=== PATIENT | male | born 1945 | race Caucasian/White ===

== ENCOUNTER → 2017-06-20 14:34 | Outpatient (REF) | payer MEDICARE, MEDICAID, SELFPAY ==
[2017-06-20 16:53] LABS: Erythrocyte Sedimentation Rate 22 mm/hr (0-20)
== END ==
LOC: LAB 14:34
PROVIDERS: Visit Provider Emergency Medicine
DX: R51 Headache (principal)
CPT/HCPCS: 85651

== ENCOUNTER → 2017-07-08 13:39 | Outpatient (REF) | payer MEDICARE, MEDICAID, SELFPAY | LOC: LAB 13:39 | PROVIDERS: Visit Provider Emergency Medicine | DX: R05 Cough (principal); R50.9 Fever, unspecified | CPT/HCPCS: 87275; 87276 ==

== ENCOUNTER → 2017-10-10 03:20 | Outpatient (REF) | payer MEDICARE, MEDICAID, SELFPAY | LOC: LAB 03:20 | PROVIDERS: Visit Provider Emergency Medicine | DX: L02.213 Cutaneous abscess of chest wall (principal) | CPT/HCPCS: 87070; 87077; 87205 ==

== ENCOUNTER → 2018-01-02 12:15 | Outpatient (REF) | payer MEDICARE, MEDICAID, SELFPAY ==
[2018-01-02 12:21] LABS: Microscopic, Urine URINE MICROSCOPIC (MICROSCOPIC)
[2018-01-02 12:36] LABS: Appearance,Urine CLOUDY (Clear); Bilirubin,Urine Negative (Negative); Blood, Urine 2+ (Negative); Color,Urine YELLOW (Yellow); Glucose,Urine (UA) Negative (Negative); Ketones,Urine Negative (Negative); Leukocyte Esterase,Urine 1+ (Negative); Nitrate,Urine POSITIVE (Negative); PH,Urine 6.5 (5.0-8.5); Protein,Urine 2+ (Negative); Specific Gravity, Urine 1.025 (1.005-1.030); Urobilinogen,Urine 0.2 EU/dl (0.2)
[2018-01-02 12:52] LABS: Bacteria,Urine 4+ /lpf; WBC,Urine TNTC #/hpf (0-3)
[2018-01-02 13:16] LABS: Basophils % 0.3 % (0.1-2.0); Eosinophils # 0.1 K/mm3 (0.0-0.4); Eosinophils % 1.1 % (0.1-12.0); Hematocrit 40.9 % (42.0-52.0); Hemoglobin 13.2 g/dL (14.1-18.0); Lymphocytes # 1.4 K/mm3 (0.7-4.5); Lymphocytes % 24.6 K/mm3 (10-50); Mean Corpuscular HGB Conc 32.2 g/dL (31.8-35.4); Mean Corpuscular Hemoglobin 30.3 pg (27.0-31.2); Mean Platelet Volume 9.1 fl (7.4-10.4); Monocytes # 0.2 K/mm3 (0.1-1.0); Neutrophils # 3.9 K/mm3 (1.8-7.8); Platelet Count 272 K/mm3 (142-424); Red Blood Count 4.35 M/mm3 (4.60-6.20); Red Cell Distribution Width 13.7 % (11.5-17.5); White Blood Count 5.5 K/mm3 (4.8-10.8)
[2018-01-02 13:28] LABS: Alanine Aminotransferase 29 U/L (12-78); Albumin Level 3.4 gm/dL (3.4-5.0); Albumin/Globulin Ratio 0.9 (1.1-1.8); Alkaline Phosphatase 92 U/L (46-116); Anion Gap 16.3 mEq/L (5-15); Aspartate Amino Transferase 15 U/L (15-37); Bilirubin,Total 0.4 mg/dL (0.2-1.0); Blood Urea Nitrogen 11 mg/dL (7-18); Calcium 8.6 mg/dL (8.5-10.1); Carbon Dioxide 25 mmol/L (21.0-32.0); Chloride 104 mmol/L (98-107); Creatinine,Serum 1.06 mg/dL (0.70-1.30); Estimated Glomerular Filt Rate 69 ml/min (>60); GFR (African American) 83 ML/MIN (>60); Globulin 3.7 gm/dl (1.3-3.2); Glucose 141 mg/dL (74-106); Potassium 4.3 mmoL/L (3.5-5.1); Sodium 141 mmol/L (136-145); T4 (Thyroxine) 6.4 ug/dl (4.7-13.3); Thyroid Stimulating Hormone 0.58 uIU/ml (0.358-3.740); Total Protein,Serum 7.1 gm/dL (6.4-8.2)
[2018-01-02 14:27] LABS: Erythrocyte Sedimentation Rate 42 mm/hr (0-20)
== END ==
LOC: LAB 12:15
PROVIDERS: Visit Provider Emergency Medicine
DX: D64.9 Anemia, unspecified (principal); N39.0 Urinary tract infection, site not specified; I25.10 Atherosclerotic heart disease of native coronary artery without angina pectoris; E78.5 Hyperlipidemia, unspecified
CPT/HCPCS: 36415; 80053; 81001; 84436; 84443; 85025; 85651; 87086; 87088; 87186

== ENCOUNTER → 2018-01-18 19:33 | Outpatient (CLI) | payer MEDICARE, MEDICAID, SELFPAY ==
[2018-01-18 19:50] LABS: Microscopic, Urine URINE MICROSCOPIC (MICROSCOPIC)
[2018-01-18 19:52] LABS: Appearance,Urine CLEAR (Clear); Bilirubin,Urine Negative (Negative); Blood, Urine Negative (Negative); Color,Urine YELLOW (Yellow); Glucose,Urine (UA) Negative (Negative); Ketones,Urine Negative (Negative); Leukocyte Esterase,Urine Negative (Negative); Nitrate,Urine Negative (Negative); Protein,Urine Negative (Negative); Urobilinogen,Urine 0.2 EU/dl (0.2)
== END ==
PROVIDERS: Visit Provider Emergency Medicine
DX: N39.0 Urinary tract infection, site not specified (principal)
CPT/HCPCS: 81001; 87086

== ENCOUNTER 2020-07-02 23:55 | Inpatient (IN) | payer MEDICAID, MEDICARE, SELFPAY ==
[2020-07-02 23:51] VITALS: BP 104/64; PULSE 97; RESP 18; TEMP 37.8; O2SAT 95; BMI 38.0
--- NOTE | 2020-07-02 23:51 | PC.NURSE ---
Pt placed in COVID precautions upon arrival.
[2020-07-03] VITALS (13 sets, daily range): BP systolic 81–123; BP diastolic 53–83; PULSE 87–122; RESP 15–19; TEMP 36.3–37.6; O2SAT 90–97; BMI 27.8; BMI 27.7
[2020-07-03 00:33] LABS: POC Glucose,Bedside 120 (70-110)
--- NOTE | 2020-07-03 00:34 | CT_ITS ---
PROCEDURE: CT ABDOMEN PELVIS W CON CLINICAL INDICATION: vomiting Vomiting, Covid19 positive COMPARISON: CT ABDPELW/O CT ABD PELVIS W/O CONTRAST from 08/04/2014 TECHNIQUE: IV Contrast: 75ML Isovue 370 Oral Contrast None Axial images obtained with sagittal and coronal reformats. All CT scans at the facility use one or more dose reduction, viz: automated exposure control, ma/kV adjustment per patient size (including targeted exams where dose is matched to indication, i.e. head), or iterative reconstruction technique. FINDINGS: The patient was only able to lay on left side for the scan. This limits evaluation of the abdomen and pelvis. There are mild atelectatic changes in the right lung base and dependent atelectatic changes on the left. 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 Two cm right renal cyst. Cholelithiasis. The liver is unremarkable. There is splenomegaly at 14 cm. There is a fusiform abdominal aortic aneurysm measuring up to 5.7 cm AP and 5.6 cm transverse previously 4.4 x 4.4 cm. There is a moderate degree of mural thrombus with some calcification of the mural thrombus. The aneurysm begins just below the level of the renal arteries and extends to the aortic bifurcation. No evidence of acute retroperitoneal hemorrhage. No intestinal obstruction or free air. There is a mild degree retained colonic feces. No intestinal obstruction or free air. No evidence of appendicitis or diverticulitis there is a Felton catheter present. Urinary bladder is severely thickened with air-fluid levels in the urinary bladder. There is a 5 cm fluid collection along the superior and right aspect of the urinary bladder may be due to a diverticulum. There is an old fracture of the right ilium IMPRESSION: 1. Large left-sided diaphragmatic hernia with intrathoracic stomach and contains portion of the pancreas. 2. Cholelithiasis. 3. Interval increase in size of the abdominal aortic aneurysm now 5.7 x 5.6 cm previously 4.4 x 4.4 cm. No evidence of acute retroperitoneal hemorrhage. 4. Decompressed urinary bladder around Felton catheter with marked thickening and reticulation of the bladder wall which may be seen with neoplasm, chronic outflow obstruction, cystitis or a combination there of. Bladder diverticulum also noted. 5. Moderate amount of retained colonic feces Dictated by: Marvin Keller MD 07/03/2020 07:01 Marvin Keller MD in [place] 07/03/2020 07:01
--- NOTE | 2020-07-03 00:34 | XR_ITS ---
PROCEDURE: XR CHEST PORTABLE CLINICAL HISTORY: COIVD + COMPARISON: CT [facility] CT CHEST W/O CONTRAST from 05/28/2016 CR CXR1 CHEST-PORTABLE from 09/16/2016 CR CXR CHEST(2 VIEWS-NOT PORTABLE) from 09/16/2016 CR CXR CHEST(2 VIEWS-NOT PORTABLE) from 09/17/2016 FINDINGS: Study is limited in patient positioning. Patient was unable to lie on their so exam was performed with the left lateral decubitus position Chronic interstitial changes are present. There is normal heart size. There is increased density in the left mid lung zone. It is uncertain whether this is due to atelectatic changes from the dependent position of the left lung or underlying infiltrate. Right lateral decubitus exam may provide further evaluation. The chin obscures the upper mediastinum and lung apices. No acute bony abnormalities. IMPRESSION: Limited exam due to patient positioning. There is increased density in the left mid lung zone. It is uncertain whether this is due to atelectatic changes from the dependent position of the left lung or underlying infiltrate. Right lateral decubitus exam may provide further evaluation if the patient cannot lie on the back or sit upright. Dictated by: Marvin Keller MD 07/03/2020 06:03 Marvin Keller MD in [facility] 07/03/2020 06:03
--- NOTE | 2020-07-03 00:35 | HMH.EDAMS ---
ED Disposition Clinical Impression: COVID-19 virus detected, Abdominal aortic aneurysm, without rupture, Essential (primary) hypertension, Renal insufficiency COPD (chronic obstructive pulmonary disease) Qualifiers: COPD type: unspecified COPD Qualified Code(s): J44.9 - Chronic obstructive pulmonary disease, unspecified UTI (urinary tract infection) Qualifiers: Urinary tract infection type: site unspecified Hematuria presence: without hematuria Qualified Code(s): N39.0 - Urinary tract infection, site not specified Diaphragmatic hernia Qualifiers: Obstruction and gangrene presence: without obstruction or gangrene Qualified Code(s): K44.9 - Diaphragmatic hernia without obstruction or gangrene Schizophrenia Qualifiers: Schizophrenia type: unspecified Qualified Code(s): F20.9 - Schizophrenia, unspecified Dysphagia Qualifiers: Dysphagia type: unspecified Qualified Code(s): R13.10 - Dysphagia, unspecified Cholelithiasis Qualifiers: Cholelithiasis location: gallbladder Cholecystitis presence: without cholecystitis Biliary obstruction: without biliary obstruction Qualified Code(s): K80.20 - Calculus of gallbladder without cholecystitis without obstruction Disposition: Admitted As Inpatient Condition on Discharge: Serious Instructions: DI for Altered Mental Status Referrals: Scottie Farah MD [Primary Care Provider] - - Critical Care Critical Care Time: No Attestation: On 07/02/20, the high probability of a clinically significant, sudden or life threatening deterioration of the following system(s) required my full and direct attention, intervention and personal management. The time I documented below is in addition to time spent performing reported procedures but includes the following listed in this critical care notation. Medical Decision Making - Medical Records Medical records reviewed: Yes: I reviewed the patient's medical records. - Tre Inquiry Pt receiving controlled substance: No Vital Signs: 07/02/20 23:51 07/03/20 00:30 07/03/20 01:00 Temperature 100.1 F H Temperature Source Rectal Pulse Rate [Apical] 97 H 102 H 87 Respiratory Rate 18 17 17 Blood Pressure [Right Arm] 104/64 L 100/63 L 81/53 L Blood Pressure Mean [Right Arm] 77 75 62 Blood Pressure Source [Right Arm] Automatic Cuff Automatic Cuff Automatic Cuff Blood Pressure Position [Right Arm] Supine Left Lateral Left Lateral 02 Sat by Pulse Oximetry 95 90 L 92 L Oxygen Delivery Method Room Air Room Air Room Air Oxygen Flow Rate (LPM) 07/03/20 01:30 07/03/20 02:00 Temperature Temperature Source Pulse Rate [Apical] 108 H 96 H Respiratory Rate 15 17 Blood Pressure [Right Arm] 107/61 L 96/63 L Blood Pressure Mean [Right Arm] 76 74 Blood Pressure Source [Right Arm] Automatic Cuff Automatic Cuff Blood Pressure Position [Right Arm] Left Lateral Supine 02 Sat by Pulse Oximetry 94 L 96 Oxygen Delivery Method Room Air Nasal Cannula Oxygen Flow Rate (LPM) 3 - Lab Data Lab results reviewed: Yes: I reviewed the patient's lab results. Lab Results 07/03/20 00:10: Chlamy pneumoniae PCR Not detected, Adenovirus (PCR) Not detected, B. pertussis DNA (PCR) Not detected, Coronavirus OC43 (PCR) Not detected, Coronavirus HKU1 (PCR) Not detected, Coronavirus 229E (PCR) Not detected, SARS-CoV-2 (PCR) Detected A, Coronavirus NL63 (PCR) Not detected, Human Metapneumovir PCR Not detected, Influenza A (H1) PCR Not detected, Influ A (H1N1/09) PCR Not detected, Influenza A (H3) PCR Not detected, Influenza Type A (PCR) Not detected, Influenza Type B (PCR) Not detected, M. pneumoniae (PCR) Not detected, Parainfluenza 1 (PCR) Not detected, Parainfluenza 2 (PCR) Not detected, Parainfluenza 3 (PCR) Not detected, Parainfluenza 4 (PCR) Not detected, RSV (PCR) Not detected, Entero/Rhino (PCR) Not detected 07/03/20 00:19: Urine Color Yellow, Urine Appearance Cloudy, Urine pH >= 9.0 H, Ur Specific [place] 1.015, Urine Protein 3+, Urine Glucose (UA) Negative,
[2020-07-03 00:44] LABS: Adenovirus,PCR Not Detected (NotDetected); Bordetella Pertussis Not Detected (NotDetected); Chlamydophila Pneumoniae, PCR Not Detected (NotDetected); Coronavirus 229E Not Detected (NotDetected); Coronavirus NL63 Not Detected (NotDetected); Coronavirus OC43 Not Detected (NotDetected); Coronovirus HKU1,PCR Not Detected (NotDetected); Human Metapneumovirus Not Detected (NotDetected); Influenza A, PCR Not Detected (NotDetected); Influenza AH1, 2009 Not Detected (NotDetected); Influenza AH1, PCR Not Detected (NotDetected); Influenza AH3,PCR Not Detected (NotDetected); Influenza B, PCR Not Detected (NotDetected); Mycoplasma Pneumoniae, PCR Not Detected (NotDetected); Parainfluenza 1, PCR Not Detected (NotDetected); Parainfluenza 2, PCR Not Detected (NotDetected); Parainfluenza 3, PCR Not Detected (NotDetected); Parainfluenza 4, PCR Not Detected (NotDetected); Respiratory Syncytial Virus Not Detected (NotDetected); Rhinovirus/Enterovirus Not Detected (NotDetected)
[2020-07-03 00:49] LABS: Basophils % 0.3 % (0.1-2.0); Eosinophils % 0.1 % (0.1-12.0); Hematocrit 39.2 % (42.0-52.0); Hemoglobin 13.3 g/dL (14.1-18.0); Lymphocytes # 0.8 K/mm3 (0.7-4.5); Lymphocytes % 11.6 % (10-50); Mean Corpuscular HGB Conc 33.9 g/dL (31.8-35.4); Mean Corpuscular Hemoglobin 31.2 pg (27.0-31.2); Mean Platelet Volume 8.1 fl (7.4-10.4); Monocytes # 0.5 K/mm3 (0.1-1.0); Neutrophils # 5.2 K/mm3 (1.8-7.8); Platelet Count 212 K/mm3 (142-424); Red Blood Count 4.27 M/mm3 (4.60-6.20); White Blood Count 6.5 K/mm3 (4.8-10.8)
[2020-07-03 00:53] LABS: Microscopic, Urine URINE MICROSCOPIC (MICROSCOPIC)
[2020-07-03 00:57] LABS: Alanine Aminotransferase 21 U/L (12-78); Albumin Level 4.3 g/dl (3.5-5.0); Albumin/Globulin Ratio 1.2 (1.1-1.8); Alkaline Phosphatase 108 U/L (38-126); Anion Gap 14.9 mEq/L (5-15); Aspartate Amino Transferase 34 U/L (17-59); Bilirubin,Total 0.5 mg/dl (0.2-1.3); Blood Urea Nitrogen 25 mg/dl (9-20); Calcium 9.3 mg/dl (8.4-10.2); Carbon Dioxide 26 mmol/L (22.0-30.0); Chloride 102 mmol/L (98-107); Creatinine Clearance Estimated 74 mL/min (50-200); Estimated Glomerular Filt Rate 50 ml/min (>60); GFR (African American) 60 ML/MIN (>60); Globulin 3.5 g/dL (1.3-3.2); Glucose 139 mg/dl (74-100); Potassium 3.9 mmoL/L (3.5-5.1); Sodium 139 mmol/L (136-145); Total Protein,Serum 7.8 g/dl (6.3-8.2)
[2020-07-03 01:02] LABS: C-Reactive Protein 4.6 mg/L (0-4)
[2020-07-03 01:05] LABS: Salicylate < 1.0 mg/dL (2.0-20.0)
[2020-07-03 01:10] LABS: Appearance,Urine CLOUDY (Clear); Bilirubin,Urine Negative (Negative); Blood, Urine TRACE-I (Negative); Color,Urine YELLOW (Yellow); Glucose,Urine (UA) Negative (Negative); Ketones,Urine Negative (Negative); Leukocyte Esterase,Urine 1+ (Negative); Nitrate,Urine Negative (Negative); Protein,Urine 3+ (Negative); Specific Gravity, Urine 1.015 (1.005-1.030); Urobilinogen,Urine 0.2 EU/dl (0.2)
[2020-07-03 01:13] LABS: PH,Urine >= 9.0 (5.0-8.5)
[2020-07-03 01:16] LABS: Procalcitonin 0.048 ng/mL (0.0-2.0)
[2020-07-03 01:20] LABS: Barbiturates Screen,Urine Negative ng/ml (<200); Benzodiazepines Screen,Urine Negative ng/ml (<200)
[2020-07-03 01:21] LABS: Amphetamine/Metha Screen,Urine Negative ng/ml (<1000)
[2020-07-03 01:22] LABS: Bacteria,Urine 4+ /lpf; Cannabinoid Screen,Urine Negative ng/ml (<50); Cocaine Screen,Urine Negative ng/ml (<300)
[2020-07-03 01:23] LABS: Opiate Screen,Urine Negative ng/ml (<300); Phencyclidine Screen,Urine Negative ng/ml (<25)
[2020-07-03 01:24] LABS: Erythrocyte Sedimentation Rate 26 mm/hr (0-20)
--- NOTE | 2020-07-03 01:37 | ECG_ITS ---
APPROVED REPORT Exam: Resting ECG HR:116 bpm ECG Measurements Heart Rate 116 AXES NC 172 P 64 QRSd 82 QRS 81 QT 322 T 59 QTc 447 Conclusion Sinus tachycardia Septal infarct, age undetermined Abnormal ECG Electronically signed by : Nitin Neville, 07/03/2020 14:15:35
[2020-07-03 01:47] LABS: ABG Base Excess -3.9 mmol/L (-2.4-2.3); ABG HCO3 19.5 mmhg (22.0-26.0); ABG Oxygen Saturation 96 % (90-100); ABG PCO2 26.3 mmhg (35.0-45.0); ABG PH 7.49 mmol/L (7.35-7.45); ABG PO2 78.1 mmhg (80-100); ABG TCO2 20.3 mmhg (23-27)
[2020-07-03 01:50] LABS: Allen's Test Acceptable; Oxygen 3L %; Source Left Radial
--- NOTE | 2020-07-03 02:13 | PC.NURSE ---
Pt has remained on room air since arriving.
--- NOTE | 2020-07-03 02:14 | PC.NURSE ---
Carrie called and was given update on pt status.
--- NOTE | 2020-07-03 02:17 | PC.NURSE ---
corrected oxygen source. pt was only placed on nasal cannula CO2 detection. no oxygen being used.
[2020-07-03 02:27] LABS: Troponin I < 0.01 ng/ml (0.00-0.034)
[2020-07-03 04:07] LABS: Coronavirus 19, PCR Detected (NotDetected)
[2020-07-03 04:59] LABS: Troponin I < 0.01 ng/ml (0.00-0.034)
--- NOTE | 2020-07-03 06:01 | PC.NURSE ---
patient up to floor via stretcher.
[2020-07-03 08:00] LABS: Basophils % 0.3 % (0.1-2.0); Hematocrit 37.4 % (42.0-52.0); Hemoglobin 12.3 g/dL (14.1-18.0); Lymphocytes # 1.2 K/mm3 (0.7-4.5); Lymphocytes % 25.2 % (10-50); Mean Corpuscular HGB Conc 32.9 g/dL (31.8-35.4); Mean Corpuscular Hemoglobin 30.3 pg (27.0-31.2); Mean Corpuscular Volume 91.9 fl (80-94); Mean Platelet Volume 7.8 fl (7.4-10.4); Monocytes # 0.4 K/mm3 (0.1-1.0); Monocytes % 8.1 % (1.7-9.3); Neutrophils # 3.2 K/mm3 (1.8-7.8); Neutrophils % 66.4 % (37.0-80.0); Platelet Count 189 K/mm3 (142-424); Red Blood Count 4.07 M/mm3 (4.60-6.20); Red Cell Distribution Width 14.2 % (11.5-17.5); White Blood Count 4.8 K/mm3 (4.8-10.8)
--- NOTE | 2020-07-03 08:19 | P.CONPHA_ITS ---
[facility] Pharmacy VTE Monitoring - Patient Demographics Admission date: 07/03/20 Report Date: 07/03/20 Time: 08:19 Allergies/Adverse Reactions: Patient Allergies No Known Allergies Allergy (Verified 06/24/20 15:06) Height: 1.73 m Weight: 83.149 kg Patient Problems: Current Active Problems COVID-19 virus detected (Acute) UTI (urinary tract infection) (Acute) Diaphragmatic hernia (Acute) Schizophrenia (Acute) Renal insufficiency (Acute) Dysphagia (Acute) Cholelithiasis (Acute) Abdominal aortic aneurysm, without rupture (Chronic) Essential (primary) hypertension (Chronic) COPD (chronic obstructive pulmonary disease) (Chronic) - VTE Risk Labs: VTE Related Lab Results Hgb 12.3 g/dL (14.1-18.0) L 07/03/20 06:30 Hct 37.4 % (42.0-52.0) L 07/03/20 06:30 Plt Count 189 K/mm3 (142-424) 07/03/20 06:30 BUN 25 mg/dl (9-20) H 07/03/20 00:28 Creatinine 1.40 mg/dl (0.66-1.25) H 07/03/20 00:28 Estimated Creat Clear 74 mL/min (50-200) 07/03/20 00:28 Was VTE Risk Assessment Performed: Yes VTE Score: 5 VTE Risk Level: Low Risk Clinical Trial Participant: No - Prophylaxis VTE Prophylaxis Ordered?: Yes Types of VTE Prophylaxis: TEDS Knee High, Pharmacological Pharmacologic Type: Enoxaparin
[2020-07-03 08:27] LABS: Alanine Aminotransferase 18 U/L (12-78); Albumin Level 3.6 g/dl (3.5-5.0); Albumin/Globulin Ratio 1.2 (1.1-1.8); Alkaline Phosphatase 84 U/L (38-126); Anion Gap 12.6 mEq/L (5-15); Aspartate Amino Transferase 43 U/L (17-59); Bilirubin,Total 0.4 mg/dl (0.2-1.3); Blood Urea Nitrogen 21 mg/dl (9-20); Calcium 8.4 mg/dl (8.4-10.2); Carbon Dioxide 22 mmol/L (22.0-30.0); Chloride 109 mmol/L (98-107); Creatinine Clearance Estimated 69 mL/min (50-200); Estimated Glomerular Filt Rate 65 ml/min (>60); GFR (African American) 79 ML/MIN (>60); Glucose 123 mg/dl (74-100); Potassium 3.6 mmoL/L (3.5-5.1); Sodium 140 mmol/L (136-145); Total Protein,Serum 6.6 g/dl (6.3-8.2)
--- NOTE | 2020-07-03 09:06 | HMH.PHAINT ---
HOME MEDICATION LIST COMPLETED USING LIST FROM [facility]
--- NOTE | 2020-07-03 09:08 | HMH.HP ---
*Admission Date: 07/03/20 *Chief complaint: ams *History of present illness: 75 yr old male presents to ed per EMS for c/o of ams.EMS reports AMS with onset today. half-way reports positive COVID to EMS. Pt is difficult to arouse, but does arouse when name is called. pt admitted for uti and covid pos. [facility] History I have reviewed the patient's past medical history: Yes Medical History: Reports:: Aneurysm, Anxiety, Asthma, Chronic Obstructive Pulmonary Disease (COPD), Coronary Artery Disease, Dementia, Hyperlipidemia, Hypertension Denies:: Diabetes Mellitus Type 1, Diabetes Mellitus Type 2 *Have you ever received a pneumonia vaccine?: Yes *Have you received a flu vaccine this season?: No Other Medical History: Reports: Anemia, Arthritis, Cataracts Laterality Cases: Bilateral: Tonsillectomy Other Surgeries: Yes: Hernia Repair, Sinus Surgery, Other - *Social History Smoking Status: Smoker, status unknown Alcohol Intake: never Alcohol Intake Frequency:: other *Occupational Status:: disabled Housing: [facility] *Travel in the last 8 weeks: None - Psychiatric History Pschychiatric History:: Reports:: Anxiety Family Hx:: Unable to obtain Review of Systems - Review of Systems Review of systems:: pertinent systems reviewed and negative unless documented below - Constitutional Denies body ache(s) - Eyes Denies blurry vision - ENT Denies bleeding gums, Denies nose pain - *Cardiovascular Denies chest pain at rest - *Respiratory Denies cough - *Gastrointestinal Denies nausea, Denies vomiting - *Genitourinary Denies urinary frequency - *Musculoskeletal Denies joint pain - Integumentary/Breasts Denies rash - *Neurologic Denies dizziness - Psychiatric Denies anxiety - Endocrine Denies flushing - Hematologic/Lymphatic Denies enlarged lymph nodes - Allergic/Immunologic Denies itchy eyes Meds Home Medications Medication Instructions Recorded Confirmed Type acetaminophen 500 mg capsule 500 mg PO Q4H PRN 07/14/17 07/03/20 History finasteride 5 mg tablet 5 mg PO DAILY 07/14/17 07/03/20 History folic acid 1 mg tablet 1 mg PO DAILY 07/14/17 07/03/20 History mecobalamin (vitamin B12) 1,000 1,000 mcg SUBLINGUAL HS 07/14/17 07/03/20 History mcg disintegrating tablet,sublingual multivitamin 1 tab PO DAILY 07/14/17 07/03/20 History ondansetron 4 mg disintegrating 4 mg PO Q6H PRN 07/14/17 07/03/20 History tablet pantoprazole 40 mg tablet,delayed 40 mg PO HS 07/14/17 07/03/20 History release metoprolol tartrate 25 mg tablet 12.5 mg PO BID tab 07/15/17 07/03/20 History atorvastatin 20 mg tablet 20 mg PO HS tab 02/10/18 07/03/20 History loratadine 10 mg tablet 10 mg PO DAILY tab 02/10/18 07/03/20 History sennosides 8.6 mg-docusate sodium 1 tab PO BID tab 02/10/18 07/03/20 History 50 mg tablet Acetaminophen [Acetaminophen Extra 500 mg PO HS 07/03/20 07/03/20 History Strength] Ascorbic Acid [Vitamin C] 500 mg PO QID 07/03/20 07/03/20 History Azithromycin [Z-Murali 250mg Tab*] 500 mg PO DAILY 07/03/20 07/03/20 History Cholecalciferol (Vitamin D3) 50,000 unit PO WEEKLY 07/03/20 07/03/20 History [Vitamin D3 50,000 unit Cap] Ibuprofen [Ibuprofen 400mg 400 mg PO HS 07/03/20 07/03/20 History Tablet] LORazepam [Lorazepam] 0.5 mg PO BID 07/03/20 07/03/20 History Loperamide HCl [Loperamide] 2 mg PO Q4HP PRN 07/03/20 07/03/20 History Mag Hydrox/Aluminum Hyd/Simeth 30 ml PO Q2HP PRN 07/03/20 07/03/20 History [Mylanta Maximum Strength Liq] Quetiapine Fumarate [Quetiapine 200 mg PO HS 07/03/20 07/03/20 History Fumarate ER] Quetiapine Fumarate [Seroquel 25mg 25 mg PO 0700,1200 07/03/20 07/03/20 History tablet] Sucralfate [Sucralfate 1gm 1 gm PO TIDWM 07/03/20 07/03/20 History Tab] Zinc 50 mg PO DAILY 07/03/20 07/03/20 History guaiFENesin [Chest Congestion 10 ml PO Q6HP PRN 07/03/20 07/03/20 History Relief] Allergies Allergy/AdvReac Type Severity Reactio
[2020-07-03 09:09] LABS: Troponin I < 0.01 ng/ml (0.00-0.034)
--- NOTE | 2020-07-03 09:34 | DIET.NUTRFU ---
Confirmed with Attalla pt is on soft mechanical diet with nectar thickened liquids there dt dysphagia.
--- NOTE | 2020-07-03 10:14 | SW/DCPLANNER ---
Addendum entered by Wendie Duvall 07/05/20 09:30: This patient will discharge back to [facility] today: I called and informed Laure with [facility]. Original Note: This patient currently resides at [facility]. I have spoke with Afsaneh at [facility] and she has stated that patient is [facility] level of care. I will follow up with Afsaneh once patient is medically stable for discharge.
--- NOTE | 2020-07-03 12:19 | PC.WOUNDNOTE ---
Wound Location: left hip stage I blanchable redness Length:2cm Width:2cm Depth:0 Undermining Y/N: no Tunneling cm: Granulation %: Slough/necrotic tissue %: Inflammation/swelling Y/N:no Pain and/or tenderness Y/N:no Exudate: n/a Serosanguinous Sanguinous Serosanguinous Seropurulent Purulent Color:n/a Clear Celsa Cloudy/milky Smiley Red Green Yellow Brown Ibanez Blue Consistency:n/a Thick Thin Amount:n/a None Scant Small Moderate Large Odor Y/N:no
--- NOTE | 2020-07-03 14:38 | HMH.PHAINT ---
AZITHROMYCIN WILL NOT BE ADDED. AT THIS TIME, PATIENT WILL STAY ON ROCEPHIN ONLY PER DR EGAN.
--- NOTE | 2020-07-03 16:39 | XR_ITS ---
PROCEDURE: XR PELVIS 1-2V CLINICAL INDICATION: FALL Posttraumatic pain COMPARISON: CR PELAP PELVIS AP ONLY from 10/11/[address] ABDOMEN PELVIS W CON from 07/03/2020 TECHNIQUE: XR Pelvis AP View FINDINGS: There is an old displaced fracture of the right hemipelvis. Bony union is noted along the lower aspect. The lateral aspect of the old fracture displaced inferiorly with a gap between the iliac crest superiorly. There are mild osteoarthritic changes of the hip. Felton catheter is present. IMPRESSION: Old healed right iliac fracture Dictated by: Marvin Keller MD 07/03/2020 17:45 Marvin Keller MD in [place] 07/03/2020 17:45
--- NOTE | 2020-07-03 16:45 | XR_ITS ---
PROCEDURE: XR LUMBAR SPINE 2-3V CLINICAL INDICATION: FALL Posttraumatic pain COMPARISON: No exams were available for comparison FINDINGS: No fracture or dislocation. No lytic or blastic change. There is normal mineralization. The joint spaces are well-preserved. No significant degenerative/arthritic changes. No erosive changes evident. Other findings:Multiple abdominal wall tacks are present in the mid abdominal region IMPRESSION: Negative lumbar spine Dictated by: Marvin Keller MD 07/03/2020 17:42 Marvin Keller MD in [facility] 07/03/2020 17:42
--- NOTE | 2020-07-03 20:49 | PC.NURSE ---
PATIENT NON VERBAL, WILL RESPOND A YES TO SOME QUESTIONS. LUNGS ARE DIMINISHED, SKIN PALE. PATIENT ATTEMPTED TO CLIMB OUT OF BED ON SEVERAL OCCASIONS. THIS RN REPEATEDLY EDUCATED PATIENT THE IMPORTANCE OF STAYING SAFE AND STAYING IN BED. PATIENT WAS UNABLE TO COMPREHEND. THIS RN ALONG WITH BILLY MARC WITNESS PATIENT FALL. MD AND JAVA J2EE ARCHITECT WERE NOTIFIED. XRAYS WERE ORDERED AND COMPLETED. NO FRACTURES NOTED. 0.5 MG OF ATIVAN Q 6HRS PRN FOR AGITATION WAS ORDERED WELL. PATIENT CONTINUED TO JUMP OUT OF BED, NO RECURRENT FALLS NOTED.
[2020-07-04] VITALS: BP 103/58; PULSE 121; RESP 17; TEMP 37.5; O2SAT 95
[2020-07-04 03:58] VITALS: BP 113/64; PULSE 108; RESP 22; TEMP 38; O2SAT 97
--- NOTE | 2020-07-04 04:45 | PC.NURSE ---
PT. UNABLE TO STATE NAME, , PLACE, OR YEAR. SAFETY MEASURES HAVE BEEN APPLIED, PT. HAS NOT ATTEMPTED TO GET OOB UNASSISTED THIS SHIFT. PT. TOLERATED HS PO MEDS CRUSHED. NO EPISODES OF NAUSEA, VOMITING, DIARRHEA. O2 SAT 95-97% ON RA. DIMINISHED LUNG SOUNDS T/O BILAT. Q2H T/R.
[2020-07-04 04:51] VITALS: BMI 26.7
[2020-07-04 08:00] VITALS: BP 117/45; PULSE 107; RESP 20; TEMP 37.8; O2SAT 95
--- NOTE | 2020-07-04 08:39 | HMH.ACPN2 ---
Internal Medicine - PN: Subj *Date: 07/04/20 *Time: 08:50 Interval history: 75-year-old male patient resting quietly in bed with eyes closed, he awakens to verbal stimuli. Voices no when asked if short of breath or chest pain. Urine cultures currently no growth at 24 hours. We will chest x-ray this morning and CT of chest with PE protocol. Awaiting a.m. lab work to be resulted and will review. Exam Vital signs and Labs for Last 24 Hours: Temp Pulse Resp BP Pulse Ox 100.4 F H 108 H 22 113/64 97 07/04/20 03:58 07/04/20 03:58 07/04/20 03:58 07/04/20 03:58 07/04/20 03:58 Laboratory Results - last 24 hr 07/03/20 04:19: Sodium 140, Potassium 3.6, Chloride 109 H, Carbon Dioxide 22, Anion Gap 12.6, BUN 21 H, Creatinine 1.10 D, Estimated Creat Clear 69, Estimated GFR 65, Est GFR ( Amer) 79 D, Glucose 123 H, Calcium 8.4, Total Bilirubin 0.4, AST 43 D, ALT 18, Alkaline Phosphatase 84, Total Protein 6.6, Albumin 3.6 D, Globulin 3.0, Albumin/Globulin Ratio 1.2 07/03/20 08:20: Troponin I < 0.01 I & O for Last 24 hours: Intake & Output 07/01/20 07/02/20 07/03/20 07/04/20 23:59 23:59 23:59 23:59 Intake Total 2049 / 2049 Output Total 2199 / 2199 500 / 500 Balance -150 / -150 -500 / -500 Weight 250 lb 182 lb 15.739 oz 176 lb 8 oz Microbiology Reports for the Last 24 Hours: Microbiology 07/03/20 00:19 Urine,Catheterized Urine Culture - Preliminary NO GROWTH AFTER 24 HOURS - Constitutional no acute distress - *Routine HEENT Exam Head: Present: normocephalic Eye: Present: EOMI ENT: Present: mucous membranes moist - *Routine Neck Exam Present: trachea midline. Absent: tenderness, tracheal deviation - *Routine Respiratory Exam Present: CTA bilaterally. Absent: accessory muscle use - *Routine Cardiovascular Exam Present: RRR, murmur. Absent: bradycardia - *Routine Abdominal Exam Present: soft, normoactive bowel sounds. Absent: tenderness, firm - *Routine Extremities Exam Present: full ROM, pulses intact. Absent: cyanosis, edema - *Routine Skin Exam Present: intact, dry, warm. Absent: cyanosis, erythema - *Routine Neurological Exam Present: alert, altered mental status - Routine Psychiatric Exam Present: unable to assess Assessment and Plan (1) COVID-19 virus detected Status: Acute Category: Medical Code(s): U07.1 - COVID-19 (2) Dysphagia Status: Acute Qualifiers: Dysphagia type: unspecified Qualified Code(s): R13.10 - Dysphagia, unspecified Category: Medical Code(s): R13.10 - Dysphagia, unspecified (3) Renal insufficiency Status: Acute Category: Medical Code(s): N28.9 - Disorder of kidney and ureter, unspecified (4) Schizophrenia Status: Acute Qualifiers: Schizophrenia type: unspecified Qualified Code(s): F20.9 - Schizophrenia, unspecified Category: Medical Code(s): F20.9 - Schizophrenia, unspecified (5) UTI (urinary tract infection) Status: Acute Qualifiers: Urinary tract infection type: site unspecified Hematuria presence: without hematuria Qualified Code(s): N39.0 - Urinary tract infection, site not specified Category: Medical Code(s): N39.0 - Urinary tract infection, site not specified (6) COPD (chronic obstructive pulmonary disease) Status: Chronic Qualifiers: COPD type: unspecified COPD Qualified Code(s): J44.9 - Chronic obstructive pulmonary disease, unspecified Category: Medical Code(s): J44.9 - Chronic obstructive pulmonary disease, unspecified (7) Essential (primary) hypertension Status: Chronic Category: Medical Code(s): I10 - Essential (primary) hypertension (8) Anxiety disorder, unspecified Status: Chronic Qualifiers: Category: Medical Code(s): F41.9 - Anxiety disorder, unspecified (9) CAD (coronary artery disease) Status: Chronic Qualifiers: Category: Medical Code(s): I25.10 - Atherosclero
--- NOTE | 2020-07-04 08:45 | XR_ITS ---
PROCEDURE: XR CHEST PORTABLE CLINICAL HISTORY: SOA Shortness of air, Covid19 positive COMPARISON: CT [facility] CT CHEST W/O CONTRAST from 05/28/2016 CR CXR CHEST(2 VIEWS-NOT PORTABLE) from 09/15/2016 CR CXR1 CHEST-PORTABLE from 09/16/2016 CR CXR CHEST(2 VIEWS-NOT PORTABLE) from 09/16/2016 CR CXR CHEST(2 VIEWS-NOT PORTABLE) from 09/17/2016 CR XR CHEST PORTABLE from 07/03/[address] ABDOMEN PELVIS W CON from 07/03/2020 FINDINGS: The cardiomediastinal silhouette and pulmonary vascularity are within normal limits. There is increased density in the left lung base consistent with a moderate-sized hiatal hernia. COPD changes. There is some faint increased density of the left lung compared to the right but may be related similar to previous exams. Skin fold artifact present in the left upper lobe to chronic changes IMPRESSION: No acute findings. Dictated by: Marvin Keller MD 07/04/2020 12:59 Marvin Keller MD in [facility] 07/04/2020 12:59
--- NOTE | 2020-07-04 08:48 | CT_ITS ---
PROCEDURE: CT ANGIO CHEST CLINCIAL INDICATION: COVID SOA Shortness of air, Covid19 positive COMPARISON: CT [facility] CT CHEST W/O CONTRAST from 05/28/2016 CR XR CHEST PORTABLE from 07/04/2020 TECHNIQUE: IV Contrast: 70ML Isovue 370 Axial images obtained with sagittal and coronal reformats. All CT scans at the facility use one or more dose reduction, viz: automated exposure control, ma/kV adjustment per patient size (including targeted exams where dose is matched to indication, i.e. head), or iterative reconstruction technique. FINDINGS: There is less than optimal pulmonary arterial opacification. There is no evidence central pulmonary embolus or saddle pulmonary embolus. The peripheral pulmonary arteries are not well opacified. Peripheral PEs cannot be excluded based on this exam. There were issues with patient cooperation and venous access. Exam could be repeated with appropriate venous access and patient cooperation. No evidence of aortic aneurysm. No mediastinal or hilar mass. 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 The gallbladder is distended with gallstones noted. There is an abdominal aortic aneurysm which is incompletely imaged and measures up to 5 cm in AP dimension. COPD with centrilobular and paraseptal emphysema. There is motion artifact which does obscure fine detail. Atelectatic changes are present in the left lower lobe. There is some fibrotic change in the left upper lobe anteriorly. Coronary artery calcifications are present. There is severe thoracic kyphosis in the upper thoracic spine IMPRESSION: 1. Limited pulmonary artery opacification. No central pulmonary embolus evident. Cannot adequately evaluate the peripheral pulmonary arteries due to bolus timing/bolus volume and patient motion. 2. Large left-sided diaphragmatic hernia with mild left lower lobe atelectatic or fibrotic change. 3. No changes to suggest Covid19 pneumonia 4. Severe thoracic kyphosis. 5. Cholelithiasis. 6. Abdominal aortic aneurysm incompletely imaged Dictated by: Marvin Keller MD 07/04/2020 16:19 Marvin Keller MD in [place] 07/04/2020 16:19
[2020-07-04 09:31] LABS: Basophils % 0.1 % (0.1-2.0); Hematocrit 37.2 % (42.0-52.0); Hemoglobin 12.2 g/dL (14.1-18.0); Lymphocytes # 1.5 K/mm3 (0.7-4.5); Lymphocytes % 22.1 % (10-50); Mean Corpuscular HGB Conc 32.8 g/dL (31.8-35.4); Mean Corpuscular Hemoglobin 30.5 pg (27.0-31.2); Mean Platelet Volume 7.6 fl (7.4-10.4); Monocytes # 0.5 K/mm3 (0.1-1.0); Monocytes % 7.5 % (1.7-9.3); Neutrophils # 4.8 K/mm3 (1.8-7.8); Neutrophils % 70.3 % (37.0-80.0); Platelet Count 221 K/mm3 (142-424); Red Cell Distribution Width 14.3 % (11.5-17.5); White Blood Count 6.9 K/mm3 (4.8-10.8)
[2020-07-04 09:42] LABS: Chloride 112 mmol/L (98-107); Potassium 3.4 mmoL/L (3.5-5.1); Sodium 145 mmol/L (136-145)
[2020-07-04 09:45] LABS: Alanine Aminotransferase 23 U/L (12-78); Albumin Level 3.9 g/dl (3.5-5.0); Albumin/Globulin Ratio 1.2 (1.1-1.8); Alkaline Phosphatase 86 U/L (38-126); Anion Gap 12.4 mEq/L (5-15); Aspartate Amino Transferase 42 U/L (17-59); Bilirubin,Total 0.6 mg/dl (0.2-1.3); Blood Urea Nitrogen 19 mg/dl (9-20); Carbon Dioxide 24 mmol/L (22.0-30.0); Creatinine Clearance Estimated 61 mL/min (50-200); Estimated Glomerular Filt Rate 59 ml/min (>60); GFR (African American) 72 ML/MIN (>60); Globulin 3.3 g/dL (1.3-3.2); Glucose 100 mg/dl (74-100); Total Protein,Serum 7.2 g/dl (6.3-8.2)
--- NOTE | 2020-07-04 11:00 | HMH.PULMCON ---
*Admission Date: 07/03/20 *Reason for consult:: COVID-19 pneumonia. *History of present illness: Patient altered/demented, not responding appropriately verbal commands. Much of the history is obtained from the chart review. 25-year-old Patient was brought to the ED with altered mentation and was found to be COVID-19 positive and during the work-up patient x-ray showed left lower lobe pulmonary infiltrate concerning for pneumonia and pulmonary was called for further management. [facility] History Medical History: Reports:: Aneurysm, Anxiety, Asthma, Chronic Obstructive Pulmonary Disease (COPD), Coronary Artery Disease, Dementia, Hyperlipidemia, Hypertension Denies:: Diabetes Mellitus Type 1, Diabetes Mellitus Type 2 *Have you ever received a pneumonia vaccine?: Yes *Have you received a flu vaccine this season?: No Other Medical History: Reports: Anemia, Arthritis, Cataracts Laterality Cases: Bilateral: Tonsillectomy Other Surgeries: Yes: Hernia Repair, Sinus Surgery, Other - *Social History Smoking Status: Smoker, status unknown Alcohol Intake: never Alcohol Intake Frequency:: other *Occupational Status:: disabled Housing: senior care *Travel in the last 8 weeks: None - Psychiatric History Pschychiatric History:: Reports:: Anxiety Family Hx:: Unable to obtain ROS - Review of Systems Review of systems:: unable to obtain Unable to obtain patient was altered not responding appropriately to verbal commands. Patient answering no for all possible questions including why asked him whats your name Meds Home Medications Medication Instructions Recorded Confirmed Type acetaminophen 500 mg capsule 500 mg PO Q4H PRN 07/14/17 07/03/20 History finasteride 5 mg tablet 5 mg PO DAILY 07/14/17 07/03/20 History folic acid 1 mg tablet 1 mg PO DAILY 07/14/17 07/03/20 History mecobalamin (vitamin B12) 1,000 1,000 mcg SUBLINGUAL HS 07/14/17 07/03/20 History mcg disintegrating tablet,sublingual multivitamin 1 tab PO DAILY 07/14/17 07/03/20 History ondansetron 4 mg disintegrating 4 mg PO Q6H PRN 07/14/17 07/03/20 History tablet pantoprazole 40 mg tablet,delayed 40 mg PO HS 07/14/17 07/03/20 History release metoprolol tartrate 25 mg tablet 12.5 mg PO BID tab 07/15/17 07/03/20 History atorvastatin 20 mg tablet 20 mg PO HS tab 02/10/18 07/03/20 History loratadine 10 mg tablet 10 mg PO DAILY tab 02/10/18 07/03/20 History sennosides 8.6 mg-docusate sodium 1 tab PO BID tab 02/10/18 07/03/20 History 50 mg tablet Acetaminophen [Acetaminophen Extra 500 mg PO HS 07/03/20 07/03/20 History Strength] Ascorbic Acid [Vitamin C] 500 mg PO QID 07/03/20 07/03/20 History Azithromycin [Z-Murali 250mg Tab*] 500 mg PO DAILY 07/03/20 07/03/20 History Cholecalciferol (Vitamin D3) 50,000 unit PO WEEKLY 07/03/20 07/03/20 History [Vitamin D3 50,000 unit Cap] Ibuprofen [Ibuprofen 400mg 400 mg PO HS 07/03/20 07/03/20 History Tablet] LORazepam [Lorazepam] 0.5 mg PO BID 07/03/20 07/03/20 History Loperamide HCl [Loperamide] 2 mg PO Q4HP PRN 07/03/20 07/03/20 History Mag Hydrox/Aluminum Hyd/Simeth 30 ml PO Q2HP PRN 07/03/20 07/03/20 History [Mylanta Maximum Strength Liq] Quetiapine Fumarate [Quetiapine 200 mg PO HS 07/03/20 07/03/20 History Fumarate ER] Quetiapine Fumarate [Seroquel 25mg 25 mg PO 0700,1200 07/03/20 07/03/20 History tablet] Sucralfate [Sucralfate 1gm 1 gm PO TIDWM 07/03/20 07/03/20 History Tab] Zinc 50 mg PO DAILY 07/03/20 07/03/20 History guaiFENesin [Chest Congestion 10 ml PO Q6HP PRN 07/03/20 07/03/20 History Relief] Allergies Allergy/AdvReac Type Severity Reaction Status Date / Time No Known Allergies Allergy Verified 06/24/20 15:06 Exam - Constitutional Constitutional:: Present: no acute distress, comfortable - Respiratory Exam Comments: Lungs clear except for decreased breath sounds in the left lower lung monreal - Cardiovascular Exam Cardiac:: Present: S1, S2 - GI Exam
[2020-07-04 12:00] VITALS: BP 95/57; PULSE 86; RESP 20; TEMP 37.4; O2SAT 94
--- NOTE | 2020-07-04 15:13 | PC.NURSE ---
RESPIRATORY CARE NOTE: 1515- PT WAS PROVIDED SPUTUM SPECIMEN CUP- PT UNABLE TO PROVIDE A SAMPLE AT THIS TIME.
--- NOTE | 2020-07-04 15:35 | HMH.CONS ---
*Admission Date: 07/03/20 *Reason for consult:: Traumatic Felton removal *History of present illness: Patient altered/demented, not responding appropriately verbal commands. Much of the history is obtained from the chart review. 25-year-old Patient was brought to the ED with altered mentation and was found to be COVID-19 positive and during the work-up patient x-ray showed left lower lobe pulmonary infiltrate concerning for pneumonia and pulmonary was called for further management. Patient is a 75-year-old white male admitted yesterday from local halfway. He has altered mentation and is noted to be Covid positive. Patient pulled his Felton catheter out earlier today and the nursing staff is unable to locate the tip of the catheter. It appears to be torn apart in the Felton balloon tip is not present. Patient is a bit wild and combative. He has not been able to pee yet but does not feel the urge reportedly. [facility] History Medical History: Reports:: Aneurysm, Anxiety, Asthma, Chronic Obstructive Pulmonary Disease (COPD), Coronary Artery Disease, Dementia, Hyperlipidemia, Hypertension Denies:: Diabetes Mellitus Type 1, Diabetes Mellitus Type 2 *Have you ever received a pneumonia vaccine?: Yes *Have you received a flu vaccine this season?: No Other Medical History: Reports: Anemia, Arthritis, Cataracts Laterality Cases: Bilateral: Tonsillectomy Other Surgeries: Yes: Hernia Repair, Sinus Surgery, Other - *Social History Smoking Status: Smoker, status unknown Alcohol Intake: never Alcohol Intake Frequency:: other *Occupational Status:: disabled Housing: halfway *Travel in the last 8 weeks: None - Psychiatric History Pschychiatric History:: Reports:: Anxiety Family Hx:: Unable to obtain Review of Systems - *Neurologic Denies dizziness Meds Home Medications Medication Instructions Recorded Confirmed Type acetaminophen 500 mg capsule 500 mg PO Q4H PRN 07/14/17 07/03/20 History finasteride 5 mg tablet 5 mg PO DAILY 07/14/17 07/03/20 History folic acid 1 mg tablet 1 mg PO DAILY 07/14/17 07/03/20 History mecobalamin (vitamin B12) 1,000 1,000 mcg SUBLINGUAL HS 07/14/17 07/03/20 History mcg disintegrating tablet,sublingual multivitamin 1 tab PO DAILY 07/14/17 07/03/20 History ondansetron 4 mg disintegrating 4 mg PO Q6H PRN 07/14/17 07/03/20 History tablet pantoprazole 40 mg tablet,delayed 40 mg PO HS 07/14/17 07/03/20 History release metoprolol tartrate 25 mg tablet 12.5 mg PO BID tab 07/15/17 07/03/20 History atorvastatin 20 mg tablet 20 mg PO HS tab 02/10/18 07/03/20 History loratadine 10 mg tablet 10 mg PO DAILY tab 02/10/18 07/03/20 History sennosides 8.6 mg-docusate sodium 1 tab PO BID tab 02/10/18 07/03/20 History 50 mg tablet Acetaminophen [Acetaminophen Extra 500 mg PO HS 07/03/20 07/03/20 History Strength] Ascorbic Acid [Vitamin C] 500 mg PO QID 07/03/20 07/03/20 History Azithromycin [Z-Murali 250mg Tab*] 500 mg PO DAILY 07/03/20 07/03/20 History Cholecalciferol (Vitamin D3) 50,000 unit PO WEEKLY 07/03/20 07/03/20 History [Vitamin D3 50,000 unit Cap] Ibuprofen [Ibuprofen 400mg 400 mg PO HS 07/03/20 07/03/20 History Tablet] LORazepam [Lorazepam] 0.5 mg PO BID 07/03/20 07/03/20 History Loperamide HCl [Loperamide] 2 mg PO Q4HP PRN 07/03/20 07/03/20 History Mag Hydrox/Aluminum Hyd/Simeth 30 ml PO Q2HP PRN 07/03/20 07/03/20 History [Mylanta Maximum Strength Liq] Quetiapine Fumarate [Quetiapine 200 mg PO HS 07/03/20 07/03/20 History Fumarate ER] Quetiapine Fumarate [Seroquel 25mg 25 mg PO 0700,1200 07/03/20 07/03/20 History tablet] Sucralfate [Sucralfate 1gm 1 gm PO TIDWM 07/03/20 07/03/20 History Tab] Zinc 50 mg PO DAILY 07/03/20 07/03/20 History guaiFENesin [Chest Congestion 10 ml PO Q6HP PRN 07/03/20 07/03/20 History Relief] Allergies Allergy/AdvReac Type Severity Reaction Status Date / Time No Known Allergies Allergy Verified 06/24/20 15:06 Exam
[2020-07-04 15:49] VITALS: BP 110/51; PULSE 97; RESP 22; TEMP 37.4; O2SAT 97
[2020-07-04 20:00] VITALS: BP 104/45; PULSE 103; RESP 20; TEMP 37.3; O2SAT 90
--- NOTE | 2020-07-04 20:22 | PC.NURSE ---
PATIENT IS ALERT TO SELF AND REALIZES HE IS NOT AT HIS HOME. LUNGS: RHONCHI HEARD, PULSES EQUAL. PATIENT PULLED OUT HIS FINE. THIS RN REPORTED FINDINGS TO SUNNY MORENO. NO NEW ORDERS. THIS RN RECEIVED A PHONE CALL FROM DR. CORNEJO. ORDERS TO RE INSERT A NEW FINE IF NO RESISTANCE FELT. THIS RN ALONG WITH THE ASSISTANCE OF ANOTHER RN AND 2 SRNA INSERTED A 16FR FINE. BRIGHT RED BLOOD FLOWED OUT. THIS RN FLUSHED CATHETER WITH 10ML NS FLUID. NO BLOOD CLOTS NOTED. PATIENT CONTINUES TO ATTEMPT TO GET OUT OF BED AND IS VERY QUICK IN DOING SO. NO OTHER CONCERNS AT THIS TIME.
[2020-07-05] VITALS: BP 106/50; PULSE 100; TEMP 36.7; O2SAT 97
[2020-07-05 04:00] VITALS: BP 90/70; PULSE 80; RESP 18; TEMP 36.6; O2SAT 96
--- NOTE | 2020-07-05 06:46 | PC.NURSE ---
pt has been climbing out of bed all night. requesting drinks all night. drinks have been given. wolf draining bloody urine. iv patent and infusing per order. pt oriented to self. requesting to go home. call light in reach. bed alarm on. vss. will continue to monitor
[2020-07-05 08:00] VITALS: BP 95/53; PULSE 110; RESP 20; TEMP 36.7; O2SAT 95
[2020-07-05 08:00] LABS: Basophils % 0.4 % (0.1-2.0); Hematocrit 34.3 % (42.0-52.0); Lymphocytes # 1.5 K/mm3 (0.7-4.5); Lymphocytes % 23.2 % (10-50); Mean Corpuscular HGB Conc 31.5 g/dL (31.8-35.4); Mean Corpuscular Hemoglobin 29.8 pg (27.0-31.2); Mean Corpuscular Volume 94.5 fl (80-94); Mean Platelet Volume 7.6 fl (7.4-10.4); Monocytes # 0.4 K/mm3 (0.1-1.0); Monocytes % 6.1 % (1.7-9.3); Neutrophils # 4.5 K/mm3 (1.8-7.8); Neutrophils % 70.3 % (37.0-80.0); Platelet Count 189 K/mm3 (142-424); Red Blood Count 3.63 M/mm3 (4.60-6.20); Red Cell Distribution Width 13.8 % (11.5-17.5); White Blood Count 6.4 K/mm3 (4.8-10.8)
[2020-07-05 08:02] LABS: Hemoglobin 10.8 g/dL (14.1-18.0)
[2020-07-05 08:12] LABS: Alanine Aminotransferase 27 U/L (12-78); Albumin Level 3.8 g/dl (3.5-5.0); Albumin/Globulin Ratio 1.3 (1.1-1.8); Alkaline Phosphatase 63 U/L (38-126); Anion Gap 11.7 mEq/L (5-15); Aspartate Amino Transferase 47 U/L (17-59); Bilirubin,Total 0.3 mg/dl (0.2-1.3); Blood Urea Nitrogen 22 mg/dl (9-20); Calcium 8.8 mg/dl (8.4-10.2); Carbon Dioxide 25 mmol/L (22.0-30.0); Chloride 110 mmol/L (98-107); Creatinine Clearance Estimated 67 mL/min (50-200); Estimated Glomerular Filt Rate 65 ml/min (>60); GFR (African American) 79 ML/MIN (>60); Glucose 115 mg/dl (74-100); Potassium 3.7 mmoL/L (3.5-5.1); Sodium 143 mmol/L (136-145); Total Protein,Serum 6.8 g/dl (6.3-8.2)
--- NOTE | 2020-07-05 09:20 | HMH.DCSUM ---
General - General Admission date:: 07/03/20 Discharge date: 07/05/20 HPI HPI: 75 yr old male presents to ed per EMS for c/o of ams.EMS reports AMS with onset today. longterm reports positive COVID to EMS. Pt is difficult to arouse, but does arouse when name is called. pt admitted for uti and covid pos. Hospital Course Hospital Course: 75-year-old male patient altered/demented, not responding appropriately verbal commands. Patient was brought to the ED with altered mentation and was found to be COVID-19 positive and during the work-up patient x-ray showed left lower lobe pulmonary infiltrate concerning for pneumonia. 07/03/20 Abd/Pelvis CT: IMPRESSION: 1. Large left-sided diaphragmatic hernia with intrathoracic stomach and contains portion of the pancreas. 2. Cholelithiasis. 3. Interval increase in size of the abdominal aortic aneurysm now 5.7 x 5.6 cm previously 4.4 x 4.4 cm. No evidence of acute retroperitoneal hemorrhage. 4. Decompressed urinary bladder around Felton catheter with marked thickening and reticulation of the bladder wall which may be seen with neoplasm, chronic outflow obstruction, cystitis or a combination there of. Bladder diverticulum also noted. 5. Moderate amount of retained colonic feces Dictated by: Krishna, 07/03/20 Pelvis XR: IMPRESSION: Old healed right iliac fracture Dictated by: Krishna 07/03/20 Lumbar Spine XR: IMPRESSION: Negative lumbar spine Dictated by: Krishna, 07/04/20 Chest CTA: FINDINGS: There is less than optimal pulmonary arterial opacification. There is no evidence central pulmonary embolus or saddle pulmonary embolus. The peripheral pulmonary arteries are not well opacified. Peripheral PEs cannot be excluded based on this exam. There were issues with patient cooperation and venous access. Exam could be repeated with appropriate venous access and patient cooperation. No evidence of aortic aneurysm. No mediastinal or hilar mass. 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 The gallbladder is distended with gallstones noted. There is an abdominal aortic aneurysm which is incompletely imaged and measures up to 5 cm in AP dimension. COPD with centrilobular and paraseptal emphysema. There is motion artifact which does obscure fine detail. Atelectatic changes are present in the left lower lobe. There is some fibrotic change in the left upper lobe anteriorly. Coronary artery calcifications are present. There is severe thoracic kyphosis in the upper thoracic spine IMPRESSION: 1. Limited pulmonary artery opacification. No central pulmonary embolus evident. Cannot adequately evaluate the peripheral pulmonary arteries due to bolus timing/bolus volume and patient motion. 2. Large left-sided diaphragmatic hernia with mild left lower lobe atelectatic or fibrotic change. 3. No changes to suggest Covid19 pneumonia 4. Severe thoracic kyphosis. 5. Cholelithiasis. 6. Abdominal aortic aneurysm incompletely imaged Dictated by: Krishna Urology has seen and recommends: Patient with traumatic Felton removal and possible retained portion of the Felton catheter. Discussed with the nurse that if he is not able to void. Felton balloon may be stuck in the prostatic urethra and placing a Felton catheter may be helpful to push it back but it is lodged Felton catheter probably will not push it back. Patient unable to void will need to set him up for cystoscopy in a more urgent basis but hopefully he will be able to void and we will set him up for cystoscopy and foreign body removal on . Pulmonology has seen and recommends: Plan: -Continue remdesivir until discharge, discontinue dexamethasone. -Continue ceftriaxone and azithromycin, can de-escalate to levofloxacin for total of 5 days for possible community-acquired pneumonia -DuoNebs every 6 hours as needed Blo
[2020-07-05 12:00] VITALS: BP 101/74; PULSE 79; RESP 18; TEMP 36.4; O2SAT 91
--- NOTE | 2020-07-05 12:52 | HMH.PULMPN ---
Internal Medicine - PN: Subj *Date: 07/05/20 *Time: 12:52 Interval history: No acute respiratory ones overnight. Patient remained on room air. Exam - Constitutional Constitutional:: Present: no acute distress, comfortable - Respiratory Exam Respiratory:: Present: lungs clear, normal breath sounds, no respiratory distress, normal respiratory effort Comments: Decreased breath sounds on the right lower lobe lung monreal. - Cardiovascular Exam Cardiac:: Present: S1, S2 - GI Exam GI:: Present: soft - Extremities Exam Extremities: Present: no cyanosis, no clubbing, no edema Assessment and Plan (1) COVID-19 virus detected Status: Acute Category: Medical Code(s): U07.1 - COVID-19 (2) Dysphagia Status: Acute Qualifiers: Dysphagia type: unspecified Qualified Code(s): R13.10 - Dysphagia, unspecified Category: Medical Code(s): R13.10 - Dysphagia, unspecified (3) Renal insufficiency Status: Acute Category: Medical Code(s): N28.9 - Disorder of kidney and ureter, unspecified (4) Schizophrenia Status: Acute Qualifiers: Schizophrenia type: unspecified Qualified Code(s): F20.9 - Schizophrenia, unspecified Category: Medical Code(s): F20.9 - Schizophrenia, unspecified (5) UTI (urinary tract infection) Status: Acute Qualifiers: Urinary tract infection type: site unspecified Hematuria presence: without hematuria Qualified Code(s): N39.0 - Urinary tract infection, site not specified Category: Medical Code(s): N39.0 - Urinary tract infection, site not specified (6) COPD (chronic obstructive pulmonary disease) Status: Chronic Qualifiers: COPD type: unspecified COPD Qualified Code(s): J44.9 - Chronic obstructive pulmonary disease, unspecified Category: Medical Code(s): J44.9 - Chronic obstructive pulmonary disease, unspecified (7) Essential (primary) hypertension Status: Chronic Category: Medical Code(s): I10 - Essential (primary) hypertension (8) Anxiety disorder, unspecified Status: Chronic Qualifiers: Category: Medical Code(s): F41.9 - Anxiety disorder, unspecified (9) CAD (coronary artery disease) Status: Chronic Qualifiers: Category: Medical Code(s): I25.10 - Atherosclerotic heart disease of [place] coronary artery without angina pectoris (10) Difficulty in walking, not elsewhere classified Status: Chronic Category: Medical Code(s): R26.2 - Difficulty in walking, not elsewhere classified (11) Unspecified dementia without behavioral disturbance Status: Chronic Qualifiers: Category: Medical Code(s): F03.90 - Unspecified dementia without behavioral disturbance (12) Felton catheter problem Status: Acute Category: Medical Code(s): T83.9XXA - Unspecified complication of genitourinary prosthetic device, implant and graft, initial encounter - Assessment and plan all Dx Assessment and Plan for all problems:: #COVID-19 pneumonia: # Community-acquired pneumonia: 75-year-old with unknown respiratory history presented with altered mentation and found to be tested positive for COVID-19 pneumonia.'s of the respiratory viral panel negative. Patient also found to have left lower lobe pulmonary infiltrate. CT abdomen showed large left-sided aggravating area with abdominal contents including part of his pancreas and gastrointestinal system and a thoracic cavity. The left lower lobe infiltrate noted on the chest x-ray can be result of the gastric contents in his chest. However cannot completely rule out underlying pneumonia. Patient does not appear to be in respiratory distress. Remained on room air at his hospital course. Auscultation revealed bilateral clear breath sounds except for decreased breath sounds in the left lower lobe. Plan: -Continue remdesivir until discharge, -Continue ceftriaxone and azithromycin, can de-escalate to levofloxacin for total of 5 days for possible community-acquired pneumo
== END 2020-07-05 15:43 | DRG 177 ==
LOC: ER 07-03 04:33 → 2ND 07-03 07:01
PROVIDERS: Nurse Practitioner Family; Admitting Provider Emergency Medicine; Emergency Provider Emergency Medicine; PCP Emergency Medicine; Visit Provider Emergency Medicine
DX: U07.1 COVID-19 (principal); J12.82 Pneumonia due to coronavirus disease 2019; F03.91 Unspecified dementia, unspecified severity, with behavioral disturbance; T83.118A Breakdown (mechanical) of other urinary devices and implants, initial encounter; J44.9 Chronic obstructive pulmonary disease, unspecified; F20.9 Schizophrenia, unspecified; I25.10 Atherosclerotic heart disease of native coronary artery without angina pectoris; I10 Essential (primary) hypertension; E78.5 Hyperlipidemia, unspecified
CPT/HCPCS: 36415; 71045; 71275; 72100; 72170; 74177; 80053; 80305; 80329; 81001; 82803; 82962; 83605; 84145; 84484; 85025; 85651; 86140; 87040; 87086; 87581; 87633; 87798; 93005; 94640; 96365; 96366; 96375; 99285; J2405; Q9967; U0003

== ENCOUNTER 2020-07-14 08:42 | Day surgery (SDC) | payer MEDICARE, MEDICAID, SELFPAY ==
[2020-07-14] VITALS (10 sets, daily range): BP systolic 98–133; BP diastolic 54–80; PULSE 61–97; RESP 18; TEMP 36.1–36.7; O2SAT 90–100; BMI 22.8
[2020-07-14 10:07] LABS: Coronavirus 19 IgG Antibody Positive (Negative); Coronavirus 19 IgM Antibody Negative (Negative)
--- NOTE | 2020-07-14 11:58 | P.PN_ITS ---
[facility] Anesthesia Checklist - Structural Data Admitted From: [place] Planned Operative Procedure/s: cysto Consent for Planned Operative Procedure(s) Verified: Yes - Additional verifications Anesthesia Reactions: No Hx Blood Transfusions: No Blood Transfusion Reaction: No - Airway Assessment C-Spine Mobility Assessed: Yes TMJ Mobility Assessed: Yes Dentition: Edentulous - Neurological Assessment Level of Consciousness: Awake, Alert, Disoriented - Anesthesia Plan Anesthesia Risk discussed: Yes Anesthesia Plan: Verified ASA Class: III Anesthesia Type: General [facility] History I have reviewed the patient's past medical history: Yes Medical History: Reports:: Aneurysm, Anxiety, Asthma, Chronic Obstructive Pulmonary Disease (COPD), Coronary Artery Disease, Dementia, Hyperlipidemia, Hypertension Denies:: Cancer, Diabetes Mellitus Type 1, Diabetes Mellitus Type 2, Internal Pacemaker, MRSA, Seizures *Have you ever received a pneumonia vaccine?: Yes *Have you received a flu vaccine this season?: Yes Other Medical History: Reports: Anemia, Arthritis, Cataracts. Denies: Blood Transfusion Reaction Anesthesia experience/problems:: none Laterality Cases: Bilateral: Tonsillectomy Other Surgeries: Yes: Hernia Repair, Sinus Surgery, Other. No: Pacemaker Amputation: No - *Social History Smoking Status: Smoker, status unknown Alcohol Intake: never Alcohol Intake Frequency:: other Substance Use Type: denies use *Occupational Status:: other Housing: detention *Travel in the last 8 weeks: None - Psychiatric History Pschychiatric History:: Reports:: Anxiety Family Hx:: Unable to obtain
--- NOTE | 2020-07-14 13:55 | P.OP_ITS ---
Date of procedure: 07/14/20 Pre-op Diagnosis:: Retained Felton catheter segment after traumatic Felton removal Post-op Diagnosis:: Same Procedure performed:: Cystoscopy with removal of foreign body Surgeon:: Ricci Franz MD HEAD TELLER:: Wesley Cartwright Anesthesia: GETA, MAC Estimated blood loss (mL): 0 Clinical Note:: Patient is a 75-year-old pleasantly demented male who is a resident of a local group home. While hospitalized last week he removed his Felton catheter with the balloon inflated. The catheter broke and the tip of the catheter was not found in the patient's room. His presumed it was in his bladder. A Felton catheter was able to be replaced while in the hospital. He returns today for cystoscopy and possible removal. Operative findings:: The tip of the Felton catheter was present in the urethra. Operative note:: Patient taken to the operating room after informed consent was obtained. Placed on the operating table in the supine position and general anesthesia administered. Sequential compression device was then prepped of antibiotics administered. He was then placed into the dorsal lithotomy position prepped draped in the standard surgical fashion. The 16 Portuguese flexible cystoscope introduced into the urethral meatus. The past to the prostatic urethra where the Felton segment was present. Flexible graspers passed through the scope and the foreign body was grasped and removed without difficulty. The cystoscope was replaced and entered the bladder. There were changes of severe bladder outlet obstruction with severe trabeculation and cellule formation. No other foreign bodies or mucosal abnormalities noted. Scope removed. Patient tolerated the procedure well there are no complications. Condition: stable Disposition: PACU Specimens:: Tip of Felton catheter Complications:: None
--- NOTE | 2020-07-14 16:33 | P.PN_ITS ---
[facility] Anesthesia Record Part II Discharge Time: 12:25 Destination: Surgical Day Care (OP Surgery) PACU nurse assessment reviewed?: Yes Patient Condition:: Good Anesthesia Complications:: None Swallowing reflex intact?: Yes Cyanosis?: No Blood Pressure: 124/64 Pulse Rate: 84 Temperature: 97.9 F Mental Status: Alert & Oriented Pain level:: 0 Nausea and/or vomitting:: None Intake, IV Amount: 0
== END 2020-07-14 13:13 | disposition home or self-care (01) ==
PROVIDERS: PCP Emergency Medicine; Visit Provider Urology
PROC: 0TJB8ZZ Inspection of Bladder, Via Natural or Artificial Opening Endoscopic (ICD-10-PCS; CPT 52000; principal; 2020-07-14 11:30)
DX: T83.091A Other mechanical complication of indwelling urethral catheter, initial encounter (principal); N39.0 Urinary tract infection, site not specified; J44.9 Chronic obstructive pulmonary disease, unspecified; I25.10 Atherosclerotic heart disease of native coronary artery without angina pectoris; E78.5 Hyperlipidemia, unspecified; I10 Essential (primary) hypertension; F03.90 Unspecified dementia, unspecified severity, without behavioral disturbance, psychotic disturbance, mood disturbance, and anxiety; Z86.79 Personal history of other diseases of the circulatory system; F41.9 Anxiety disorder, unspecified; M19.90 Unspecified osteoarthritis, unspecified site; D64.9 Anemia, unspecified; Z90.89 Acquired absence of other organs
CPT/HCPCS: 52310; 86328; 96374

== ENCOUNTER 2021-10-03 06:04 | Inpatient (IN) | payer MEDICAID, MEDICARE, SELFPAY ==
[2021-10-03] VITALS (24 sets, daily range): BP systolic 68–149; BP diastolic 36–88; PULSE 73–100; RESP 12–18; TEMP 36.8–38; O2SAT 86–100; BMI 24.3; BMI 22.8; BMI 24.1
--- NOTE | 2021-10-03 05:58 | XR_ITS ---
PROCEDURE INFORMATION: Exam: XR Chest Exam date and time: 10/03/2021 6:12 AM Age: 76 years old Clinical indication: Other: N/v; Additional info: N/v coffee ground emesis TECHNIQUE: Imaging protocol: XR of the chest. Views: 1 view. COMPARISON: CR XR CHEST PORTABLE 07/04/2020 12:23 PM FINDINGS: Lungs: Some left-sided atelectasis or airspace disease is present. Pleural spaces: Moderate size left-sided pleural effusion is noted. Heart/Mediastinum: Unremarkable. No cardiomegaly. Bones/joints: Unremarkable. IMPRESSION: New left-sided effusion and left lower lobe airspace disease.
--- NOTE | 2021-10-03 06:07 | ECG_ITS ---
APPROVED REPORT Exam: Resting ECG HR:104 bpm ECG Measurements Heart Rate 104 AXES [place] 167 P 52 QRSd 93 QRS 54 QT 313 T 77 QTc 373 Conclusion SINUS TACHYCARDIA Old anteroseptal changes with old isolated Q in iii ABNORMAL RHYTHM ECG UNCONFIRMED REPORT Electronically signed by : Nitin Neville MD 10/04/2021 08:03:08
--- NOTE | 2021-10-03 06:13 | PC.NURSE ---
Spoke with sister (RAMIREZ) and advised her that he would be admitted and we would call her back later with lab results
[2021-10-03 06:15] LABS: Basophils % 0.1 % (0.1-2.0); Eosinophils % 0.2 % (0.1-12.0); Hematocrit 41.5 % (42.0-52.0); Hemoglobin 13.7 g/dL (14.1-18.0); Lymphocytes # 1.3 K/mm3 (0.7-4.5); Lymphocytes % 7.1 % (10-50); Mean Corpuscular HGB Conc 32.9 g/dL (31.8-35.4); Mean Corpuscular Hemoglobin 29.3 pg (27.0-31.2); Mean Corpuscular Volume 88.8 fl (80-94); Mean Platelet Volume 7.4 fl (7.4-10.4); Monocytes # 0.6 K/mm3 (0.1-1.0); Monocytes % 3.1 % (1.7-9.3); Neutrophils # 16.8 K/mm3 (1.8-7.8); Neutrophils % 89.6 % (37.0-80.0); Platelet Count 285 K/mm3 (142-424); Red Blood Count 4.68 M/mm3 (4.60-6.20); White Blood Count 18.7 K/mm3 (4.8-10.8)
[2021-10-03 06:16] LABS: Chloride 89 mmol/L (98-107); Potassium 3.9 mmoL/L (3.5-5.1); Sodium 142 mmol/L (136-145)
[2021-10-03 06:19] LABS: Coronavirus 19, PCR Not Detected (NotDetected); Influenza A, PCR Not Detected (NotDetected); Influenza B, PCR Not Detected (NotDetected)
[2021-10-03 06:19] LABS: Alanine Aminotransferase 28 U/L (12-78); Albumin Level 4.5 g/dl (3.5-5.0); Albumin/Globulin Ratio 1.4 (1.1-1.8); Alkaline Phosphatase 114 U/L (38-126); Aspartate Amino Transferase 34 U/L (17-59); Bilirubin,Total 0.7 mg/dl (0.2-1.3); Blood Urea Nitrogen 22 mg/dl (9-20); Calcium 9.8 mg/dl (8.4-10.2); Creatinine Clearance Estimated 45 mL/min (50-200); Estimated Glomerular Filt Rate 37 ml/min (>60); GFR (African American) 45 ML/MIN (>60); Globulin 3.2 g/dL (1.3-3.2); Glucose 202 mg/dl (74-100); Total Protein,Serum 7.7 g/dl (6.3-8.2)
[2021-10-03 06:20] LABS: Magnesium 2.1 mg/dl (1.6-2.3)
[2021-10-03 06:21] LABS: MANUAL DIFFERENTIAL MANUAL DIFFERENTIAL (MANUAL DIFF)
[2021-10-03 06:25] LABS: C-Reactive Protein 16.5 mg/L (0-4)
[2021-10-03 06:26] LABS: Anion Gap 16.9 mEq/L (5-15); Carbon Dioxide 40 mmol/L (22.0-30.0)
[2021-10-03 06:31] LABS: Microscopic, Urine URINE MICROSCOPIC (MICROSCOPIC)
[2021-10-03 06:33] LABS: Appearance,Urine CLEAR (Clear); Bilirubin,Urine Negative (Negative); Blood, Urine Negative (Negative); Color,Urine YELLOW (Yellow); Glucose,Urine (UA) Negative (Negative); Ketones,Urine Negative (Negative); Leukocyte Esterase,Urine Negative (Negative); Nitrate,Urine Negative (Negative); PH,Urine 8.5 (5.0-8.5); Protein,Urine TRACE (Negative); Urobilinogen,Urine 0.2 EU/dl (0.2)
[2021-10-03 06:41] LABS: Occult Blood,Gastric Fluid Positive (Negative)
[2021-10-03 06:42] LABS: Occult Blood,Stool Negative (Negative)
[2021-10-03 06:44] LABS: Lactic Acid 2.5 mmol/L (0.7-2.1); Troponin I < 0.01 ng/ml (0.00-0.034)
--- NOTE | 2021-10-03 06:44 | HMH.EDGIBL ---
ED Disposition Clinical Impression: UGIB (upper gastrointestinal bleed), Acute urinary retention, WILLIAM (acute kidney injury) COPD (chronic obstructive pulmonary disease) Qualifiers: COPD type: unspecified COPD Qualified Code(s): J44.9 - Chronic obstructive pulmonary disease, unspecified Schizophrenia Qualifiers: Schizophrenia type: unspecified Qualified Code(s): F20.9 - Schizophrenia, unspecified Disposition: Admitted As Inpatient Condition on Discharge: Fair - Critical Care Critical Care Time: No Attestation: On 10/03/21, the high probability of a clinically significant, sudden or life threatening deterioration of the following system(s) required my full and direct attention, intervention and personal management. The time I documented below is in addition to time spent performing reported procedures but includes the following listed in this critical care notation. Medical Decision Making - Medical Records Medical records reviewed: Yes: I reviewed the patient's medical records. - Tre Inquiry Pt receiving controlled substance: No Vital Signs: 10/03/21 05:13 Temperature 100.4 F H Temperature Source Oral Pulse Rate [Right] 97 H Respiratory Rate 18 Blood Pressure [Right Arm] 111/77 Blood Pressure Mean [Right Arm] 88 02 Sat by Pulse Oximetry 99 - Lab Data Lab results reviewed: Yes: I reviewed the patient's lab results. Lab Results 10/03/21 05:54: WBC 18.7 H, RBC 4.68, Hgb 13.7 L, Hct 41.5 L, MCV 88.8, MCH 29.3, MCHC 32.9, RDW 13.0, Plt Count 285, MPV 7.4, Neut % (Auto) 89.6 H, Lymph % (Auto) 7.1 L, [place] % (Auto) 3.1, Eos % (Auto) 0.2, Baso % (Auto) 0.1, Neut # (Auto) 16.8 H, Lymph # (Auto) 1.3, [place] # (Auto) 0.6, Eos # (Auto) 0.0, Baso # (Auto) 0.0 10/03/21 05:54: Lactate 2.5 H 10/03/21 05:54: Magnesium 2.1 10/03/21 05:58: Gastric Occult Blood Positive 10/03/21 05:59: Stool Occult Blood Negative Result diagrams: 10/03/21 05:54 Orders (Tests/Meds): ED MEDICATIONS Generic Name Dose Route Start Last Admin Trade Name Freq PRN Reason Stop Dose Admin Lactated Ringer's 1,000 mls @ 999 mls/hr 10/03/21 06:00 10/03/21 06:06 Lactated Ringer's 1000 Ml Bag IV 10/03/21 07:00 999 mls/hr .Q1H1M CLARA Administration Sodium Chloride 10 ml 10/03/21 05:54 Sodium Chloride 0.9% 10ml Vial IV 11/02/21 05:53 NEEDED PRN dilute protonix Sodium Chloride 8 ml 10/03/21 06:04 Sodium Chloride 0.9% 10ml Vial IV 11/02/21 06:03 NEEDED PRN dilute pepcid Discontinued Medications Generic Name Dose Route Start Last Admin Trade Name Freq PRN Reason Stop Dose Admin Famotidine 20 mg 10/03/21 06:04 10/03/21 06:06 Famotidine 20mg/2ml Vial IV 10/03/21 06:05 20 mg ONCE ONE Administration Metoclopramide HCl 10 mg 10/03/21 06:04 10/03/21 06:06 Metoclopramide Hcl 10mg/2ml Vial IVP 10/03/21 06:05 10 mg ONCE ONE Administration Ondansetron HCl 4 mg 10/03/21 06:04 10/03/21 06:05 Ondansetron 4mg/2ml Vial IV 10/03/21 06:05 4 mg ONCE ONE Administration Pantoprazole Sodium 40 mg 10/03/21 05:54 10/03/21 06:05 Pantoprazole 40mg Vial IV 10/03/21 05:55 40 mg ONCE ONE Administration ORDERS Category Date Time Status Chest XR -- portable [XR chest portable] Stat Exams 10/03/21 05:58 Taken C-Reactive Protein Stat Lab 10/03/21 05:54 Received Complete Blood Count Auto Diff Stat Lab 10/03/21 05:54 Results Comprehensive Metabolic Panel Stat Lab 10/03/21 05:54 Received Erythrocyte Sedimentation Rate Stat Lab 10/03/21 05:54 Results Procalcitonin Stat Lab 10/03/21 05:54 Received Rapid PCR Covid and Flu A/B Stat Lab 10/03/21 05:59 Received Troponin I Q3H Lab 10/03/21 09:00 Ordered Troponin I Q3H Lab 10/03/21 12:00 Ordered Troponin I Stat Lab 10/03/21 05:54 Received Urinalysis and Microscopic Stat Lab 10/03/21 06:20 Received Blood Culture Stat Micro 10/03/21 05:54 Received - Radiology Data #1 Image(s): Chest Im
[2021-10-03 06:52] LABS: Lymphocytes % 7 % (10-50); Monocytes % 4 % (2-9); Neutrophils % 89 % (42-76); Platelet Estimate Normal; RBC Morphology Normal; Total Cells Counted 100
[2021-10-03 07:01] LABS: Erythrocyte Sedimentation Rate 17 mm/hr (0-20)
--- NOTE | 2021-10-03 07:05 | HMH.PHAVTE ---
[facility] Pharmacy VTE Monitoring - Patient Demographics Admission date: 10/03/21 Report Date: 10/03/21 Time: 07:05 Allergies/Adverse Reactions: Patient Allergies No Known Allergies Allergy (Verified 09/11/20 12:44) Height: 1.93 m Weight: 90.718 kg Patient Problems: Current Active Problems UGIB (upper gastrointestinal bleed) (Acute) Acute urinary retention (Acute) WILLIAM (acute kidney injury) (Acute) Schizophrenia (Chronic) COPD (chronic obstructive pulmonary disease) (Chronic) - VTE Risk Labs: VTE Related Lab Results Hgb 13.7 g/dL (14.1-18.0) L 10/03/21 05:54 Hct 41.5 % (42.0-52.0) L 10/03/21 05:54 Plt Count 285 K/mm3 (142-424) 10/03/21 05:54 BUN 22 mg/dl (9-20) H 10/03/21 05:54 Creatinine 1.80 mg/dl (0.66-1.25) H 10/03/21 05:54 Estimated Creat Clear 45 mL/min (50-200) 10/03/21 05:54 - Prophylaxis VTE Prophylaxis Ordered?: Yes Types of VTE Prophylaxis: TEDS Knee High Location of Applied Device: Bilateral Lower Extremeties
[2021-10-03 07:07] LABS: Bacteria,Urine 2+ /lpf; Squamous Epithelial Cell,Urine Occasional #/hpf (0-5)
--- NOTE | 2021-10-03 07:56 | HMH.HP ---
*Admission Date: 10/03/21 *Chief complaint: gi bleed *History of present illness: this patient was sent from [facility] with acute onset of coffee- ground emesis w/o def abd pain but low bp and no melena - pt admitted for eval and treatment [facility] History I have reviewed the patient's past medical history: Yes Medical History: Reports:: Aneurysm, Anxiety, Asthma, Chronic Obstructive Pulmonary Disease (COPD), Coronary Artery Disease, Dementia, Hyperlipidemia, Hypertension Denies:: Cancer, Diabetes Mellitus Type 1, Diabetes Mellitus Type 2, Internal Pacemaker, MRSA, Seizures *Have you ever received a pneumonia vaccine?: No *Have you received a flu vaccine this season?: No Other Medical History: Reports: Anemia, Arthritis, Cataracts. Denies: Blood Transfusion Reaction Laterality Cases: Bilateral: Tonsillectomy Other Surgeries: Yes: Hernia Repair, Sinus Surgery, Other. No: Pacemaker Amputation: No - *Social History Smoking Status: Smoker, status unknown Alcohol Intake: never Alcohol Intake Frequency:: other Substance Use Type: denies use *Occupational Status:: other Housing: [facility] *Travel in the last 8 weeks: None - Psychiatric History Pschychiatric History:: Reports:: Anxiety Family Hx:: Unable to obtain Review of Systems - Review of Systems Review of systems:: unable to obtain Meds Home Medications Medication Instructions Recorded Confirmed Type finasteride 5 mg tablet 5 mg PO DAILY 07/14/17 10/03/21 History folic acid 1 mg tablet 1 mg PO DAILY 07/14/17 10/03/21 History mecobalamin (vitamin B12) 1,000 1,000 mcg SUBLINGUAL HS 07/14/17 10/03/21 History mcg disintegrating tablet,sublingual multivitamin 1 tab PO DAILY 07/14/17 10/03/21 History metoprolol tartrate 25 mg tablet 12.5 mg PO BID tab 07/15/17 10/03/21 History atorvastatin 20 mg tablet 20 mg PO HS tab 02/10/18 10/03/21 History loratadine 10 mg tablet 10 mg PO DAILY tab 02/10/18 10/03/21 History sennosides 8.6 mg-docusate sodium 1 tab PO BID tab 02/10/18 10/03/21 History 50 mg tablet Acetaminophen [Acetaminophen Extra 500 mg PO Q4HP PRN 07/03/20 10/03/21 History Strength] Ibuprofen [Ibuprofen 400mg 400 mg PO HS 07/03/20 10/03/21 History Tablet] Loperamide HCl [Loperamide] 2 mg PO Q4HP PRN 07/03/20 10/03/21 History Quetiapine Fumarate [Seroquel 25mg 25 mg PO BID 07/03/20 10/03/21 History tablet] Sucralfate [Sucralfate 1gm 1 gm PO TID 07/03/20 10/03/21 History Tab] lorazepam 0.5 mg tablet 0.5 mg PO BID #60 tab 06/07/21 10/03/21 Rx Acetaminophen [Tylenol Extra 500 mg PO HS 10/03/21 10/03/21 History Strength] Mag Hydrox/Aluminum Hyd/Simeth 30 ml PO Q2HP PRN 10/03/21 10/03/21 History [Erika-Lanta Liquid] Omeprazole [Omeprazole 20mg 20 mg PO HS 10/03/21 10/03/21 History Capsule] Quetiapine Fumarate [Seroquel] 300 mg PO HS 10/03/21 10/03/21 History ondansetron HCL [Ondansetron 4mg 4 mg PO Q6HP PRN 10/03/21 10/03/21 History tab*] Allergies Allergy/AdvReac Type Severity Reaction Status Date / Time No Known Allergies Allergy Verified 09/11/20 12:44 Exam Vital signs and Labs for Last 24 Hours: Temp Pulse Resp BP Pulse Ox 100.4 F H 97 H 18 111/77 99 10/03/21 05:13 10/03/21 05:13 10/03/21 05:13 10/03/21 05:13 10/03/21 05:13 Laboratory Results - last 24 hr 10/03/21 05:54: WBC 18.7 H, RBC 4.68, Hgb 13.7 L, Hct 41.5 L, MCV 88.8, MCH 29.3, MCHC 32.9, RDW 13.0, Plt Count 285, MPV 7.4, Neut % (Auto) 89.6 H, Lymph % (Auto) 7.1 L, [place] % (Auto) 3.1, Eos % (Auto) 0.2, Baso % (Auto) 0.1, Neut # (Auto) 16.8 H, Lymph # (Auto) 1.3, [place] # (Auto) 0.6, Eos # (Auto) 0.0, Baso # (Auto) 0.0, Total Counted 100, Neutrophils % (Manual) 89 H, Lymphocytes % (Manual) 7 L, Monocytes % (Manual) 4, Platelet Estimate Normal, RBC Morphology Normal, ESR 17 10/03/21 05:54: Sodium 142, Potassium 3.9, Chloride 89 L, Carbon Dioxide 40 H, Anion Gap 16.9 H, BUN 22 H, Creatinine 1.80 H, Estimated Creat Clear 45, Estimated GFR
[2021-10-03 08:37] LABS: Procalcitonin 0.073 ng/mL (0.0-2.0)
--- NOTE | 2021-10-03 08:48 | HMH.GSCON ---
*Admission Date: 10/03/21 *Reason for consult:: Upper gastrointestinal hemorrhage *History of present illness: This is a 76-year-old gentleman evaluated earlier today in the emergency department for an episode of coffee-ground emesis . He was admitted to the primary service for further evaluation and management. The surgical service was consulted for endoscopic evaluation. Review of Systems - *Cardiovascular Denies chest pain - *Respiratory Denies cough - *Gastrointestinal Reports coffee ground vomit [facility] History Medical History: Reports:: Aneurysm, Anxiety, Asthma, Chronic Obstructive Pulmonary Disease (COPD), Coronary Artery Disease, Dementia, Hyperlipidemia, Hypertension Denies:: Cancer, Diabetes Mellitus Type 1, Diabetes Mellitus Type 2, Internal Pacemaker, MRSA, Seizures *Have you ever received a pneumonia vaccine?: No *Have you received a flu vaccine this season?: No Other Medical History: Reports: Anemia, Arthritis, Cataracts. Denies: Blood Transfusion Reaction Laterality Cases: Bilateral: Tonsillectomy Other Surgeries: Yes: Hernia Repair, Sinus Surgery, Other. No: Pacemaker Amputation: No - *Social History Smoking Status: Smoker, status unknown Alcohol Intake: never Alcohol Intake Frequency:: other Substance Use Type: denies use *Occupational Status:: other Housing: custodial *Travel in the last 8 weeks: None - Psychiatric History Pschychiatric History:: Reports:: Anxiety Family Hx:: Unable to obtain [facility] Home Medications Medication Instructions Recorded Confirmed Type finasteride 5 mg tablet 5 mg PO DAILY 07/14/17 10/03/21 History folic acid 1 mg tablet 1 mg PO DAILY 07/14/17 10/03/21 History mecobalamin (vitamin B12) 1,000 1,000 mcg SUBLINGUAL HS 07/14/17 10/03/21 History mcg disintegrating tablet,sublingual multivitamin 1 tab PO DAILY 07/14/17 10/03/21 History metoprolol tartrate 25 mg tablet 12.5 mg PO BID tab 07/15/17 10/03/21 History atorvastatin 20 mg tablet 20 mg PO HS tab 02/10/18 10/03/21 History loratadine 10 mg tablet 10 mg PO DAILY tab 02/10/18 10/03/21 History sennosides 8.6 mg-docusate sodium 1 tab PO BID tab 02/10/18 10/03/21 History 50 mg tablet Acetaminophen [Acetaminophen Extra 500 mg PO Q4HP PRN 07/03/20 10/03/21 History Strength] Ibuprofen [Ibuprofen 400mg 400 mg PO HS 07/03/20 10/03/21 History Tablet] Loperamide HCl [Loperamide] 2 mg PO Q4HP PRN 07/03/20 10/03/21 History Quetiapine Fumarate [Seroquel 25mg 25 mg PO BID 07/03/20 10/03/21 History tablet] Sucralfate [Sucralfate 1gm 1 gm PO TID 07/03/20 10/03/21 History Tab] lorazepam 0.5 mg tablet 0.5 mg PO BID #60 tab 06/07/21 10/03/21 Rx Acetaminophen [Tylenol Extra 500 mg PO HS 10/03/21 10/03/21 History Strength] Mag Hydrox/Aluminum Hyd/Simeth 30 ml PO Q2HP PRN 10/03/21 10/03/21 History [Erika-Lanta Liquid] Omeprazole [Omeprazole 20mg 20 mg PO HS 10/03/21 10/03/21 History Capsule] Quetiapine Fumarate [Seroquel] 300 mg PO HS 10/03/21 10/03/21 History ondansetron HCL [Ondansetron 4mg 4 mg PO Q6HP PRN 10/03/21 10/03/21 History tab*] Allergies Allergy/AdvReac Type Severity Reaction Status Date / Time No Known Allergies Allergy Verified 09/11/20 12:44 Exam Vital signs and Labs for Last 24 Hours: Temp Pulse Resp BP Pulse Ox 100.4 F H 97 H 18 111/77 99 10/03/21 05:13 10/03/21 05:13 10/03/21 05:13 10/03/21 05:13 10/03/21 05:13 Laboratory Results - last 24 hr 10/03/21 05:54: WBC 18.7 H, RBC 4.68, Hgb 13.7 L, Hct 41.5 L, MCV 88.8, MCH 29.3, MCHC 32.9, RDW 13.0, Plt Count 285, MPV 7.4, Neut % (Auto) 89.6 H, Lymph % (Auto) 7.1 L, [place] % (Auto) 3.1, Eos % (Auto) 0.2, Baso % (Auto) 0.1, Neut # (Auto) 16.8 H, Lymph # (Auto) 1.3, [place] # (Auto) 0.6, Eos # (Auto) 0.0, Baso # (Auto) 0.0, Total Counted 100, Neutrophils % (Manual) 89 H, Lymphocytes % (Manual) 7 L, Monocytes % (Manual) 4, Platelet Estimate Normal, RBC Morphology Normal, ESR 17 10/03/21 05:54:
--- NOTE | 2021-10-03 09:54 | SW/DCPLANNER ---
Addendum entered by Wendie Duvall 10/05/21 09:48: Updated patient information has been faxed to Sherice guevara/ [facility]. Original Note: This patient currently resides at [facility]. Per Sherice with [facility] this patient is [facility] level of care. I will continue to follow up with Sherice until patient is medically stable for discharge.
[2021-10-03 09:56] LABS: Troponin I < 0.01 ng/ml (0.00-0.034)
[2021-10-03 10:06] LABS: Reflex Lactic Add Lactic Reflex
--- NOTE | 2021-10-03 10:30 | PC.NURSE ---
MADE DR EGAN'S OFFICE AWARE OF PT BLOOD PRESSURE AT 1003. HAVE NOT HEARD BACK FROM HIS OFFICE YET. PREOP STAFF MADE AWARE AT BESIDE AT THIS TIME.
--- NOTE | 2021-10-03 10:37 | HMH.PHAINT ---
Home medication list has been verified using MAR provided by facility the patient was at.
[2021-10-03 11:00] LABS: Lactic Acid Follow Up (RFLX 1) 1.9 mmol/L (0.7-2.1)
--- NOTE | 2021-10-03 11:10 | SUR.OPER ---
1110 - IV INFILTRATED #20 RIGHT A/C REMOVED BY RAMON FARRIS CRNA. NEW IV #22 RIGHT F/A INSERTED BY Luci ALEXANDRE RN. IV PATENT.
--- NOTE | 2021-10-03 11:17 | HMH.SCOPE ---
- Procedure: Date: 10/03/21 Patient Date of :: 1945 Procedure Performed:: Esophagogastroduodenoscopy with biopsy Indications:: Upper gastrointestinal hemorrhage Performing Provider:: Marvin Ross MD Referring Provider:: Dr. Farah Sedation:: Monitored anesthesia care Procedure:: After informed consent was obtained the patient was taken to the endoscopy suite. Sedation ensued after the patient was transferred to the left lateral decubitus position. Pulse, blood pressure, and oxygen saturation were monitored throughout the procedure. The endoscope was advanced beyond the duodenal bulb. Retroflexion within the gastric lumen was accomplished. The gastroscope was carefully removed and the patient was transferred to recovery in stable condition. Please see findings and specimens below for detail. Findings:: Large sliding hiatal hernia Food particles and old blood throughout gastric lumen Limited visualization secondary to above Linear complex distal esophageal ulceration with mucosal necrosis Pyloric channel/duodenal bulb ulcerations (x2) with fibrinous exudate at clot No obvious active bleeding at time of procedure Specimens:: Antral biopsy Recommendations:: Proton pump inhibition Serial hemoglobin/hematocrit Repeat EGD in the relatively near future for reevaluation (likely improved visualization once food particles and clot no longer within gastric lumen) Complications:: No immediate Estimated blood obtained (mL): 1
--- NOTE | 2021-10-03 11:41 | PC.NURSE ---
PT HAS RETURNED FROM PROCEDURE. REMAINS HYPOTENSIVE. DR EGAN'S OFFICE MADE AWARE. AWAITING CALL BACK AT THIS TIME
[2021-10-03 12:41] LABS: Troponin I 0.02 ng/ml (0.00-0.034)
[2021-10-03 12:49] LABS: MANUAL DIFFERENTIAL MANUAL DIFFERENTIAL (MANUAL DIFF)
[2021-10-03 12:54] LABS: Basophils % 0.1 % (0.1-2.0); Eosinophils # 0.1 K/mm3 (0.0-0.4); Eosinophils % 0.7 % (0.1-12.0); Hematocrit 31.9 % (42.0-52.0); Lymphocytes % 7.9 % (10-50); Mean Corpuscular HGB Conc 33.2 g/dL (31.8-35.4); Mean Corpuscular Hemoglobin 30.4 pg (27.0-31.2); Mean Corpuscular Volume 91.6 fl (80-94); Mean Platelet Volume 7.5 fl (7.4-10.4); Monocytes # 0.5 K/mm3 (0.1-1.0); Monocytes % 4.3 % (1.7-9.3); Neutrophils # 10.8 K/mm3 (1.8-7.8); Platelet Count 192 K/mm3 (142-424); Red Blood Count 3.48 M/mm3 (4.60-6.20); White Blood Count 12.5 K/mm3 (4.8-10.8)
[2021-10-03 13:06] LABS: Hemoglobin 10.5 g/dL (14.1-18.0)
[2021-10-03 13:28] LABS: Lymphocytes % 9 % (10-50); Monocytes % 6 % (2-9); Neutrophils % 85 % (42-76); Platelet Estimate Normal; RBC Morphology Normal; Total Cells Counted 100
--- NOTE | 2021-10-03 15:10 | PC.NURSE ---
pt now in room 219 and in step down status r/t hypotension. Manual BP 74/44. Levo gtt started @ 10mcg/min.
--- NOTE | 2021-10-03 15:40 | PC.NURSE ---
BP 120/55. Levo gtt decreased to 5mcg/min
--- NOTE | 2021-10-03 16:05 | DIET.NUTRFU ---
RD spoke to nurse at [facility], who reported patient follows a MSOFT, Tat Momoli thick liquid diet secondary to dysphasia. Recently she reports he is requiring more assistance with meals secondary to UTI. Will continue t follow po intake and determine if supplements are needed
[2021-10-04] VITALS (20 sets, daily range): BP systolic 87–142; BP diastolic 46–64; PULSE 69–103; RESP 16–21; TEMP 36.6–37.6; O2SAT 91–100; BMI 24.1
[2021-10-04 03:34] LABS: Hematocrit 29.6 % (42.0-52.0); Hemoglobin 9.8 g/dL (14.1-18.0)
--- NOTE | 2021-10-04 04:00 | PC.NURSE ---
Addendum entered by Amparo Briseno RN 10/04/21 06:54: levophed increased to back to 8 relating to b/p systolic 70's, will continue to monitor. Original Note: pt restless most of night and turned self freqently in bed, pt confused and unable to answer any questions, pt repeats sorry over and over, when asked pt to tell his name he states no , pt will respond when calling name only, f/c to bsd with clear yellow urine noted, pt with low grade fever through the night and treated with tylenol, no vomiting present through the night, pt is refusing oral intake at this time when offered, lungs clear, levo at 4mcg/min currently.
--- NOTE | 2021-10-04 06:39 | XR_ITS ---
FINAL REPORT CLINICAL HISTORY: sob COMPARISON: October 03, 2021 FINDINGS: The heart size is normal. The mediastinum is normal. There is elevation of the left hemidiaphragm. There is lucency under the diaphragm that may represent a large hiatal hernia. There is patchy airspace opacity in the left infrahilar region concerning for acute pneumonia. There are chronic changes in the right lung base. There are no pleural effusions. There is no pneumothorax. There is no osseous abnormality. IMPRESSION: Left infrahilar opacity concerning for pneumonia. Questionable large hiatal hernia. Reviewed, Interpreted and Dictated by Esteban Goode MD Transcribed by Russell Stark Authenticated by Esteban Goode MD on 10/04/2021 08:51:54 AM [facility]
[2021-10-04 06:54] LABS: Chloride 103 mmol/L (98-107); Sodium 140 mmol/L (136-145)
[2021-10-04 06:55] LABS: Potassium 3.3 mmoL/L (3.5-5.1)
[2021-10-04 06:57] LABS: Blood Urea Nitrogen 24 mg/dl (9-20); Creatinine Clearance Estimated 81 mL/min (50-200); Estimated Glomerular Filt Rate 73 ml/min (>60); GFR (African American) 88 ML/MIN (>60)
[2021-10-04 06:58] LABS: Anion Gap 9.3 mEq/L (5-15); Calcium 8.5 mg/dl (8.4-10.2); Carbon Dioxide 31 mmol/L (22.0-30.0); Glucose 130 mg/dl (74-100)
--- NOTE | 2021-10-04 06:59 | P.PN_ITS ---
Subjective Narrative: Per nursing, the patient has had an okay night . Progress Note: A&P (1) UGIB (upper gastrointestinal bleed) Status: Acute Assessment and plan: Visualization on esophagogastroduodenoscopy yesterday very limited secondary to massive blood clot throughout gastric lumen. Follow-up repeat hemoglobin Continue proton pump inhibition May require transfer to tertiary care center (capable large-volume evacuation prior to endoscopy) if he shows evidence of continued blood loss (2) Acute urinary retention Status: Acute (3) WILLIAM (acute kidney injury) Status: Acute Exam Vital signs and Labs for Last 24 Hours: Temp Pulse Resp BP Pulse Ox 99.6 F 77 20 93/49 L 97 10/04/21 04:00 10/04/21 04:00 10/04/21 04:00 10/04/21 04:00 10/04/21 04:00 Laboratory Results - last 24 hr 10/03/21 05:54: ESR 17 10/03/21 05:54: Procalcitonin 0.073 10/03/21 05:59: SARS-CoV-2 (PCR) Not detected, Influenza A Untype (PCR) Not detected, Influenza Type B (PCR) Not detected 10/03/21 06:20: Urine Color Yellow, Urine Appearance Clear, Urine pH 8.5, Ur Specific [place] 1.010, Urine Protein Trace, Urine Glucose (UA) Negative, Urine Ketones Negative, Urine Blood Negative, Urine Nitrate Negative, Urine Bilirubin Negative, Urine Urobilinogen 0.2, Ur Leukocyte Esterase Negative, Urine RBC 3-5, Urine WBC 5-10, Ur Squamous Epith Cells Occasional, Urine Bacteria 2+ 10/03/21 09:13: Troponin I < 0.01 10/03/21 10:32: Lactate 1.9 10/03/21 12:00: Troponin I 0.02 10/03/21 12:45: WBC 12.5 H D, RBC 3.48 L D, Hgb 10.5 L D, Hct 31.9 L, MCV 91.6, MCH 30.4, MCHC 33.2, RDW 13.0, Plt Count 192 D, MPV 7.5, Neut % (Auto) 87.0 H, Lymph % (Auto) 7.9 L, [place] % (Auto) 4.3, Eos % (Auto) 0.7, Baso % (Auto) 0.1, Neut # (Auto) 10.8 H, Lymph # (Auto) 1.0, [place] # (Auto) 0.5, Eos # (Auto) 0.1, Baso # (Auto) 0.0, Total Counted 100, Neutrophils % (Manual) 85 H, Lymphocytes % (Manual) 9 L, Monocytes % (Manual) 6, Platelet Estimate Normal, RBC Morphology Normal 10/03/21 21:40: Hgb 9.8 L, Hct 29.6 L I & O for Last 24 hours: Intake & Output 10/01/21 10/02/21 10/03/21 10/04/21 11:59 11:59 11:59 11:59 Intake Total 4172 / 4172 Output Total 2200 / 2200 Balance 1971 / 1971 Weight 187 lb 3 oz 198 lb 3.2 oz Microbiology Reports for the Last 24 Hours: Microbiology 10/03/21 06:20 Urine,Clean Catch Urine Culture - Preliminary NO GROWTH AFTER 24 HOURS - Constitutional no acute distress - *Routine Respiratory Exam Absent: respiratory distress - *Routine Cardiovascular Exam Absent: tachycardia
--- NOTE | 2021-10-04 09:11 | HMH.ACPN2 ---
Internal Medicine - PN: Subj *Date: 10/04/21 *Time: 09:11 Interval history: pt looks better this am and reports feeling better - cbc pending will wean off bp support Exam Vital signs and Labs for Last 24 Hours: Temp Pulse Resp BP Pulse Ox 99.6 F 84 16 117/47 L 99 10/04/21 04:00 10/04/21 06:00 10/04/21 06:00 10/04/21 06:00 10/04/21 06:00 Laboratory Results - last 24 hr 10/03/21 09:13: Troponin I < 0.01 10/03/21 10:32: Lactate 1.9 10/03/21 12:00: Troponin I 0.02 10/03/21 12:45: WBC 12.5 H D, RBC 3.48 L D, Hgb 10.5 L D, Hct 31.9 L, MCV 91.6, MCH 30.4, MCHC 33.2, RDW 13.0, Plt Count 192 D, MPV 7.5, Neut % (Auto) 87.0 H, Lymph % (Auto) 7.9 L, [place] % (Auto) 4.3, Eos % (Auto) 0.7, Baso % (Auto) 0.1, Neut # (Auto) 10.8 H, Lymph # (Auto) 1.0, [place] # (Auto) 0.5, Eos # (Auto) 0.1, Baso # (Auto) 0.0, Total Counted 100, Neutrophils % (Manual) 85 H, Lymphocytes % (Manual) 9 L, Monocytes % (Manual) 6, Platelet Estimate Normal, RBC Morphology Normal 10/03/21 21:40: Hgb 9.8 L, Hct 29.6 L 10/04/21 06:25: Sodium 140, Potassium 3.3 L, Chloride 103, Carbon Dioxide 31 H, Anion Gap 9.3, BUN 24 H, Creatinine 1.00 D, Estimated Creat Clear 81, Estimated GFR 73, Est GFR ( Amer) 88 D, Glucose 130 H, Calcium 8.5 I & O for Last 24 hours: Intake & Output 10/01/21 10/02/21 10/03/21 10/04/21 11:59 11:59 11:59 11:59 Intake Total 4172 / 4172 Output Total 2200 / 2200 Balance 1971 Weight 187 lb 3 oz 198 lb 3.2 oz Microbiology Reports for the Last 24 Hours: Microbiology 10/03/21 06:20 Urine,Clean Catch Urine Culture - Preliminary NO GROWTH AFTER 24 HOURS - Constitutional no acute distress - *Routine HEENT Exam Head: Present: normocephalic Eye: Present: EOMI, PERRL ENT: Present: mucous membranes dry - *Routine Neck Exam Absent: JVD - *Routine Respiratory Exam Present: CTA bilaterally - *Routine Cardiovascular Exam Present: RRR - *Routine Abdominal Exam Present: soft - *Routine Extremities Exam Absent: calf tenderness - *Routine Skin Exam Present: intact - *Routine Neurological Exam Present: alert, CN II-XII intact - Routine Psychiatric Exam Present: normal affect Assessment and Plan (1) UGIB (upper gastrointestinal bleed) Status: Acute Category: Medical Code(s): K92.2 - Gastrointestinal hemorrhage, unspecified (2) Acute urinary retention Status: Acute Category: Medical Code(s): R33.8 - Other retention of urine (3) WILLIAM (acute kidney injury) Status: Acute Category: Medical Code(s): N17.9 - Acute kidney failure, unspecified
[2021-10-04 11:43] LABS: Hemoglobin 9.2 g/dL (14.1-18.0); Red Blood Count 2.99 M/mm3 (4.60-6.20)
[2021-10-04 11:44] LABS: Hematocrit 27.5 % (42.0-52.0); Mean Corpuscular HGB Conc 33.5 g/dL (31.8-35.4); Mean Corpuscular Hemoglobin 30.8 pg (27.0-31.2); Mean Platelet Volume 10.6 fl (7.4-10.4); Platelet Count 190 K/mm3 (142-424); Red Cell Distribution Width 13.3 % (11.5-17.5)
[2021-10-04 11:45] LABS: Basophils % 0.2 % (0.1-2.0); Lymphocytes % 15.1 % (10-50); Monocytes % 6.2 % (1.7-9.3); Neutrophils # 10.8 K/mm3 (1.8-7.8); Neutrophils % 78.4 % (37.0-80.0)
[2021-10-04 11:46] LABS: Lymphocytes # 2.1 K/mm3 (0.7-4.5)
[2021-10-04 11:47] LABS: Monocytes # 0.9 K/mm3 (0.1-1.0)
[2021-10-04 11:50] LABS: White Blood Count 13.8 K/mm3 (4.8-10.8)
--- NOTE | 2021-10-04 13:53 | PC.NURSE ---
Decreased Levophed as patient tolerated; currently turned off at this time; will continue to monitor.
--- NOTE | 2021-10-04 18:43 | PC.NURSE ---
At [address] Rosales for BP parameters to restart Levophed if warranted. Per Dr. Rosales if patient Systolic BP is <95 to restart Levophed. Patient started trending downward in BP at 1630 ranging from 66/40-72/37 q 15mins. Restarted Levophed at 1 mcg/min with increase to 101/56 at 1800. Patient stable, shows no s/s of acute distress noted at this time; will continue to monitor.
[2021-10-05] VITALS (14 sets, daily range): BP systolic 80–136; BP diastolic 44–96; PULSE 58–109; RESP 13–32; TEMP 37.1–37.7; O2SAT 91–99; BMI 22.3
--- NOTE | 2021-10-05 06:28 | PC.NURSE ---
pt restless all night, tossing and turning in bed, pt more talkative through the night, but unable to tell me his name, place or time, pt pulling off 02 sensor, levo at 2 currently with b/p 88/50, have attempted several times to wean down levo and unable to do so as pressures drop below 89 systolic.
--- NOTE | 2021-10-05 08:36 | HMH.GSPN ---
Subjective Patient reports: no new complaints Progress Note: A&P (1) UGIB (upper gastrointestinal bleed) Status: Acute Assessment and plan: Very limited esophagogastroduodenoscopy secondary to large volume clot. Follow-up morning hemoglobin Transfuse as needed Continue proton pump inhibition (2) Acute urinary retention Status: Acute (3) WILLIAM (acute kidney injury) Status: Acute Exam Vital signs and Labs for Last 24 Hours: Temp Pulse Resp BP Pulse Ox 98.9 F 109 H 20 95/54 L 93 L 10/04/21 22:00 10/05/21 06:00 10/05/21 06:00 10/05/21 06:00 10/05/21 06:00 Laboratory Results - last 24 hr 10/04/21 06:25: WBC 13.8 H, RBC 2.99 L, Hgb 9.2 L, Hct 27.5 L, MCV 92.0, MCH 30.8, MCHC 33.5, RDW 13.3, Plt Count 190, MPV 10.6 H, Neut % (Auto) 78.4, Lymph % (Auto) 15.1, [place] % (Auto) 6.2, Eos % (Auto) 0.0 L, Baso % (Auto) 0.2, Neut # (Auto) 10.8 H, Lymph # (Auto) 2.1, [place] # (Auto) 0.9, Eos # (Auto) 0.0, Baso # (Auto) 0.0 I & O for Last 24 hours: Intake & Output 10/02/21 10/03/21 10/04/21 10/05/21 11:59 11:59 11:59 11:59 Intake Total 4322 / 4418 1697 / 1697 Output Total 2200 / 2200 1425 / 1425 Balance 2122 / 2218 272 / 272 Weight 187 lb 3 oz 198 lb 3.2 oz Microbiology Reports for the Last 24 Hours: Microbiology 10/03/21 06:20 Urine,Clean Catch Urine Culture - Final NO GROWTH AFTER 48 HOURS 10/03/21 05:54 Blood Blood Culture - Preliminary NO GROWTH AFTER 48 HOURS 10/03/21 05:54 Blood Blood Culture - Preliminary NO GROWTH AFTER 48 HOURS - Constitutional no acute distress - *Routine Cardiovascular Exam Present: tachycardia - *Routine Abdominal Exam Present: soft
[2021-10-05 10:25] LABS: Basophils % 0.4 % (0.1-2.0); Eosinophils # 0.1 K/mm3 (0.0-0.4); Hematocrit 27.4 % (42.0-52.0); Hemoglobin 8.9 g/dL (14.1-18.0); Lymphocytes # 1.5 K/mm3 (0.7-4.5); Lymphocytes % 24.2 % (10-50); Mean Corpuscular HGB Conc 32.4 g/dL (31.8-35.4); Mean Corpuscular Hemoglobin 30.2 pg (27.0-31.2); Mean Corpuscular Volume 93.1 fl (80-94); Mean Platelet Volume 8.2 fl (7.4-10.4); Monocytes # 0.4 K/mm3 (0.1-1.0); Neutrophils # 4.3 K/mm3 (1.8-7.8); Neutrophils % 68.4 % (37.0-80.0); Platelet Count 190 K/mm3 (142-424); Red Blood Count 2.94 M/mm3 (4.60-6.20); Red Cell Distribution Width 13.8 % (11.5-17.5); White Blood Count 6.3 K/mm3 (4.8-10.8)
[2021-10-05 10:27] LABS: Alanine Aminotransferase 22 U/L (12-78); Albumin Level 3.3 g/dl (3.5-5.0); Albumin/Globulin Ratio 1.4 (1.1-1.8); Alkaline Phosphatase 60 U/L (38-126); Anion Gap 8.6 mEq/L (5-15); Aspartate Amino Transferase 41 U/L (17-59); Bilirubin,Total 0.5 mg/dl (0.2-1.3); Blood Urea Nitrogen 15 mg/dl (9-20); Calcium 8.3 mg/dl (8.4-10.2); Carbon Dioxide 27 mmol/L (22.0-30.0); Chloride 108 mmol/L (98-107); Creatinine Clearance Estimated 81 mL/min (50-200); Estimated Glomerular Filt Rate 82 ml/min (>60); GFR (African American) 100 ML/MIN (>60); Globulin 2.4 g/dL (1.3-3.2); Glucose 105 mg/dl (74-100); Potassium 3.6 mmoL/L (3.5-5.1); Sodium 140 mmol/L (136-145); Total Protein,Serum 5.7 g/dl (6.3-8.2)
--- NOTE | 2021-10-05 13:43 | P.PN_ITS ---
Internal Medicine - PN: Subj *Date: 10/06/21 *Time: 07:03 Interval history: doing better but hgb trending down - surg note reviewed Exam Vital signs and Labs for Last 24 Hours: Temp Pulse Resp BP Pulse Ox 99.8 F H 109 H 20 95/54 L 93 L 10/05/21 08:00 10/05/21 06:00 10/05/21 06:00 10/05/21 06:00 10/05/21 06:00 Laboratory Results - last 24 hr 10/05/21 10:05: WBC 6.3 D, RBC 2.94 L, Hgb 8.9 L, Hct 27.4 L, MCV 93.1, MCH 30.2, MCHC 32.4, RDW 13.8, Plt Count 190, MPV 8.2, Neut % (Auto) 68.4, Lymph % (Auto) 24.2, [place] % (Auto) 6.0, Eos % (Auto) 1.0, Baso % (Auto) 0.4, Neut # (Auto) 4.3, Lymph # (Auto) 1.5, [place] # (Auto) 0.4, Eos # (Auto) 0.1, Baso # (Auto) 0.0 10/05/21 10:05: Sodium 140, Potassium 3.6, Chloride 108 H, Carbon Dioxide 27, Anion Gap 8.6, BUN 15 D, Creatinine 0.90, Estimated Creat Clear 81, Estimated GFR 82, Est GFR ( Amer) 100, Glucose 105 H, Calcium 8.3 L, Total Bilirubin 0.5, AST 41, ALT 22, Alkaline Phosphatase 60, Total Protein 5.7 L D, Albumin 3.3 L, Globulin 2.4, Albumin/Globulin Ratio 1.4 I & O for Last 24 hours: Intake & Output 10/03/21 10/04/21 10/05/21 10/06/21 11:59 11:59 11:59 11:59 Intake Total 4322 / 4418 1697 / 1697 Output Total 2200 / 2200 1425 / 1425 Balance 2 / 2218 272 / 272 Weight 187 lb 3 oz 198 lb 3.2 oz Microbiology Reports for the Last 24 Hours: Microbiology 10/03/21 06:20 Urine,Clean Catch Urine Culture - Final NO GROWTH AFTER 48 HOURS 10/03/21 05:54 Blood Blood Culture - Preliminary NO GROWTH AFTER 48 HOURS 10/03/21 05:54 Blood Blood Culture - Preliminary NO GROWTH AFTER 48 HOURS - Constitutional no acute distress - *Routine HEENT Exam Head: Present: normocephalic Eye: Present: EOMI, PERRL ENT: Present: mucous membranes dry - *Routine Neck Exam Absent: JVD - *Routine Respiratory Exam Present: decreased breath sounds - *Routine Cardiovascular Exam Present: RRR - *Routine Abdominal Exam Present: soft - *Routine Extremities Exam Absent: calf tenderness - *Routine Skin Exam Present: intact - *Routine Neurological Exam Present: alert, CN II-XII intact - Routine Psychiatric Exam Present: cooperative Assessment and Plan (1) UGIB (upper gastrointestinal bleed) Status: Acute Category: Medical Code(s): K92.2 - Gastrointestinal hemorrhage, unspecified (2) Acute urinary retention Status: Acute Category: Medical Code(s): R33.8 - Other retention of urine (3) WILLIAM (acute kidney injury) Status: Acute Category: Medical Code(s): N17.9 - Acute kidney failure, unspecified
--- NOTE | 2021-10-05 15:30 | DIET.NUTRFU ---
Patient continues on clear liquids, need total assistance with meals. Added boost clear to meals for additional calories and protein.
--- NOTE | 2021-10-05 17:39 | PC.NURSE ---
shift summary: Pt able to state name and carry on a conversation. Is pleasantly confused. Turns himself in bed. Felton cath in place with adequate UOP. No BM. Is a total feed. Eats 100% of all meals. No dysphagia noted with current diet. Hypotensive if Levo gtt turned off. Goal to keep SBP>90. Levo gtt @ 3mcg/min. Protonix gtt @ 10mg/hr and LR @ 50mL/hr. O2 has been weaned off. O2 sat > 90% on RA. NSR on tele.
[2021-10-06] VITALS (15 sets, daily range): BP systolic 85–119; BP diastolic 43–70; PULSE 60–92; RESP 15–20; TEMP 36.8–37.4; O2SAT 79–97; BMI 22.2
--- NOTE | 2021-10-06 03:26 | PC.NURSE ---
Pt is pleasant. Alert to self. Has been awake most of night. Has c/o some discomfort to abdomen at times this shift. Pt remains on protonix gtt @ 10 ml/hr. LR infusing @ 50 ml/hr. He continues to need Levophed to maintain BP. Currently infusing @ 3 mcg/min. He is currently on RA with O2 sats low 90s. He occasionally desats to 88%, but quickly recovers. Pt given a bed bath this shift. New IV placed to LFA #22. No other concerns. Will continue to monitor.
[2021-10-06 07:56] LABS: Basophils % 0.7 % (0.1-2.0); Eosinophils # 0.1 K/mm3 (0.0-0.4); Eosinophils % 2.6 % (0.1-12.0); Hematocrit 30.6 % (42.0-52.0); Lymphocytes # 1.3 K/mm3 (0.7-4.5); Lymphocytes % 24.9 % (10-50); Mean Corpuscular HGB Conc 32.8 g/dL (31.8-35.4); Mean Corpuscular Hemoglobin 30.9 pg (27.0-31.2); Mean Platelet Volume 7.9 fl (7.4-10.4); Monocytes # 0.3 K/mm3 (0.1-1.0); Monocytes % 5.6 % (1.7-9.3); Neutrophils # 3.4 K/mm3 (1.8-7.8); Neutrophils % 66.3 % (37.0-80.0); Platelet Count 217 K/mm3 (142-424); Red Blood Count 3.25 M/mm3 (4.60-6.20); Red Cell Distribution Width 13.6 % (11.5-17.5); White Blood Count 5.2 K/mm3 (4.8-10.8)
[2021-10-06 07:59] LABS: Chloride 108 mmol/L (98-107)
[2021-10-06 08:00] LABS: Potassium 3.4 mmoL/L (3.5-5.1); Sodium 139 mmol/L (136-145)
[2021-10-06 08:02] LABS: Blood Urea Nitrogen 10 mg/dl (9-20); Creatinine Clearance Estimated 75 mL/min (50-200); Estimated Glomerular Filt Rate 82 ml/min (>60); GFR (African American) 100 ML/MIN (>60)
[2021-10-06 08:03] LABS: Anion Gap 6.4 mEq/L (5-15); Calcium 8.6 mg/dl (8.4-10.2); Carbon Dioxide 28 mmol/L (22.0-30.0); Glucose 117 mg/dl (74-100)
[2021-10-06 09:36] LABS: Hemoglobin 10.1 g/dL (14.1-18.0)
--- NOTE | 2021-10-06 09:52 | P.PN_ITS ---
Subjective Narrative: Per nursing, the patient has had no new issues overnight . No definitive evidence of ongoing gastrointestinal hemorrhage. Progress Note: A&P (1) UGIB (upper gastrointestinal bleed) Status: Acute Assessment and plan: Very limited visualization noted on EGD secondary to large-volume blood clot. No obvious active hemorrhage noted. Hemoglobin increased today. Continue proton pump inhibition May benefit from outpatient EGD in the relatively near future secondary to limited visualization on recent evaluation (2) Acute urinary retention Status: Acute (3) WILLIAM (acute kidney injury) Status: Acute Exam Vital signs and Labs for Last 24 Hours: Temp Pulse Resp BP Pulse Ox 99.4 F 79 15 112/66 79 L 10/06/21 04:15 10/06/21 06:00 10/06/21 06:00 10/06/21 06:00 10/06/21 06:00 Laboratory Results - last 24 hr 10/05/21 10:05: WBC 6.3 D, RBC 2.94 L, Hgb 8.9 L, Hct 27.4 L, MCV 93.1, MCH 30.2, MCHC 32.4, RDW 13.8, Plt Count 190, MPV 8.2, Neut % (Auto) 68.4, Lymph % (Auto) 24.2, [place] % (Auto) 6.0, Eos % (Auto) 1.0, Baso % (Auto) 0.4, Neut # (Auto) 4.3, Lymph # (Auto) 1.5, [place] # (Auto) 0.4, Eos # (Auto) 0.1, Baso # (Auto) 0.0 10/05/21 10:05: Sodium 140, Potassium 3.6, Chloride 108 H, Carbon Dioxide 27, Anion Gap 8.6, BUN 15 D, Creatinine 0.90, Estimated Creat Clear 81, Estimated GFR 82, Est GFR ( Amer) 100, Glucose 105 H, Calcium 8.3 L, Total Bilirubin 0.5, AST 41, ALT 22, Alkaline Phosphatase 60, Total Protein 5.7 L D, Albumin 3.3 L, Globulin 2.4, Albumin/Globulin Ratio 1.4 10/06/21 07:27: WBC 5.2, RBC 3.25 L, Hgb 10.1 L D, Hct 30.6 L, MCV 94.0, MCH 30.9, MCHC 32.8, RDW 13.6, Plt Count 217, MPV 7.9, Neut % (Auto) 66.3, Lymph % (Auto) 24.9, [place] % (Auto) 5.6, Eos % (Auto) 2.6, Baso % (Auto) 0.7, Neut # (Auto) 3.4, Lymph # (Auto) 1.3, [place] # (Auto) 0.3, Eos # (Auto) 0.1, Baso # (Auto) 0.0 10/06/21 07:27: Sodium 139, Potassium 3.4 L, Chloride 108 H, Carbon Dioxide 28, Anion Gap 6.4, BUN 10 D, Creatinine 0.90, Estimated Creat Clear 75, Estimated GFR 82, Est GFR ( Amer) 100, Glucose 117 H, Calcium 8.6 I & O for Last 24 hours: Intake & Output 10/03/21 10/04/21 10/05/21 10/06/21 11:59 11:59 11:59 11:59 Intake Total 4322 / 4418 1697 / 1697 1753 / 1753 Output Total 2200 / 2200 1425 / 1425 1200 / 1200 Balance 2122 / 2218 272 / 272 553 / 553 Weight 187 lb 3 oz 198 lb 3.2 oz 182 lb 12.8 oz Microbiology Reports for the Last 24 Hours: Microbiology 10/03/21 06:20 Urine,Clean Catch Urine Culture - Final NO GROWTH AFTER 48 HOURS 10/03/21 05:54 Blood Blood Culture - Preliminary NO GROWTH AFTER 48 HOURS 10/03/21 05:54 Blood Blood Culture - Preliminary NO GROWTH AFTER 48 HOURS - Constitutional no acute distress - *Routine Respiratory Exam Absent: respiratory distress - *Routine Cardiovascular Exam Absent: tachycardia
--- NOTE | 2021-10-06 11:54 | P.PN_ITS ---
Internal Medicine - PN: Subj *Date: 10/07/21 *Time: 08:46 Interval history: doing ok with stable h/h ane will wean off bp support Exam Vital signs and Labs for Last 24 Hours: Temp Pulse Resp BP Pulse Ox 99.4 F 69 15 85/49 L 95 10/06/21 04:15 10/06/21 10:00 10/06/21 06:00 10/06/21 10:00 10/06/21 10:00 Laboratory Results - last 24 hr 10/06/21 07:27: WBC 5.2, RBC 3.25 L, Hgb 10.1 L D, Hct 30.6 L, MCV 94.0, MCH 30.9, MCHC 32.8, RDW 13.6, Plt Count 217, MPV 7.9, Neut % (Auto) 66.3, Lymph % (Auto) 24.9, [place] % (Auto) 5.6, Eos % (Auto) 2.6, Baso % (Auto) 0.7, Neut # (Auto) 3.4, Lymph # (Auto) 1.3, [place] # (Auto) 0.3, Eos # (Auto) 0.1, Baso # (Auto) 0.0 10/06/21 07:27: Sodium 139, Potassium 3.4 L, Chloride 108 H, Carbon Dioxide 28, Anion Gap 6.4, BUN 10 D, Creatinine 0.90, Estimated Creat Clear 75, Estimated GFR 82, Est GFR ( Amer) 100, Glucose 117 H, Calcium 8.6 I & O for Last 24 hours: Intake & Output 10/03/21 10/04/21 10/05/21 10/06/21 11:59 11:59 11:59 11:59 Intake Total 4322 / 4418 1697 / 1697 1753 / 1753 Output Total 2200 / 2200 1425 / 1425 1200 / 1200 Balance 2122 / 2218 272 / 272 553 / 553 Weight 187 lb 3 oz 198 lb 3.2 oz 182 lb 12.8 oz - Constitutional no acute distress - *Routine HEENT Exam Head: Present: Torres's sign Eye: Present: EOMI, PERRL ENT: Present: mucous membranes dry - *Routine Neck Exam Absent: JVD - *Routine Respiratory Exam Present: CTA bilaterally - *Routine Cardiovascular Exam Present: RRR - *Routine Abdominal Exam Present: soft - *Routine Extremities Exam Absent: edema - *Routine Skin Exam Present: intact - *Routine Neurological Exam Present: alert, CN II-XII intact - Routine Psychiatric Exam Present: cooperative Assessment and Plan (1) UGIB (upper gastrointestinal bleed) Status: Acute Category: Medical Code(s): K92.2 - Gastrointestinal hemorrhage, unspecified (2) Acute urinary retention Status: Acute Category: Medical Code(s): R33.8 - Other retention of urine (3) WILLIAM (acute kidney injury) Status: Acute Category: Medical Code(s): N17.9 - Acute kidney failure, unspecified
[2021-10-07] VITALS (7 sets, daily range): BP systolic 87–126; BP diastolic 50–61; PULSE 60–82; RESP 16–20; TEMP 37; O2SAT 92–96; BMI 22.2
--- NOTE | 2021-10-07 06:20 | PC.NURSE ---
No acute changes. Pt has remained off Levophed gtt this shift and has maintained BP. Other VS also stable. He is currently on 1L O2 NC. Pt has c/o of a headache x2 this shift. Medicated per aug. No other complaints stated. Pt slept better tonight. No other concerns. Will continue to monitor.
[2021-10-07 09:20] LABS: Basophils % 1.2 % (0.1-2.0); Eosinophils # 0.1 K/mm3 (0.0-0.4); Eosinophils % 3.7 % (0.1-12.0); Hematocrit 28.2 % (42.0-52.0); Hemoglobin 9.4 g/dL (14.1-18.0); Lymphocytes # 1.3 K/mm3 (0.7-4.5); Lymphocytes % 39.4 % (10-50); Mean Corpuscular HGB Conc 33.2 g/dL (31.8-35.4); Mean Corpuscular Hemoglobin 31.2 pg (27.0-31.2); Mean Corpuscular Volume 93.7 fl (80-94); Mean Platelet Volume 8.2 fl (7.4-10.4); Monocytes # 0.2 K/mm3 (0.1-1.0); Monocytes % 5.8 % (1.7-9.3); Neutrophils # 1.7 K/mm3 (1.8-7.8); Neutrophils % 49.9 % (37.0-80.0); Platelet Count 219 K/mm3 (142-424); Red Blood Count 3.01 M/mm3 (4.60-6.20); Red Cell Distribution Width 13.7 % (11.5-17.5); White Blood Count 3.3 K/mm3 (4.8-10.8)
--- NOTE | 2021-10-07 09:25 | HMH.GSPN ---
Subjective Patient reports: no new complaints Progress Note: A&P (1) UGIB (upper gastrointestinal bleed) Status: Acute Assessment and plan: Definitive etiology remains undetermined secondary to limitations in visualization on EGD (blood clot). No definitive sign of ongoing hemorrhage. Follow-up a.m. labs Continue PPI (2) Acute urinary retention Status: Acute (3) WILLIAM (acute kidney injury) Status: Acute Exam Vital signs and Labs for Last 24 Hours: Temp Pulse Resp BP Pulse Ox 98.6 F 78 20 100/59 L 94 L 10/07/21 04:00 10/07/21 08:00 10/07/21 08:00 10/07/21 08:00 10/07/21 08:00 Laboratory Results - last 24 hr 10/06/21 07:27: Hgb 10.1 L D 10/07/21 09:00: WBC 3.3 L D, RBC 3.01 L, Hgb 9.4 L, Hct 28.2 L, MCV 93.7, MCH 31.2, MCHC 33.2, RDW 13.7, Plt Count 219, MPV 8.2, Neut % (Auto) 49.9, Lymph % (Auto) 39.4, [place] % (Auto) 5.8, Eos % (Auto) 3.7, Baso % (Auto) 1.2, Neut # (Auto) 1.7 L, Lymph # (Auto) 1.3, [place] # (Auto) 0.2, Eos # (Auto) 0.1, Baso # (Auto) 0.0 I & O for Last 24 hours: Intake & Output 10/04/21 10/05/21 10/06/21 10/07/21 11:59 11:59 11:59 11:59 Intake Total 4322 / 4418 1697 / 1697 1753 / 1753 2573 / 2573 Output Total 2200 / 2200 1425 / 1425 1200 / 1200 2100 / 2100 Balance 2122 / 2218 272 / 272 553 / 553 473 / 473 Weight 198 lb 3.2 oz 182 lb 12.8 oz 182 lb 12.811 oz - Constitutional no acute distress - *Routine Respiratory Exam Absent: respiratory distress - *Routine Cardiovascular Exam Absent: tachycardia
--- NOTE | 2021-10-07 10:36 | PC.NURSE ---
[address] Farah pt may come out of stepdown. place pt on room air and monitor, notify Brice Noel at around 1200 of pt condition on room air. remove pt maryann at this current time as well.
--- NOTE | 2021-10-07 13:39 | PC.NURSE ---
1230 notified Brice Noel that pt o2 sats have not dropped below 90 since o2 was removed by Brice Noel this am. she states that she will discuss discharge with Dr Farah.
--- NOTE | 2021-10-07 14:18 | HMH.DCSUM ---
General - General Admission date:: 10/03/21 Discharge date: 10/07/21 HPI HPI: this patient was sent from [facility] with acute onset of coffee- ground emesis w/o def abd pain but low bp and no melena - pt admitted for eval and treatment Hospital Course Hospital Course: Abnormal Lab Results 10/07/21 09:00: WBC 3.3 L D, RBC 3.01 L, Hgb 9.4 L, Hct 28.2 L, Neut # (Auto) 1.7 L Microbiology 10/03/21 06:20 Urine,Clean Catch Urine Culture - Final NO GROWTH AFTER 48 HOURS 10/03/21 05:54 Blood Blood Culture - Preliminary NO GROWTH AFTER 48 HOURS 10/03/21 05:54 Blood Blood Culture - Preliminary NO GROWTH AFTER 48 HOURS surgery consult see his note: EDG Findings:: Large sliding hiatal hernia Food particles and old blood throughout gastric lumen Limited visualization secondary to above Linear complex distal esophageal ulceration with mucosal necrosis Pyloric channel/duodenal bulb ulcerations (x2) with fibrinous exudate at clot No obvious active bleeding at time of procedure Specimens:: Antral biopsy Recommendations:: Proton pump inhibition Serial hemoglobin/hematocrit Repeat EGD in the relatively near future for reevaluation (likely improved visualization once food particles and clot no longer within gastric lumen) Discharge Plan (1) UGIB (upper gastrointestinal bleed)- EGD, stable h/h, continue ppi and repeat cbc on friday, follow up with dr wylie in 1 week (2) Acute urinary retention- improved, wolf removed monitor at custodial (3) WILLIAM (acute kidney injury)- labs improved, monitor at custodial have bmp done on friday Objective Vital signs: Temp Pulse Resp BP Pulse Ox 98.6 F 68 20 87/54 L 92 L 10/07/21 04:00 10/07/21 12:00 10/07/21 12:00 10/07/21 12:00 10/07/21 12:00 no acute distress - *Routine HEENT Exam Head: Present: normocephalic Eye: Present: PERRL ENT: Present: mucous membranes moist - *Routine Neck Exam Present: supple - *Routine Respiratory Exam Present: CTA bilaterally - *Routine Cardiovascular Exam Present: RRR - *Routine Abdominal Exam Present: soft, normoactive bowel sounds. Absent: tenderness - *Routine Extremities Exam Absent: cyanosis, clubbing, edema - *Routine Skin Exam Present: warm. Absent: rash - Detailed Eye Exam Eyelids: Bilateral normal inspection Results Labs on day of discharge: Labs from last 24 hours 10/07/21 09:00 WBC 3.3 L D RBC 3.01 L Hgb 9.4 L Hct 28.2 L MCV 93.7 MCH 31.2 MCHC 33.2 RDW 13.7 Plt Count 219 MPV 8.2 Neut % (Auto) 49.9 Lymph % (Auto) 39.4 [place] % (Auto) 5.8 Eos % (Auto) 3.7 Baso % (Auto) 1.2 Neut # (Auto) 1.7 L Lymph # (Auto) 1.3 [place] # (Auto) 0.2 Eos # (Auto) 0.1 Baso # (Auto) 0.0 Preliminary micro results at discharge 10/03/21 05:54 Blood Culture - Preliminary Blood NO GROWTH AFTER 48 HOURS 10/03/21 05:54 Blood Culture - Preliminary Blood NO GROWTH AFTER 48 HOURS - Additional Comments rounded with dr gleason all orders per dr gleason DS: Diagnosis - Discharge Diagnosis (1) UGIB (upper gastrointestinal bleed) Status: Acute (2) Acute urinary retention Status: Acute (3) WILLIAM (acute kidney injury) Status: Acute Discharge Plan - Patient Discharge Instructions ACTIVITY: Continue current activity DIET: continue same diet Patient Instructions: Upper GI Endoscopy, DI for Acute Abdominal Pain, DI for Gastrointestinal Bleeding - Follow up Plan Follow up with: Marvin Wylie MD [Staff Physician] - 1 week Scottie Gleason MD [Primary Care Provider] - (on rounds) Disposition: Xfer SNF Condition at discharge:: Stable Home Medications: Home Medications Medication Instructions Recorded Confirmed Type finasteride 5 mg tablet 5 mg PO DAILY 07/14/17 10/03/21 History folic acid 1 mg tablet 1 mg PO DAILY 07/14/17 10/03/21
--- NOTE | 2021-10-07 14:21 | PC.NURSE ---
Addendum entered by Mari Gonzalez RN 10/07/21 14:27: placed on 1 lpm/nc Original Note: notified Brice Noel that pt desats to 82% when asleep and without o2. message left with Ha Bennett RN [id number]
--- NOTE | 2021-10-07 15:08 | PC.NURSE ---
pt voided per urinal prior to dc
--- NOTE | 2021-10-08 15:41 | CARE MANAGER ---
Spoke with Cate from [facility] regarding patient post-discharge and she states that patient is good and has no needs at this time.
== END 2021-10-07 15:25 | DRG 381 ==
LOC: ER 06:13 → 2ND 06:20
PROVIDERS: Surgery; Admitting Provider Emergency Medicine; Emergency Provider Emergency Medicine; PCP Emergency Medicine; Visit Provider Emergency Medicine
PROC: 0DJ08ZZ Inspection of Upper Intestinal Tract, Via Natural or Artificial Opening Endoscopic (ICD-10-PCS; CPT 43235; principal; 2021-10-03 11:30)
DX: K22.11 Ulcer of esophagus with bleeding (principal); N17.9 Acute kidney failure, unspecified; I25.10 Atherosclerotic heart disease of native coronary artery without angina pectoris; J44.9 Chronic obstructive pulmonary disease, unspecified; I10 Essential (primary) hypertension; Z79.899 Other long term (current) drug therapy; R33.8 Other retention of urine; F03.90 Unspecified dementia, unspecified severity, without behavioral disturbance, psychotic disturbance, mood disturbance, and anxiety; E78.5 Hyperlipidemia, unspecified; M19.90 Unspecified osteoarthritis, unspecified site; K44.9 Diaphragmatic hernia without obstruction or gangrene; K25.4 Chronic or unspecified gastric ulcer with hemorrhage
CPT/HCPCS: 43239; 36415; 51702; 71045; 80048; 80053; 81001; 82272; 83605; 83735; 84145; 84484; 85007; 85014; 85018; 85025; 85048; 85049; 85651; 86140; 87040; 87086; 88305; 93005; 94760; 94761; 96375; 99285; C9803; G0328; J2405; U0003; U0005

== ENCOUNTER 2022-07-07 21:34 | Observation (INO) | payer MEDICARE, MEDICAID, SELFPAY ==
[2022-07-07] VITALS (15 sets, daily range): BP systolic 91–123; BP diastolic 49–79; PULSE 117–128; RESP 16–21; TEMP 36.6–38.4; O2SAT 92–97; BMI 25.3; BMI 34.0
--- NOTE | 2022-07-07 21:35 | PC.NURSE ---
Patient came to emergency dept from [facility] with c/o lethargy and ams. Patient was slighlty combative upon arrival to er, while cleaning patient and placing him in a gown he was attempting to roll away from staff and sit up in bed. Patient was incontinent of both bowel and bladder, patient appears to have diarrhea. Of note, per custodial patients baseline is confusion. He is typically pleasant and alert, though not oriented.
--- NOTE | 2022-07-07 21:37 | ECG_ITS ---
APPROVED REPORT Exam: Resting ECG HR:126 bpm ECG Measurements Heart Rate 126 AXES IL 172 P 14 QRSd 90 QRS 6 QT 395 T 29 QTc 470 Conclusion SINUS TACHYCARDIA old anteroseptal changes Artifact limits interpretation o/w ABNORMAL ECG UNCONFIRMED REPORT Electronically signed by : Nitin Neville MD 07/08/2022 19:45:10
--- NOTE | 2022-07-07 21:38 | XR_ITS ---
PROCEDURE INFORMATION: Exam: XR Chest Exam date and time: 07/07/2022 9:59 PM Age: 77 years old Clinical indication: Fever; Additional info: AMS, fever TECHNIQUE: Imaging protocol: Radiologic exam of the chest. Views: 1 view. COMPARISON: CR XR CHEST PORTABLE 10/04/2021 7:50 AM FINDINGS: Lungs: Unchanged left hemidiaphragmatic elevation. There is a infiltrate in the left mid to lower lung. Patchy infiltrate in the peripheral right upper lobe also present. Pleural spaces: Prominent skin fold is seen left lateral hemithorax. No pleural effusion. No definite pneumothorax. Heart/Mediastinum: Unremarkable. No cardiomegaly. Bones/joints: Unremarkable. Soft tissues: Patient's chin obscures the medial lung apices. IMPRESSION: Infiltrate in the mid to lower left lung, and patchy infiltrate peripheral right upper lobe are suspicious for pneumonia.
[2022-07-07 21:46] LABS: Coronavirus 19, PCR Not Detected (NotDetected); Influenza A, PCR Not Detected (NotDetected); Influenza B, PCR Not Detected (NotDetected)
[2022-07-07 21:47] LABS: Basophils # 0.1 K/mm3 (0-0.2); Basophils % 0.5 % (0.1-2.0); Hematocrit 41.1 % (42.0-52.0); Hemoglobin 13.6 g/dL (14.1-18.0); Lymphocytes % 8.7 % (10-50); Mean Corpuscular Hemoglobin 29.1 pg (27.0-31.2); Mean Corpuscular Volume 88.1 fl (80-94); Mean Platelet Volume 7.7 fl (7.4-10.4); Monocytes # 0.4 K/mm3 (0.1-1.0); Monocytes % 3.7 % (1.7-9.3); Neutrophils # 9.5 K/mm3 (1.8-7.8); Platelet Count 262 K/mm3 (142-424); Red Blood Count 4.67 M/mm3 (4.60-6.20); White Blood Count 10.9 K/mm3 (4.8-10.8)
[2022-07-07 21:49] LABS: Chloride 104 mmol/L (98-107)
[2022-07-07 21:50] LABS: Potassium 4.3 mmoL/L (3.5-5.1); Sodium 141 mmol/L (136-145)
[2022-07-07 21:52] LABS: Alanine Aminotransferase 23 U/L (12-78); Alkaline Phosphatase 99 U/L (38-126); Anion Gap 18.3 mEq/L (5-15); Aspartate Amino Transferase 31 U/L (17-59); Bilirubin,Total 0.7 mg/dl (0.2-1.3); Blood Urea Nitrogen 21 mg/dl (9-20); Carbon Dioxide 23 mmol/L (22.0-30.0); Creatinine Clearance Estimated 44 mL/min (50-200); Estimated Glomerular Filt Rate 39 ml/min (>60); GFR (African American) 48 ML/MIN (>60)
[2022-07-07 21:53] LABS: Albumin Level 4.7 g/dl (3.5-5.0); Albumin/Globulin Ratio 1.4 (1.1-1.8); Calcium 8.9 mg/dl (8.4-10.2); Globulin 3.4 g/dL (1.3-3.2); Glucose 171 mg/dl (74-100); Magnesium 1.6 mg/dl (1.6-2.3); Total Protein,Serum 8.1 g/dl (6.3-8.2)
[2022-07-07 21:56] LABS: MANUAL DIFFERENTIAL MANUAL DIFFERENTIAL (MANUAL DIFF)
[2022-07-07 22:02] LABS: NT Pro Brain Natriuretic Pep. 430 pg/mL (0-450)
[2022-07-07 22:06] LABS: Lactic Acid 3.4 mmol/L (0.7-2.1)
--- NOTE | 2022-07-07 22:06 | HMH.EDAMS ---
Discharge Plan Disposition Patient Disposition: Admitted As Inpatient Prescriptions Prescriptions: No Action mecobalamin (vitamin B12) 1,000 mcg tablet,disintegrating 1,000 mcg SUBLINGUAL HS folic acid 1 mg tablet 1 mg PO DAILY finasteride 5 mg tablet 5 mg PO DAILY Rx Instructions: Wear gloves when handling atorvastatin 20 mg tablet 20 mg PO HS loratadine 10 mg tablet 10 mg PO DAILY sennosides-docusate sodium [Senna Plus] 8.6-50 mg tablet 1 tab PO BID lorazepam 0.5 mg tablet 0.5 mg PO BID Qty: 60 5RF quetiapine 25 MG tablet 25 mg PO BID sucralfate 1 GM tablet 1 g PO TID Rx Instructions: Take before meals; Antacids should not be taken within 30 minutes before or after sucralfate omeprazole 20 MG capsule,delayed release(DR/EC) 20 mg PO HS quetiapine 300 MG tablet 300 mg PO HS ondansetron HCl 4 MG tablet 4 mg PO Q6HP PRN (Reason: Nausea And Vomiting) Referrals Follow up/Referrals: Scottie Farah MD [Primary Care Provider] - See instructions Clinical Impressions Clinical Impression: WILLIAM (acute kidney injury), Acute febrile illness, Severe sepsis with acute organ dysfunction, CAP (community acquired pneumonia) Instructions Patient Instructions: DI for Altered Mental Status Discharge ED Provider: Sofi (ED)Scottie Altered Mental Status HPI General Chief Complaint: Altered Mental Status Stated Complaint: pale/less responsive/drooling Time Seen by Provider: 07/07/22 22:06 Mode of Arrival: EMS Source of Information: EMS and Medical Record Limitations: Altered Mental Status Description of Symptoms (Recalled from ER Triage Doc. by RN): Pt arrives to er from [place] via ems. Per [place] in the [facility], patient has been non responsive, hypotensive and incontinent. EMS reports that patient is typically alert but confused. History of Present Illness HPI narrative: pt sent from [facility] for change in mental status - over the last day complaint: altered mental status Onset (ago): hour(s) Timing confirmed by: caregiver Severity: moderate Consistency of symptoms: waxing and waning Associated symptoms: fever Related Data Home Medications Medication Instructions Recorded Confirmed finasteride 5 mg tablet 5 mg PO DAILY PROSTATE 07/14/17 07/07/22 folic acid 1 mg tablet 1 mg PO DAILY Supplement 07/14/17 07/07/22 mecobalamin (vitamin B12) 1,000 1,000 mcg sublingual HS Supplement 07/14/17 07/07/22 mcg disintegrating tablet,sublingual atorvastatin 20 mg tablet 20 mg PO HS High cholesterol 02/10/18 07/07/22 loratadine 10 mg tablet 10 mg PO DAILY Allergy symptoms 02/10/18 07/07/22 sennosides 8.6 mg-docusate sodium 1 tab PO BID CONSTIPATION 02/10/18 07/07/22 50 mg tablet (Senna Plus) quetiapine 25 mg tablet 25 mg PO BID MOOD 07/03/20 07/07/22 sucralfate 1 gram tablet 1 g PO TID STOMACH 07/03/20 07/07/22 omeprazole 20 mg capsule,delayed 20 mg PO HS Acid Reflux 10/03/21 07/07/22 release ondansetron HCl 4 mg tablet 4 mg PO Q6HP PRN Nausea And 10/03/21 07/07/22 Vomiting quetiapine 300 mg tablet 300 mg PO HS Mood 10/03/21 07/07/22 Previous Rx's Medication Instructions Recorded lorazepam 0.5 mg tablet 0.5 mg PO BID Anxiety #60 tabs 04/10/22 Allergies Allergy/AdvReac Type Severity Reaction Status Date / Time No Known Allergies Allergy Verified 07/02/22 19:59 [facility] Disclaimer: The information contained in this section may have been updated after the patient was seen, as this information can be updated by other users. Medical History CAD (coronary artery disease) Diaphragmatic hernia Dysphagia Renal insufficiency Schizophrenia Social History Smoking Status: Former smoker alcohol intake: never substance use type: denies use current occupational status: disabled Travel in the
[2022-07-07 22:07] LABS: Troponin I < 0.01 ng/ml (0.00-0.034)
[2022-07-07 22:30] LABS: Lymphocytes % 12 % (10-50); Monocytes % 3 % (2-9); Neutrophils % 85 % (42-76); Total Cells Counted 100
[2022-07-07 22:31] LABS: Microscopic, Urine URINE MICROSCOPIC (MICROSCOPIC)
[2022-07-07 22:31] LABS: Ovalocytes 1+; Platelet Estimate Normal
[2022-07-07 22:40] LABS: Appearance,Urine TURBID (Clear); Blood, Urine TRACE-I (Negative); Color,Urine DK YELLOW (Yellow); Glucose,Urine (UA) Negative (Negative); Ketones,Urine TRACE (Negative); Leukocyte Esterase,Urine TRACE (Negative); Nitrate,Urine Negative (Negative); Protein,Urine 3+ (Negative); Specific Gravity, Urine 1.015 (1.005-1.030); Urobilinogen,Urine 0.2 EU/dl (0.2)
[2022-07-07 22:44] LABS: Bilirubin,Urine 2+ (Negative)
--- NOTE | 2022-07-07 22:52 | PC.NURSE ---
Rounded on patient. Patient was asked if he was feeling any better and he did wake up and say he was okay. Patient remains resting in bed.
--- NOTE | 2022-07-07 22:53 | PC.NURSE ---
s/w Ramon Burris hospitalist
[2022-07-07 23:01] LABS: Bacteria,Urine 4+ /lpf
--- NOTE | 2022-07-07 23:12 | EXP.HP ---
History of Present Illness *Admission Date: 07/07/22 *Reason for visit:: Change in mental status *History of present illness: Mr. You is a 77-year-old male who is a resident of a local [place]. He was sent to [facility] from the [place] facility today due to a change in mental status. Per review of the records, the patient is normally confused, but alert. Today he was difficult to arouse at the facility, hypotensive and had episode of incontinence. He was sent to the ER for evaluation. In the ER, the patient was noted to have a Temperature of 101.2. Covid and Flu were negative. HR was 126, EKG showed a Sinus Tacycardia. Cxray showed an infiltrate in the left lower lung lobe and right upper lung lobe. On exam the patient does not arouse and information for the history and physical was obtained from the ER Physician, staff and the patient's chart. The patient will be admitted with initial impression: Sepsis with Pneumonia as concern for the source. Cultures were drawn in the ER, Fluids were given and the patient will be placed on broad spectrum antibiotics. [facility] Disclaimer: The information contained in this section may have been updated after the patient was seen, as this information can be updated by other users. Medical History CAD (coronary artery disease) Diaphragmatic hernia Dysphagia Renal insufficiency Schizophrenia Family History (Updated 07/08/22 @ 00:44 by Amparo Briseno RN) Family history non-contributory Social History (Updated 07/08/22 @ 00:46 by Amparo Briseno RN) Smoking Status: Former smoker alcohol intake: never substance use type: denies use current occupational status: disabled Travel in the last 8 weeks: None housing: intermediate current occupational exposures/hazards: No caffeine: No Review of Systems Review of Systems Review of systems:: unable to obtain Meds Home Medications and Allergies Home Medications Medication Instructions Recorded Confirmed Type finasteride 5 mg tablet 5 mg PO DAILY PROSTATE 07/14/17 07/08/22 History folic acid 1 mg tablet 1 mg PO DAILY Supplement 07/14/17 07/08/22 History mecobalamin (vitamin B12) 1,000 1,000 mcg sublingual DAILY 07/14/17 07/08/22 History mcg disintegrating Supplement tablet,sublingual atorvastatin 20 mg tablet 20 mg PO HS Cholesterol 02/10/18 07/08/22 History loratadine 10 mg tablet 10 mg PO DAILY Allergy symptoms 02/10/18 07/08/22 History quetiapine 25 mg tablet 25 mg PO BID MOOD 07/03/20 07/08/22 History sucralfate 1 gram tablet 1 g PO TID STOMACH 07/03/20 07/08/22 History ondansetron HCl 4 mg tablet 4 mg PO Q6HP PRN Nausea And 10/03/21 07/08/22 History Vomiting quetiapine 300 mg tablet 300 mg PO HS Mood 10/03/21 07/08/22 History lorazepam 0.5 mg tablet 0.5 mg PO BID Anxiety #60 tabs 04/10/22 07/08/22 Rx acetaminophen 500 mg tablet 500 mg PO HS Pain 07/08/22 07/08/22 History acetaminophen 500 mg tablet 500 mg PO Q4HP PRN Pain 07/08/22 07/08/22 History aluminum-mag hydroxide-simethicone 30 ml PO Q2HP PRN Heartburn 07/08/22 07/08/22 History 200 mg-200 mg-20 mg/5 mL oral susp deutetrabenazine 12 mg tablet 12 mg PO BID TARDIVE DYSKINESIA 07/08/22 07/08/22 History (Austedo) levofloxacin 750 mg tablet 750 mg PO DAILY 7 days #7 tabs 07/08/22 Rx loperamide 2 mg tablet 2 mg PO Q4HP PRN Diarrhea 07/08/22 07/08/22 History pantoprazole 40 mg tablet,delayed 40 mg PO HS GERD 07/08/22 07/08/22 History release sennosides 8.6 mg tablet (senna) 8.6 mg PO BID CONSTIPATION 07/08/22 07/08/22 History New Prescriptions to Start Prescriptions: levofloxacin Jamil Espinoza Allergies Allergy/AdvReac Type Severity Reaction Status Date / Time No Known Allergies Allergy Verified 07/02/22 19:59 Exam Data for Last 24 hours Vital signs and Labs for Last 24 Hours: Temp Resp BP Pulse Ox 101.2 F H 19 107/67 L 95 0
--- NOTE | 2022-07-07 23:51 | PC.NURSE ---
PT ARRIVED TO FLOOR AT THIS TIME
[2022-07-08] VITALS: BP 91/57; RESP 16; TEMP 38.2; O2SAT 92; BMI 29.8
[2022-07-08] LABS: Procalcitonin 0.192 ng/mL (0.0-2.0)
[2022-07-08 00:26] VITALS: PULSE 122
--- NOTE | 2022-07-08 00:53 | PC.NURSE ---
medical history and medication list obtained from previous records and notes from retirement facility, pt is unable to answer questions and confused to place and time, pt only arousable to name calling.
--- NOTE | 2022-07-08 01:08 | PC.NURSE ---
pt triggers sepsis, pt admitted with sepsis diagnosis, 1L bolus given in er and upon arrival to floor, blood cultures obtained in er, cefepime and vancomycin started as prescribed.
[2022-07-08 01:53] LABS: Reflex Lactic Add Lactic Reflex
[2022-07-08 02:39] LABS: Lactic Acid Follow Up (RFLX 1) 2.2 mmol/L (0.7-2.1)
[2022-07-08 02:48] LABS: Troponin I 0.02 ng/ml (0.00-0.034)
[2022-07-08 03:46] VITALS: BP 99/63; PULSE 68; RESP 18; TEMP 37.6; O2SAT 99
[2022-07-08 03:48] VITALS: BMI 29.8
[2022-07-08 04:27] LABS: Reflex Lactic (2 hrs) Add Lactic Reflex
[2022-07-08 05:00] VITALS: PULSE 97
[2022-07-08 06:29] LABS: Troponin I 0.02 ng/ml (0.00-0.034)
[2022-07-08 07:16] LABS: Basophils % 0.3 % (0.1-2.0); Monocytes # 0.3 K/mm3 (0.1-1.0); Red Cell Distribution Width 14.2 % (11.5-17.5)
[2022-07-08 07:20] VITALS: BP 106/59; PULSE 90; RESP 19; TEMP 36.9; O2SAT 94
[2022-07-08 07:31] LABS: Chloride 112 mmol/L (98-107); Potassium 3.9 mmoL/L (3.5-5.1); Sodium 142 mmol/L (136-145)
[2022-07-08 07:34] LABS: Alanine Aminotransferase 25 U/L (12-78); Albumin Level 3.6 g/dl (3.5-5.0); Albumin/Globulin Ratio 1.3 (1.1-1.8); Alkaline Phosphatase 66 U/L (38-126); Anion Gap 10.9 mEq/L (5-15); Aspartate Amino Transferase 42 U/L (17-59); Bilirubin,Total 0.5 mg/dl (0.2-1.3); Blood Urea Nitrogen 17 mg/dl (9-20); Calcium 7.8 mg/dl (8.4-10.2); Carbon Dioxide 23 mmol/L (22.0-30.0); Creatinine Clearance Estimated 74 mL/min (50-200); Estimated Glomerular Filt Rate 65 ml/min (>60); GFR (African American) 79 ML/MIN (>60); Globulin 2.7 g/dL (1.3-3.2); Glucose 105 mg/dl (74-100); Total Protein,Serum 6.3 g/dl (6.3-8.2)
--- NOTE | 2022-07-08 07:38 | P.CONPHA_ITS ---
Pharmacy Intervention Comments: MEDICATION RECONCILIATION COMPLETED ON PATIENT USING MAR FROM [facility]. -[facility]
--- NOTE | 2022-07-08 07:38 | HMH.PHAINT1 ---
Pharmacy Intervention Comments: MEDICATION RECONCILIATION COMPLETED ON PATIENT USING MAR FROM [facility] -[facility]
--- NOTE | 2022-07-08 07:42 | EXP.PHA.CONS ---
Pharmacy Consult Date: 07/08/22 Time: 07:42 Referring provider: DR. QUIROZ Reason for Consult:: VANCOMYCIN DOSING Allergies Allergy/AdvReac Type Severity Reaction Status Date / Time No Known Allergies Allergy Verified 07/02/22 19:59 Home Medications Medication Instructions Recorded Confirmed Type finasteride 5 mg tablet 5 mg PO DAILY PROSTATE 07/14/17 07/08/22 History folic acid 1 mg tablet 1 mg PO DAILY Supplement 07/14/17 07/08/22 History mecobalamin (vitamin B12) 1,000 1,000 mcg sublingual DAILY 07/14/17 07/08/22 History mcg disintegrating Supplement tablet,sublingual atorvastatin 20 mg tablet 20 mg PO HS Cholesterol 02/10/18 07/08/22 History loratadine 10 mg tablet 10 mg PO DAILY Allergy symptoms 02/10/18 07/08/22 History quetiapine 25 mg tablet 25 mg PO BID MOOD 07/03/20 07/08/22 History sucralfate 1 gram tablet 1 g PO TID STOMACH 07/03/20 07/08/22 History ondansetron HCl 4 mg tablet 4 mg PO Q6HP PRN Nausea And 10/03/21 07/08/22 History Vomiting quetiapine 300 mg tablet 300 mg PO HS Mood 10/03/21 07/08/22 History lorazepam 0.5 mg tablet 0.5 mg PO BID Anxiety #60 tabs 04/10/22 07/08/22 Rx acetaminophen 500 mg tablet 500 mg PO HS Pain 07/08/22 07/08/22 History acetaminophen 500 mg tablet 500 mg PO Q4HP PRN Pain 07/08/22 07/08/22 History aluminum-mag hydroxide-simethicone 30 ml PO Q2HP PRN Heartburn 07/08/22 07/08/22 History 200 mg-200 mg-20 mg/5 mL oral susp deutetrabenazine 12 mg tablet 12 mg PO BID TARDIVE DYSKINESIA 07/08/22 07/08/22 History (Austedo) loperamide 2 mg tablet 2 mg PO Q4HP PRN Diarrhea 07/08/22 07/08/22 History pantoprazole 40 mg tablet,delayed 40 mg PO HS GERD 07/08/22 07/08/22 History release sennosides 8.6 mg tablet (senna) 8.6 mg PO BID CONSTIPATION 07/08/22 07/08/22 History New Prescriptions to Start Prescriptions: Height: 1.75 m Weight: 91.399 kg Laboratory Results:: Laboratory Results - last 24 hr 07/07/22 21:32: WBC 10.9 H, RBC 4.67, Hgb 13.6 L, Hct 41.1 L, MCV 88.1, MCH 29.1, MCHC 33.0, RDW 14.0, Plt Count 262, MPV 7.7, Neut % (Auto) 87.0 H, Lymph % (Auto) 8.7 L, [place] % (Auto) 3.7, Eos % (Auto) 0.0 L, Baso % (Auto) 0.5, Neut # (Auto) 9.5 H, Lymph # (Auto) 1.0, Winn # (Auto) 0.4, Eos # (Auto) 0.0, Baso # (Auto) 0.1, Total Counted 100, Neutrophils % (Manual) 85 H, Lymphocytes % (Manual) 12, Monocytes % (Manual) 3, Platelet Estimate Normal, RBC Morphology Not Reportable, Ovalocytes 1+ 07/07/22 21:32: Sodium 141, Potassium 4.3, Chloride 104, Carbon Dioxide 23, Anion Gap 18.3 H, BUN 21 H, Creatinine 1.70 H, Estimated Creat Clear 44, Estimated GFR 39 L, Est GFR ( Amer) 48 L, Glucose 171 H, Calcium 8.9, Magnesium 1.6, Total Bilirubin 0.7, AST 31, ALT 23, Alkaline Phosphatase 99, Troponin I < 0.01, NT-Pro-B Natriuret Pep 430, Total Protein 8.1 D, Albumin 4.7, Globulin 3.4 H, Albumin/Globulin Ratio 1.4 07/07/22 21:32: SARS-CoV-2 (PCR) Not detected, Influenza A Untype (PCR) Not detected, Influenza Type B (PCR) Not detected 07/07/22 21:32: Procalcitonin 0.192 07/07/22 21:40: Lactate 3.4 H 07/07/22 21:40: Urine Color Dk yellow, Urine Appearance Turbid, Urine pH 8.0, Ur Specific [place] 1.015, Urine Protein 3+, Urine Glucose (UA) Negative, Urine Ketones Trace, Urine Blood Trace-i, Urine Nitrate Negative, Urine Bilirubin 2+ A, Urine Urobilinogen 0.2, Ur Leukocyte Esterase Trace, Urine RBC 3-5, Urine WBC 10-20, Urine Bacteria 4+ 07/08/22 01:35: Troponin I 0.02 07/08/22 02:15: Lactate 2.2 H 07/08/22 05:53: Troponin I 0.02 07/08/22 05:53: Lactate 3.0 H 07/08/22 05:53: Sodium 142, Potassium 3.9, Chloride 112 H, Carbon Dioxide 23, Anion Gap 10.9, BUN 17, Creatinine 1.10 D, Estimated Creat Clear 74, Estimated GFR 65, Est GFR ( Amer) 79 D, Glucose 105 H D, Calcium 7.8 L, Total Bilirubin 0.5, AST 42 D, ALT 25, Alkaline Phosphatase 66, Total Protein 6.3, Albumin 3.6 D, Globulin 2.7, Albumin/Globulin Ratio 1.3 Medical History: Medical History (Updated 07/07/22 @ 23:19 by Alexandra Ochoa
--- NOTE | 2022-07-08 07:48 | DIET.NUTRFU ---
Patient was here back in September, was on MSOFT with nectar thick liquids. He is from [place]. MINGLE OPERATOR ordered to eval for safe diet today.
[2022-07-08 07:53] LABS: Hematocrit 34.7 % (42.0-52.0); Lymphocytes # 0.9 K/mm3 (0.7-4.5); Mean Corpuscular HGB Conc 32.6 g/dL (31.8-35.4); Mean Corpuscular Hemoglobin 29.3 pg (27.0-31.2); Mean Corpuscular Volume 89.8 fl (80-94); Mean Platelet Volume 8.3 fl (7.4-10.4); Monocytes % 5.3 % (1.7-9.3); Neutrophils % 80.4 % (37.0-80.0); Platelet Count 226 K/mm3 (142-424); Red Blood Count 3.87 M/mm3 (4.60-6.20); White Blood Count 6.3 K/mm3 (4.8-10.8)
[2022-07-08 07:57] LABS: Hemoglobin 11.3 g/dL (14.1-18.0)
--- NOTE | 2022-07-08 08:17 | SW/DCPLANNER ---
Addendum entered by Wendie Duvall 07/08/22 11:11: Patient will NOT need a COVID swab prior to discharge. Original Note: This patient currently resides at [facility] level of care. I will fax updated patient information to Sherice guevara/ Cynthia Madrid. Per MD patient will discharge later today or tomorrow.
[2022-07-08 09:12] VITALS: BMI 29.7
--- NOTE | 2022-07-08 09:17 | EXP.DC.SUM ---
General Admission date:: 07/07/22 Discharge date: 07/08/22 HPI HPI HPI: Mr. You is a 77-year-old male who is a resident of a local [place]. He was sent to [facility] from the [place] facility today due to a change in mental status. Per review of the records, the patient is normally confused, but alert. Today he was difficult to arouse at the facility, hypotensive and had episode of incontinence. He was sent to the ER for evaluation. In the ER, the patient was noted to have a Temperature of 101.2. Covid and Flu were negative. HR was 126, EKG showed a Sinus Tacycardia. Cxray showed an infiltrate in the left lower lung lobe and right upper lung lobe. On exam the patient does not arouse and information for the history and physical was obtained from the ER Physician, staff and the patient's chart. The patient will be admitted with initial impression: Sepsis with Pneumonia as concern for the source. Cultures were drawn in the ER, Fluids were given and the patient will be placed on broad spectrum antibiotics. Hospital Course Hospital Course Hospital Course: 77-year-old male who is a resident of a local [place] presents due to altered mental status outside of his normal, found to have findings concerning for Sepsis due to Pneumonia - Sepsis (POA) - Bilateral pneumonia Patient initially presented with sepsis criteria including:? Temperature 101.2, HR 126, Source of concern:? Cxray with bilateral lobe infiltrates. Provided fluid resuscitation, cultures obtained. Started on broad-spectrum antibiotics. Patient has remained stable on room air since admission. No cough during admission. No respiratory distress. Patient is afebrile and has had normalization of his kidney function. At this time plan to continue oral antibiotics to complete empiric course for pneumonia. We will continue to follow cultures. Continue Levaquin 750 mg daily for 7 days. Procalcitonin was negative, no white cell count, hemodynamically stable. Medically stable to discharge back to nursing facility for continued care and monitoring. - WILLIAM: Creatinine 1.7 on admission. Provided fluid resuscitation with normalization in creatinine to 1.1. Adequate urine output. Felton removed prior to discharge. Encourage p.o. hydration once returns to nursing facility - Schizophrenia: Will continue current medications - Hyperlipidemia: Will continue Statin Speech evaluated, recommend thin liquids and mechanical soft's as patient is Edentulous. Exam Data for Last 24 hours Vital signs and Labs for Last 24 Hours: Temp Pulse Resp BP Pulse Ox 98.4 F 90 19 106/59 L 94 L 07/08/22 07:20 07/08/22 07:20 07/08/22 07:20 07/08/22 07:20 07/08/22 07:20 Laboratory Results - last 24 hr 07/07/22 21:32: WBC 10.9 H, RBC 4.67, Hgb 13.6 L, Hct 41.1 L, MCV 88.1, MCH 29.1, MCHC 33.0, RDW 14.0, Plt Count 262, MPV 7.7, Neut % (Auto) 87.0 H, Lymph % (Auto) 8.7 L, [place] % (Auto) 3.7, Eos % (Auto) 0.0 L, Baso % (Auto) 0.5, Neut # (Auto) 9.5 H, Lymph # (Auto) 1.0, [place] # (Auto) 0.4, Eos # (Auto) 0.0, Baso # (Auto) 0.1, Total Counted 100, Neutrophils % (Manual) 85 H, Lymphocytes % (Manual) 12, Monocytes % (Manual) 3, Platelet Estimate Normal, RBC Morphology Not Reportable, Ovalocytes 1+ 07/07/22 21:32: Sodium 141, Potassium 4.3, Chloride 104, Carbon Dioxide 23, Anion Gap 18.3 H, BUN 21 H, Creatinine 1.70 H, Estimated Creat Clear 44, Estimated GFR 39 L, Est GFR ( Amer) 48 L, Glucose 171 H, Calcium 8.9, Magnesium 1.6, Total Bilirubin 0.7, AST 31, ALT 23, Alkaline Phosphatase 99, Troponin I < 0.01, NT-Pro-B Natriuret Pep 430, Total Protein 8.1 D, Albumin 4.7, Globulin 3.4 H, Albumin/Globulin Ratio 1.4 07/07/22 21:32: SARS-CoV-2 (PCR) Not detected, Influenza A Untype (PCR) Not detected, Influenza Type B (PCR) Not detected 07/07/22 21:32: Procalcitonin 0.192 07/07/22 21:40: Lactate 3.4 H 07/07/22 21:40: Urine Color Dk yellow, Urine Appearance Turbid, Urine pH 8.0, Ur Specific [place] 1.015, U
--- NOTE | 2022-07-08 10:03 | HMH.SLDYSPHA ---
Speech & Language Evaluation Speech/Language Dysphagia Evaluation Start: 07/08/22 09:26 Freq: ONCE Status: Active Protocol: Document 07/08/22 09:47 PARISAJANEY (Rec: 07/08/22 10:03 YAHAIRA [id number]) Dysphagia Assess/Goals/Plan Assessment Date of Evaluation: 07/08/22 Evaluation Type Initial Certification Assessment/Problems Dysphagia per MD order. Does Patient Qualify for Service No Qualify/Failure Comment Based on the results of the clinical swallow assessment, no further skilled ST services are warranted at this time. Recommendations PHYSICIAN CERTIFICATION: The specified therapy services are required, authorized, and reviewed every 30 days. Diet Recommendations Mechanical Soft Liquid Type Recommendations Normal/Thin SL Swallow Guidelines Assist w/all meals,Standard Aspiration Prec.,Eat at slow rate Dysphagia Swallow Precautions/Strategies Sitting Upright (90 deg),Small Bites and Sips,Alternate Liquids/Solids Place Food on Either side of Mouth Plan Pt/Guardian verbally ack understanding Yes of dx/prognosis/goals Pt/Guardian verbally ack understanding Yes of/consent to tx prog G -code Required No Education Instructions provided CSE results and diet recommendations discussed with pt, nursing, and care management, all of whom expressed understanding. Pt/Caregiver able to recall information Able to recall/restate Reinforcement needed No Speech & Language HPI History Present Illness Description of Patient Problem Mr. You is a 77 year old male who present to [facility] via EMS from [facility] . The facility reported a change in mental status and he had come difficult to arouse . PMH is significant for CAD, diaphragmatic hernia, dysohagia, renal insufficiency , schizophrenia. Pt baseline is alert but confused. Rehab Services Assessed Speech therapy General Information General Current Food Consistancy Other Dentition Edentulous Comment: No diet order entered, pt u/a to answer questions about baseline diet. Oxygen Status Room Air Facial Symmetry
--- NOTE | 2022-07-10 10:06 | P.EN_ITS ---
Urine culture returned positive with Proteus mirabilis, resistant to fluoroquinolones. Contacted [facility], initiate Bactrim double strength twice daily for 7 days. Medication sent to [facility] [place]. Instructed to discontinue levofloxacin.
--- NOTE | 2022-07-10 10:06 | EXP.EVENT.NO ---
Urine culture returned positive with Proteus mirabilis, resistant to fluoroquinolones. Contacted [facility], initiate Bactrim double strength twice daily for 7 days. Medication sent to [facility] [place]. Instructed to discontinue levofloxacin.
[2022-07-10 13:59] LABS: Body Fluid Culture, Sterile Not indicated. (.); Organism ID Not indicated. (.); Specimen Source Urine (.); Streptococcus pneumoniae Ag Negative (Negative)
[2022-07-10 16:41] LABS: Legionella pneumophila Urinary Positive (Negative)
[2022-07-13 05:08] LABS: MRSA DNA PCR Negative
== END 2022-07-08 12:19 ==
LOC: ER 22:52 → 2ND 23:34
PROVIDERS: Nurse Practitioner Family; Admitting Provider Internal Medicine Adolescent Medicine; Emergency Provider Emergency Medicine; PCP Emergency Medicine; Visit Provider Internal Medicine Adolescent Medicine
DX: J18.9 Pneumonia, unspecified organism (principal); N17.9 Acute kidney failure, unspecified; F20.9 Schizophrenia, unspecified; E78.5 Hyperlipidemia, unspecified; Z79.899 Other long term (current) drug therapy; R06.9 Unspecified abnormalities of breathing
CPT/HCPCS: G0378; 36415; 51702; 71045; 80053; 81001; 83605; 83735; 83880; 84145; 84484; 85007; 85025; 87040; 87077; 87086; 87186; 87641; 87899; 92610; 93005; 99285; C9803; J3370; J3475; U0003; U0005

== ENCOUNTER → 2022-07-15 12:27 | Outpatient (CLI) | payer MEDICARE, MEDICAID, SELFPAY ==
--- NOTE | 2022-07-15 12:32 | FL_ITS ---
FINAL REPORT CLINICAL HISTORY: ft 2:09 FINDINGS: MODIFIED BARIUM SWALLOW History: Dysphagia FINDINGS: Fluoroscopy was provided for the speech pathologist to evaluate the swallowing mechanism. The patient was given several different consistencies of barium while the swallow was visualized fluoroscopically. The report of the speech pathologist should be consulted prior to making dietary decisions. FLUOROSCOPY TIME: 2.1 minutes IMPRESSION: Modified barium swallow under fluoroscopic guidance. Please see the report of the speech pathologist for Dietary recommendations. Films reviewed , interpreted and dictated by Dr. Goode. Transcribed by Wesley Mendoza PA-C. Reviewed, Interpreted and Dictated by Esteban Goode MD Transcribed by SUNNY Muhammad Authenticated and [facility]
--- NOTE | 2022-07-15 14:01 | HMH.SLMBS2 ---
Speech & Language Evaluation Speech/Language Mod Barium Swallow Start: 07/15/22 13:23 Freq: once Status: Complete Protocol: Document 07/15/22 13:23 YAHAIRA (Rec: 07/15/22 14:01 YAHAIRA [id number]) General Information General Dentition Edentulous Oxygen Status Room Air Facial Symmetry Symmetrical Ability to Follow Directions Fair Communication Ability Moderate Impairment MBS Recommendations Diet Dietary Recommendations Pureed,Thin Liquids Treatment/Strategies Strategy/Precaution Recommend Sitting Upright (90 deg), Double Swallow,Small Bites and Sips,Alternate Liquids/Solids Mod Barium Swallow Impressions Summary and Impressions Oral Phase Impression Moderate Impairment Oral Phase Summary Moderate oral dysphagia. Pt was noted to have prolonged and inadequate mastication with mechanical soft and regular solids, resulting in large, unmasticated pieces of solids in the pharynx. No significant oral residue noted . Mildly increased AP transit time with pill trial. Pharyngeal Phase Impression Mild Impairment Pharyngeal Phase Summary Mild pharyngeal dysphagia. Consistent deep penetration of nectar thick and thin liquids . No penetration of puree, mechanical soft, or regular solids was noted. No aspiration was noted on the study. Mild diffuse pharyngeal residue was noted with liquid trials, which reduced but did not fully clear with subsequent swallows. Mild vallecular residue was noted with puree, which he was able to clear with subsequent swallows. Severe vallecular residue was noted with mechanical soft, which pt was u/a to clear with additional swallows. Residue was cleared with a liquid wash. Residue is partly 2' pt having difficulty masticating solids. Decreased hyolaryngeal excursion and decreased base
== END ==
PROVIDERS: PCP Emergency Medicine; Visit Provider Emergency Medicine
DX: R13.12 Dysphagia, oropharyngeal phase (principal)
CPT/HCPCS: 70371; 92611

== ENCOUNTER 2022-11-04 23:05 | Inpatient (IN) | payer MEDICAID, MEDICARE, SELFPAY ==
[2022-11-04 23:02] VITALS: BP 106/72; PULSE 114; RESP 20; O2SAT 95
[2022-11-04 23:05] VITALS: BP 106/72; PULSE 116; RESP 19; TEMP 37.4; O2SAT 91; BMI 27.1
--- NOTE | 2022-11-04 23:05 | PC.NURSE ---
Provider notified of possible sepsis risk. Discussed broad spectrum abx and they were deferred at this time. Awaiting new orders
--- NOTE | 2022-11-04 23:41 | XR_ITS ---
PROCEDURE INFORMATION: Exam: XR Chest Exam date and time: 11/05/2022 12:21 AM Age: 77 years old Clinical indication: Fever and other: AMS; Additional info: Fever, AMS. Best possible, PT contracted and unable to raise chin TECHNIQUE: Imaging protocol: Radiologic exam of the chest. Views: 1 view. COMPARISON: CR XR CHEST PORTABLE 07/07/2022 9:59 PM FINDINGS: Lungs: Dense retrocardiac opacity is new from the prior, potentially pneumonia or atelectasis. Pleural spaces: No pleural effusion. No pneumothorax. Heart/Mediastinum: Cardiac silhouette is normal in size for technique. Bones/joints: Patient's mandible obscures the left apex. IMPRESSION: Retrocardiac airspace opacity could reflect atelectasis or pneumonia.
[2022-11-04 23:48] LABS: Microscopic, Urine URINE MICROSCOPIC (MICROSCOPIC)
[2022-11-04 23:48] LABS: Coronavirus 19, PCR Not Detected (NotDetected); Influenza A, PCR Not Detected (NotDetected); Influenza B, PCR Not Detected (NotDetected)
[2022-11-04 23:49] LABS: Appearance,Urine CLOUDY (Clear); Bilirubin,Urine Negative (Negative); Blood, Urine 2+ (Negative); Color,Urine YELLOW (Yellow); Glucose,Urine (UA) Negative (Negative); Ketones,Urine TRACE (Negative); Leukocyte Esterase,Urine 2+ (Negative); Nitrate,Urine POSITIVE (Negative); Protein,Urine 2+ (Negative); Urobilinogen,Urine 0.2 EU/dl (0.2)
[2022-11-05] VITALS (12 sets, daily range): BP systolic 88–112; BP diastolic 55–74; PULSE 75–120; RESP 17–22; TEMP 37–37.6; O2SAT 93–97; BMI 50.7; BMI 51.2; BMI 25.8
[2022-11-05] LABS: Basophils % 0.2 % (0.1-2.0); Eosinophils % 0.1 % (0.1-12.0); Hematocrit 35.7 % (42.0-52.0); Hemoglobin 11.8 g/dL (14.1-18.0); Lymphocytes # 1.3 K/mm3 (0.7-4.5); Lymphocytes % 24.5 % (10-50); Mean Corpuscular HGB Conc 32.9 g/dL (31.8-35.4); Mean Corpuscular Hemoglobin 29.3 pg (27.0-31.2); Mean Corpuscular Volume 89.2 fl (80-94); Mean Platelet Volume 8.2 fl (7.4-10.4); Monocytes # 0.4 K/mm3 (0.1-1.0); Monocytes % 8.2 % (1.7-9.3); Neutrophils # 3.6 K/mm3 (1.8-7.8); Neutrophils % 66.9 % (37.0-80.0); Platelet Count 222 K/mm3 (142-424); Red Blood Count 4.01 M/mm3 (4.60-6.20); Red Cell Distribution Width 14.4 % (11.5-17.5); White Blood Count 5.3 K/mm3 (4.8-10.8)
[2022-11-05 00:01] LABS: Bacteria,Urine 2+ /lpf; Squamous Epithelial Cell,Urine Occasional #/hpf (0-5); WBC,Urine TNTC #/hpf (0-3)
[2022-11-05 00:09] LABS: Alanine Aminotransferase 37 U/L (12-78); Albumin Level 4.4 g/dl (3.5-5.0); Albumin/Globulin Ratio 1.4 (1.1-1.8); Alkaline Phosphatase 91 U/L (38-126); Aspartate Amino Transferase 88 U/L (17-59); Bilirubin,Total 0.9 mg/dl (0.2-1.3); Blood Urea Nitrogen 14 mg/dl (9-20); Calcium 9.3 mg/dl (8.4-10.2); Carbon Dioxide 26 mmol/L (22.0-30.0); Chloride 104 mmol/L (98-107); Creatinine Clearance Estimated 62 mL/min (50-200); Estimated Glomerular Filt Rate 54 ml/min (>60); GFR (African American) 65 ML/MIN (>60); Globulin 3.1 g/dL (1.3-3.2); Glucose 135 mg/dl (74-100); Sodium 145 mmol/L (136-145); Total Protein,Serum 7.5 g/dl (6.3-8.2)
[2022-11-05 00:11] LABS: Activated Partial Thrombo Time 24.2 seconds (22.8-30.6); INR 1.13 (0.9-1.1); Prothrombin Time 12.1 seconds (10.1-12.5)
[2022-11-05 00:13] LABS: C-Reactive Protein 37.3 mg/L (0-4)
--- NOTE | 2022-11-05 00:21 | PC.NURSE ---
notified victorino of critical lactic 4.0
[2022-11-05 00:26] LABS: Procalcitonin 0.095 ng/mL (0.0-2.0); Troponin I < 0.01 ng/ml (0.00-0.034)
--- NOTE | 2022-11-05 00:28 | PC.NURSE ---
Patient moved to bed 4 for comfort, cardiac monitoring, and bed alarm bed. Attending notified by other RN of Lactate elevated >4. Sepsis bolus infusing now. No new orders for broad spectrum abx coverage
--- NOTE | 2022-11-05 00:30 | HMH.EDUROGM ---
Discharge Plan Disposition Patient Disposition: Admitted Prescriptions Prescriptions: No Action mecobalamin (vitamin B12) 1,000 mcg tablet,disintegrating 1,000 mcg sublingual DAILY folic acid 1 mg tablet 1 mg PO DAILY finasteride 5 mg tablet 5 mg PO DAILY Rx Instructions: Wear gloves when handling atorvastatin 20 mg tablet 20 mg PO HS loratadine 10 mg tablet 10 mg PO DAILY lorazepam 0.5 mg tablet 0.5 mg PO BID Qty: 60 5RF loperamide 2 mg Tablet 2 mg PO Q4HP PRN (Reason: Diarrhea) acetaminophen 500 mg Tablet 500 mg PO Q4HP PRN (Reason: Pain) acetaminophen 500 mg Tablet 500 mg PO HS alum-mag hydroxide-simeth 200-200-20 mg/5 mL Suspension 30 ml PO Q2HP PRN (Reason: Heartburn) sennosides [senna] 8.6 mg Tablet 8.6 mg PO BID pantoprazole 40 mg tablet,delayed release (DR/EC) 40 mg PO HS [place] 12 mg tablet 12 mg PO BID quetiapine 25 MG tablet 25 mg PO BID sucralfate 1 GM tablet 1 g PO TID Rx Instructions: Take before meals; Antacids should not be taken within 30 minutes before or after sucralfate quetiapine 300 MG tablet 300 mg PO HS ondansetron HCl 4 MG tablet 4 mg PO Q6HP PRN (Reason: Nausea And Vomiting) Referrals Follow up/Referrals: Scottie Farah MD [Primary Care Provider] - See instructions Clinical Impressions Clinical Impression: Acute UTI (urinary tract infection), Severe sepsis with acute organ dysfunction, Septic shock Discharge ED Provider: Sofi (ED)Scottie Male Urogenital HPI General Chief complaint: Urogenital-Male Stated complaint: AMS, low bp Time Seen by Provider: 11/05/22 00:00 Mode of Arrival: EMS Source of Information: Patient, EMS and Medical Record Limitations: Altered Mental Status Description of Symptoms (Recalled from ER Triage Doc. by RN): 77 M presents from [facility] this evening with acute AMS, hypotension, and combativness with staff there. Facility reported to EMS that they were attempting to complete an in/out catheter for UA, but he became violent. Patient had BP with 90's systolic. He is normally not this confused and has not urinated all day. History of Present Illness HPI Narrative: sent from [facility] with altered mental status and low bp - pt unable to give specific hx - Onset (ago): hour(s) Severity: moderate Reports other (altered mental status ) Related Data Sexually active: No Home Medications Medication Instructions Recorded Confirmed finasteride 5 mg tablet 5 mg PO DAILY PROSTATE 07/14/17 11/04/22 folic acid 1 mg tablet 1 mg PO DAILY Supplement 07/14/17 11/04/22 mecobalamin (vitamin B12) 1,000 1,000 mcg sublingual DAILY 07/14/17 11/04/22 mcg disintegrating Supplement tablet,sublingual atorvastatin 20 mg tablet 20 mg PO HS Cholesterol 02/10/18 11/04/22 loratadine 10 mg tablet 10 mg PO DAILY Allergy symptoms 02/10/18 11/04/22 quetiapine 25 mg tablet 25 mg PO BID MOOD 07/03/20 11/04/22 sucralfate 1 gram tablet 1 g PO TID STOMACH 07/03/20 11/04/22 ondansetron HCl 4 mg tablet 4 mg PO Q6HP PRN Nausea And 10/03/21 11/04/22 Vomiting quetiapine 300 mg tablet 300 mg PO HS Mood 10/03/21 11/04/22 acetaminophen 500 mg tablet 500 mg PO HS Pain 07/08/22 11/04/22 acetaminophen 500 mg tablet 500 mg PO Q4HP PRN Pain 07/08/22 11/04/22 aluminum-mag hydroxide-simethicone 30 ml PO Q2HP PRN Heartburn 07/08/22 11/04/22 200 mg-200 mg-20 mg/5 mL oral susp deutetrabenazine 12 mg tablet 12 mg PO BID TARDIVE DYSKINESIA 07/08/22 11/04/22 (Austedo) loperamide 2 mg tablet 2 mg PO Q4HP PRN Diarrhea 07/08/22 11/04/22 pantoprazole 40 mg tablet,delayed 40 mg PO HS GERD 07/08/22 11/04/22 release sennosides 8.6 mg tablet (senna) 8.6 mg PO BID CONSTIPATION 07/08/22 11/04/22 Previous Rx's Medication Instructions Recorded lorazepam 0.5 mg tablet 0.5 mg PO BID Anxiety #60 tabs 10/15/22 Allergies Allergy/AdvReac Type Severity Reaction
[2022-11-05 00:37] LABS: Erythrocyte Sedimentation Rate 20 mm/hr (0-20)
--- NOTE | 2022-11-05 00:39 | PC.NURSE ---
Patient admitted to 205 dx of septic shock, UTI, to service of Dr. Espinoza.
--- NOTE | 2022-11-05 00:58 | EXP.HP ---
History of Present Illness *Admission Date: 11/05/22 *Reason for visit:: uti and sepsis, changes in mental status *History of present illness: [facility] patient , with HO bladder cancer and BPH , had changes in mental status and had not void during the day [facility] Disclaimer: The information contained in this section may have been updated after the patient was seen, as this information can be updated by other users. Medical History CAD (coronary artery disease) Diaphragmatic hernia Dysphagia Renal insufficiency Schizophrenia Family History (Updated 07/08/22 @ 00:44 by Amparo Briseno RN) Family history non-contributory Social History (Updated 07/08/22 @ 00:46 by Amparo Briseno RN) Smoking Status: Former smoker alcohol intake: never substance use type: denies use current occupational status: disabled Travel in the last 8 weeks: None housing: [facility] current occupational exposures/hazards: No caffeine: No Review of Systems Review of Systems Review of systems:: unable to obtain and pertinent systems reviewed and negative unless documented below Review of systems (narrative): patient was not reliable for giving a good history Constitutional Constitutional: Reports system reviewed and no additional complaints, except as documented and Reports weakness Comments: bed ridden and total care at present time Eyes Eyes: Reports system reviewed and no additional complaints, except as documented ENT Ears, Nose, Mouth, and Throat: Reports system reviewed and no additional complaints, except as documented and Reports tongue swelling *Cardiovascular Cardiovascular: Reports system reviewed and no additional complaints, except as documented *Respiratory Respiratory: Reports system reviewed and no additional complaints, except as documented *Gastrointestinal Gastrointestinal: Reports system reviewed and no additional complaints, except as documented *Genitourinary Genitourinary: Reports as per HPI, Reports difficulty urinating and Reports oliguria *Musculoskeletal Musculoskeletal: Reports system reviewed and no additional complaints, except as documented Integumentary/Breasts Skin/Breast: Reports system reviewed and no additional complaints, except as documented *Neurologic Neurologic: Reports abnormal movements, Reports confusion, Reports sensory deficit and Reports weakness Comments: not able to answer question well , voice is clear and does talk , wanted to go to real bed , noted tongue movement Psychiatric Psychiatric: Reports confusion Endocrine Endocrine: Reports system reviewed and no additional complaints, except as documented Hematologic/Lymphatic Hematologic/Lymphatic: Reports system reviewed and no additional complaints, except as documented Allergic/Immunologic Allergic/Immunologic: Reports system reviewed and no additional complaints, except as documented and Reports tongue swelling Comments: tounge abnormal movement held at front of mouth, Meds Home Medications and Allergies Home Medications Medication Instructions Recorded Confirmed Type finasteride 5 mg tablet 5 mg PO DAILY Prostate 07/14/17 11/04/22 History folic acid 1 mg tablet 1 mg PO DAILY Supplement 07/14/17 11/04/22 History mecobalamin (vitamin B12) 1,000 1,000 mcg sublingual DAILY 07/14/17 11/04/22 History mcg disintegrating Supplement tablet,sublingual atorvastatin 20 mg tablet 20 mg PO HS Cholesterol 02/10/18 11/04/22 History loratadine 10 mg tablet 10 mg PO DAILY Allergy symptoms 02/10/18 11/04/22 History quetiapine 25 mg tablet 25 mg PO BID Mood 07/03/20 11/04/22 History sucralfate 1 gram tablet 1 g PO TID Stomach 07/03/20 11/04/22 History ondansetron HCl 4 mg tablet 4 mg PO Q6HP PRN Nausea And 10/03/21 11/04/22 History Vomiting quetiapine 300 mg tablet 300 mg PO HS Mood 10/03/21 11/04/22 History acetaminophen 500 mg tablet 500 mg PO HS Pain
--- NOTE | 2022-11-05 01:06 | PC.NURSE ---
pt arrived via stretcher @104am
[2022-11-05 03:29] LABS: Troponin I < 0.01 ng/ml (0.00-0.034)
--- NOTE | 2022-11-05 03:33 | PC.NURSE ---
Pt pulled PIV out, catheter intact, no active bleeding. Pt resistive toward care at this time, tensing arms and refusing to straighten them while attempting to replace PIV. PRN ativan administered per AUG. Pt resting with eyes closed, bed alarm on.
[2022-11-05 03:54] LABS: Reflex Lactic Add Lactic Reflex
[2022-11-05 05:02] LABS: Basophils % 0.3 % (0.1-2.0); Eosinophils % 0.1 % (0.1-12.0); Hematocrit 32.6 % (42.0-52.0); Lymphocytes # 1.2 K/mm3 (0.7-4.5); Lymphocytes % 30.9 % (10-50); Mean Corpuscular HGB Conc 32.4 g/dL (31.8-35.4); Mean Corpuscular Hemoglobin 28.9 pg (27.0-31.2); Mean Corpuscular Volume 89.1 fl (80-94); Mean Platelet Volume 8.4 fl (7.4-10.4); Monocytes # 0.4 K/mm3 (0.1-1.0); Monocytes % 9.4 % (1.7-9.3); Neutrophils # 2.3 K/mm3 (1.8-7.8); Neutrophils % 59.3 % (37.0-80.0); Platelet Count 198 K/mm3 (142-424); Red Blood Count 3.65 M/mm3 (4.60-6.20); Red Cell Distribution Width 14.3 % (11.5-17.5); White Blood Count 3.9 K/mm3 (4.8-10.8)
[2022-11-05 05:04] LABS: Chloride 106 mmol/L (98-107); Potassium 3.3 mmoL/L (3.5-5.1); Sodium 143 mmol/L (136-145)
[2022-11-05 05:07] LABS: Alanine Aminotransferase 26 U/L (12-78); Albumin Level 3.5 g/dl (3.5-5.0); Albumin/Globulin Ratio 1.3 (1.1-1.8); Alkaline Phosphatase 68 U/L (38-126); Anion Gap 11.3 mEq/L (5-15); Aspartate Amino Transferase 72 U/L (17-59); Bilirubin,Total 0.6 mg/dl (0.2-1.3); Blood Urea Nitrogen 13 mg/dl (9-20); Calcium 8.6 mg/dl (8.4-10.2); Carbon Dioxide 29 mmol/L (22.0-30.0); Creatinine Clearance Estimated 24 mL/min (50-200); Estimated Glomerular Filt Rate 65 ml/min (>60); GFR (African American) 79 ML/MIN (>60); Globulin 2.8 g/dL (1.3-3.2); Glucose 96 mg/dl (74-100); Lactic Acid Follow Up (RFLX 1) 0.8 mmol/L (0.7-2.1); Total Protein,Serum 6.3 g/dl (6.3-8.2)
[2022-11-05 05:23] LABS: Troponin I < 0.01 ng/ml (0.00-0.034)
[2022-11-05 05:28] LABS: Hemoglobin 10.7 g/dL (14.1-18.0)
--- NOTE | 2022-11-05 06:32 | PC.NURSE ---
Pt pulled IV out for the second time. Refusing to allow another to be placed.
--- NOTE | 2022-11-05 07:02 | EXP.SEPSISRE ---
[facility] Tissue Perfusion Eval Sepsis Re-Evaluation Performed: Yes Date Performed: 11/05/22 Time Performed: 01:00
--- NOTE | 2022-11-05 07:11 | P.CONPHA_ITS ---
Pharmacy Intervention Comments: Home medication list verified using list from outside facility ([facility]).
--- NOTE | 2022-11-05 07:11 | HMH.PHAINT1 ---
Pharmacy Intervention Comments: Home medication list verified using list from outside facility ([facility]).
--- NOTE | 2022-11-05 08:45 | SW/DCPLANNER ---
Addendum entered by Wendie Duvall 11/06/22 08:54: I have updated Sherice guevara/ Carrie Madrid that the plan for this patient is to return today. Patient will require 3 more days of IM Rocephin. Updated patient information will be faxed. Original Note: Patient currently resides at [facility] level of care. I will continue to update Sherice guevara/ Carrie Madrid until patient is medically stable for discharge. Discharge date is unknown at this time.
--- NOTE | 2022-11-05 10:50 | DIET.NUTRFU ---
from [facility], on puree with thin, also uses a provale cup. Okay to have regular diet on special occasions, fortified pudding BID, small spoon with all meals, magic cup daily at facility. Feb swallow study indicated unmasticated solids in pharynx and residue noted throughout oral cavity. seems to be tolerating regular- consulted speech to re-eval to the least restrictive and safe diet. Will restart fortified pudding BID for extra calories and protein.
--- NOTE | 2022-11-05 11:28 | EXP.DEATH.NO ---
Pronouncement Note Contributing Factors (1) Severe sepsis with acute organ dysfunction: (2) WILLIAM (acute kidney injury): (3) Pyelonephritis: (4) Schizophrenia: (5) Unspecified dementia without behavioral disturbance: (6) COPD (chronic obstructive pulmonary disease): Additional Data Attending physician: Jamil Espinoza MD
--- NOTE | 2022-11-05 14:52 | HMH.SLDYSPHA ---
Speech & Language Evaluation Speech/Language Dysphagia Evaluation Start: 11/05/22 14:45 Freq: ONCE Status: Active Protocol: Document 11/05/22 14:45 YAHAIRA (Rec: 11/05/22 14:52 YAHAIRA [id number]) Dysphagia Assess/Goals/Plan Assessment Date of Evaluation: 11/05/22 Evaluation Type Initial Certification Assessment/Problems Currently on puree diet at [facility], assessing for possible diet upgrade as pt has been tolerating regular diet while admitted. Does Patient Qualify for Service No Qualify/Failure Comment Based on the results of the clinical swallow evaluation, pt does not require further skilled BLADDER TRIMMER services at this time. Recommendations PHYSICIAN CERTIFICATION: The specified therapy services are required, authorized, and reviewed every 30 days. Diet Recommendations Normal Liquid Type Recommendations Normal/Thin SL Swallow Guidelines Standard Aspiration Prec.,Eat at slow rate Dysphagia Swallow Precautions/Strategies Sitting Upright (90 deg),Small Bites and Sips,Alternate Liquids/Solids Plan Pt/Guardian verbally ack understanding Yes of dx/prognosis/goals Pt/Guardian verbally ack understanding Yes of/consent to tx prog G -code Required No Education Instructions provided CSE results and recommendations discussed with pt, nursing, and care management who expressed understanding. Pt/Caregiver able to recall information Able to recall/restate Reinforcement needed No Speech & Language HPI History Present Illness Description of Patient Problem Pt is a 77 M [address] from [facility] this evening with acute AMS, hypotension, and combativness with staff there. Facility reported to EMS that they were attempting to complete an in/ out catheter for UA, but he became violent. Patient had BP with 90's systolic. He is normally not this confused and has not urinated all day. Rehab Services Assessed Speech therapy General Information General Current Food Consistancy Regular,Thin Liquids Dentition Edentulous Oxygen St
--- NOTE | 2022-11-05 18:44 | PC.NURSE ---
Per Dr. Espinoza, if the patient is uncooperative with IV insertion it is okay to convert 0500 IV antibiotic to IM antibiotic.
[2022-11-06] VITALS: BP 103/55; PULSE 82; RESP 19; TEMP 37.1; O2SAT 96
[2022-11-06 04:00] VITALS: BP 111/65; PULSE 82; RESP 19; TEMP 37.1; O2SAT 97; BMI 26.3
[2022-11-06 06:22] VITALS: PULSE 76; PULSE 80
[2022-11-06 07:28] VITALS: BP 119/70; PULSE 89; RESP 20; TEMP 36.9; O2SAT 93
[2022-11-06 07:33] LABS: Basophils % 0.6 % (0.1-2.0); Eosinophils # 0.1 K/mm3 (0.0-0.4); Eosinophils % 1.8 % (0.1-12.0); Hematocrit 33.5 % (42.0-52.0); Hemoglobin 10.8 g/dL (14.1-18.0); Lymphocytes # 1.2 K/mm3 (0.7-4.5); Lymphocytes % 28.9 % (10-50); Mean Corpuscular HGB Conc 32.3 g/dL (31.8-35.4); Mean Corpuscular Hemoglobin 29.2 pg (27.0-31.2); Mean Corpuscular Volume 90.4 fl (80-94); Monocytes # 0.3 K/mm3 (0.1-1.0); Monocytes % 7.2 % (1.7-9.3); Neutrophils # 2.5 K/mm3 (1.8-7.8); Neutrophils % 61.4 % (37.0-80.0); Platelet Count 179 K/mm3 (142-424); Red Blood Count 3.71 M/mm3 (4.60-6.20); Red Cell Distribution Width 14.3 % (11.5-17.5)
[2022-11-06 07:36] LABS: Alanine Aminotransferase 28 U/L (12-78); Albumin Level 3.7 g/dl (3.5-5.0); Albumin/Globulin Ratio 1.4 (1.1-1.8); Alkaline Phosphatase 74 U/L (38-126); Anion Gap 13.3 mEq/L (5-15); Aspartate Amino Transferase 67 U/L (17-59); Bilirubin,Total 0.4 mg/dl (0.2-1.3); Blood Urea Nitrogen 10 mg/dl (9-20); Calcium 8.1 mg/dl (8.4-10.2); Carbon Dioxide 28 mmol/L (22.0-30.0); Chloride 104 mmol/L (98-107); Creatinine Clearance Estimated 78 mL/min (50-200); Estimated Glomerular Filt Rate 94 ml/min (>60); GFR (African American) 114 ML/MIN (>60); Globulin 2.7 g/dL (1.3-3.2); Glucose 96 mg/dl (74-100); Magnesium 1.9 mg/dl (1.6-2.3); Potassium 3.3 mmoL/L (3.5-5.1); Sodium 142 mmol/L (136-145); Total Protein,Serum 6.4 g/dl (6.3-8.2)
--- NOTE | 2022-11-06 07:40 | PC.NURSE ---
Ceftriaxone route changed to IM, pharmacy notified.
--- NOTE | 2022-11-06 09:02 | EXP.DC.SUM ---
General Admission date:: 11/05/22 Discharge date: 11/06/22 HPI HPI HPI: The patient is a 77 year old male who presented to the ED on 11/05 from [facility] for altered mental status. PMHX of CAD, schizophrenia, COPD, HTN, HLD, and renal insufficiency. The patient was medically admitted for a UTI, severe sepsis, and WILLIAM. A wolf cath was placed in the ED. He received ceftriaxone 1 gm daily and will be sent home to complete a full course of coverage for UTI. In the ED the patient was tachycardia, tachypnea, and a lactic of 4. The lactic normalized of night and the pt remain hemodynamically stable. He did not require further medical intervention during this hospital stay. The patient is more alert and interactive with staff today. Hospital Course Hospital Course Hospital Course: The patient is a 77 year old male who presented to the ED on 11/05 from [facility] for altered mental status. PMHX of CAD, schizophrenia, COPD, HTN, HLD, and renal insufficiency. The patient was medically admitted for a UTI, severe sepsis, and WILLIAM. A wolf cath was placed in the ED. He received ceftriaxone 1 gm daily and will be sent back with 3 additional days of ceftriaxone 1 gm daily I.M to finish 5day treatment for the UTI. In the ED the patient was tachycardia, tachypnea, and a lactic of 4. The lactic normalized of night and the pt remain hemodynamically stable. He did not require further medical intervention during this hospital stay. The patient is more alert and interactive with staff from 11/05 to 11/06. His wolf cath will be removed prior to discharge. His potassium during this hospital stay was 3.3. The patient will be discharged with a month supply. He will take one 20 mg tablet everyday for a month. He required no oxygen this hospital stay. His urine culture was positive for gram negative rods. His blood cultures are still pending. Of note, speech therapy evaluated patient during admission. Tolerating regular diet. Needs no further adjustment to his diet. Stable for discharge back to nursing facility for continued care. Exam Data for Last 24 hours Vital signs and Labs for Last 24 Hours: Temp Pulse Resp BP Pulse Ox 98.4 F 89 20 119/70 93 L 11/06/22 07:28 11/06/22 07:28 11/06/22 07:28 11/06/22 07:28 11/06/22 07:28 Laboratory Results - last 24 hr 11/04/22 23:29: Urine Color Yellow, Urine Appearance Cloudy, Urine pH 6.0, Ur Specific [place] 1.020, Urine Protein 2+, Urine Glucose (UA) Negative, Urine Ketones Trace, Urine Blood 2+, Urine Nitrate Positive, Urine Bilirubin Negative, Urine Urobilinogen 0.2, Ur Leukocyte Esterase 2+ A, Urine RBC 3-5, Urine WBC Tntc, Ur Squamous Epith Cells Occasional, Urine Bacteria 2+ 11/06/22 07:12: WBC 4.0 L, RBC 3.71 L, Hgb 10.8 L, Hct 33.5 L, MCV 90.4, MCH 29.2, MCHC 32.3, RDW 14.3, Plt Count 179, MPV 8.0, Neut % (Auto) 61.4, Lymph % (Auto) 28.9, Meagher % (Auto) 7.2, Eos % (Auto) 1.8, Baso % (Auto) 0.6, Neut # (Auto) 2.5, Lymph # (Auto) 1.2, Meagher # (Auto) 0.3, Eos # (Auto) 0.1, Baso # (Auto) 0.0 11/06/22 07:12: Sodium 142, Potassium 3.3 L, Chloride 104, Carbon Dioxide 28, Anion Gap 13.3, BUN 10, Creatinine 0.80 D, Estimated Creat Clear 78, Estimated GFR 94, Est GFR ( Amer) 114 D, Glucose 96, Calcium 8.1 L, Magnesium 1.9, Total Bilirubin 0.4, AST 67 H, ALT 28, Alkaline Phosphatase 74, Total Protein 6.4, Albumin 3.7, Globulin 2.7, Albumin/Globulin Ratio 1.4 I & O for Last 24 hours: Intake & Output 11/03/22 11/04/22 11/05/22 11/06/22 23:59 23:59 23:59 23:59 Intake Total 3920 / 3920 360 / 360 Output Total 1200 / 1200 425 / 425 Balance 2720 / 2720 -65 / -65 Weight 90.718 kg 86.63 kg 88.224 kg Microbiology Reports for the Last 24 Hours: Microbiology 11/04/22 23:29 Urine,Catheterized Urine Culture - Preliminary Gram Negative Rods *Routine HEENT Exam Head: Present normocephalic and atraumatic Eye: Present EOMI ENT: Present mucous memb
--- NOTE | 2022-11-06 10:56 | PC.NURSE ---
Called report to BILLY Smiley at [facility].
[2022-11-06 11:23] VITALS: PULSE 69; PULSE 77
--- NOTE | 2022-11-06 13:23 | PC.NURSE ---
Awaiting transport to facility, called ambulance for update on lease picker time. No definite time given.
--- NOTE | 2022-11-07 14:12 | CARE MANAGER ---
Spoke with Cate at [facility] who states patient is doing well and back to himself. Deny questions or concerns. BILLY Doss
== END 2022-11-06 14:11 | DRG 872 ==
LOC: ER 11-05 00:40 → 2ND 11-05 00:53
PROVIDERS: Nurse Practitioner Family; Admitting Provider Internal Medicine Adolescent Medicine; Emergency Provider Emergency Medicine; PCP Emergency Medicine; Visit Provider Internal Medicine Adolescent Medicine
DX: A41.9 Sepsis, unspecified organism (principal); N17.9 Acute kidney failure, unspecified; N12 Tubulo-interstitial nephritis, not specified as acute or chronic; R65.20 Severe sepsis without septic shock; F20.9 Schizophrenia, unspecified; J44.9 Chronic obstructive pulmonary disease, unspecified; Z85.51 Personal history of malignant neoplasm of bladder; I25.10 Atherosclerotic heart disease of native coronary artery without angina pectoris; K44.9 Diaphragmatic hernia without obstruction or gangrene; D63.8 Anemia in other chronic diseases classified elsewhere; E78.5 Hyperlipidemia, unspecified
CPT/HCPCS: 36415; 51702; 71045; 80053; 81001; 83605; 83735; 84145; 84484; 85025; 85610; 85651; 85730; 86140; 87040; 87086; 87088; 87186; 87636; 92610; 94640; 99285; C9803; J0696; U0003; U0005

== ENCOUNTER → 2022-11-19 12:34 | Outpatient (CLI) | payer MEDICARE, MEDICAID, SELFPAY ==
--- NOTE | 2022-11-19 12:34 | FL_ITS ---
FINAL REPORT CLINICAL HISTORY: 3.22 fluoro time poss aspiration FINDINGS: MODIFIED BARIUM SWALLOW History: Dysphagia FINDINGS: Fluoroscopy was provided for the speech pathologist to evaluate the swallowing mechanism. The patient was given several different consistencies of barium while the swallow was visualized fluoroscopically. The report of the speech pathologist should be consulted prior to making dietary decisions. FLUOROSCOPY TIME: 3.22 minutes IMPRESSION: Modified barium swallow under fluoroscopic guidance. Please see the report of the speech pathologist for Dietary recommendations. Films reviewed , interpreted and dictated by Dr. Allen Transcribed by Wesley Mendoza PA-C. Reviewed, Interpreted and Dictated by Taj Allen III, MD Transcribed by SUNNY Muhammad Authenticated and [facility]
--- NOTE | 2022-11-19 14:09 | HMH.SLMBS2 ---
Speech & Language Evaluation Speech/Language Mod Barium Swallow Start: 11/19/22 13:45 Freq: once Status: Complete Protocol: Document 11/19/22 13:46 YAHAIRA (Rec: 11/19/22 14:09 YAHAIRA [id number]) General Information General Current Food Consistency Pureed,Thin Liquids Dentition Edentulous Oxygen Status Room Air Facial Symmetry Symmetrical Patient Orientation Person Ability to Follow Directions Poor Communication Ability Moderate Impairment MBS Recommendations Diet Dietary Recommendations NPO Comment NPO safest vs. comfort diet pending [facility] Mod Barium Swallow Impressions Summary and Impressions Oral Phase Impression Moderate Impairment Oral Phase Summary Moderate oral dysphagia characterized by prolonged mastication and oral manipulation of solids 2' lack of dentition and tongue control. Tongue pumping noted. Difficulty with bolus formation resulting in bolus spilling into the floor of mouth. Impaired AP transit noted with all consistencies 2 ' decreased tongue strength and coordination. Premature spillage of all consistencies 2' decreased back of tongue control. Pt was unable to complete oral transit for pill trial, and it had to be mechanically removed from the oral cavity. When masticating, pt would often forget he had material in his oral cavity and would begin talking to PATIENT SAFETY MANAGER and certified veterinary technician. He required min-mod cues to remember to masticate solid boluses. Pharyngeal Phase Impression Severe Impairment Pharyngeal Phase Summary Severe pharyngeal dysphagia noted on the study. While there was no aspiration on the study and transient penetration was only noted once, given the severe vallecular residue that was u/ a to clear, aspiration after
== END ==
PROVIDERS: PCP Emergency Medicine; Visit Provider Emergency Medicine
DX: T17.928A Food in respiratory tract, part unspecified causing other injury, initial encounter (principal); R13.10 Dysphagia, unspecified
CPT/HCPCS: 70371; 92611

== ENCOUNTER → 2023-01-13 04:28 | Outpatient (CLI) | payer MEDICARE, MEDICAID, SELFPAY ==
[2023-01-13 06:29] LABS: Microscopic, Urine URINE MICROSCOPIC (MICROSCOPIC)
[2023-01-13 06:34] LABS: Appearance,Urine CLEAR (Clear); Bilirubin,Urine Negative (Negative); Blood, Urine TRACE-I (Negative); Color,Urine YELLOW (Yellow); Glucose,Urine (UA) Negative (Negative); Ketones,Urine Negative (Negative); Leukocyte Esterase,Urine 2+ (Negative); Nitrate,Urine Negative (Negative); PH,Urine 6.5 (5.0-8.5); Protein,Urine TRACE (Negative)
[2023-01-13 06:38] LABS: Basophils % 0.2 % (0.1-2.0); Eosinophils % 0.3 % (0.1-12.0); Hematocrit 42.4 % (42.0-52.0); Hemoglobin 13.1 g/dL (14.1-18.0); Lymphocytes # 1.5 K/mm3 (0.7-4.5); Mean Corpuscular HGB Conc 30.8 g/dL (31.8-35.4); Mean Corpuscular Hemoglobin 28.1 pg (27.0-31.2); Mean Platelet Volume 9.4 fl (7.4-10.4); Monocytes # 0.3 K/mm3 (0.1-1.0); Monocytes % 4.2 % (1.7-9.3); Neutrophils # 5.9 K/mm3 (1.8-7.8); Neutrophils % 76.2 % (37.0-80.0); Platelet Count 267 K/mm3 (142-424); Red Blood Count 4.66 M/mm3 (4.60-6.20); White Blood Count 7.8 K/mm3 (4.8-10.8)
[2023-01-13 06:52] LABS: Bacteria,Urine 3+ /lpf; RBC,Urine Occasional #/hpf (0-3); Squamous Epithelial Cell,Urine Occasional #/hpf (0-5); WBC,Urine 50-100 #/hpf (0-3)
[2023-01-13 07:55] LABS: Alanine Aminotransferase 21 U/L (12-78); Albumin Level 5.2 g/dl (3.5-5.0); Albumin/Globulin Ratio 1.5 (1.1-1.8); Alkaline Phosphatase 111 U/L (38-126); Anion Gap 20.7 mEq/L (5-15); Aspartate Amino Transferase 27 U/L (17-59); Bilirubin,Total 0.2 mg/dl (0.2-1.3); Blood Urea Nitrogen 14 mg/dl (9-20); Calcium 9.3 mg/dl (8.4-10.2); Carbon Dioxide 21 mmol/L (22.0-30.0); Chloride 107 mmol/L (98-107); Estimated Glomerular Filt Rate 65 ml/min (>60); GFR (African American) 79 ML/MIN (>60); Globulin 3.4 g/dL (1.3-3.2); Glucose 86 mg/dl (74-100); Potassium 4.7 mmoL/L (3.5-5.1); Sodium 144 mmol/L (136-145); Total Protein,Serum 8.6 g/dl (6.3-8.2)
== END ==
PROVIDERS: PCP Emergency Medicine; Visit Provider Emergency Medicine
DX: R30.0 Dysuria (principal); N39.0 Urinary tract infection, site not specified
CPT/HCPCS: 80053; 81001; 85025; 87086

== ENCOUNTER 2023-06-19 15:01 | Outpatient (CLI) | payer MEDICARE, MEDICAID, SELFPAY ==
[2023-06-19 16:12] LABS: Chloride 103 mmol/L (98-107)
[2023-06-19 16:13] LABS: Potassium 4.2 mmoL/L (3.5-5.1); Sodium 139 mmol/L (136-145)
[2023-06-19 16:15] LABS: Alanine Aminotransferase 14 U/L (12-78); Aspartate Amino Transferase 24 U/L (17-59); Blood Urea Nitrogen 7 mg/dl (9-20); Estimated Glomerular Filt Rate 94 ml/min (>60); GFR (African American) 113 ML/MIN (>60)
[2023-06-19 16:16] LABS: Albumin Level 3.7 g/dl (3.5-5.0); Albumin/Globulin Ratio 1.3 (1.1-1.8); Alkaline Phosphatase 75 U/L (38-126); Anion Gap 10.2 mEq/L (5-15); Bilirubin,Total 0.3 mg/dl (0.2-1.3); Calcium 8.4 mg/dl (8.4-10.2); Carbon Dioxide 30 mmol/L (22.0-30.0); Globulin 2.8 g/dL (1.3-3.2); Glucose 93 mg/dl (74-100); Total Protein,Serum 6.5 g/dl (6.3-8.2)
== END 2023-06-19 23:59 ==
PROVIDERS: PCP Internal Medicine; Visit Provider Internal Medicine
DX: Z01.812 Encounter for preprocedural laboratory examination (principal)
CPT/HCPCS: 80053

== ENCOUNTER 2023-06-20 07:17 | Outpatient (CLI) | payer MEDICARE, MEDICAID, SELFPAY ==
--- NOTE | 2023-06-20 07:27 | MR_ITS ---
FINAL REPORT CLINICAL HISTORY: Daily headache. COMPARISON: None FINDINGS: Multiplanar MR imaging of the brain was performed without and with contrast. There is marked degradation of overall image quality secondary to motion artifact. There is moderate age-appropriate atrophy. Scattered foci of increased T2 signal are seen in the cerebral white matter that have a nonspecific appearance but likely represent moderate chronic ischemic/gliotic changes. There is no evidence of intracranial hemorrhage or mass. No abnormal ventricular dilatation is identified. There is no evidence of shift of the midline structures. No abnormal extra-axial fluid collection is seen. No area of abnormal restricted diffusion is identified. The posterior fossa and brainstem have an unremarkable appearance. No abnormal contrast enhancement is seen. Normal major vessel vascular flow voids are seen. IMPRESSION: Moderate atrophy and chronic ischemic/gliotic changes. No acute intracranial abnormality. Reviewed, Interpreted and Dictated by Taj Allen III, MD Transcribed by Brittany Mixon Authenticated and [facility]
[2023-06-20] MEDS: GADOTERIDOL INJ 17ML SYRINGE 16 ML IV (08:22)
[2023-06-20] MEDS: SODIUM CHLORIDE 0.9% 10ML SYR (RAD ONLY) 10 ML IV (08:22)
== END 2023-06-20 23:59 ==
LOC: RAD 07:18
PROVIDERS: PCP Internal Medicine; Visit Provider Specialist
DX: G44.52 New daily persistent headache (NDPH) (principal)
CPT/HCPCS: 70553; A9576

== ENCOUNTER 2024-04-15 00:12 | Outpatient (CLI) | payer MEDICARE, MEDICAID, SELFPAY ==
[2024-04-15 00:33] LABS: Microscopic, Urine URINE MICROSCOPIC (MICROSCOPIC)
[2024-04-15 00:47] LABS: Appearance,Urine CLEAR (Clear); Bilirubin,Urine Negative (Negative); Blood, Urine Negative (Negative); Color,Urine YELLOW (Yellow); Glucose,Urine (UA) Negative (Negative); Ketones,Urine Negative (Negative); Leukocyte Esterase,Urine TRACE (Negative); Nitrate,Urine Negative (Negative); Protein,Urine Negative (Negative); Specific Gravity, Urine <= 1.005 (1.005-1.030); Urobilinogen,Urine 0.2 EU/dl (0.2)
[2024-04-15 00:58] LABS: RBC,Urine Occasional #/hpf (0-3)
[2024-04-15 00:59] LABS: Bacteria,Urine 3+ /lpf; Mucus,Urine Trace /lpf
== END 2024-04-15 23:59 | disposition home or self-care (01) ==
LOC: LAB.DROPOF 00:14
PROVIDERS: PCP Internal Medicine; Visit Provider Family Medicine
DX: N39.0 Urinary tract infection, site not specified (principal)
CPT/HCPCS: 81001; 87086

== ENCOUNTER 2024-06-30 05:16 | Inpatient (IN) | payer MEDICARE, MEDICAID, SELFPAY ==
[2024-06-30] VITALS (53 sets, daily range): BP systolic 72–114; BP diastolic 37–71; PULSE 68–110; RESP 13–23; TEMP 37–39; O2SAT 87–100; BMI 27.8; BMI 260747.3
--- NOTE | 2024-06-30 05:00 | CT_ITS ---
PROCEDURE INFORMATION: Exam: CT Head Without Contrast Exam date and time: 06/30/2024 5:50 AM Age: 79 years old Clinical indication: Altered mental status/memory loss TECHNIQUE: Imaging protocol: Computed tomography of the head without contrast. Radiation optimization: All CT scans at this facility use at least one of these dose optimization techniques: automated exposure control; mA and/or kV adjustment per patient size (includes targeted exams where dose is matched to clinical indication); or iterative reconstruction. COMPARISON: MR HEAD/BRAIN WO/W CON 06/20/2023 7:41 AM FINDINGS: Brain: Diffuse parenchymal atrophy. Heavy intracranial calcified atherosclerotic disease. Robust periventricular and subcortical white matter hypoattenuation, nonspecific, however indicative of chronic microvascular disease. Cerebral ventricles: Ex vacuo dilation of the ventricles and CSF spaces. Paranasal sinuses: Scattered sinonasal mucosal thickening to include the right maxillary sinus. Mastoid air cells: Visualized mastoid air cells are well aerated. Bones: No acute or aggressive osseous abnormality. Degenerative changes of the upper cervical spine. Soft tissues: Unremarkable. IMPRESSION: No acute intracranial findings.
--- NOTE | 2024-06-30 05:00 | CT_ITS ---
PROCEDURE INFORMATION: Exam: CTA Head With Contrast, Arteriography Exam date and time: 06/30/2024 5:57 AM Age: 79 years old Clinical indication: Other: AMS; Patient HX: Contracted/kyphotic; Additional info: Altered mental status TECHNIQUE: Imaging protocol: Computed tomographic angiography of the head with contrast. Exam focused on the arteries. 3D rendering (Not supervised by radiologist): MIP and/or 3D reconstructed images were created by the technologist. Radiation optimization: All CT scans at this facility use at least one of these dose optimization techniques: automated exposure control; mA and/or kV adjustment per patient size (includes targeted exams where dose is matched to clinical indication); or iterative reconstruction. Contrast material: ISOVBUE; Contrast volume: 80 ml; Contrast route: INTRAVENOUS (IV); COMPARISON: CT HEAD/BRAIN WO CON 06/30/2024 5:50 AM FINDINGS: ANTERIOR CIRCULATION: Right internal carotid artery: Motion degrades the exam, not well assessed. Right middle cerebral artery: Motion degrades the exam, not well assessed. Right anterior cerebral artery: Motion degrades the exam, not well assessed. Left internal carotid artery: Motion degrades the exam, not well assessed. Left middle cerebral artery: Motion degrades the exam, not well assessed. Left anterior cerebral artery: Motion degrades the exam, not well assessed. POSTERIOR CIRCULATION: Right vertebral artery: Motion degrades the exam, not well assessed. Left vertebral artery: Motion degrades the exam, not well assessed. Basilar artery: Motion degrades the exam, not well assessed. Right posterior cerebral artery: Motion degrades the exam, not well assessed. Left posterior cerebral artery: Motion degrades the exam, not well assessed. Brain: Motion degrades the exam, not well assessed. Cerebral ventricles: Motion degrades the exam, not well assessed. Bones/joints: Motion degrades the exam, not well assessed. Soft tissues: Motion degrades the exam, not well assessed. Other findings: Motion degrades the entirety of the head. IMPRESSION: Motion degrades the entirety of the head, intracranial vasculature is not well assessed, no obvious large vessel thrombosis, consider repeat examination.
--- NOTE | 2024-06-30 05:00 | CT_ITS ---
PROCEDURE INFORMATION: Exam: CTA Chest With Contrast CTA Abdomen and Pelvis With Contrast Exam date and time: 06/30/2024 6:01 AM Age: 79 years old Clinical indication: Other: AMS; Patient HX: Contracted/kyphotic; Additional info: Altered mental status TECHNIQUE: Imaging protocol: Computed tomographic angiography of the chest with contrast. Exam focused on the arteries. Computed tomographic angiography of the abdomen and pelvis with contrast. Exam focused on the arteries. 3D rendering (Not supervised by radiologist): MIP and/or 3D reconstructed images were created by the technologist. Radiation optimization: All CT scans at this facility use at least one of these dose optimization techniques: automated exposure control; mA and/or kV adjustment per patient size (includes targeted exams where dose is matched to clinical indication); or iterative reconstruction. Contrast material: ISOVUE; Contrast volume: 80 ml; Contrast route: INTRAVENOUS (IV); COMPARISON: CT ANGIO CHEST 07/04/2020 2:31 PM FINDINGS: VASCULATURE: Pulmonary arteries: Normal. No pulmonary emboli. Aorta: 7.5 x 6.7 cm infrarenal abdominal aortic aneurysm. This contains eccentric thrombus and extends to the left common iliac artery which also is aneurysmal measuring 5.3 cm. Celiac trunk and mesenteric arteries: No occlusion or significant stenosis. Renal arteries: No occlusion or significant stenosis. Right iliac arteries: Unremarkable Left iliac arteries: 5.3 cm aneurysm. CHEST: Lungs: Left lower lobe atelectasis, superimposed infiltrate cannot be excluded. Left diaphragmatic elevation, the stomach colon and spleen are repositioned in the lower thorax. Pleural spaces: Unremarkable. No pneumothorax. No pleural effusion. Heart: Coronary artery calcium is present.. No cardiomegaly. No pericardial effusion. Diaphragm: Moderate hiatal hernia. ABDOMEN AND PELVIS: Liver: The liver is low in density.. Gallbladder and biliary ducts: Dependent sludge no wall thickening or pericholecystic fluid noted. Pancreas: Unremarkable. No mass. No ductal dilation. Spleen: Unremarkable. No splenomegaly. Adrenal glands: Unremarkable. No mass. Kidneys and ureters: Unremarkable. No solid mass. No hydronephrosis. Stomach and bowel: Left diaphragmatic elevation,. the stomach colon and spleen are repositioned in the lower thorax. Appendix: No evidence of appendicitis. Intraperitoneal space: Unremarkable. No free air. No significant fluid collection. Urinary bladder: Markedly distended. No mass. Reproductive: Unremarkable as visualized. Lymph nodes: Unremarkable. No enlarged lymph nodes. Bones/joints: Unremarkable. No acute fracture. Soft tissues: There is laxity of the pelvic floor with descent of the rectum.. IMPRESSION: 1. 7.5 cm aneurysm of the abdominal aorta which extends into the left common iliac artery where it measures 5.3 cm. There is a large amount of eccentric thrombus. No prior studies are available for comparison. 2. Markedly distended bladder this reaches above the level of the umbilicus, recommend decompression. 3. Cholelithiasis without evidence of acute cholecystitis. 4. Focal atelectasis in the left lung base secondary to significant diaphragmatic elevation, superimposed infiltrate cannot be excluded. Some debris is seen within the left lower lobe bronchi. 5. Coronary atherosclerosis. 6. No definite pulmonary embolism noted.
--- NOTE | 2024-06-30 05:00 | CT_ITS ---
PROCEDURE INFORMATION: Exam: CTA Neck With Contrast Exam date and time: 06/30/2024 5:57 AM Age: 79 years old Clinical indication: Other: AMS; Patient HX: Contracted/kyphotic; Additional info: Altered mental status TECHNIQUE: Imaging protocol: Computed tomographic angiography of the neck with contrast. Exam focused on the cervical segments of the vasculature. 3D rendering (Not supervised by radiologist): MIP and/or 3D reconstructed images were created by the technologist. Radiation optimization: All CT scans at this facility use at least one of these dose optimization techniques: automated exposure control; mA and/or kV adjustment per patient size (includes targeted exams where dose is matched to clinical indication); or iterative reconstruction. Contrast material: ISOVUE; Contrast volume: 80 ml; Contrast route: INTRAVENOUS (IV); COMPARISON: CT CERVICAL SPINE WO CON 06/30/2024 5:54 AM FINDINGS: Right common carotid artery: No stenosis. No dissection or occlusion. Right internal carotid artery: Motion abnormality makes distal neck vasculature not well assessed. Vasculature below the level of the carotid bulbs is grossly patent. Right external carotid artery: Motion abnormality makes distal neck vasculature not well assessed. Vasculature below the level of the carotid bulbs is grossly patent. Left common carotid artery: No stenosis. No dissection or occlusion. Left internal carotid artery: Motion abnormality makes distal neck vasculature not well assessed. Vasculature below the level of the carotid bulbs is grossly patent. Left external carotid artery: Motion abnormality makes distal neck vasculature not well assessed. Vasculature below the level of the carotid bulbs is grossly patent. Right vertebral artery: Motion abnormality makes distal neck vasculature not well assessed. Vasculature below the level of the carotid bulbs is grossly patent. Left vertebral artery: Motion abnormality makes distal neck vasculature not well assessed. Vasculature below the level of the carotid bulbs is grossly patent. Aorta: Mild atherosclerotic disease of the aortic arch. Soft tissues: Normal. No significant soft tissue swelling. Bones/joints: Degenerative changes of the visualized osseous structures. Lungs: Posterior lower lobe, superior segment infiltration. COPD changes. Esophagus: Patulous esophagus with debris. IMPRESSION: 1. Motion abnormality makes distal neck vasculature not well assessed. Vasculature below the level of the carotid bulbs is grossly patent. 2. COPD changes. 3. Findings suggestive of aspiration, infection cannot be entirely excluded. REFERENCES: NASCET CRITERIA. The degree of stenosis in the cervical segment of the internal carotid artery is based on NASCET criteria. Normal is no stenosis. Mild is less than 50% stenosis. Moderate is 50-69% stenosis. Severe is 70% to 99% stenosis. Total occlusion is no detectable patent lumen.
--- NOTE | 2024-06-30 05:02 | HMH.EDGENADL ---
Discharge Plan Disposition Patient Disposition: Admitted Condition: Good Clinical Impressions Clinical Impression: Sepsis, Pneumonia, Acidosis, lactic, Cholelithiasis, Abdominal aortic aneurysm (AAA), Flu Discharge ED Provider: Sylvain Salomon Adult HPI <Sylvain Salomon MD - Last Filed: 06/30/24 07:03> General Chief complaint: Altered Mental Status Stated complaint: Falls Time Seen by Provider: 06/30/24 05:16 History of Present Illness HPI narrative: 79-year-old male with known abdominal aortic aneurysm, COPD, hyperlipidemia, diabetes, iron deficiency who lives at [facility] and only ambulates with a wheelchair, transferring with assistance presents to the ER with altered mental status. EMS reports they were called for generalized weakness, altered mental status, and reportedly patient had a few falls earlier today as well. He and the alf deny him hitting his head. Patient is oriented to self but otherwise disoriented, not able to provide other history. He appeared to have dried material around his mouth but EMS did not receive report of him having emesis. He has a history of being septic, previous Legionella pneumonia, previous UTIs. EMS reports they found him hypoxic in the mid 80s, hypotensive with systolics in the 70s. Glucose 216. No medications administered in route. No baseline nasal cannula requirement. They report his paperwork indicates he is a full code. Last known normal according to facility is approximately 10 hours prior to arrival. Patient does not contribute to history but states he does not have pain. Patient's nurse from the facility called, she provided additional insight. She states the patient is always pleasantly disoriented but typically will smile and interact with you. He typically is able to bear weight but does not walk, he wheels himself around the facility in his wheelchair. Reportedly she found him down in the bathroom earlier tonight. She states he has been more confused and not able to bear weight demonstrating generalized weakness. No focal deficits appreciated. Related Data Home Medications ?Medication ?Instructions ?Recorded ?Confirmed finasteride 5 mg tablet 5 mg PO DAILY 07/14/17 06/30/24 folic acid 1 mg tablet 1 mg PO DAILY 07/14/17 06/30/24 sucralfate 1 gram tablet 1 g PO TID 07/03/20 06/30/24 pantoprazole 40 mg tablet,delayed 40 mg PO HS 07/08/22 06/30/24 release sennosides 8.6 mg tablet (senna) 8.6 mg PO BID 07/08/22 06/30/24 deutetrabenazine 12 mg tablet 12 mg PO .0730 AND 1730 05/20/23 06/30/24 (Austedo) cetirizine 10 mg tablet 10 mg PO DAILY 08/04/23 06/30/24 acetaminophen 500 mg tablet 500 mg PO TID 06/15/24 06/30/24 atorvastatin 10 mg tablet 10 mg PO HS 06/30/24 06/30/24 lorazepam 0.5 mg tablet 0.5 mg PO BID 06/30/24 06/30/24 Previous Rx's ?Medication ?Instructions ?Recorded ferrous sulfate 325 mg (65 mg 325 mg PO BID #180 tabs 11/05/23 iron) tablet coQ10 (ubiquinol) 100 mg capsule 100 mg PO DAILY #60 caps 01/27/24 (Qunol Kurt CoQ10) cyanocobalamin (vitamin B-12) 100 100 mcg PO DAILY #30 tabs 01/27/24 mcg tablet quetiapine 100 mg tablet (Seroquel) 100 mg PO HS #90 tabs 01/27/24 quetiapine 25 mg tablet (Seroquel) 75 mg (3 x 25 mg) PO HS #90 tabs 01/27/24 Allergies Allergy/AdvReac Type Severity Reaction Status Date / Time tramadol Allergy Intermediate Hives Verified 06/15/24 14:43 [facility] <Sylvain Salomon MD - Last Filed: 06/30/24 07:03> [facility] Disclaimer: The information contained in this section may have been updated after the patient was seen, as this information can be updated by other users. Medical History (Updated 06/30/24 @ 12:35 by Merry Dixon MD) Acute respiratory failure with hypoxia Influenza A Hypokalemia Gastro-esophageal reflux disease without esophagitis Drug induced subacute dyskinesia Unspecified dementia, unspecified severity, without behavioral disturbance, psychotic disturbance, mood disturbance, and anxiety Legionnaires' disease Dysphagia Renal insufficiency Schizophrenia Diaphragmatic hernia CAD (coronary artery disease) Family History Other Family history non-contributory Social History Smoking Status: Never smoker alcohol intake: never substance use type: denies use current occupational status: disabled Travel in the last 8 weeks: None housing: alf current occupational exposures/hazards: No caffeine: No Have you lived/traveled outside [place] in past 30 days?: No Contact w/someone who lives/traveled outside US past 30 days?: No Exposure to someone with infectious disease in past 14 days?: No Do you have a fever (greater than 100.4 F or 38 C)?: No Have you tested positive for COVID-19: No Exposed to someone with COVID-19 in past 14 days?: No Do you have a sore throat?: No Do you have a cough?: Yes Do you have any weakness?: Yes Do you have any diarrhea?: No Are you experiencing any unusual bleeding?: No Do you have any muscle aches/pain?: No Do you have any abdominal pain?: No Are you experiencing loss of taste or smell?: No Other Medical History Have you received the Pneumonia Vaccine: Yes (04/26/19) <Sylvain Salomon MD - Last Filed: 06/30/24 07:03> ROS Obtained: Yes unobtainable due to mental status Physical Exam <Sylvain Salomon MD - Last Filed: 06/30/24 07:03> General General appearance: alert Comment: Obviously ill-appearing, pale Head Head exam: atraumatic and normocephalic Eye Eye exam: Present PERRL (Pupils 2 mm, reactive bilaterally) and EOMI ENT ENT exam: Present mucous membranes dry (Dry material appears to be vomitus around the patient's mouth) Neck Neck exam: Present normal inspection and full ROM; Absent tenderness Chest Chest inspection: Present symmetric chest wall rise; Absent tenderness Respiratory Respiratory exam: Present normal lung sounds bilaterally; Absent respiratory distress, wheezes or stridor Cardiovascular Cardiovascular exam: Present normal rhythm and tachycardia (Rate 110s on exam) Abdominal Exam Abdominal exam: Present soft; Absent distention, tenderness, guarding or rebound Rectal Exam Rectal exam: Present normal rectal tone comment: Dark stool but not particularly tarry Extremities Exam Extremities exam: Present full ROM; Absent normal capillary refill (2 to 3-second capillary refill) or edema Back Exam Back exam: Absent tenderness Neurological Exam Neurological exam: Present alert and other (Difficult to assess motor/sensory exam because patient is not adequately following commands, seems confused by what I am asking but does respond to stimuli in all extremities equally); Absent oriented X3 (Oriented only to self, does not know the location, states the year is 2008) Psychiatric Psychiatric exam: Present normal affect and normal mood Skin Skin exam: Present dry; Absent warm (Cool) Medical Decision Making <Sylvain Salomon MD - Last Filed: 06/30/24 07:03> Medical Records Medical records reviewed: Yes I reviewed the patient's medical records. Screening: Per USPSTF and CDC recommendations, given the prevalence of disease in our region, it is our hospital?s policy to screen for HIV and viral Hepatitis for all patients aged 18 and over and those with ongoing risk factors. MR Comment: Most recent alf note from [facility] from 06/15/2024 was reviewed demonstrating patient had recently been treated with gentamicin eyedrops for conjunctivitis, he had been treated in May for a left hip wound which had healed. Her exam indicates patient had no localizing neurologic deficits and was cooperative, no changes to plan of care. Tre Inquiry Pt receiving controlled substance: No Vital Signs: 06/30/24 05:16 06/30/24 05:30 06/30/24 06:11 Temperature 102.2 F H Temperature Source Rectal Pulse Rate 96 H 94 H Pulse Rate [Right Brachial] 110 H Respiratory Rate 20 23 22 Blood Pressure 97/67 L 112/58 L Blood Pressure [Right Arm] 103/68 L Blood Pressure Mean Blood Pressure Mean [Right Arm] 79 Blood Pressure Source Blood Pressure Source [Right Arm] Automatic Cuff Blood Pressure Position Blood Pressure Position [Right Arm] Supine 02 Sat by Pulse Oximetry 94 L 98 96 Oxygen Delivery Method Nasal Cannula Oxygen Flow Rate (LPM) 4 06/30/24 06:30 06/30/24 06:34 06/30/24 06:50 Temperature Temperature Source Pulse Rate 79 83 80 Pulse Rate [Right Brachial] Respiratory Rate 21 20 19 Blood Pressure 89/56 L 95/53 L 90/57 L Blood Pressure [Right Arm] Blood Pressure Mean Blood Pressure Mean [Right Arm] Blood Pressure Source Blood Pressure Source [Right Arm] Blood Pressure Position Blood Pressure Position [Right Arm] 02 Sat by Pulse Oximetry 92 L 93 L 91 L Oxygen Delivery Method Oxygen Flow Rate (LPM) 06/30/24 06:54 06/30/24 06:55 06/30/24 06:56 Temperature 99.3 F Temperature Source Axillary Pulse Rate 74 73 Pulse Rate [Right Brachial] Respiratory Rate 23 18 Blood Pressure 91/57 L 92/51 L Blood Pressure [Right Arm] Blood Pressure Mean Blood Pressure Mean [Right Arm] Blood Pressure Source Blood Pressure Source [Right Arm] Blood Pressure Position Blood Pressure Position [Right Arm] 02 Sat by Pulse Oximetry 97 98 Oxygen Delivery Method Oxygen Flow Rate (LPM) 06/30/24 07:00 06/30/24 07:01 06/30/24 07:01 Temperature Temperature Source Pulse Rate 76 76 Pulse Rate [Right Brachial] Respiratory Rate 20 18 Blood Pressure 73/37 L Blood Pressure [Right Arm] Blood Pressure Mean 49 Blood Pressure Mean [Right Arm] Blood Pressure Source Blood Pressure Source [Right Arm] Blood Pressure Position Blood Pressure Position [Right Arm] 02 Sat by Pulse Oximetry 100 98 Oxygen Delivery Method Oxygen Flow Rate (LPM) 06/30/24 07:02 06/30/24 07:02 06/30/24 07:02 Temperature Temperature Source Pulse Rate 74 Pulse Rate [Right Brachial] Respiratory Rate 15 Blood Pressure 94/62 L 72/38 L Blood Pressure [Right Arm] Blood Pressure Mean 44 Blood Pressure Mean [Right Arm] Blood Pressure Source Manual Cuff/ Auscultation Blood Pressure Source [Right Arm] Blood Pressure Position Supine Blood Pressure Position [Right Arm] 02 Sat by Pulse Oximetry 94 L Oxygen Delivery Method Oxygen Flow Rate (LPM) 06/30/24 07:05 06/30/24 07:05 06/30/24 08:17 Temperature Temperature Source Pulse Rate 82 Pulse Rate [Right Brachial] 79 Respiratory Rate 18 16 Blood Pressure 74/41 L Blood Pressure [Right Arm] 87/51 L Blood Pressure Mean 46 Blood Pressure Mean [Right Arm] 63 Blood Pressure Source Blood Pressure Source [Right Arm] Automatic Cuff Blood Pressure Position Blood Pressure Position [Right Arm] Supine 02 Sat by Pulse Oximetry 100 94 L Oxygen Delivery Method Nasal Cannula Oxygen Flow Rate (LPM) 5 06/30/24 09:05 Temperature 99.9 F H Temperature Source Rectal Pulse Rate 68 Pulse Rate [Right Brachial] Respiratory Rate 20 Blood Pressure 96/54 L Blood Pressure [Right Arm] Blood Pressure Mean Blood Pressure Mean [Right Arm] Blood Pressure Source Automatic Cuff Blood Pressure Source [Right Arm] Blood Pressure Position Supine Blood Pressure Position [Right Arm] 02 Sat by Pulse Oximetry Oxygen Delivery Method Nasal Cannula Oxygen Flow Rate (LPM) 5 Lab Data Lab Results 06/30/24 04:56: WBC 11.1 H, RBC 4.17 L, Hgb 12.1 L, Hct 37.3 L, MCV 89.4, MCH 29.0, MCHC 32.4, RDW 15.3, Plt Count 226, MPV 9.8, Neut % (Auto) 87.3 H, Lymph % (Auto) 4.7 L, [place] % (Auto) 7.5, Eos % (Auto) 0.0 L, Baso % (Auto) 0.1, Neut # (Auto) 9.7 H, Lymph # (Auto) 0.5 L, [place] # (Auto) 0.8, Eos # (Auto) 0.0, Baso # (Auto) 0.0, PT 12.2 H, INR 1.12 H, Sodium 138, Potassium 4.4, Chloride 99, Carbon Dioxide 20 L, Anion Gap 23.4 H, BUN 17, Creatinine 1.60 H, Estimated Creat Clear 43, Estimated GFR 42 L, Est GFR ( Amer) 51 L, Glucose 140 H, Calcium 9.0, Magnesium 1.7, Total Bilirubin 0.6, AST 93 H, ALT 44, Alkaline Phosphatase 88, Troponin I 0.05 H, Total Protein 7.4, Albumin 4.3, Globulin 3.1, Albumin/Globulin Ratio 1.4, Lipase 98, TSH 1.30, Free T4 0.98, Urine Color Yellow, Urine Appearance Clear, Urine pH 7.0, Ur Specific [place] 1.010, Urine Protein Negative, Urine Glucose (UA) Negative, Urine Ketones Negative, Urine Blood Negative, Urine Nitrate Negative, Urine Bilirubin Negative, Urine Urobilinogen 1.0, Ur Leukocyte Esterase Trace, Urine RBC None, Urine WBC 5-10, Ur Squamous Epith Cells 3-5, Ur Transition Epith Cell Occ, Urine Bacteria 2+, Stool Occult Blood Negative, Urine Opiates Screen Negative, Urine Methadone Screen Negative, Ur Barbituates Screen Negative, Ur Phencyclidine Scrn Negative, Ur Amphetamines Screen Negative, U Benzodiazepines Scrn Negative, Urine Cocaine Screen Negative, U Marijuana (THC) Screen Negative, HCV Ab MARTHA w/Rflx PCR Qn Negative, HIV Ag/Ab Combo Qual Negative 06/30/24 04:58: VBG pH 7.29 L, VBG pCO2 38.3, VBG pO2 28.9, VBG HCO3 18.2 L, VBG Total CO2 19.3 L, VBG O2 Saturation 46.5 L, VBG Base Excess -8.3 L, VBG Lactic Acid 8.0 H 06/30/24 06:20: Chlamy pneumoniae PCR Not detected, Adenovirus (PCR) Not detected, B. pertussis DNA (PCR) Not detected, Coronavirus OC43 (PCR) Not detected, Coronavirus HKU1 (PCR) Not detected, Coronavirus 229E (PCR) Not detected, SARS-CoV-2 (PCR) Not detected, Coronavirus NL63 (PCR) Not detected, Human Metapneumovir PCR Not detected, Influenza A (H1) PCR Not detected, Influ A (H1N1/09) PCR Detected A, Influenza A (H3) PCR Not detected, Influenza Type A (PCR) Not detected, Influenza Type B (PCR) Not detected, M. pneumoniae (PCR) Not detected, Parainfluenza 1 (PCR) Not detected, Parainfluenza 2 (PCR) Not detected, Parainfluenza 3 (PCR) Not detected, Parainfluenza 4 (PCR) Not detected, RSV (PCR) Not detected, Entero/Rhino (PCR) Not detected 06/30/24 04:56 06/30/24 04:56 Orders (Tests/Meds): ED MEDICATIONS Generic Name Dose Route Start Last Admin Trade Name Freq PRN Reason Stop Dose Admin Acetaminophen 650 mg 06/30/24 08:17 06/30/24 12:08 Acetaminophen 325mg Tab PO 07/30/24 08:16 650 mg Q4HP PRN Administration Fever or Mild Pain (1-3) Enoxaparin Sodium 40 mg 06/30/24 09:00 06/30/24 12:08 Enoxaparin 40mg/0.4ml Syringe SUBCUT 07/30/24 08:59 40 mg DAILY CLARA Administration Piperacillin Sod/Tazobactam 100 mls @ 200 mls/hr 06/30/24 05:00 06/30/24 06:09 Sod 4.5 gm/ Sodium Chloride IV 07/10/24 04:59 200 mls/hr Q8H CLARA Administration Norepinephrine/Dextrose 8 mg in 250 mls @ 3.75 mls/hr 06/30/24 07:29 06/30/24 10:34 Levophed 8mg/250ml-D5w Premix IV 07/30/24 07:28 5.87 mcg/min .Q24H CLARA 11 mls/hr Infusion Protocol 2 MCG/MIN Lactated Ringer's 500 mls @ 500 mls/hr 06/30/24 13:15 Lactated Ringer's 1000 Ml Bag IV 06/30/24 14:14 .Q1H ONE Oseltamivir Phosphate 75 mg 06/30/24 09:00 06/30/24 12:08 Oseltamivir 75mg Capsule PO 07/04/24 21:01 75 mg BID CLARA Administration Sodium Chloride 3 ml 06/30/24 09:07 Sodium Chloride 3% 15ml Neb IH 07/30/24 09:06 ONCE PRN INDUCE SPUTUM COLLECTION Sodium Chloride 10 ml 06/30/24 12:02 Sodium Chloride 0.9% 10ml Flush Syringe IV 07/30/24 12:01 NEEDED PRN Maintain IV Site Discontinued Medications Generic Name Dose Route Start Last Admin Trade Name Freq PRN Reason Stop Dose Admin Acetaminophen 1,000 mg 06/30/24 05:06 06/30/24 05:10 Acetaminophen 1,000mg/100ml Vial IV 06/30/24 05:07 1,000 mg ONCE ONE Administration Lactated Ringer's 2,300 mls @ 999 mls/hr 06/30/24 04:58 06/30/24 05:27 Lactated Ringer's 1000 Ml Bag IV 06/30/24 07:16 999 mls/hr .Q2H19M ONE Administration Vancomycin/PEG/NADA/Lysine/Water 1.75 gm in 350 mls @ 175 mls/hr 06/30/24 05:30 06/30/24 06:30 Vancomycin 1.75gm/350ml (Peg) Premix IV 06/30/24 07:29 175 mls/hr ONCE ONE Administration Iopamidol 160 ml 06/30/24 06:11 06/30/24 06:12 Iopamidol-370 (76%);100ml Bottle IV 06/30/24 06:12 160 ml ONCE ONE Administration Miscellaneous 1 each 06/30/24 05:00 06/30/24 05:45 Vancomycin Consult Request NOTAPPLIC 07/30/24 04:59 1 each CONSULT PHARMACY CLARA Administration Ondansetron HCl 4 mg 06/30/24 04:58 06/30/24 05:31 Ondansetron 4mg/2ml Vial IV 06/30/24 04:59 4 mg ONCE ONE Administration Phentolamine Mesylate 5 mg 06/30/24 13:15 06/30/24 13:14 Phentolamine 5mg/Ml Vial SUBCUT 06/30/24 13:16 5 mg ONCE ONE Administration Sodium Chloride 10 ml 06/30/24 06:11 06/30/24 06:12 Sodium Chloride 0.9% 10ml Syr (Rad Only) IV 06/30/24 06:12 10 ml ONCE ONE Administration Sodium Chloride 100 ml 06/30/24 06:11 06/30/24 06:12 0.9 % Sodium Chloride 50 Ml Vial IV 06/30/24 06:12 100 ml ONCE ONE Administration ORDERS Category Date Time Status CT angio abdomen pelvis Stat Cat Scan 06/30/24 05:[address] angio chest - dissection Stat Cat Scan 06/30/24 05:[address] angio head Stat Cat Scan 06/30/24 05:[address] angio neck Stat Cat Scan 06/30/24 05:[address] cervical spine wo con Stat Cat Scan 06/30/24 05:[address] head/brain wo con Stat Cat Scan 06/30/24 05:00 Completed Physician Consult [Consult to Physician] [CONS] Routine Cons 06/30/24 07:35 Ordered Basic Metabolic Panel Routine Lab 06/30/24 16:00 Ordered Complete Blood Count Auto Diff AMLAB Lab 07/01/24 06:00 Ordered Complete Blood Count Auto Diff Stat Lab 06/30/24 04:56 Completed Comprehensive Metabolic Panel AMLAB Lab 07/01/24 06:00 Ordered Comprehensive Metabolic Panel Stat Lab 06/30/24 04:56 Completed Drug Screen,Urine Stat Lab 06/30/24 04:56 Completed Free T4 (Free Thyroxine) Stat Lab 06/30/24 04:56 Completed Full Resp Panel w/COVID ([facility]) Routine Lab 06/30/24 06:20 Completed HIV Combo Stat Lab 06/30/24 04:56 Completed Hepatitis C Ab Qual. W/ RFX Stat Lab 06/30/24 04:56 Completed Lipase Stat Lab 06/30/24 04:56 Completed Magnesium AMLAB Lab 07/01/24 06:00 Ordered Magnesium Stat Lab 06/30/24 04:56 Completed Occult Blood,Stool Stat Lab 06/30/24 04:56 Completed Prothrombin Time INR Stat Lab 06/30/24 04:56 Completed Thyroid Stimulating Hormone Stat Lab 06/30/24 04:56 Completed Troponin I Q3H Lab 06/30/24 09:28 Completed Troponin I Q3H Lab 06/30/24 12:28 Completed Troponin I Stat Lab 06/30/24 04:56 Completed Urinalysis and Microscopic Stat Lab 06/30/24 04:56 Completed Blood Culture Stat Micro 06/30/24 04:58 Received Urine Culture Stat Micro 06/30/24 04:56 Received Venous Blood Gas Stat RT 06/30/24 04:58 Completed Tissue Perfus/Sepsis Re-Eval Sepsis Re-Evaluation Performed: Yes Date Performed: 06/30/24 Time Performed: 06:59 Medical Decision Narrative: In summary, this 79-year-old male with multiple comorbidities as described in the HPI which increases his overall burden of disease and amount of data to be reviewed presents to the emergency department today with altered mental status, multiple falls at the alf. On initial evaluation patient is tachycardic, borderline hypotensive, febrile, delayed capillary refill, no peripheral edema, GCS 12 with confusion, no specifically localizing neurologic deficits but not adequately following commands, seems confused by the commands I am asking. No significant skin breakdown or wounds. Patient is pale. Differential diagnosis includes but is not limited to sepsis, urinary tract infection, pneumonia, GI bleed, anemia, stroke, bacteremia, lactic acidosis, kidney dysfunction, electrolyte abnormalities, heart failure, intra-abdominal pathology or infection, mesenteric ischemia, dissection, among others. Based on these concerns, I ordered broad workup including serum labs, blood cultures, urine studies, CT imaging. Patient meets sepsis criteria on arrival and is receiving 30 mL/kg LR fluid bolus as well as broad-spectrum antibiotics vancomycin and Zosyn, Zofran, IV acetaminophen for treatment of fever ECG personally interpreted demonstrates normal sinus rhythm, rate 97, borderline right axis deviation, normal SC and QTc, no STEMI. Labs personally reviewed demonstrate leukocytosis with WBC 11.1, mild anemia with hemoglobin 12.1, not significantly changed compared to labs in 2022, platelets normal at 226, patient does have neutrophil predominance increasing suspicion for bacterial infection, PT/INR slightly elevated but nonactionable, VBG notable for pH 7.29, lactic acidosis with VBG lactic 8.0, CMP demonstrates WILLIAM with creatinine newly 1.6 up from previously 0.8, UA negative for findings of infection, occult blood negative. CT head and cervical spine were personally interpreted, I do not appreciate acute traumatic injury, no intracranial bleed or skull fracture, no cervical spine fracture or malalignment, degenerative changes present, see radiology reads for final interpretations. CT angiography chest does not demonstrate obvious thoracic dissection, no PE, patient has hiatal hernia versus hemidiaphragm elevation similar to previous studies and findings of infection in the left posterior lobe lower. CT angiography abdomen pelvis appears to demonstrate large abdominal aortic aneurysm measuring up to 7.5 cm on my personal measurement as well as distended bladder. Right renal cysts present. Radiology reads pending. Radiologist called me to discuss patient's chest and abdomen imaging findings. He agrees that the abdominal aortic aneurysm is larger than it had been previously. He is unable to view the patient's previous CT abdomen which indicated patient's maximal abdominal aortic aneurysm diameter was up to 5.7 cm. he believes with that information that the interval increase over the last few years is appropriate and expected. He indicated that the aneurysm is not leaking. Patient does have cholelithiasis without cholecystitis. CT angiography of the head does not demonstrate obvious LVO though there is motion artifact. With very low suspicion for intracranial stroke or acute lesion, I do not believe repeat imaging is indicated at this time. Neck CTA with without acute stenosis or dissection. I called patient's next of kin in person to notify, Sadaf, and we discussed patient's findings so far. She states the patient has previously indicated he would not want to have surgery on his aortic aneurysm. I explained to her the increased risk of rupture with its increased size. She understands this but states they have previously refused surgery and she does not believe it is something the patient would want based on his prior statements. I believe this is reasonable given the patient's other significant comorbidities which would complicate and potentially limit his surgical options. Patient's capillary refill is improving. His blood pressure continues to be soft but I anticipate this will improve with the IV fluids and antibiotics he is receiving. Patient handed off to Dr. Blanchard in serious but stable condition pending final CT reads. <Celsa Blanchard, DO - Last Filed: 06/30/24 13:35> Vital Signs: 06/30/24 05:16 06/30/24 05:30 06/30/24 06:11 Temperature 102.2 F H Temperature Source Rectal Pulse Rate 96 H 94 H Pulse Rate [Right Brachial] 110 H Respiratory Rate 20 23 22 Blood Pressure 97/67 L 112/58 L Blood Pressure [Right Arm] 103/68 L Blood Pressure Mean Blood Pressure Mean [Right Arm] 79 Blood Pressure Source Blood Pressure Source [Right Arm] Automatic Cuff Blood Pressure Position Blood Pressure Position [Right Arm] Supine 02 Sat by Pulse Oximetry 94 L 98 96 Oxygen Delivery Method Nasal Cannula Oxygen Flow Rate (LPM) 4 06/30/24 06:30 06/30/24 06:34 06/30/24 06:50 Temperature Temperature Source Pulse Rate 79 83 80 Pulse Rate [Right Brachial] Respiratory Rate 21 20 19 Blood Pressure 89/56 L 95/53 L 90/57 L Blood Pressure [Right Arm] Blood Pressure Mean Blood Pressure Mean [Right Arm] Blood Pressure Source Blood Pressure Source [Right Arm] Blood Pressure Position Blood Pressure Position [Right Arm] 02 Sat by Pulse Oximetry 92 L 93 L 91 L Oxygen Delivery Method Oxygen Flow Rate (LPM) 06/30/24 06:54 06/30/24 06:55 06/30/24 06:56 Temperature 99.3 F Temperature Source Axillary Pulse Rate 74 73 Pulse Rate [Right Brachial] Respiratory Rate 23 18 Blood Pressure 91/57 L 92/51 L Blood Pressure [Right Arm] Blood Pressure Mean Blood Pressure Mean [Right Arm] Blood Pressure Source Blood Pressure Source [Right Arm] Blood Pressure Position Blood Pressure Position [Right Arm] 02 Sat by Pulse Oximetry 97 98 Oxygen Delivery Method Oxygen Flow Rate (LPM) 06/30/24 07:00 06/30/24 07:01 06/30/24 07:01 Temperature Temperature Source Pulse Rate 76 76 Pulse Rate [Right Brachial] Respiratory Rate 20 18 Blood Pressure 73/37 L Blood Pressure [Right Arm] Blood Pressure Mean 49 Blood Pressure Mean [Right Arm] Blood Pressure Source Blood Pressure Source [Right Arm] Blood Pressure Position Blood Pressure Position [Right Arm] 02 Sat by Pulse Oximetry 100 98 Oxygen Delivery Method Oxygen Flow Rate (LPM) 06/30/24 07:02 06/30/24 07:02 06/30/24 07:02 Temperature Temperature Source Pulse Rate 74 Pulse Rate [Right Brachial] Respiratory Rate 15 Blood Pressure 94/62 L 72/38 L Blood Pressure [Right Arm] Blood Pressure Mean 44 Blood Pressure Mean [Right Arm] Blood Pressure Source Manual Cuff/ Auscultation Blood Pressure Source [Right Arm] Blood Pressure Position Supine Blood Pressure Position [Right Arm] 02 Sat by Pulse Oximetry 94 L Oxygen Delivery Method Oxygen Flow Rate (LPM) 06/30/24 07:05 06/30/24 07:05 06/30/24 08:17 Temperature Temperature Source Pulse Rate 82 Pulse Rate [Right Brachial] 79 Respiratory Rate 18 16 Blood Pressure 74/41 L Blood Pressure [Right Arm] 87/51 L Blood Pressure Mean 46 Blood Pressure Mean [Right Arm] 63 Blood Pressure Source Blood Pressure Source [Right Arm] Automatic Cuff Blood Pressure Position Blood Pressure Position [Right Arm] Supine 02 Sat by Pulse Oximetry 100 94 L Oxygen Delivery Method Nasal Cannula Oxygen Flow Rate (LPM) 5 06/30/24 09:05 Temperature 99.9 F H Temperature Source Rectal Pulse Rate 68 Pulse Rate [Right Brachial] Respiratory Rate 20 Blood Pressure 96/54 L Blood Pressure [Right Arm] Blood Pressure Mean Blood Pressure Mean [Right Arm] Blood Pressure Source Automatic Cuff Blood Pressure Source [Right Arm] Blood Pressure Position Supine Blood Pressure Position [Right Arm] 02 Sat by Pulse Oximetry Oxygen Delivery Method Nasal Cannula Oxygen Flow Rate (LPM) 5 Lab Data Lab Results 06/30/24 04:56: WBC 11.1 H, RBC 4.17 L, Hgb 12.1 L, Hct 37.3 L, MCV 89.4, MCH 29.0, MCHC 32.4, RDW 15.3, Plt Count 226, MPV 9.8, Neut % (Auto) 87.3 H, Lymph % (Auto) 4.7 L, [place] % (Auto) 7.5, Eos % (Auto) 0.0 L, Baso % (Auto) 0.1, Neut # (Auto) 9.7 H, Lymph # (Auto) 0.5 L, [place] # (Auto) 0.8, Eos # (Auto) 0.0, Baso # (Auto) 0.0, PT 12.2 H, INR 1.12 H, Sodium 138, Potassium 4.4, Chloride 99, Carbon Dioxide 20 L, Anion Gap 23.4 H, BUN 17, Creatinine 1.60 H, Estimated Creat Clear 43, Estimated GFR 42 L, Est GFR ( Amer) 51 L, Glucose 140 H, Calcium 9.0, Magnesium 1.7, Total Bilirubin 0.6, AST 93 H, ALT 44, Alkaline Phosphatase 88, Troponin I 0.05 H, Total Protein 7.4, Albumin 4.3, Globulin 3.1, Albumin/Globulin Ratio 1.4, Lipase 98, TSH 1.30, Free T4 0.98, Urine Color Yellow, Urine Appearance Clear, Urine pH 7.0, Ur Specific [place] 1.010, Urine Protein Negative, Urine Glucose (UA) Negative, Urine Ketones Negative, Urine Blood Negative, Urine Nitrate Negative, Urine Bilirubin Negative, Urine Urobilinogen 1.0, Ur Leukocyte Esterase Trace, Urine RBC None, Urine WBC 5-10, Ur Squamous Epith Cells 3-5, Ur Transition Epith Cell Occ, Urine Bacteria 2+, Stool Occult Blood Negative, Urine Opiates Screen Negative, Urine Methadone Screen Negative, Ur Barbituates Screen Negative, Ur Phencyclidine Scrn Negative, Ur Amphetamines Screen Negative, U Benzodiazepines Scrn Negative, Urine Cocaine Screen Negative, U Marijuana (THC) Screen Negative, HCV Ab MARTHA w/Rflx PCR Qn Negative, HIV Ag/Ab Combo Qual Negative 06/30/24 04:58: VBG pH 7.29 L, VBG pCO2 38.3, VBG pO2 28.9, VBG HCO3 18.2 L, VBG Total CO2 19.3 L, VBG O2 Saturation 46.5 L, VBG Base Excess -8.3 L, VBG Lactic Acid 8.0 H 06/30/24 06:20: Chlamy pneumoniae PCR Not detected, Adenovirus (PCR) Not detected, B. pertussis DNA (PCR) Not detected, Coronavirus OC43 (PCR) Not detected, Coronavirus HKU1 (PCR) Not detected, Coronavirus 229E (PCR) Not detected, SARS-CoV-2 (PCR) Not detected, Coronavirus NL63 (PCR) Not detected, Human Metapneumovir PCR Not detected, Influenza A (H1) PCR Not detected, Influ A (H1N1/09) PCR Detected A, Influenza A (H3) PCR Not detected, Influenza Type A (PCR) Not detected, Influenza Type B (PCR) Not detected, M. pneumoniae (PCR) Not detected, Parainfluenza 1 (PCR) Not detected, Parainfluenza 2 (PCR) Not detected, Parainfluenza 3 (PCR) Not detected, Parainfluenza 4 (PCR) Not detected, RSV (PCR) Not detected, Entero/Rhino (PCR) Not detected Orders (Tests/Meds): ED MEDICATIONS Generic Name Dose Route Start Last Admin Trade Name Patricioq PRN Reason Stop Dose Admin Acetaminophen 650 mg 06/30/24 08:17 06/30/24 12:08 Acetaminophen 325mg Tab PO 07/30/24 08:16 650 mg Q4HP PRN Administration Fever or Mild Pain (1-3) Enoxaparin Sodium 40 mg 06/30/24 09:00 06/30/24 12:08 Enoxaparin 40mg/0.4ml Syringe SUBCUT 07/30/24 08:59 40 mg DAILY CLARA Administration Piperacillin Sod/Tazobactam 100 mls @ 200 mls/hr 06/30/24 05:00 06/30/24 06:09 Sod 4.5 gm/ Sodium Chloride IV 07/10/24 04:59 200 mls/hr Q8H CLARA Administration Norepinephrine/Dextrose 8 mg in 250 mls @ 3.75 mls/hr 06/30/24 07:29 06/30/24 10:34 Levophed 8mg/250ml-D5w Premix IV 07/30/24 07:28 5.87 mcg/min .Q24H CLARA 11 mls/hr Infusion Protocol 2 MCG/MIN Lactated Ringer's 500 mls @ 500 mls/hr 06/30/24 13:15 Lactated Ringer's 1000 Ml Bag IV 06/30/24 14:14 .Q1H ONE Oseltamivir Phosphate 75 mg 06/30/24 09:00 06/30/24 12:08 Oseltamivir 75mg Capsule PO 07/04/24 21:01 75 mg BID CLARA Administration Sodium Chloride 3 ml 06/30/24 09:07 Sodium Chloride 3% 15ml Neb IH 07/30/24 09:06 ONCE PRN INDUCE SPUTUM COLLECTION Sodium Chloride 10 ml 06/30/24 12:02 Sodium Chloride 0.9% 10ml Flush Syringe IV 07/30/24 12:01 NEEDED PRN Maintain IV Site Discontinued Medications Generic Name Dose Route Start Last Admin Trade Name Freq PRN Reason Stop Dose Admin Acetaminophen 1,000 mg 06/30/24 05:06 06/30/24 05:10 Acetaminophen 1,000mg/100ml Vial IV 06/30/24 05:07 1,000 mg ONCE ONE Administration Lactated Ringer's 2,300 mls @ 999 mls/hr 06/30/24 04:58 06/30/24 05:27 Lactated Ringer's 1000 Ml Bag IV 06/30/24 07:16 999 mls/hr .Q2H19M ONE Administration Vancomycin/PEG/NADA/Lysine/Water 1.75 gm in 350 mls @ 175 mls/hr 06/30/24 05:30 06/30/24 06:30 Vancomycin 1.75gm/350ml (Peg) Premix IV 06/30/24 07:29 175 mls/hr ONCE ONE Administration Iopamidol 160 ml 06/30/24 06:11 06/30/24 06:12 Iopamidol-370 (76%);100ml Bottle IV 06/30/24 06:12 160 ml ONCE ONE Administration Miscellaneous 1 each 06/30/24 05:00 06/30/24 05:45 Vancomycin Consult Request NOTAPPLIC 07/30/24 04:59 1 each CONSULT PHARMACY CLARA Administration Ondansetron HCl 4 mg 06/30/24 04:58 06/30/24 05:31 Ondansetron 4mg/2ml Vial IV 06/30/24 04:59 4 mg ONCE ONE Administration Phentolamine Mesylate 5 mg 06/30/24 13:15 06/30/24 13:14 Phentolamine 5mg/Ml Vial SUBCUT 06/30/24 13:16 5 mg ONCE ONE Administration Sodium Chloride 10 ml 06/30/24 06:11 06/30/24 06:12 Sodium Chloride 0.9% 10ml Syr (Rad Only) IV 06/30/24 06:12 10 ml ONCE ONE Administration Sodium Chloride 100 ml 06/30/24 06:11 06/30/24 06:12 0.9 % Sodium Chloride 50 Ml Vial IV 06/30/24 06:12 100 ml ONCE ONE Administration ORDERS Category Date Time Status CT angio abdomen pelvis Stat Cat Scan 06/30/24 05:[address] angio chest - dissection Stat Cat Scan 06/30/24 05:[address] angio head Stat Cat Scan 06/30/24 05:[address] angio neck Stat Cat Scan 06/30/24 05:[address] cervical spine wo con Stat Cat Scan 06/30/24 05:[address] head/brain wo con Stat Cat Scan 06/30/24 05:00 Completed Physician Consult [Consult to Physician] [CONS] Routine Cons 06/30/24 07:35 Ordered Basic Metabolic Panel Routine Lab 06/30/24 16:00 Ordered Complete Blood Count Auto Diff AMLAB Lab 07/01/24 06:00 Ordered Complete Blood Count Auto Diff Stat Lab 06/30/24 04:56 Completed Comprehensive Metabolic Panel AMLAB Lab 07/01/24 06:00 Ordered Comprehensive Metabolic Panel Stat Lab 06/30/24 04:56 Completed Drug Screen,Urine Stat Lab 06/30/24 04:56 Completed Free T4 (Free Thyroxine) Stat Lab 06/30/24 04:56 Completed Full Resp Panel w/COVID ([facility]) Routine Lab 06/30/24 06:20 Completed HIV Combo Stat Lab 06/30/24 04:56 Completed Hepatitis C Ab Qual. W/ RFX Stat Lab 06/30/24 04:56 Completed Lipase Stat Lab 06/30/24 04:56 Completed Magnesium AMLAB Lab 07/01/24 06:00 Ordered Magnesium Stat Lab 06/30/24 04:56 Completed Occult Blood,Stool Stat Lab 06/30/24 04:56 Completed Prothrombin Time INR Stat Lab 06/30/24 04:56 Completed Thyroid Stimulating Hormone Stat Lab 06/30/24 04:56 Completed Troponin I Q3H Lab 06/30/24 09:28 Completed Troponin I Q3H Lab 06/30/24 12:28 Completed Troponin I Stat Lab 06/30/24 04:56 Completed Urinalysis and Microscopic Stat Lab 06/30/24 04:56 Completed Blood Culture Stat Micro 06/30/24 04:58 Received Urine Culture Stat Micro 06/30/24 04:56 Received Venous Blood Gas Stat RT 06/30/24 04:58 Completed Medical Decision Narrative: In summary, this 79-year-old male with multiple comorbidities as described in the HPI which increases his overall burden of disease and amount of data to be reviewed presents to the emergency department today with altered mental status, multiple falls at the alf. On initial evaluation patient is tachycardic, borderline hypotensive, febrile, delayed capillary refill, no peripheral edema, GCS 12 with confusion, no specifically localizing neurologic deficits but not adequately following commands, seems confused by the commands I am asking. No significant skin breakdown or wounds. Patient is pale. Differential diagnosis includes but is not limited to sepsis, urinary tract infection, pneumonia, GI bleed, anemia, stroke, bacteremia, lactic acidosis, kidney dysfunction, electrolyte abnormalities, heart failure, intra-abdominal pathology or infection, mesenteric ischemia, dissection, among others. Based on these concerns, I ordered broad workup including serum labs, blood cultures, urine studies, CT imaging. Patient meets sepsis criteria on arrival and is receiving 30 mL/kg LR fluid bolus as well as broad-spectrum antibiotics vancomycin and Zosyn, Zofran, IV acetaminophen for treatment of fever ECG personally interpreted demonstrates normal sinus rhythm, rate 97, borderline right axis deviation, normal SC and QTc, no STEMI. Labs personally reviewed demonstrate leukocytosis with WBC 11.1, mild anemia with hemoglobin 12.1, not significantly changed compared to labs in 2022, platelets normal at 226, patient does have neutrophil predominance increasing suspicion for bacterial infection, PT/INR slightly elevated but nonactionable, VBG notable for pH 7.29, lactic acidosis with VBG lactic 8.0, CMP demonstrates WILLIAM with creatinine newly 1.6 up from previously 0.8, UA negative for findings of infection, occult blood negative. CT head and cervical spine were personally interpreted, I do not appreciate acute traumatic injury, no intracranial bleed or skull fracture, no cervical spine fracture or malalignment, degenerative changes present, see radiology reads for final interpretations. CT angiography chest does not demonstrate obvious thoracic dissection, no PE, patient has hiatal hernia versus hemidiaphragm elevation similar to previous studies and findings of infection in the left posterior lobe lower. CT angiography abdomen pelvis appears to demonstrate large abdominal aortic aneurysm measuring up to 7.5 cm on my personal measurement as well as distended bladder. Right renal cysts present. Radiology reads pending. Radiologist called me to discuss patient's chest and abdomen imaging findings. He agrees that the abdominal aortic aneurysm is larger than it had been previously. He is unable to view the patient's previous CT abdomen which indicated patient's maximal abdominal aortic aneurysm diameter was up to 5.7 cm. he believes with that information that the interval increase over the last few years is appropriate and expected. He indicated that the aneurysm is not leaking. Patient does have cholelithiasis without cholecystitis. CT angiography of the head does not demonstrate obvious LVO though there is motion artifact. With very low suspicion for intracranial stroke or acute lesion, I do not believe repeat imaging is indicated at this time. Neck CTA with without acute stenosis or dissection. I called patient's next of kin in person to notify, Sadaf, and we discussed patient's findings so far. She states the patient has previously indicated he would not want to have surgery on his aortic aneurysm. I explained to her the increased risk of rupture with its increased size. She understands this but states they have previously refused surgery and she does not believe it is something the patient would want based on his prior statements. I believe this is reasonable given the patient's other significant comorbidities which would complicate and potentially limit his surgical options. Patient's capillary refill is improving. His blood pressure continues to be soft but I anticipate this will improve with the IV fluids and antibiotics he is receiving. Patient handed off to Dr. Blanchard in serious but stable condition pending final CT reads. Santo DO: I assumed care of the patient at 7 AM at time of departure of previous provider. On my assessment, he is hypotensive, somnolent, cool, pale. He does arouse to voice and repeatedly asks for something to drink, otherwise does not provide me any history. Labs demonstrated mild leukocytosis. He does have significant lactic acidosis. He has a high anion gap metabolic acidosis, likely related to lactic acidosis. This could be due to dehydration, hypoperfusion in the setting of undifferentiated shock, presumably sepsis given pneumonia on imaging. CT scans demonstrated pneumonia as well as his extremely large aortic aneurysm. He had distended bladder, for which [place] catheter was placed with large urine output. He has cholelithiasis without cholecystitis. He did test positive for the flu. Patient was persistently hypotensive even after sepsis bolus of IV fluids, so I initiated him on Levophed with good improvement in his perfusion and pressure. He has good palpable DP pulses. I had an interactive discussion with the patient's sister as well who is his POA and she advised that he definitely would not want surgery for the aortic aneurysm, however she is not sure how to make a decision about CODE STATUS at this time and would like to keep him a full code. Given stability in the setting of blood pressure improvement, I feel he would benefit from admission. I considered transfer to higher level of care given the aortic aneurysm, however given he would not want any sort of intervention, it was decided that the patient could be medically managed here for his other issues, including respiratory failure, pneumonia, influenza. I had an interactive discussion with the hospitalist who admitted the patient. Critical care: 40 minutes. On 06/30/24, the high probability of a clinically significant, sudden or life threatening deterioration of the following system(s) (hemodynamic) required my full and direct attention, intervention and personal management. The time I documented below is in addition to time spent performing reported procedures but includes the following listed in this critical care notation. Critical Care <Sylvain Salomon MD - Last Filed: 06/30/24 07:03> Critical Care Time Critical Care Time: Yes Attestation: On 06/30/24, the high probability of a clinically significant, sudden or life threatening deterioration of the following system(s) (hemodynamic) required my full and direct attention, intervention and personal management. The time I documented below is in addition to time spent performing reported procedures but includes the following listed in this critical care notation. Total Time Total Critical Care Time: 35
--- NOTE | 2024-06-30 05:03 | CT_ITS ---
PROCEDURE INFORMATION: Exam: CT Cervical Spine Without Contrast Exam date and time: 06/30/2024 5:54 AM Age: 79 years old Clinical indication: Injury or trauma; Fall; Blunt trauma; Patient HX: Severely contracted/kyphotic; Additional info: Falls TECHNIQUE: Imaging protocol: Computed tomography of the cervical spine without contrast. Radiation optimization: All CT scans at this facility use at least one of these dose optimization techniques: automated exposure control; mA and/or kV adjustment per patient size (includes targeted exams where dose is matched to clinical indication); or iterative reconstruction. COMPARISON: CT HEAD/BRAIN WO CON 06/30/2024 5:50 AM FINDINGS: Bones: No acute fracture or dislocation. There are moderate to severe multilevel degenerative disc changes and facet osteoarthropathy. Lungs: Lung apices demonstrate no acute process. Soft tissues: Unremarkable. IMPRESSION: No acute fracture or dislocation. There is moderate to severe multilevel degenerative disc disease and facet osteoarthropathy.
[2024-06-30 05:08] LABS: VBG Base Excess -8.3 mmol/L (-2.4-2.3); VBG HCO3 18.2 mmol/L (23-30); VBG Oxygen Saturation 46.5 % (50-70); VBG PCO2 38.3 mmol/L (35-51); VBG PH 7.29 mmol/L (7.31-7.41); VBG PO2 28.9 mmol/L (28-40); VBG Total CO2 19.3 mmol/L (23-27)
[2024-06-30] MEDS: ACETAMINOPHEN 1,000MG/100ML VIAL 1000 MG IV (05:10)
[2024-06-30 05:15] LABS: Microscopic, Urine URINE MICROSCOPIC (MICROSCOPIC)
[2024-06-30 05:16] LABS: Basophils % 0.1 % (0.1-2.0); Hematocrit 37.3 % (42.0-52.0); Hemoglobin 12.1 g/dL (14.1-18.0); Lymphocytes # 0.5 K/mm3 (0.7-4.5); Lymphocytes % 4.7 % (10-50); Mean Corpuscular HGB Conc 32.4 g/dL (31.8-35.4); Mean Corpuscular Volume 89.4 fl (80-94); Mean Platelet Volume 9.8 fl (7.4-10.4); Monocytes # 0.8 K/mm3 (0.1-1.0); Monocytes % 7.5 % (1.7-9.3); Neutrophils # 9.7 K/mm3 (1.8-7.8); Neutrophils % 87.3 % (37.0-80.0); Platelet Count 226 K/mm3 (142-424); Red Blood Count 4.17 M/mm3 (4.60-6.20); Red Cell Distribution Width 15.3 % (11.5-17.5); White Blood Count 11.1 K/mm3 (4.8-10.8)
--- NOTE | 2024-06-30 05:20 | PC.NURSE ---
Lab coming to get 2nd set of blood cultures per Lnida Tanner RN
[2024-06-30 05:22] LABS: Alanine Aminotransferase 44 U/L (12-78); Albumin Level 4.3 g/dl (3.5-5.0); Albumin/Globulin Ratio 1.4 (1.1-1.8); Alkaline Phosphatase 88 U/L (38-126); Anion Gap 23.4 mEq/L (5-15); Aspartate Amino Transferase 93 U/L (17-59); Bilirubin,Total 0.6 mg/dl (0.2-1.3); Blood Urea Nitrogen 17 mg/dl (9-20); Carbon Dioxide 20 mmol/L (22.0-30.0); Chloride 99 mmol/L (98-107); Creatinine Clearance Estimated 43 mL/min (50-200); Estimated Glomerular Filt Rate 42 ml/min (>60); GFR (African American) 51 ML/MIN (>60); Globulin 3.1 g/dL (1.3-3.2); Glucose 140 mg/dl (74-100); INR 1.12 (0.9-1.1); Potassium 4.4 mmoL/L (3.5-5.1); Prothrombin Time 12.2 seconds (9.2-12.1); Sodium 138 mmol/L (136-145); Total Protein,Serum 7.4 g/dl (6.3-8.2)
--- NOTE | 2024-06-30 05:24 | ECG_ITS ---
APPROVED REPORT Exam: Resting ECG HR:97 bpm ECG Measurements Heart Rate 97 AXES MO 170 P 37 QRSd 88 QRS 95 QT 261 T 28 QTc 315 Conclusion SINUS RHYTHM BORDERLINE RIGHT AXIS DEVIATION [QRS AXIS > 90] ANTERIOR MYOCARDIAL INFARCTION , PROBABLY OLD [40+ ms Q WAVE AND/OR ST/T ABNORMALITY IN V3/V4] No STEMI Electronically signed by : SUBHASH RIZO, 07/01/2024 06:33:09
[2024-06-30] MEDS: LACTATED RINGERS 999 ML IV (05:27)
[2024-06-30 05:28] LABS: Appearance,Urine CLEAR (Clear); Bilirubin,Urine Negative (Negative); Blood, Urine Negative (Negative); Color,Urine YELLOW (Yellow); Glucose,Urine (UA) Negative (Negative); Ketones,Urine Negative (Negative); Leukocyte Esterase,Urine TRACE (Negative); Nitrate,Urine Negative (Negative); Protein,Urine Negative (Negative)
[2024-06-30] MEDS: ONDANSETRON 4MG/2ML VIAL 4 MG IV (05:31)
[2024-06-30 05:33] LABS: Occult Blood,Stool Negative (Negative)
[2024-06-30] MEDS: VANCOMYCIN CONSULT REQUEST 1 EACH NOTAPPLIC (05:45)
[2024-06-30] MEDS: PIPERACILLIN/TAZO 4.5 GM in 0.9 % SODIUM CHLORIDE 100 ML IV ×3 (06:09→20:01)
[2024-06-30] MEDS: 0.9 % SODIUM CHLORIDE 50 ML VIAL 100 ML IV (06:12)
[2024-06-30] MEDS: SODIUM CHLORIDE 0.9% 10ML SYR (RAD ONLY) 10 ML IV (06:12)
[2024-06-30] MEDS: IOPAMIDOL-370 (76%);100ML BOTTLE 160 ML IV (06:12)
[2024-06-30 06:18] LABS: Lipase 98 U/L (23-300); Magnesium 1.7 mg/dl (1.6-2.3)
[2024-06-30] MEDS: VANCOMYCIN/WATER FOR INJ (PEG) 1.75 GM/350 ML PIGGYBACK IV (06:30)
[2024-06-30 06:31] LABS: Troponin I 0.05 ng/ml (0.00-0.034)
--- NOTE | 2024-06-30 06:35 | PC.NURSE ---
Salomon on the phone with Next of Kin at this time
[2024-06-30 06:36] LABS: Free T4 (Free Thyroxine) 0.98 ng/dl (0.78-2.19)
[2024-06-30 06:43] LABS: Adenovirus,PCR Not Detected (NotDetected); Bordetella Pertussis Not Detected (NotDetected); Chlamydophila Pneumoniae, PCR Not Detected (NotDetected); Coronavirus 19, PCR Not Detected (NotDetected); Coronavirus 229E Not Detected (NotDetected); Coronavirus NL63 Not Detected (NotDetected); Coronavirus OC43 Not Detected (NotDetected); Coronovirus HKU1,PCR Not Detected (NotDetected); Human Metapneumovirus Not Detected (NotDetected); Influenza A, PCR Not Detected (NotDetected); Influenza AH1, PCR Not Detected (NotDetected); Influenza AH3,PCR Not Detected (NotDetected); Influenza B, PCR Not Detected (NotDetected); Mycoplasma Pneumoniae, PCR Not Detected (NotDetected); Parainfluenza 1, PCR Not Detected (NotDetected); Parainfluenza 2, PCR Not Detected (NotDetected); Parainfluenza 3, PCR Not Detected (NotDetected); Parainfluenza 4, PCR Not Detected (NotDetected); Respiratory Syncytial Virus Not Detected (NotDetected); Rhinovirus/Enterovirus Not Detected (NotDetected)
[2024-06-30] MEDS: NOREPINEPHRINE BITARTRATE/D5W 8 MG/250 ML PLAST..BAG 3.75 MG IV (07:32)
[2024-06-30 07:44] LABS: Amphetamine/Metha Screen,Urine Negative ng/ml (<1000)
[2024-06-30 07:45] LABS: Barbiturates Screen,Urine Negative ng/ml (<200)
[2024-06-30 07:46] LABS: Benzodiazepines Screen,Urine Negative ng/ml (<200); Cannabinoid Screen,Urine Negative ng/ml (<50)
[2024-06-30 07:47] LABS: Cocaine Screen,Urine Negative ng/ml (<300); Methadone Screen,Urine Negative ng/ml (<300)
[2024-06-30 07:48] LABS: Opiate Screen,Urine Negative ng/ml (<300)
[2024-06-30 07:49] LABS: Phencyclidine Screen,Urine Negative ng/ml (<25)
[2024-06-30 08:12] LABS: Influenza AH1, 2009 Detected (NotDetected)
--- NOTE | 2024-06-30 08:13 | PC.NURSE ---
+ Flu A / H1N1 per lab
--- NOTE | 2024-06-30 08:19 | PC.NURSE ---
House aware of admission
--- NOTE | 2024-06-30 08:19 | EXP.HP ---
History of Present Illness *Admission Date: 06/30/24 *Reason for visit:: weakness, short of air *History of present illness: Mr. You is a 79-year-old male with known history of dilated abdominal aortic aneurysm, COPD not on oxygen, hyperlipidemia, diabetes, anemia. He lives [facility]. Gets around with a wheelchair and able to transfer with assistance. Presented to the ER with altered mental status. On initial workup, patient found to be significantly weak. He has been having falls at the care home, most recently this morning. Oriented only to self. Workup in the ER, patient found hypotensive with white count of 11, tachycardic, and hypoxic on room air. Concern for pneumonia on chest imaging. Workup positive for flu A. Initiated on supplemental oxygen. Blood pressure did not improve with sepsis bolus. Patient initiated on Levophed due to hypotension. Medicine was consulted for admission to the ICU given septic shock secondary to flu pneumonia. History obtained from chart, patient did not provide any history by the time he arrived to the floor. Frankly confused with minimal response to questions. Will open eyes but not responding with answers. Blood pressure showing improvement with MAP above 65 on norepinephrine. Glucose elevated initially at 200. Stable on supplemental oxygen of 2 L. Pulmonology consulted to assist with care. ER spoke to Tobar only who states they would like full code but also do not have any desire to proceed with any intervention on patient's AAA. His aneurysm is well-known to them. Appears a little bit larger on imaging today. They understand the severity and the risks associated with it. Initiated on Tamiflu. [facility] Disclaimer: The information contained in this section may have been updated after the patient was seen, as this information can be updated by other users. Medical History Acute respiratory failure with hypoxia Influenza A Hypokalemia Gastro-esophageal reflux disease without esophagitis Drug induced subacute dyskinesia Unspecified dementia, unspecified severity, without behavioral disturbance, psychotic disturbance, mood disturbance, and anxiety Legionnaires' disease Dysphagia Renal insufficiency Schizophrenia Diaphragmatic hernia CAD (coronary artery disease) Family History Other Family history non-contributory Social History Smoking Status: Never smoker alcohol intake: never substance use type: denies use current occupational status: disabled Travel in the last 8 weeks: None housing: care home current occupational exposures/hazards: No caffeine: No Have you lived/traveled outside US in past 30 days?: No Contact w/someone who lives/traveled outside US past 30 days?: No Exposure to someone with infectious disease in past 14 days?: No Do you have a fever (greater than 100.4 F or 38 C)?: No Have you tested positive for COVID-19: No Exposed to someone with COVID-19 in past 14 days?: No Do you have a sore throat?: No Do you have a cough?: Yes Do you have any weakness?: Yes Are you experiencing any nausea/vomitting?: No Do you have any diarrhea?: No Are you experiencing any unusual bleeding?: No Do you have any muscle aches/pain?: No Do you have any abdominal pain?: No Are you experiencing loss of taste or smell?: No Other Medical History Have you received the Pneumonia Vaccine: Yes (04/26/19) Review of Systems Review of Systems Review of systems:: unable to obtain Review of systems (narrative): Obtained from chart, otherwise unable to obtain further review of systems from patient Meds Home Medications and Allergies Home Medications ?Medication ?Instructions ?Recorded ?Confirmed ?Type finasteride 5 mg tablet 5 mg PO DAILY 07/14/17 06/30/24 History folic acid 1 mg tablet 1 mg PO DAILY 07/14/17 06/30/24 History sucralfate 1 gram tablet 1 g PO TID 07/03/20 06/30/24 History pantoprazole 40 mg tablet,delayed 40 mg PO HS 07/08/22 06/30/24 History release sennosides 8.6 mg tablet (senna) 8.6 mg PO BID 07/08/22 06/30/24 History deutetrabenazine 12 mg tablet 12 mg PO .0730 AND 1730 05/20/23 06/30/24 History (Austedo) cetirizine 10 mg tablet 10 mg PO DAILY 08/04/23 06/30/24 History ferrous sulfate 325 mg (65 mg 325 mg PO BID #180 tabs 11/05/23 06/30/24 Rx iron) tablet coQ10 (ubiquinol) 100 mg capsule 100 mg PO DAILY #60 caps 01/27/24 06/30/24 Rx (Qunol Kurt CoQ10) cyanocobalamin (vitamin B-12) 100 100 mcg PO DAILY #30 tabs 01/27/24 06/30/24 Rx mcg tablet quetiapine 100 mg tablet (Seroquel) 100 mg PO HS #90 tabs 01/27/24 06/30/24 Rx quetiapine 25 mg tablet (Seroquel) 75 mg (3 x 25 mg) PO HS #90 tabs 01/27/24 06/30/24 Rx acetaminophen 500 mg tablet 500 mg PO TID 06/15/24 06/30/24 History atorvastatin 10 mg tablet 10 mg PO HS 06/30/24 06/30/24 History lorazepam 0.5 mg tablet 0.5 mg PO BID 06/30/24 06/30/24 History New Prescriptions to Start Prescriptions: Allergies Allergy/AdvReac Type Severity Reaction Status Date / Time tramadol Allergy Intermediate Hives Verified 06/15/24 14:43 Exam Data for Last 24 hours Vital signs and Labs for Last 24 Hours: Temp Pulse Resp BP Pulse Ox O2 Del Method O2 Flow Rate 99.3 F 82 18 74/41 L 100 Nasal Cannula 4 06/30/24 06:55 06/30/24 07:05 06/30/24 07:05 06/30/24 07:05 06/30/24 07:05 06/30/24 05:16 06/30/24 05:16 Laboratory Results - last 24 hr 06/30/24 04:56: WBC 11.1 H, RBC 4.17 L, Hgb 12.1 L, Hct 37.3 L, MCV 89.4, MCH 29.0, MCHC 32.4, RDW 15.3, Plt Count 226, MPV 9.8, Neut % (Auto) 87.3 H, Lymph % (Auto) 4.7 L, [place] % (Auto) 7.5, Eos % (Auto) 0.0 L, Baso % (Auto) 0.1, Neut # (Auto) 9.7 H, Lymph # (Auto) 0.5 L, [place] # (Auto) 0.8, Eos # (Auto) 0.0, Baso # (Auto) 0.0, PT 12.2 H, INR 1.12 H, Sodium 138, Potassium 4.4, Chloride 99, Carbon Dioxide 20 L, Anion Gap 23.4 H, BUN 17, Creatinine 1.60 H, Estimated Creat Clear 43, Estimated GFR 42 L, Est GFR ( Amer) 51 L, Glucose 140 H, Calcium 9.0, Magnesium 1.7, Total Bilirubin 0.6, AST 93 H, ALT 44, Alkaline Phosphatase 88, Troponin I 0.05 H, Total Protein 7.4, Albumin 4.3, Globulin 3.1, Albumin/Globulin Ratio 1.4, Lipase 98, TSH 1.30, Free T4 0.98, Urine Color Yellow, Urine Appearance Clear, Urine pH 7.0, Ur Specific [place] 1.010, Urine Protein Negative, Urine Glucose (UA) Negative, Urine Ketones Negative, Urine Blood Negative, Urine Nitrate Negative, Urine Bilirubin Negative, Urine Urobilinogen 1.0, Ur Leukocyte Esterase Trace, Stool Occult Blood Negative, Urine Opiates Screen Negative, Urine Methadone Screen Negative, Ur Barbituates Screen Negative, Ur Phencyclidine Scrn Negative, Ur Amphetamines Screen Negative, U Benzodiazepines Scrn Negative, Urine Cocaine Screen Negative, U Marijuana (THC) Screen Negative 06/30/24 04:58: VBG pH 7.29 L, VBG pCO2 38.3, VBG pO2 28.9, VBG HCO3 18.2 L, VBG Total CO2 19.3 L, VBG O2 Saturation 46.5 L, VBG Base Excess -8.3 L, VBG Lactic Acid 8.0 H 06/30/24 06:20: Chlamy pneumoniae PCR Not detected, Adenovirus (PCR) Not detected, B. pertussis DNA (PCR) Not detected, Coronavirus OC43 (PCR) Not detected, Coronavirus HKU1 (PCR) Not detected, Coronavirus 229E (PCR) Not detected, SARS-CoV-2 (PCR) Not detected, Coronavirus NL63 (PCR) Not detected, Human Metapneumovir PCR Not detected, Influenza A (H1) PCR Not detected, Influ A (H1N1/09) PCR Detected A, Influenza A (H3) PCR Not detected, Influenza Type A (PCR) Not detected, Influenza Type B (PCR) Not detected, M. pneumoniae (PCR) Not detected, Parainfluenza 1 (PCR) Not detected, Parainfluenza 2 (PCR) Not detected, Parainfluenza 3 (PCR) Not detected, Parainfluenza 4 (PCR) Not detected, RSV (PCR) Not detected, Entero/Rhino (PCR) Not detected I & O for Last 24 hours: Intake & Output 06/27/24 06/28/24 06/29/24 06/30/24 23:59 23:59 23:59 23:59 Weight 80.558 kg Constitutional Constitutional: mild distress, thin and chronically ill appearing *Routine HEENT Exam Head: Present normocephalic Eye: Present PERRL and other ENT: Present mucous membranes dry *Routine Neck Exam Neck: Present supple *Routine Respiratory Exam Respiratory: Present prolonged expiratory phase, respiratory distress, rhonchi and diminished air movement; Absent wheezes or crackles *Routine Cardiovascular Exam Cardiovascular: Present RRR, Normal S1 and Normal S2 *Routine Abdominal Exam Abdominal: Present soft and normoactive bowel sounds *Routine Rectal Exam Rectal:: deferred *Routine Genitalia Exam Genitalia:: deferred *Routine Extremities Exam Extremities: Absent cyanosis, clubbing or edema *Routine Skin Exam Skin: Present intact; Absent cyanosis or erythema *Routine Neurological Exam Neurological: Present altered mental status Assessment and Plan *Assessment and plan (1) Septic shock: Status: Acute Category: Medical Code(s): A41.9 - Sepsis, unspecified organism; R65.21 - Severe sepsis with septic shock (2) Flu: Status: Acute Category: Medical Code(s): J11.1 - Influenza due to unidentified influenza virus with other respiratory manifestations (3) Abdominal aortic aneurysm (AAA): Status: Acute Category: Medical Code(s): I71.40 - Abdominal aortic aneurysm, without rupture, unspecified (4) Pneumonia: Status: Acute Category: Medical Code(s): J18.9 - Pneumonia, unspecified organism (5) Schizophrenia: Problem Comment: stable Status: Chronic Qualifiers: Schizophrenia type: undifferentiated schizophrenia Qualified Code(s): F20.3 - Undifferentiated schizophrenia Category: Medical Code(s): F20.9 - Schizophrenia, unspecified (6) Unspecified dementia without behavioral disturbance: Status: Chronic Category: Medical Code(s): F03.90 - Unspecified dementia, unspecified severity, without behavioral disturbance, psychotic disturbance, mood disturbance, and anxiety (7) COPD (chronic obstructive pulmonary disease): Status: Chronic Qualifiers: COPD type: unspecified COPD Qualified Code(s): J44.9 - Chronic obstructive pulmonary disease, unspecified Category: Medical Code(s): J44.9 - Chronic obstructive pulmonary disease, unspecified Plan 79-year-old male who presents in septic shock. Found to be positive for flu. New oxygen requirement. Concerning for pneumonia on imaging in the ER. Discussed case with ER physician, request admission for septic shock and treatment of flu. I agreed to admit for further management. Admitted to the ICU for further care. Started on Tamiflu, renally dosed. Problems addressed as follows: Septic shock Acute hypoxemic respiratory failure Flu pneumonia COPD -Pulmonology consulted to assist with care, discussed case today. Continue DuoNebs every 4 hours scheduled. Continue empiric antibiotics pending sputum cultures. -Supplemental oxygen as needed, goal sats greater 90%. Currently on 2 L -Continue Tamiflu renally dosed, monitor for toxicity or side effect -Continue norepinephrine for MAP greater than 65 -Status post sepsis bolus in the ER. Hold on further IV fluids at this time. -Lactate elevated at 8 on initial VBG. Has shown improvement. -White count 11.1, hemoglobin 12.1. Repeat CBC, CMP, magnesium ordered for the morning. -Tylenol as needed for fever AAA: Present on previous imaging. Has grown a little however family and patient have no desire to intervene. Family understands that if his ruptures patient will . Per my review of CT, 7-1/2 cm in diameter with large thrombus that has calcifications. No active leak on CT angiogram. Will hold anticoagulation at this time History of schizophrenia: Given altered mental status this, hold sedating patient. Monitor for improvement in mentation. Full code Cardiac diet
[2024-06-30 08:35] LABS: Hepatitis C Ab Qual. W/ RFX NEGATIVE (Negative)
[2024-06-30 08:43] LABS: HIV Combo NEGATIVE (Negative)
--- NOTE | 2024-06-30 08:47 | PC.NURSE ---
Report called to Carlotta Gonzalez RN. supervisor [employer] notified of need for transport.
[2024-06-30 09:10] LABS: Reflex Lactic Add Lactic Reflex
[2024-06-30 09:50] LABS: Transitional Epi Cells,Urine OCC #/lpf (0-3)
[2024-06-30 09:51] LABS: Bacteria,Urine 2+ /lpf
--- NOTE | 2024-06-30 09:55 | SW/DCPLANNER ---
Addendum entered by Wendie Duvall 07/06/24 11:04: I have updated Christina w/ [facility] that patient will return today. Per Christina patient will return [facility] level of care. Addendum entered by Wendie Duvall 07/05/24 08:35: Updated patient information faxed to Christina guevara/ [facility]. Addendum entered by Wendie Duvall 07/01/24 08:05: Updated patient information faxed to [facility]. Original Note: Patient currently resides at [facility] level of care. I will continue to follow up ismael/ Christina at [facility] until patient is medically stable for discharge. Discharge date is unknown at this time.
[2024-06-30 10:08] LABS: Lactic Acid Follow Up (RFLX 1) 1.3 mmol/L (0.7-2.1)
[2024-06-30 10:21] LABS: Troponin I 0.04 ng/ml (0.00-0.034)
--- NOTE | 2024-06-30 11:31 | P.CONPHA_ITS ---
Pharmacy Intervention Comments: home medication list verified using mar from [facility]
--- NOTE | 2024-06-30 11:31 | HMH.PHAINT1 ---
Pharmacy Intervention Comments: home medication list verified using mar from [facility]
[2024-06-30] MEDS: ENOXAPARIN 40MG/0.4ML SYRINGE 40 MG SUBCUT (12:08)
[2024-06-30] MEDS: ACETAMINOPHEN 325MG TAB 650 MG PO ×2 (12:08→20:00)
[2024-06-30] MEDS: OSELTAMIVIR 75MG CAPSULE 75 MG PO ×2 (12:08→20:01)
[2024-06-30] MEDS: LACTATED RINGERS 1000ML 500 ML IV ×2 (12:15→15:00)
--- NOTE | 2024-06-30 12:31 | P.CONS_ITS ---
History of Present Illness History of present illness: Mr. You is a 79-year-old male greater than [id number] smoking to last moved around 1970, jail resident presented daily worsening respiratory symptoms pulmonary was called for further evaluation and management. [facility] Disclaimer: The information contained in this section may have been updated after the patient was seen, as this information can be updated by other users. Medical History (Updated 06/30/24 @ 12:35 by Merry Dixon MD) Acute respiratory failure with hypoxia Influenza A Hypokalemia Gastro-esophageal reflux disease without esophagitis Drug induced subacute dyskinesia Unspecified dementia, unspecified severity, without behavioral disturbance, psychotic disturbance, mood disturbance, and anxiety Legionnaires' disease Dysphagia Renal insufficiency Schizophrenia Diaphragmatic hernia CAD (coronary artery disease) Family History Other Family history non-contributory Social History Smoking Status: Never smoker alcohol intake: never substance use type: denies use current occupational status: disabled Travel in the last 8 weeks: None housing: jail current occupational exposures/hazards: No caffeine: No Have you lived/traveled outside US in past 30 days?: No Contact w/someone who lives/traveled outside US past 30 days?: No Exposure to someone with infectious disease in past 14 days?: No Do you have a fever (greater than 100.4 F or 38 C)?: No Have you tested positive for COVID-19: No Exposed to someone with COVID-19 in past 14 days?: No Do you have a sore throat?: No Do you have a cough?: Yes Do you have any weakness?: Yes Do you have any diarrhea?: No Are you experiencing any unusual bleeding?: No Do you have any muscle aches/pain?: No Do you have any abdominal pain?: No Are you experiencing loss of taste or smell?: No Review of Systems Constitutional Constitutional: Reports body ache(s) and Reports fatigue Eyes Eyes: Denies eye discharge, Denies dry eyes, Denies irritation and Denies itchy eyes ENT Ears, Nose, Mouth, and Throat: Denies epistaxis, Denies facial pain, Denies lip swelling and Denies throat swelling *Cardiovascular Cardiovascular: Reports dyspnea, Reports dyspnea on exertion and Reports orthopnea *Respiratory Respiratory: Reports chest congestion, Reports cough, Reports dyspnea, Reports dyspnea on exertion, Denies excessive phlegm production, Denies hemoptysis, Denies pain on inspiration and Denies pain with cough *Gastrointestinal Gastrointestinal: Denies abdominal pain, Denies belching and Denies cramping *Musculoskeletal Musculoskeletal: Reports back pain, Reports limited range of motion, Reports myalgias, Reports stiffness and Reports other (No small joint swelling or Pain) Psychiatric Psychiatric: Denies homicidal ideation and Denies suicidal ideation Endocrine Endocrine: Reports fatigue and Denies heat intolerance Hematologic/Lymphatic Hematologic/Lymphatic: Denies easy bleeding and Denies lymphadenopathy Allergic/Immunologic Allergic/Immunologic: Denies itchy eyes, Denies lip swelling and Denies throat swelling Pulmonology Exam Inpatient Vital signs and Labs for Last 24 Hours: Temp Pulse Resp BP Pulse Ox O2 Del Method O2 Flow Rate 99.9 F H 76 18 96/54 L 94 L Nasal Cannula 5 06/30/24 09:05 06/30/24 12:13 06/30/24 12:13 06/30/24 09:05 06/30/24 08:17 06/30/24 09:05 06/30/24 09:05 Laboratory Results - last 24 hr 06/30/24 04:56: WBC 11.1 H, RBC 4.17 L, Hgb 12.1 L, Hct 37.3 L, MCV 89.4, MCH 29.0, MCHC 32.4, RDW 15.3, Plt Count 226, MPV 9.8, Neut % (Auto) 87.3 H, Lymph % (Auto) 4.7 L, [place] % (Auto) 7.5, Eos % (Auto) 0.0 L, Baso % (Auto) 0.1, Neut # (Auto) 9.7 H, Lymph # (Auto) 0.5 L, [place] # (Auto) 0.8, Eos # (Auto) 0.0, Baso # (Auto) 0.0, PT 12.2 H, INR 1.12 H, Sodium 138, Potassium 4.4, Chloride 99, C arbon Dioxide 20 L, Anion Gap 23.4 H, BUN 17, Creatinine 1.60 H, Estimated Creat Clear 43, Estimated GFR 42 L, Est GFR ( Amer) 51 L, Glucose 140 H, Calcium 9.0, Magnesium 1.7, Total Bilirubin 0.6, AST 93 H, ALT 44, Alkaline Phosphatase 88, Troponin I 0.05 H, Total Protein 7.4, Albumin 4.3, Globulin 3.1, Albumin/Globulin Ratio 1.4, Lipase 98, TSH 1.30, Free T4 0.98, Urine Color Yellow, Urine Appearance Clear, Urine pH 7.0, Ur Specific [place] 1.010, Urine Protein Negative, Urine Glucose (UA) Negative, Urine Ketones Negative, Urine Blood Negative, Urine Nitrate Negative, Urine Bilirubin Negative, Urine Urobilinogen 1.0, Ur Leukocyte Esterase Trace, Urine RBC None, Urine WBC 5-10, Ur Squamous Epith Cells 3-5, Ur Transition Epith Cell Occ, Urine Bacteria 2+, Stool Occult Blood Negative, Urine Opiates Screen Negative, Urine Methadone Screen Negative, Ur Barbituates Screen Negative, Ur Phencyclidine Scrn Negative, Ur Amphetamines Screen Negative, U Benzodiazepines Scrn Negative, Urine Cocaine Screen Negative, U Marijuana (THC) Screen Negative, HCV Ab MARTHA w/Rflx PCR Qn Negative, HIV Ag/Ab Combo Qual Negative 06/30/24 04:58: VBG pH 7.29 L, VBG pCO2 38.3, VBG pO2 28.9, VBG HCO3 18.2 L, VBG Total CO2 19.3 L, VBG O2 Saturation 46.5 L, VBG Base Excess -8.3 L, VBG Lactic Acid 8.0 H 06/30/24 06:20: Chlamy pneumoniae PCR Not detected, Adenovirus (PCR) Not detected, B. pertussis DNA (PCR) Not detected, Coronavirus OC43 (PCR) Not detected, Coronavirus HKU1 (PCR) Not detected, Coronavirus 229E (PCR) Not detected, SARS-CoV-2 (PCR) Not detected, Coronavirus NL63 (PCR) Not detected, Human Metapneumovir PCR Not detected, Influenza A (H1) PCR Not detected, Influ A (H1N1/09) PCR Detected A, Influenza A (H3) PCR Not detected, Influenza Type A (PCR) Not detected, Influenza Type B (PCR) Not detected, M. pneumoniae (PCR) Not detected, Parainfluenza 1 (PCR) Not detected, Parainfluenza 2 (PCR) Not detected, Parainfluenza 3 (PCR) Not detected, Parainfluenza 4 (PCR) Not detected, RSV (PCR) Not detected, Entero/Rhino (PCR) Not detected 06/30/24 09:28: Troponin I 0.04 H 06/30/24 09:45: Lactate 1.3 I & O for Labs for Last 24 Hours: Intake & Output 06/27/24 06/28/24 06/29/24 06/30/24 23:59 23:59 23:59 23:59 Intake Total .362 / .362 Output Total 1999 Balance -638 / -63 Weight 166 lb 8 oz Constitutional: Present moderate distress Head: Present normocephalic and atraumatic ENT: Present normal exam, normal oropharynx and mucous membranes moist Neck: Present normal inspection and full ROM Respiratory: Present prolonged expiratory phase, respiratory distress, wheezes and able to speak in complete sentences; Absent crackles or diminished air movement Cardiac: Present S1/S2, Tachycardia and radial pulses present GI: Present soft and distention; Absent tenderness or guarding Skin: Present intact; Absent cyanosis or jaundice Neuro: Present alert, awake and oriented x 3 Extremities: Present normal inspection; Absent clubbing or cyanosis Psychiatric: Present cooperative and anxious Meds Home Medications and Allergies Home Medications ?Medication ?Instructions ?Recorded ?Confirmed ?Type finasteride 5 mg tablet 5 mg PO DAILY 07/14/17 06/30/24 History folic acid 1 mg tablet 1 mg PO DAILY 07/14/17 06/30/24 History sucralfate 1 gram tablet 1 g PO TID 07/03/20 06/30/24 History pantoprazole 40 mg tablet,delayed 40 mg PO HS 07/08/22 06/30/24 History release sennosides 8.6 mg tablet (senna) 8.6 mg PO BID 07/08/22 06/30/24 History deutetrabenazine 12 mg tablet 12 mg PO .0730 AND 1730 05/20/23 06/30/24 History (Austedo) cetirizine 10 mg tablet 10 mg PO DAILY 08/04/23 06/30/24 History ferrous sulfate 325 mg (65 mg 325 mg PO BID #180 tabs 11/05/23 06/30/24 Rx iron) tablet coQ10 (ubiquinol) 100 mg capsule 100 mg PO DAILY #60 caps 01/27/24 06/30/24 Rx (Qunol Kurt CoQ10) cyanocobalamin (vitamin B-12) 100 100 mcg PO DAILY #30 tabs 01/27/24 06/30/24 Rx mcg tablet quetiapine 100 mg tablet (Seroquel) 100 mg PO HS #90 tabs 01/27/24 06/30/24 Rx quetiapine 25 mg tablet (Seroquel) 75 mg (3 x 25 mg) PO HS #90 tabs 01/27/24 06/30/24 Rx acetaminophen 500 mg tablet 500 mg PO TID 06/15/24 06/30/24 History atorvastatin 10 mg tablet 10 mg PO HS 06/30/24 06/30/24 History lorazepam 0.5 mg tablet 0.5 mg PO BID 06/30/24 06/30/24 History New Prescriptions to Start Prescriptions: Allergies Allergy/AdvReac Type Severity Reaction Status Date / Time tramadol Allergy Intermediate Hives Verified 06/15/24 14:43 Results Laboratory Findings 06/30/24 04:56 06/30/24 04:56 PT/INR, D-dimer PT 12.2 seconds (9.2-12.1) H 06/30/24 04:56 INR 1.12 (0.9-1.1) H 06/30/24 04:56 Abnormal lab findings: Abnormal Labs 06/30/24 06/30/24 06/30/24 04:56 04:58 06:20 WBC 11.1 H RBC 4.17 L Hgb 12.1 L Hct 37.3 L Neut % (Auto) 87.3 H Lymph % (Auto) 4.7 L Eos % (Auto) 0.0 L Neut # (Auto) 9.7 H Lymph # (Auto) 0.5 L PT 12.2 H INR 1.12 H VBG pH 7.29 L VBG HCO3 18.2 L VBG Total CO2 19.3 L VBG O2 Saturation 46.5 L VBG Base Excess -8.3 L VBG Lactic Acid 8.0 H Carbon Dioxide 20 L Anion Gap 23.4 H Creatinine 1.60 H Estimated GFR 42 L Est GFR ( Amer) 51 L Glucose 140 H AST 93 H Troponin I 0.05 H Influ A (H1N1/09) PCR Detected A 06/30/24 09:28 WBC RBC Hgb Hct Neut % (Auto) Lymph % (Auto) Eos % (Auto) Neut # (Auto) Lymph # (Auto) PT INR VBG pH VBG HCO3 VBG Total CO2 VBG O2 Saturation VBG Base Excess VBG Lactic Acid Carbon Dioxide Anion Gap Creatinine Estimated GFR Est GFR ( Amer) Glucose AST Troponin I 0.04 H Influ A (H1N1/) PCR Assessment and Plan *Assessment and plan (1) Septic shock: Status: Acute Category: Medical Code(s): A41.9 - Sepsis, unspecified organism; R65.21 - Severe sepsis with septic shock (2) Influenza A: Status: Acute Category: Medical Code(s): J10.1 - Influenza due to other identified influenza virus with other respiratory manifestations (3) Acute respiratory failure with hypoxia: Status: Acute Category: Medical Code(s): J96.01 - Acute respiratory failure with hypoxia Plan Mr. You is a 79-year-old male greater than [id number] smoking to last moved around 1970, jail resident presented daily worsening respiratory symptoms pulmonary was called for further evaluation and management. CTA PE protocol upon admission no evidence of pulmonary embolism. No dense consolidative airspace changes noted with elevated left hemidiaphragm likely chronic. Eczematous changes noted. CT abdomen also concerning for large abdominal aortic aneurysm with mural thrombus occupying more than 50% of the lumen. Present on his CT abdomen from 2020 worsening. Hemodynamically unstable needing pressor status post sepsis bolus on admission. Febrile. Increasing oxygen requirements. Neutrophilic predominant leukocytosis. WILLIAM with Cr now at 1.60. On examination patient lying in bed. Moderate to severe distress. Mild wheezing noted on auscultation. Saturating 98% on 5 L nasal cannula, weaned to 2 L. Will follow. Plan: Continue oseltamavir DuoNebs 4 times daily scheduled Currently receiving Zosyn. Recommend initiating vancomycin renally dosed and azithromycin for 500 mg daily pending culture results and nasal MRSA PCR. Continue pressor support to maintain MAP goal of 65 and above. 500 LR bolus. Initial VBG showed lactate of 8, improved to 1.3 from this morning.
[2024-06-30 12:58] LABS: Troponin I 0.04 ng/ml (0.00-0.034)
[2024-06-30] MEDS: PHENTOLAMINE 5MG/ML VIAL 5 MG SUBCUT (13:14)
--- NOTE | 2024-06-30 13:44 | PC.NURSE ---
pt arrived on unit at 0910
--- NOTE | 2024-06-30 16:32 | PC.WOUNDNOTE ---
skin assessment upon admission
[2024-06-30 17:14] LABS: Chloride 100 mmol/L (98-107); Sodium 135 mmol/L (136-145)
[2024-06-30 17:17] LABS: Blood Urea Nitrogen 17 mg/dl (9-20); Creatinine Clearance Estimated 65 mL/min (50-200); Estimated Glomerular Filt Rate 72 ml/min (>60); GFR (African American) 87 ML/MIN (>60); Potassium 3.5 mmoL/L (3.5-5.1)
[2024-06-30 17:18] LABS: Anion Gap 13.5 mEq/L (5-15); Calcium 8.2 mg/dl (8.4-10.2); Carbon Dioxide 25 mmol/L (22.0-30.0); Glucose 118 mg/dl (74-100)
--- NOTE | 2024-06-30 18:49 | PC.NURSE ---
[id number] it was noted that pt bp which had been previously stable was beginning to have low sbp and map. upon rounding in room to check pt bp cuff and iv site it was noted that above pt iv site area was slightly swollen. iv site was reassessed, unable to get blood return or flush iv and feel sensation of fluid infusing. notified md of infiltration of med and need for antidote
[2024-06-30] MEDS: SENNA 8.6MG TABLET 8.6 MG PO (20:00)
[2024-06-30] MEDS: PANTOPRAZOLE 40MG TABLET 40 MG PO (20:01)
[2024-06-30] MEDS: NOREPINEPHRINE BITARTRATE/D5W 8 MG/250 ML PLAST..BAG 18.75 MG IV (20:01)
[2024-06-30] MEDS: LORazepam 0.5MG TABLET 0.5 MG PO (20:01)
[2024-07-01] VITALS (60 sets, daily range): BP systolic 68–111; BP diastolic 41–72; PULSE 60–81; RESP 12–23; TEMP 36.6–37.6; O2SAT 90–99; BMI 27.1
[2024-07-01] MEDS: ACETAMINOPHEN 325MG TAB 650 MG PO ×3 (01:48→17:03)
[2024-07-01] MEDS: 0.9 % SODIUM CHLORIDE 1000ML 1,000 ML 50 ML IV (03:48)
[2024-07-01] MEDS: NOREPINEPHRINE BITARTRATE/D5W 8 MG/250 ML PLAST..BAG 33.75 MG IV ×2 (05:16→12:26)
[2024-07-01] MEDS: PIPERACILLIN/TAZO 4.5 GM in 0.9 % SODIUM CHLORIDE 100 ML IV ×3 (05:55→20:29)
[2024-07-01 06:01] LABS: Basophils % 0.1 % (0.1-2.0); Hematocrit 34.4 % (42.0-52.0); Hemoglobin 11.3 g/dL (14.1-18.0); Lymphocytes # 1.7 K/mm3 (0.7-4.5); Lymphocytes % 11.8 % (10-50); Mean Corpuscular HGB Conc 32.8 g/dL (31.8-35.4); Mean Corpuscular Volume 88.4 fl (80-94); Monocytes # 1.1 K/mm3 (0.1-1.0); Monocytes % 7.3 % (1.7-9.3); Neutrophils # 11.6 K/mm3 (1.8-7.8); Neutrophils % 80.4 % (37.0-80.0); Platelet Count 212 K/mm3 (142-424); Red Blood Count 3.89 M/mm3 (4.60-6.20); White Blood Count 14.4 K/mm3 (4.8-10.8)
[2024-07-01 06:38] LABS: Alanine Aminotransferase 83 U/L (12-78); Albumin Level 3.1 g/dl (3.5-5.0); Albumin/Globulin Ratio 1.1 (1.1-1.8); Alkaline Phosphatase 77 U/L (38-126); Anion Gap 12.6 mEq/L (5-15); Aspartate Amino Transferase 312 U/L (17-59); Bilirubin,Total 0.3 mg/dl (0.2-1.3); Blood Urea Nitrogen 16 mg/dl (9-20); Calcium 8.1 mg/dl (8.4-10.2); Carbon Dioxide 25 mmol/L (22.0-30.0); Chloride 101 mmol/L (98-107); Creatinine Clearance Estimated 67 mL/min (50-200); Estimated Glomerular Filt Rate 72 ml/min (>60); GFR (African American) 87 ML/MIN (>60); Globulin 2.9 g/dL (1.3-3.2); Glucose 103 mg/dl (74-100); Magnesium 1.8 mg/dl (1.6-2.3); Potassium 3.6 mmoL/L (3.5-5.1); Sodium 135 mmol/L (136-145)
[2024-07-01] MEDS: ENOXAPARIN 40MG/0.4ML SYRINGE 40 MG SUBCUT (09:35)
[2024-07-01] MEDS: LORazepam 0.5MG TABLET 0.5 MG PO ×2 (09:35→20:31)
[2024-07-01] MEDS: SENNA 8.6MG TABLET 8.6 MG PO ×2 (09:35→20:29)
[2024-07-01] MEDS: OSELTAMIVIR 75MG CAPSULE 75 MG PO ×2 (09:35→20:30)
[2024-07-01] MEDS: FINASTERIDE 5MG TABLET 5 MG PO (09:35)
--- NOTE | 2024-07-01 09:38 | P.PN_ITS ---
Subjective *Date: 07/01/24 *Time: 10:55 Interval history: No acute respiratory vents overnight. Patient denies any new complaints Pulmonology Exam Inpatient Vital signs and Labs for Last 24 Hours: Temp Pulse Resp BP Pulse Ox O2 Del Method O2 Flow Rate 98.7 F 70 19 108/58 L 95 Nasal Cannula 2 07/01/24 04:00 07/01/24 09:00 07/01/24 09:00 07/01/24 09:00 07/01/24 09:00 07/01/24 09:00 07/01/24 09:00 Laboratory Results - last 24 hr 06/30/24 04:56: Urine Color Yellow, Urine Appearance Clear, Urine pH 7.0, Ur Specific [place] 1.010, Urine Protein Negative, Urine Glucose (UA) Negative, Urine Ketones Negative, Urine Blood Negative, Urine Nitrate Negative, Urine Bilirubin Negative, Urine Urobilinogen 1.0, Ur Leukocyte Esterase Trace, Urine RBC None, Urine WBC 5-10, Ur Squamous Epith Cells 3-5, Ur Transition Epith Cell Occ, Urine Bacteria 2+ 06/30/24 09:28: Troponin I 0.04 H 06/30/24 09:45: Lactate 1.3 06/30/24 12:28: Troponin I 0.04 H 06/30/24 16:25: Sodium 135 L, Potassium 3.5 D, Chloride 100, Carbon Dioxide 25, Anion Gap 13.5, BUN 17, Creatinine 1.00 D, Estimated Creat Clear 65, Estimated GFR 72, Est GFR ( Amer) 87 D, Glucose 118 H, Calcium 8.2 L 07/01/24 05:36: WBC 14.4 H D, RBC 3.89 L, Hgb 11.3 L, Hct 34.4 L, MCV 88.4, MCH 29.0, MCHC 32.8, RDW 15.0, Plt Count 212, MPV 10.0, Neut % (Auto) 80.4 H, Lymph % (Auto) 11.8, [place] % (Auto) 7.3, Eos % (Auto) 0.0 L, Baso % (Auto) 0.1, Neut # (Auto) 11.6 H, Lymph # (Auto) 1.7, [place] # (Auto) 1.1 H, Eos # (Auto) 0.0, Baso # (Auto) 0.0, Sodium 135 L, Potassium 3.6, Chloride 101, Carbon Dioxide 25, Anion Gap 12.6, BUN 16, Creatinine 1.00, Estimated Creat Clear 67, Estimated GFR 72, Est GFR ( Amer) 87, Glucose 103 H, Calcium 8.1 L, Magnesium 1.8, Total Bilirubin 0.3, AST 312 H* D, ALT 83 H D, Alkaline Phosphatase 77, Total Protein 6.0 L, Albumin 3.1 L D, Globulin 2.9, Albumin/Globulin Ratio 1.1 Temp Pulse Resp BP Pulse Ox O2 Del Method O2 Flow Rate 99.9 F H 76 18 96/54 L 94 L Nasal Cannula 5 06/30/24 09:05 06/30/24 12:13 06/30/24 12:13 06/30/24 09:05 06/30/24 08:17 06/30/24 09:05 06/30/24 09:05 Laboratory Results - last 24 hr 06/30/24 04:56: WBC 11.1 H, RBC 4.17 L, Hgb 12.1 L, Hct 37.3 L, MCV 89.4, MCH 29.0, MCHC 32.4, RDW 15.3, Plt Count 226, MPV 9.8, Neut % (Auto) 87.3 H, Lymph % (Auto) 4.7 L, [place] % (Auto) 7.5, Eos % (Auto) 0.0 L, Baso % (Auto) 0.1, Neut # (Auto) 9.7 H, Lymph # (Auto) 0.5 L, [place] # (Auto) 0.8, Eos # (Auto) 0.0, Baso # (Auto) 0.0, PT 12.2 H, INR 1.12 H, Sodium 138, Potassium 4.4, Chloride 99, Carbon Dioxide 20 L, Anion Gap 23.4 H, BUN 17, Creatinine 1.60 H, Estimated Creat Clear 43, Estimated GFR 42 L, Est GFR ( Amer) 51 L, Glucose 140 H, Calcium 9.0, Magnesium 1.7, Total Bilirubin 0.6, AST 93 H, ALT 44, Alkaline Phosphatase 88, Troponin I 0.05 H, Total Protein 7.4, Albumin 4.3, Globulin 3.1, Albumin/Globulin Ratio 1.4, Lipase 98, TSH 1.30, Free T4 0.98, Urine Color Yellow, Urine Appearance Clear, Urine pH 7.0, Ur Specific [place] 1.010, Urine Protein Negative, Urine Glucose (UA) Negative, Urine Ketones Negative, Urine Blood Negative, Urine Nitrate Negative, Urine Bilirubin Negative, Urine Urobilinogen 1.0, Ur Leukocyte Esterase Trace, Urine RBC None, Urine WBC 5-10, Ur Squamous Epith Cells 3-5, Ur Transition Epith Cell Occ, Urine Bacteria 2+, Stool Occult Blood Negative, Urine Opiates Screen Negative, Urine Methadone Screen Negative, Ur Barbituates Screen Negative, Ur Phencyclidine Scrn Negative, Ur Amphetamines Screen Negative, U Benzodiazepines Scrn Negative, Urine Cocaine Screen Negative, U Marijuana (THC) Screen Negative, HCV Ab MARTHA w/Rflx PCR Qn Negative, HIV Ag/Ab Combo Qual Negative 06/30/24 04:58: VBG pH 7.29 L, VBG pCO2 38.3, VBG pO2 28.9, VBG HCO3 18.2 L, VBG Total CO2 19.3 L, VBG O2 Saturation 46.5 L, VBG Base Excess -8.3 L, VBG Lactic Acid 8.0 H 06/30/24 06:20: Chlamy pneumoniae PCR Not detected, Adenovirus (PCR) Not detected, B. pertussis DNA (PCR) Not detected, Coronavirus OC43 (PCR) Not detected, Coronavirus HKU1 (PCR) Not detected, Coronavirus 229E (PCR) Not detected, SARS-CoV-2 (PCR) Not detected, Coronavirus NL63 (PCR) Not detected, Human Metapneumovir PCR Not detected, Influenza A (H1) PCR Not detected, Influ A (H1N1/09) PCR Detected A, Influenza A (H3) PCR Not detected, Influenza Type A (PCR) Not detected, Influenza Type B (PCR) Not detected, M. pneumoniae (PCR) Not detected, Parainfluenza 1 (PCR) Not detected, Parainfluenza 2 (PCR) Not detected, Parainfluenza 3 (PCR) Not detected, Parainfluenza 4 (PCR) Not detected, RSV (PCR) Not detected, Entero/Rhino (PCR) Not detected 06/30/24 09:28: Troponin I 0.04 H 06/30/24 09:45: Lactate 1.3 I & O for Labs for Last 24 Hours: Intake & Output 06/28/24 06/29/24 06/30/24 07/01/24 23:59 23:59 23:59 23:59 Intake Total 1309.883 / 1309.883 783.437 / 783.437 Output Total 3300 / 3700 850 / 850 Balance -1990.117 / -2390.117 -66.563 / -66.563 Weight 166 lb 8 oz 172 lb 11.2 oz Intake & Output 06/27/24 06/28/24 06/29/24 06/30/24 23:59 23:59 23:59 23:59 Intake Total 22.362 / 22.362 Output Total 1999 Balance -1976.638 / -1976.638 Weight 166 lb 8 oz Microbiology Reports for the Last 24 Hours: Microbiology 06/30/24 04:58 Blood Blood Culture - Preliminary NO GROWTH AFTER 24 HOURS 06/30/24 04:56 Blood Blood Culture - Preliminary NO GROWTH AFTER 24 HOURS 06/30/24 12:10 Sputum - Expectorated Sputum Gram Stain - Final Constitutional: Present moderate distress Head: Present normocephalic and atraumatic ENT: Present normal exam, normal oropharynx and mucous membranes moist Neck: Present normal inspection and full ROM Respiratory: Present prolonged expiratory phase, respiratory distress, wheezes and able to speak in complete sentences; Absent crackles or diminished air movement Cardiac: Present S1/S2, Tachycardia and radial pulses present GI: Present soft and distention; Absent tenderness or guarding Skin: Present intact; Absent cyanosis or jaundice Neuro: Present alert and awake; Absent oriented x 3 Extremities: Present normal inspection; Absent clubbing or cyanosis Psychiatric: Present cooperative and anxious Assessment and Plan *Assessment and plan (1) Septic shock: Status: Acute Category: Medical Code(s): A41.9 - Sepsis, unspecified organism; R65.21 - Severe sepsis with septic shock (2) Influenza A: Status: Acute Category: Medical Code(s): J10.1 - Influenza due to other identified influenza virus with other respiratory manifestations (3) Acute respiratory failure with hypoxia: Status: Acute Category: Medical Code(s): J96.01 - Acute respiratory failure with hypoxia Plan Mr. You is a 79-year-old male greater than [id number] smoking to last moved around 1969, custodial resident presented daily worsening respiratory symptoms pulmonary was called for further evaluation and management. CTA PE protocol upon admission no evidence of pulmonary embolism. No dense consolidative airspace changes noted with elevated left hemidiaphragm likely chronic. Eczematous changes noted. CT abdomen also concerning for large abdominal aortic aneurysm with mural thrombus occupying more than 50% of the lumen. Present on his CT abdomen from 2020 worsening. Hemodynamically unstable needing pressor status post sepsis bolus on admission. Febrile. Increasing oxygen requirements. Neutrophilic predominant leukocytosis. WILLIAM with Cr now at 1.60. Interval update: No acute respiratory vents overnight. Slight worsening leukocytosis. Improved BUN/creatinine. Worsening AST ALT,continue to receive Tamiflu 24 hours. Sputum and nasal MRSA PCR pending. Continue to receive Zosyn. Hold off on initiating vancomycin given negative blood cultures so far Plan: Hold Tamiflu and statins. DuoNebs 4 times daily scheduled Currently receiving Zosyn. Azithromycin for 500 mg daily pending culture results and nasal MRSA PCR. Continue pressor support to maintain MAP goal of 65 and above. Initial VBG showed lactate of 8, improved to 1.3 Follow-up with echocardiogram
--- NOTE | 2024-07-01 10:46 | CA_ITS ---
APPROVED REPORT EXAM: Limited 2D Echocardiogram [employer]: Amaya Marinelli CRT Ht: 5 ft 6 in Wt: 172lbs BSA: 1.88 BP: 108/58 mmHg Indications: sob, hld, dm, sob, AAA, FLU A Limited echo due to body habitus pts knees are contracted up to his chest unable to obtain apical and subxyphoid images Parasternal images only images obtained M-Mode Dimensions RVDd 2.68 cm (0.9-2.6) LA Diam 3.49 cm (1.9-4.0) LVDd 3.78 cm (3.5-5.7) LVDs 1.68 cm (3.5-5.7) IVSd 1.21 cm (0.6-1.1) PWd 1.00 cm (0.6-1.1) EF (Teich) 86.80% FS 55.60% EDV (Teich) 61.20 mL ESV (Teich) 8.10 mL Pulmonary Valve PV Peak Velocity 175.0 (50-150 cm/s) Tricuspid Valve TR P. Velocity 272.00 cm/s RAP Estimate 10.00 mmHg RVSP 39.70 mmHg Other Information Study Quality: Technically Difficult. Technically limited study due to body habitus. Conclusion This is a limited TTE due to significant technical limitations in the setting of body habitus and poor acoustic windows. Limited windows are obtained. The left ventricle is normal in size. There is increased LV wall thickness. No obvious regional wall motion abnormalities noted in the available windows, but assessment of regional wall motion is limited. LVEF is approximately 55%. The RV, and both atria are not well-visualized. No significant mitral or aortic valvulopathy. Mild TR. RVSP is 30-35 mmHg. Mild PI. Electronically signed by : Lisa Blair MD 07/01/2024 11:55:37
[2024-07-01] MEDS: AZITHROMYCIN 500 MG in 0.9 % SODIUM CHLORIDE 250 ML 250 MG IV (12:07)
--- NOTE | 2024-07-01 15:16 | [facility].SLDYSPHA ---
Speech & Language Evaluation Speech/Language Dysphagia Evaluation Start: 07/01/24 14:33 Freq: ONCE Status: Active Protocol: Document 07/01/24 14:36 ECLARK (Rec: 07/01/24 15:15 ECLARK laptop) Co-signed By ST Angelica Dysphagia Assess/Goals/Plan Assessment Date of Evaluation: 07/01/24 Evaluation Type Initial Certification Assessment/Problems wet vocal quality per MD order Does Patient Qualify for Service Yes Qualify/Failure Comment Based on clinical observations made throughout clinical bedside swallow evaluation, further instrumental assessment is warranted at this time d/t wet vocal quality during bolus presentations. Recommendations PHYSICIAN CERTIFICATION: The specified therapy services are required, authorized, and reviewed every 30 days. Diet Recommendations Free Water Protocol Liquid Type Recommendations Normal/Thin SL Swallow Guidelines Assist w/all meals,High aspiration risk,Eat at slow rate,Oral Care Education Dysphagia Swallow Precautions/Strategies Sitting Upright (90 deg),Small Bites and Sips Plan Pt/Guardian verbally ack understanding Yes of dx/prognosis/goals G -code Required No Education Instructions provided INSPECTOR FIREARMS discussed clinical observations made throughout bedside CSE, dietary recommendations, aspiration precautions/compensatory strategies, and further instrumental assessment with nursing who expressed understanding. Pt/Caregiver able to recall information Able to recall/restate Reinforcement needed No Speech & Language HPI History Present Illness Description of Patient Problem INSPECTOR FIREARMS pulled the following information from pt's H&P and chest CT: Mr. You is a 79-year-old male with known history of dilated abdominal aortic aneurysm, COPD not on oxygen, hyperlipidemia, diabetes, anemia. He lives [facility]. Gets around with a wheelchair and able to transfer with assistance. Presented to the ER with altered mental status. On initial workup, patient found to be significantly weak. He has been having falls at the group home, most recently this morning. Oriented only to self. Workup in the ER, patient found hypotensive with white count of 11, tachycardic, and hypoxic on room air. Concern for pneumonia on chest imaging. Workup positive for flu A. Initiated on supplemental oxygen. Blood pressure did not improve with sepsis bolus. Patient initiated on Levophed due to hypotension. Medicine was consulted for admission to the ICU given septic shock secondary to flu pneumonia. History obtained from chart, patient did not provide any history by the time he arrived to the floor. Frankly confused with minimal response to questions. Will open eyes but not responding with answers. Blood pressure showing improvement with MAP above 65 on norepinephrine. Glucose elevated initially at 200. Stable on supplemental oxygen of 2 L. Pulmonology consulted to assist with care. ER spoke to [facility] only who states they would like full code but also do not have any desire to proceed with any intervention on patient's AAA. His aneurysm is well-known to them. Appears a little bit larger on imaging today. They understand the severity and the risks associated with it. Initiated on Tamiflu. Chest CT: Lungs: Left lower lobe atelectasis, superimposed infiltrate cannot be excluded. Left diaphragmatic elevation, the stomach colon and spleen are repositioned in the lower thorax. Pleural spaces: Unremarkable. No pneumothorax. No pleural effusion. Heart: Coronary artery calcium is present.. No cardiomegaly. No pericardial effusion. Diaphragm: Moderate hiatal hernia. Pt/Caregiver Concerns No concerns stated. Rehab Services Assessed Speech therapy Is this evaluation r/t stroke? No Therapy History Seen by other SL therapists No General Information General Current Food Consistancy Regular,Thin Liquids Dentition Poor Dentition Oxygen Status Nasal Cannula Patient Orientation Person Ability to Follow Directions Good Communication Ability No Impairment Dysphagia:Food Presentation Evaluation Food Type Pureed,Liquid,Pudding [place] Consistency Liquid Response Wet voice Pudding Consistency Liquid Response Residual on tongue,Wet voice Dysphagia Evaluation Pureed Food Wet voice Behavior Response Dysphagia Evaluation Summary A clinical bedside swallow evaluation was administered this afternoon with pt sitting upright in bed, utilizing nasal cannula, and with poor dentition. Pt was difficult to arouse and was oriented to self only. INSPECTOR FIREARMS administered the following bolus consistencies: ice chips, thin liquid (water) via cup and straw, nectar thick liquids, pudding, and puree (applesauce ). Pt demonstrated overt s/sx of aspiration during pudding, puree, and nectar thick liquid trials, including very wet vocal quality. Pt was u/a to produce adequate volitional cough. Pt's O2 sats dropped into the 80's during pudding and puree trials. INSPECTOR FIREARMS terminated study and did not complete mechanical soft or regular food trials d/t pt's vocal quality not improving. INSPECTOR FIREARMS recommends Dc Free Water Protocol and ice chips, as well as further instrumental assessment to assess safety/efficiency of oropharyngeal phase of swallow . Stroke Dysphagia Assessment PHYSICIAN CERTIFICATION: I certify the specified therapy services for Jovon You are required, authorized, and reviewed every 30 days.
--- NOTE | 2024-07-01 17:07 | EXP.ACUTE.PN ---
Subjective *Date: 07/01/24 *Time: 17:07 Interval history: Appears a little bit better today, more interactive. At baseline mentation. Patient is confused at baseline. Does not think he has the flu. Explained his lab results. Continuing to necessitate norepinephrine. Medical Exam Vital signs and Labs for Last 24 Hours: Vital Signs Temp Pulse Pulse Resp BP Pulse Ox O2 Del Method 07/01/24 15:48 Nasal Cannula 07/01/24 15:30 67 14 88/54 L 98 Nasal Cannula 07/01/24 15:15 62 14 88/50 L 97 Nasal Cannula 07/01/24 15:09 72 13 86/54 L 95 Nasal Cannula 07/01/24 15:00 64 15 85/53 L 93 L Nasal Cannula 07/01/24 14:36 Nasal Cannula 07/01/24 14:30 68 17 95/58 L 94 L Nasal Cannula 07/01/24 14:00 98/55 L 07/01/24 14:00 65 14 98/55 L 94 L Nasal Cannula 07/01/24 13:36 71 19 100/60 L 93 L Nasal Cannula 07/01/24 13:00 Nasal Cannula 07/01/24 13:00 72 18 110/70 93 L Nasal Cannula 07/01/24 12:30 77 15 100/61 L 94 L Nasal Cannula 07/01/24 12:13 76 18 111/72 94 L 07/01/24 12:00 60 07/01/24 12:00 67 18 102/56 L 96 07/01/24 12:00 74 92 L Nasal Cannula 07/01/24 11:30 69 19 96/51 L 94 L 07/01/24 11:00 71 16 99/57 L 93 L Nasal Cannula 07/01/24 11:00 Nasal Cannula 07/01/24 10:30 71 14 98/54 L 93 L Nasal Cannula 07/01/24 10:11 70 18 103/61 L 94 L Nasal Cannula 07/01/24 10:00 72 17 99/57 L 95 Nasal Cannula 07/01/24 09:31 98.6 F 77 16 103/58 L 95 07/01/24 09:15 72 93 L Nasal Cannula 07/01/24 09:00 70 19 108/58 L 95 07/01/24 09:00 Nasal Cannula 07/01/24 08:30 71 14 97/59 L 95 07/01/24 08:15 72 19 106/62 L 93 L 07/01/24 08:00 73 14 103/65 L 94 L 07/01/24 08:00 70 07/01/24 07:30 71 18 104/61 L 95 Nasal Cannula 07/01/24 07:00 68 15 108/65 L 95 Nasal Cannula 07/01/24 06:59 67 15 108/65 L 96 Nasal Cannula 07/01/24 06:36 Nasal Cannula 07/01/24 06:00 66 19 100/55 L 94 L Nasal Cannula 07/01/24 05:30 91/54 L 07/01/24 05:30 69 20 90 L 07/01/24 05:15 95/55 L 07/01/24 05:15 71 20 93 L 07/01/24 05:00 70 18 96 07/01/24 05:00 100/55 L 07/01/24 05:00 Nasal Cannula 07/01/24 04:00 70 07/01/24 04:00 98.7 F 74 22 103/54 L 92 L Nasal Cannula 07/01/24 04:00 72 92 L Nasal Cannula 07/01/24 03:10 93/47 L 07/01/24 03:10 70 16 92 L 07/01/24 03:05 69 16 94 L 07/01/24 03:05 89/49 L 07/01/24 03:00 93/43 L 07/01/24 03:00 69 16 93 L 07/01/24 03:00 Nasal Cannula 07/01/24 02:55 71 17 94 L 07/01/24 02:55 92/52 L 07/01/24 02:50 90/45 L 07/01/24 02:50 69 16 94 L 07/01/24 02:48 90/53 L 07/01/24 02:48 72 15 93 L 07/01/24 02:45 88/48 L 07/01/24 02:45 71 20 92 L 07/01/24 02:42 87/48 L 07/01/24 02:42 71 18 92 L 07/01/24 02:39 96/49 L 07/01/24 02:39 70 16 96 07/01/24 02:36 69 17 94 L 07/01/24 02:36 89/49 L 07/01/24 02:31 83/45 L 07/01/24 02:31 70 23 92 L 07/01/24 02:30 78/41 L 07/01/24 02:30 71 14 92 L 07/01/24 02:28 74 22 91 L 07/01/24 02:28 79/44 L 07/01/24 02:28 68/41 L 07/01/24 02:21 68 15 96 07/01/24 02:21 78/43 L 07/01/24 02:15 82/41 L 07/01/24 02:15 68 17 96 07/01/24 02:00 70 20 87/54 L 93 L Nasal Cannula 07/01/24 01:00 89/52 L 07/01/24 01:00 68 18 95 07/01/24 01:00 Nasal Cannula 07/01/24 00:55 89/56 L 07/01/24 00:55 68 12 94 L 07/01/24 00:00 73 94 L Nasal Cannula 07/01/24 00:00 70 07/01/24 00:00 97.9 F 81 15 89/52 L 94 L Nasal Cannula 06/30/24 23:15 72 15 87/53 L 97 Nasal Cannula 06/30/24 23:00 Nasal Cannula 06/30/24 22:37 87/49 L 06/30/24 22:37 72 15 95 Nasal Cannula 06/30/24 22:10 75 18 97 Nasal Cannula 06/30/24 22:10 93/57 L 06/30/24 22:00 74 18 82/50 L 96 Nasal Cannula 06/30/24 21:45 74 18 98 06/30/24 21:45 84/50 L 06/30/24 21:30 77 19 95 06/30/24 21:30 93/60 L 06/30/24 21:15 70 19 97 06/30/24 21:15 84/52 L 06/30/24 21:13 74 18 96 Nasal Cannula 06/30/24 21:13 88/58 L 06/30/24 21:00 77 19 95/50 L 97 Nasal Cannula 06/30/24 20:51 Nasal Cannula 06/30/24 20:00 70 06/30/24 20:00 72 98 Nasal Cannula 06/30/24 20:00 79 18 102/64 L 93 L Nasal Cannula 06/30/24 19:00 74 13 102/67 L 96 06/30/24 18:45 Nasal Cannula 06/30/24 18:30 20 06/30/24 18:30 73 21 109/63 L 94 L Nasal Cannula 06/30/24 18:00 95/62 L 06/30/24 18:00 73 21 94 L 06/30/24 17:30 114/64 06/30/24 17:30 78 19 88 L O2 Flow Rate 07/01/24 15:48 2 07/01/24 15:30 2 07/01/24 15:15 2 07/01/24 15:09 2 07/01/24 15:00 2 07/01/24 14:36 07/01/24 14:30 2 07/01/24 14:00 07/01/24 14:00 2 07/01/24 13:36 2 07/01/24 13:00 2 07/01/24 13:00 2 07/01/24 12:30 2 07/01/24 12:13 07/01/24 12:00 07/01/24 12:00 07/01/24 12:00 2 07/01/24 11:30 07/01/24 11:00 2 07/01/24 11:00 2 07/01/24 10:30 2 07/01/24 10:11 2 07/01/24 10:00 2 07/01/24 09:31 07/01/24 09:15 2 07/01/24 09:00 07/01/24 09:00 2 07/01/24 08:30 07/01/24 08:15 07/01/24 08:00 07/01/24 08:00 07/01/24 07:30 2 07/01/24 07:00 2 07/01/24 06:59 2 07/01/24 06:36 2 07/01/24 06:00 2 07/01/24 05:30 07/01/24 05:30 07/01/24 05:15 07/01/24 05:15 07/01/24 05:00 07/01/24 05:00 07/01/24 05:00 2 07/01/24 04:00 07/01/24 04:00 2 07/01/24 04:00 2 07/01/24 03:10 07/01/24 03:10 07/01/24 03:05 07/01/24 03:05 07/01/24 03:00 07/01/24 03:00 07/01/24 03:00 2 07/01/24 02:55 07/01/24 02:55 07/01/24 02:50 07/01/24 02:50 07/01/24 02:48 07/01/24 02:48 07/01/24 02:45 07/01/24 02:45 07/01/24 02:42 07/01/24 02:42 07/01/24 02:39 07/01/24 02:39 07/01/24 02:36 07/01/24 02:36 07/01/24 02:31 07/01/24 02:31 07/01/24 02:30 07/01/24 02:30 07/01/24 02:28 07/01/24 02:28 07/01/24 02:28 07/01/24 02:21 07/01/24 02:21 07/01/24 02:15 07/01/24 02:15 07/01/24 02:00 2 07/01/24 01:00 07/01/24 01:00 07/01/24 01:00 2 07/01/24 00:55 07/01/24 00:55 07/01/24 00:00 2 07/01/24 00:00 07/01/24 00:00 2 06/30/24 23:15 2 06/30/24 23:00 2 06/30/24 22:37 06/30/24 22:37 2 06/30/24 22:10 2 06/30/24 22:10 06/30/24 22:00 2 06/30/24 21:45 06/30/24 21:45 06/30/24 21:30 06/30/24 21:30 06/30/24 21:15 06/30/24 21:15 06/30/24 21:13 2 06/30/24 21:13 06/30/24 21:00 2 06/30/24 20:51 2 06/30/24 20:00 06/30/24 20:00 2 06/30/24 20:00 2 06/30/24 19:00 06/30/24 18:45 2 06/30/24 18:30 06/30/24 18:30 1 06/30/24 18:00 06/30/24 18:00 06/30/24 17:30 06/30/24 17:30 Intake and Output 07/01/24 07/01/24 07/01/24 07:59 15:59 23:59 Intake Total 783.437 / 0763.340 1963.124 / 1790.561 Output Total 850 / 850 Balance -66.563 / 297.746 1029.124 / 940.561 Intake: Intake, Total IV Amount 783.437 / 8242.902 2987.124 / 1790.561 0.9 % Sodium Chloride 1000ML 1, 142 / 491 349 / 491 000 ml @ 50 mls/hr IV .Q20H [facility] Rx#:[id number] Azithromycin 500 mg In 0.9 % 250 / 250 Sodium Chloride 250 ml @ 250 mls/hr IV Q24H [facility] Rx#:[id number] Norepinephrine Bitartrate/D5w 8 362 / 362 mg In 250 ml @ 18 MCG/MIN 33. 75 mls/hr IV .Q7H25M [facility] Rx#: [id number] Piperacillin/Tazo 4.5 gm In 0.9 95 / 195 100 / 195 % Sodium Chloride 100 ml @ 200 mls/hr IV Q8H [facility]ARA Rx#:[id number] Output: Output, Urine Amount 850 / 850 Other: Number of Unmeasured Voids 0 0 Number of Bowel Movements 1 Weight 78.335 kg Patient Weight 07/01/24 23:59 Weight 78.335 kg Laboratory Results - last 24 hr 06/30/24 16:25: Sodium 135 L, Potassium 3.5 D, Chloride 100, Carbon Dioxide 25, Anion Gap 13.5, BUN 17, Creatinine 1.00 D, Estimated Creat Clear 65, Estimated GFR 72, Est GFR ( Amer) 87 D, Glucose 118 H, Calcium 8.2 L 07/01/24 05:36: WBC 14.4 H D, RBC 3.89 L, Hgb 11.3 L, Hct 34.4 L, MCV 88.4, MCH 29.0, MCHC 32.8, RDW 15.0, Plt Count 212, MPV 10.0, Neut % (Auto) 80.4 H, Lymph % (Auto) 11.8, [place] % (Auto) 7.3, Eos % (Auto) 0.0 L, Baso % (Auto) 0.1, Neut # (Auto) 11.6 H, Lymph # (Auto) 1.7, [place] # (Auto) 1.1 H, Eos # (Auto) 0.0, Baso # (Auto) 0.0, Sodium 135 L, Potassium 3.6, Chloride 101, Carbon Dioxide 25, Anion Gap 12.6, BUN 16, Creatinine 1.00, Estimated Creat Clear 67, Estimated GFR 72, Est GFR ( Amer) 87, Glucose 103 H, Calcium 8.1 L, Magnesium 1.8, Total Bilirubin 0.3, AST 312 H* D, ALT 83 H D, Alkaline Phosphatase 77, Total Protein 6.0 L, Albumin 3.1 L D, Globulin 2.9, Albumin/Globulin Ratio 1.1 I & O for Labs for Last 24 Hours: Intake & Output 06/28/24 06/29/24 06/30/24 07/01/24 23:59 23:59 23:59 23:59 Intake Total 1309.883 / 7883.336 2004.561 / 1790.561 Output Total 3300 / 3700 850 / 850 Balance -1990.117 / -2390.117 940.561 / 940.561 Weight 75.523 kg 78.335 kg Microbiology Reports for the Last 24 Hours: Microbiology 06/30/24 04:58 Blood Blood Culture - Preliminary NO GROWTH AFTER 24 HOURS 06/30/24 04:56 Blood Blood Culture - Preliminary NO GROWTH AFTER 24 HOURS 06/30/24 12:10 Sputum - Expectorated Sputum Gram Stain - Final Constitutional: Present no acute distress, average body habitus, chronically ill appearing and cooperative Head: Present atraumatic and normocephalic ENT: Present normal exam Respiratory: Present rhonchi and normal respiratory effort; Absent wheezes or crackles Cardiac: Present Reg Rate and Rhythm GI: Present soft and normal bowel sounds; Absent distention or tenderness Extremities: Present normal inspection and full ROM Skin: Present intact; Absent erythema Neuro: Present Grossly Intact, alert, awake and moves all extremities Comment:: Oriented to self only. Assessment and Plan *Assessment and plan (1) Septic shock: Status: Acute Category: Medical Code(s): A41.9 - Sepsis, unspecified organism; R65.21 - Severe sepsis with septic shock (2) Flu: Status: Acute Category: Medical Code(s): J11.1 - Influenza due to unidentified influenza virus with other respiratory manifestations (3) Abdominal aortic aneurysm (AAA): Status: Acute Category: Medical Code(s): I71.40 - Abdominal aortic aneurysm, without rupture, unspecified (4) Pneumonia: Status: Acute Category: Medical Code(s): J18.9 - Pneumonia, unspecified organism (5) Schizophrenia: Problem Comment: stable Status: Chronic Qualifiers: Schizophrenia type: undifferentiated schizophrenia Qualified Code(s): F20.3 - Undifferentiated schizophrenia Category: Medical Code(s): F20.9 - Schizophrenia, unspecified (6) Unspecified dementia without behavioral disturbance: Status: Chronic Category: Medical Code(s): F03.90 - Unspecified dementia, unspecified severity, without behavioral disturbance, psychotic disturbance, mood disturbance, and anxiety (7) COPD (chronic obstructive pulmonary disease): Status: Chronic Qualifiers: COPD type: unspecified COPD Qualified Code(s): J44.9 - Chronic obstructive pulmonary disease, unspecified Category: Medical Code(s): J44.9 - Chronic obstructive pulmonary disease, unspecified Plan 79-year-old male who presents in septic shock. Found to be positive for flu. New oxygen requirement. Concerning for pneumonia on imaging in the ER. Discussed case with ER physician, request admission for septic shock and treatment of flu. I agreed to admit for further management. Admitted to the ICU for further care. Started on Tamiflu, renally dosed. Prognosis guarded. Continues to require patient management. Problems addressed as follows: Septic shock Acute hypoxemic respiratory failure Flu pneumonia COPD -Discussed case with pulmonology, recommended holding Tamiflu and statins due to liver enzymes. Concern liver enzyme bump mainly due to statin. Received morning dose of Tamiflu. Reevaluate in the morning if labs normal tomorrow. Continue Zosyn and azithromycin pending sputum culture. Continues to require pressure support with norepinephrine. Goal MAP greater than 65. -Supplemental oxygen as needed, goal sats greater 90%. Currently on 2 L -Lactate elevated at 8 on initial VBG. Has shown improvement. -White count 14.4, hemoglobin 11. Kidney function stable with BUN 16, creatinine 1. Potassium 3.6 and magnesium 1.8. Liver enzyme elevation with bilirubin 0.3, AST 312, ALT 83. - Repeat CBC, CMP, magnesium ordered for the morning. -Tylenol as needed for fever AAA: Present on previous imaging. Has grown a little however family and patient have no desire to intervene. Family understands that if his ruptures patient will . Per my review of CT, 7-1/2 cm in diameter with large thrombus that has calcifications. No active leak on CT angiogram. Will hold anticoagulation at this time History of schizophrenia: Resume Seroquel 100 mg nightly, continue Ativan 0.5 mg twice daily Dysphagia: - Coughing and choking with fluids overnight. Made NPO. Speech evaluated, waiting for modified barium in the morning. -Continue NS at 100 cc an hour Full code ICU/Critical care attestation This patient is critically ill with 35 minutes devoted solely to this patient managing life/organ supporting interventions that required physician assessment. This includes time spent making adjustments in ventilator settings, IV fluid administration, titration of pressors, adjustments of medications, discussion of patient with consultants and other care providers as well as updating patient and/or family (if patient by virtue of his/her condition is unable to participate in decision making). This does not include time spent performing separately billed procedures. Time is not concurrent with that of other providers.
[2024-07-01] MEDS: PANTOPRAZOLE 40MG TABLET 40 MG PO (20:29)
[2024-07-01] MEDS: 0.9 % SODIUM CHLORIDE 1000ML 1,000 ML 100 ML IV (20:33)
[2024-07-01] MEDS: QUETIAPINE 100MG TABLET 100 MG PO (20:40)
[2024-07-01] MEDS: NOREPINEPHRINE BITARTRATE/D5W 8 MG/250 ML PLAST..BAG 22.5 MG IV (21:40)
[2024-07-02] VITALS (35 sets, daily range): BP systolic 85–124; BP diastolic 50–71; PULSE 50–100; RESP 13–26; TEMP 36.5–37.4; O2SAT 89–98; BMI 26.8
[2024-07-02] MEDS: PIPERACILLIN/TAZO 4.5 GM in 0.9 % SODIUM CHLORIDE 100 ML IV ×3 (04:27→20:14)
[2024-07-02] MEDS: NOREPINEPHRINE BITARTRATE/D5W 8 MG/250 ML PLAST..BAG 37.5 MG IV ×2 (05:04→12:16)
[2024-07-02 05:58] LABS: Basophils % 0.4 % (0.1-2.0); Lymphocytes # 1.4 K/mm3 (0.7-4.5); Lymphocytes % 26.2 % (10-50); Mean Corpuscular HGB Conc 32.3 g/dL (31.8-35.4); Mean Corpuscular Hemoglobin 28.5 pg (27.0-31.2); Mean Corpuscular Volume 88.3 fl (80-94); Monocytes # 0.5 K/mm3 (0.1-1.0); Monocytes % 8.7 % (1.7-9.3); Neutrophils # 3.4 K/mm3 (1.8-7.8); Neutrophils % 64.5 % (37.0-80.0); Platelet Count 162 K/mm3 (142-424); Red Blood Count 3.51 M/mm3 (4.60-6.20); Red Cell Distribution Width 14.9 % (11.5-17.5); White Blood Count 5.3 K/mm3 (4.8-10.8)
[2024-07-02 06:13] LABS: Alanine Aminotransferase 86 U/L (12-78); Albumin Level 2.8 g/dl (3.5-5.0); Alkaline Phosphatase 70 U/L (38-126); Anion Gap 9.5 mEq/L (5-15); Aspartate Amino Transferase 260 U/L (17-59); Bilirubin,Total 0.3 mg/dl (0.2-1.3); Blood Urea Nitrogen 10 mg/dl (9-20); Calcium 7.7 mg/dl (8.4-10.2); Carbon Dioxide 26 mmol/L (22.0-30.0); Chloride 105 mmol/L (98-107); Creatinine Clearance Estimated 67 mL/min (50-200); Estimated Glomerular Filt Rate 93 ml/min (>60); GFR (African American) 113 ML/MIN (>60); Globulin 2.8 g/dL (1.3-3.2); Glucose 111 mg/dl (74-100); Magnesium 1.8 mg/dl (1.6-2.3); Potassium 3.5 mmoL/L (3.5-5.1); Sodium 137 mmol/L (136-145); Total Protein,Serum 5.6 g/dl (6.3-8.2)
[2024-07-02] MEDS: ACETAMINOPHEN 650MG SUPPOSITORY 650 MG RC (06:51)
[2024-07-02] MEDS: 0.9 % SODIUM CHLORIDE 1000ML 1,000 ML 100 ML IV (07:08)
--- NOTE | 2024-07-02 08:56 | FL_ITS ---
FINAL REPORT CLINICAL HISTORY: DYSPHAGIA FT 4.57 DAP 610.22 FINDINGS: FLUOROSCOPY LESS THAN 1 HOUR HISTORY: Fluoroscopy guidance. Fluoroscopic guidance was provided for barium swallow. A total of 4.57 minutes of fluoroscopy time were used. Total DAP: 610.22 mGy IMPRESSION: As above. Reviewed, Interpreted and Dictated by Esteban Goode MD Transcribed by Jessy Hook Authenticated and [facility]
--- NOTE | 2024-07-02 09:25 | EXP.PULM.PN ---
Subjective *Date: 07/02/24 *Time: 12:01 Interval history: No acute respiratory vents overnight. Pulmonology Exam Inpatient Vital signs and Labs for Last 24 Hours: Temp Pulse Resp BP Pulse Ox O2 Del Method O2 Flow Rate 98.9 F 100 H 19 113/66 91 L Nasal Cannula 2 07/02/24 08:00 07/02/24 09:00 07/02/24 09:00 07/02/24 09:00 07/02/24 09:00 07/02/24 09:00 07/02/24 09:00 Laboratory Results - last 24 hr 07/02/24 05:38: WBC 5.3 D, RBC 3.51 L, Hgb 10.0 L, Hct 31.0 L, MCV 88.3, MCH 28.5, MCHC 32.3, RDW 14.9, Plt Count 162, MPV 10.0, Neut % (Auto) 64.5, Lymph % (Auto) 26.2, [place] % (Auto) 8.7, Eos % (Auto) 0.0 L, Baso % (Auto) 0.4, Neut # (Auto) 3.4, Lymph # (Auto) 1.4, [place] # (Auto) 0.5, Eos # (Auto) 0.0, Baso # (Auto) 0.0, Sodium 137, Potassium 3.5, Chloride 105, Carbon Dioxide 26, Anion Gap 9.5, BUN 10 D, Creatinine 0.80, Estimated Creat Clear 67, Estimated GFR 93, Est GFR ( Amer) 113 D, Glucose 111 H, Calcium 7.7 L, Magnesium 1.8, Total Bilirubin 0.3, AST 260 H, ALT 86 H, Alkaline Phosphatase 70, Total Protein 5.6 L, Albumin 2.8 L, Globulin 2.8, Albumin/Globulin Ratio 1.0 L Temp Pulse Resp BP Pulse Ox O2 Del Method O2 Flow Rate 99.9 F H 76 18 96/54 L 94 L Nasal Cannula 5 06/30/24 09:05 06/30/24 12:13 06/30/24 12:13 06/30/24 09:05 06/30/24 08:17 06/30/24 09:05 06/30/24 09:05 Laboratory Results - last 24 hr 06/30/24 04:56: WBC 11.1 H, RBC 4.17 L, Hgb 12.1 L, Hct 37.3 L, MCV 89.4, MCH 29.0, MCHC 32.4, RDW 15.3, Plt Count 226, MPV 9.8, Neut % (Auto) 87.3 H, Lymph % (Auto) 4.7 L, [place] % (Auto) 7.5, Eos % (Auto) 0.0 L, Baso % (Auto) 0.1, Neut # (Auto) 9.7 H, Lymph # (Auto) 0.5 L, [place] # (Auto) 0.8, Eos # (Auto) 0.0, Baso # (Auto) 0.0, PT 12.2 H, INR 1.12 H, Sodium 138, Potassium 4.4, Chloride 99, Carbon Dioxide 20 L, Anion Gap 23.4 H, BUN 17, Creatinine 1.60 H, Estimated Creat Clear 43, Estimated GFR 42 L, Est GFR ( Amer) 51 L, Glucose 140 H, Calcium 9.0, Magnesium 1.7, Total Bilirubin 0.6, AST 93 H, ALT 44, Alkaline Phosphatase 88, Troponin I 0.05 H, Total Protein 7.4, Albumin 4.3, Globulin 3.1, Albumin/Globulin Ratio 1.4, Lipase 98, TSH 1.30, Free T4 0.98, Urine Color Yellow, Urine Appearance Clear, Urine pH 7.0, Ur Specific [place] 1.010, Urine Protein Negative, Urine Glucose (UA) Negative, Urine Ketones Negative, Urine Blood Negative, Urine Nitrate Negative, Urine Bilirubin Negative, Urine Urobilinogen 1.0, Ur Leukocyte Esterase Trace, Urine RBC None, Urine WBC 5-10, Ur Squamous Epith Cells 3-5, Ur Transition Epith Cell Occ, Urine Bacteria 2+, Stool Occult Blood Negative, Urine Opiates Screen Negative, Urine Methadone Screen Negative, Ur Barbituates Screen Negative, Ur Phencyclidine Scrn Negative, Ur Amphetamines Screen Negative, U Benzodiazepines Scrn Negative, Urine Cocaine Screen Negative, U Marijuana (THC) Screen Negative, HCV Ab MARTHA w/Rflx PCR Qn Negative, HIV Ag/Ab Combo Qual Negative 06/30/24 04:58: VBG pH 7.29 L, VBG pCO2 38.3, VBG pO2 28.9, VBG HCO3 18.2 L, VBG Total CO2 19.3 L, VBG O2 Saturation 46.5 L, VBG Base Excess -8.3 L, VBG Lactic Acid 8.0 H 06/30/24 06:20: Chlamy pneumoniae PCR Not detected, Adenovirus (PCR) Not detected, B. pertussis DNA (PCR) Not detected, Coronavirus OC43 (PCR) Not detected, Coronavirus HKU1 (PCR) Not detected, Coronavirus 229E (PCR) Not detected, SARS-CoV-2 (PCR) Not detected, Coronavirus NL63 (PCR) Not detected, Human Metapneumovir PCR Not detected, Influenza A (H1) PCR Not detected, Influ A (H1N1/09) PCR Detected A, Influenza A (H3) PCR Not detected, Influenza Type A (PCR) Not detected, Influenza Type B (PCR) Not detected, M. pneumoniae (PCR) Not detected, Parainfluenza 1 (PCR) Not detected, Parainfluenza 2 (PCR) Not detected, Parainfluenza 3 (PCR) Not detected, Parainfluenza 4 (PCR) Not detected, RSV (PCR) Not detected, Entero/Rhino (PCR) Not detected 06/30/24 09:28: Troponin I 0.04 H 06/30/24 09:45: Lactate 1.3 I & O for Labs for Last 24 Hours: Intake & Output 06/29/24 06/30/24 07/01/24 07/02/24 23:59 23:59 23:59 23:59 Intake Total 1309.883 / 5821.776 6495.499 / 2208.499 589.375 / 589.375 Output Total 3300 / 3700 2550 / 2550 1250 / 1250 Balance -1990.117 / -2390.117 -341.501 / -341.501 -660.625 / -660.625 Weight 166 lb 8 oz 172 lb 11.2 oz 170 lb 12.603 oz Intake & Output 06/27/24 06/28/24 06/29/24 06/30/24 23:59 23:59 23:59 23:59 Intake Total 22.362 / 22.362 Output Total 1999 Balance -1976.638 / -1976.638 Weight 166 lb 8 oz Microbiology Reports for the Last 24 Hours: Microbiology 06/30/24 04:58 Blood Blood Culture - Preliminary NO GROWTH AFTER 48 HOURS 06/30/24 04:56 Blood Blood Culture - Preliminary NO GROWTH AFTER 48 HOURS Constitutional: Present moderate distress Head: Present normocephalic and atraumatic ENT: Present normal exam, normal oropharynx and mucous membranes moist Neck: Present normal inspection and full ROM Respiratory: Present respiratory distress, rhonchi and able to speak in complete sentences; Absent prolonged expiratory phase, wheezes, crackles or diminished air movement Cardiac: Present S1/S2, Tachycardia and radial pulses present GI: Present soft and distention; Absent tenderness or guarding Skin: Present intact; Absent cyanosis or jaundice Neuro: Present alert and awake; Absent oriented x 3 Extremities: Present normal inspection; Absent clubbing or cyanosis Psychiatric: Present cooperative and anxious Assessment and Plan *Assessment and plan (1) Septic shock: Status: Acute Category: Medical Code(s): A41.9 - Sepsis, unspecified organism; R65.21 - Severe sepsis with septic shock (2) Influenza A: Status: Acute Category: Medical Code(s): J10.1 - Influenza due to other identified influenza virus with other respiratory manifestations (3) Acute respiratory failure with hypoxia: Status: Acute Category: Medical Code(s): J96.01 - Acute respiratory failure with hypoxia Plan Mr. You is a 79-year-old male greater than [id number] smoking to last moved around 1969, long-term resident presented daily worsening respiratory symptoms pulmonary was called for further evaluation and management. CTA PE protocol upon admission no evidence of pulmonary embolism. No dense consolidative airspace changes noted with elevated left hemidiaphragm likely chronic. Eczematous changes noted. CT abdomen also concerning for large abdominal aortic aneurysm with mural thrombus occupying more than 50% of the lumen. Present on his CT abdomen from 2020 worsening. Hemodynamically unstable needing pressor status post sepsis bolus on admission. Febrile. Increasing oxygen requirements. Neutrophilic predominant leukocytosis. WILLIAM with Cr now at 1.60. Echocardiogram limited technically difficult secondary to poor acoustic windows RVSP estimated at 30-35 mm Hg. Interval update: No acute respiratory events overnight. Improving leukocytosis. Relatively stable/improving transaminitis. Oseltamavir and statins on hold. Continue to receive Zosyn and azithromycin. Worsening pressor requirements. Plan: Continue oxygen supplementation to maintain O2 saturation goal of 90% and above Hold Tamiflu and statins. DuoNebs 4 times daily scheduled Currently receiving Zosyn. Azithromycin for 500 mg daily pending culture results and nasal MRSA PCR. Continue pressor support to maintain MAP goal of 65 and above.
[2024-07-02] MEDS: BARIUM SULFATE(LIQUID E-Z-PAQUE);355ML BOTTLE 355 ML PO (09:57)
--- NOTE | 2024-07-02 10:09 | HMH.SLMBS2 ---
Speech & Language Evaluation Speech/Language Mod Barium Swallow Start: 07/01/24 14:32 Freq: ONCE Status: Complete Protocol: Document 07/02/24 09:43 [facility] (Rec: 07/02/24 10:08 [id number]) General Information General Current Food Consistancy NPO Dentition Edentulous Oxygen Status Nasal Cannula Ability to Follow Directions Fair Communication Ability Moderate Impairment MBS Recommendations Diet Dietary Recommendations Other Comment safest rec possible is NPO, safest PO rec: puree/thins Treatment/Strategies Strategy/Precaution Recommend Sitting Upright (90 deg), Double Swallow,No Straw,Small Bites and Sips,Alternate Liquids/Solids Mod Barium Swallow Impressions Summary and Impressions Oral Phase Impression Moderate Impairment Oral Phase Summary Moderate impairment of oral preparatory and oral transit phases of the swallow. Pt demonstrates oral withholding, increased latency with initiation of the swallow, poor bolus manipulaltion, increased mastication time, scattered loss of bolus under tongue with signifcant residual observed on the tongue and throughout oral cavity. He was also noted to be impulsive and was unable to follow instruction of smaller bites/sips exhibited in large gulps of thins/nectar thick liquids when instructed to do small singular sips. Pharyngeal Phase Impression Severe Impairment Pharyngeal Phase Summary Severe impairment of the pharyngeal phase of the swallow. Pt had significant residual throughout the laryngeal vestibule across all consistencies. [place] residual observed in vallecular space across all consistencies that he was unable to clear when given 1:1 cues to produce double swallow 2' mentation and difficulty following directions. Empty spoon presentation also failed in facilitating a double swallow to clear residuals. Decreased epiglottic coverage observed 2 ' reduced hyolaryngeal excursion resulting in penetration and/or aspiration of consistencies at times. Given observations made throughout MBSS, safest recommendation is NPO, however , safest PO option is puree/ thins with an education on the residuals present during meals and risk of aspiration. He will require assistance during meals with 1:1 prompting for double swallows. Speech/Language MBS Assessment/Goals/Plan Assessment Date of Evaluation: 07/02/24 Evaluation Type Initial Certification Assessment/Problems aspiration concerns/dysphagia per MD order. Does Patient Qualify for Service Yes Qualify/Failure Comment Based on clinical observations made throughout instrumental assessment, pt would benefit from skilled speech therapy services to address diet texture analysis and tolerance . Recommendations PHYSICIAN CERTIFICATION: The specified therapy services are required, authorized, and reviewed every 30 days. Pt will be seen # times/week 2 for # weeks 4 Diet Recommendations Pureed Liquid Type Recommendations Normal/Thin SL Swallow Guidelines Assist w/all meals,Alt bite w/ sip thru meal,High aspiration risk,Chk mough for pocketing, Crush meds as allowed*,Oral care pre/post meals Crush Meds Crush all meds Dysphagia Swallow Precautions/Strategies Sitting Upright (90 deg), Double Swallow,No Straw,Small Bites and Sips,Alternate Liquids/Solids Plan Pt/Guardian verbally ack understanding Yes of dx/prognosis/goals G -code Required No Shelter Goals Diet puree with Liquids Thin Liquids Education Instructions provided Discussed MBSS results and multiple diet recommendations (safest/safest PO option), aspiration risks/precautions, and need for assist with meals including cues required with nursing, pt, and care management all of which expressed understanding. Pt/Caregiver able to recall information Able to recall/restate Reinforcement needed No Mod Barium Swallow Setup Exam Setup Radiologist Taj Allen Level of Consciousness Awake,Alert Mod Barium Swallow-Lat View Textures Lateral View Food Presentation Thin Liquid via Spoon,Thin Liquid via Cup,[place] Liquid via Spoon,[place] Liquid via Cup,Pureed Food- Thin,Mech. Soft Food- Chopped,Barium Tablet,Pudding Oral Phase Labial Closure Mild Impairment Bolus Formation Pooling L/R Moderate Impairment Bolus Formation under Tongue Moderate Impairment Bolus Formation Scattered Loss Severe Impairment Mastication Rotary Chew Mild Impairment Mastication Munching Mild Impairment Mastication Lateralization Mild Impairment Lingual Movement Mild Impairment Residue Clearing Severe Impairment Pharyngeal Phase A/P Lingual Propulsion Spills Severe Impairment Swallow Response Delay Moderate Impairment Base of Tongue Moderate Impairment Epiglottic Coverage Moderate Impairment Laryngeal Elevation Moderate Impairment Vallecular Retention Clearing Severe Impairment Pharyn. Wall Residue Clearing Severe Impairment Piriform Sinus Retention Moderate Impairment Aspiration? Yes Degree of Aspiration Medium When aspirated During the swallow Consistencies Aspirated nectar thick, thins, pudding Silent aspiration? Inconsistent Mod Barium Swallow-AP View Performed Mod Barium Swallow A/P View Test Not Applicable/Performed PHYSICIAN CERTIFICATION: I certify the specified therapy services for Jovon Sharon You are required, authorized, and reviewed every 30 days.
[2024-07-02] MEDS: AZITHROMYCIN 500 MG in 0.9 % SODIUM CHLORIDE 250 ML 250 MG IV (10:40)
[2024-07-02] MEDS: OSELTAMIVIR PHOSPHATE 6MG/ML ORAL SUSP 60ML 75 MG PO (10:47)
[2024-07-02] MEDS: SENNA 8.6MG TABLET 8.6 MG PO ×2 (10:47→20:13)
[2024-07-02] MEDS: ENOXAPARIN 40MG/0.4ML SYRINGE 40 MG SUBCUT (10:47)
[2024-07-02] MEDS: MIDODRINE HCL 5 MG TABLET PO ×2 (11:44→20:13)
[2024-07-02] MEDS: ONDANSETRON 4MG/2ML VIAL 4 MG IV (14:16)
[2024-07-02] MEDS: ACETAMINOPHEN 325MG TAB 650 MG PO (15:35)
--- NOTE | 2024-07-02 18:16 | P.PN_ITS ---
Subjective *Date: 07/02/24 *Time: 22:12 Interval history: No acute events overnight. Continues to require Levophed. At baseline mentation. Afebrile. Taken for swallow study today. Medical Exam Vital signs and Labs for Last 24 Hours: Vital Signs Temp Pulse Resp BP Pulse Ox O2 Del Method O2 Flow Rate 07/02/24 18:00 98/61 L 07/02/24 18:00 68 19 98/61 L 96 Nasal Cannula 2 07/02/24 17:10 Nasal Cannula 2 07/02/24 17:00 77 14 100/60 L 94 L Nasal Cannula 2 07/02/24 16:15 Nasal Cannula 2 07/02/24 16:00 77 07/02/24 16:00 98.8 F 71 22 105/70 L 92 L Nasal Cannula 2 07/02/24 15:05 Nasal Cannula 2 07/02/24 15:00 105/61 L 07/02/24 15:00 81 17 102/56 L 91 L Nasal Cannula 2 07/02/24 14:30 76 17 94 L 07/02/24 14:30 102/56 L 07/02/24 14:00 79 16 116/68 95 Nasal Cannula 2 07/02/24 13:06 Nasal Cannula 2 07/02/24 13:00 78 17 124/71 95 Nasal Cannula 2 07/02/24 12:15 Nasal Cannula 2 07/02/24 12:00 82 07/02/24 12:00 97/70 L 07/02/24 12:00 98.4 F 81 14 105/53 L 93 L Nasal Cannula 2 07/02/24 11:30 79 16 92 L 07/02/24 11:30 105/53 L 07/02/24 11:05 Nasal Cannula 2 07/02/24 11:00 69 14 102/54 L 92 L Nasal Cannula 2 07/02/24 10:00 77 21 102/64 L 91 L Nasal Cannula 2 07/02/24 09:43 Nasal Cannula 07/02/24 09:00 Nasal Cannula 2 07/02/24 09:00 100 H 19 113/66 91 L Nasal Cannula 2 07/02/24 08:20 Nasal Cannula 2 07/02/24 08:00 94 H 07/02/24 08:00 98.9 F 94 H 16 107/69 L 92 L Nasal Cannula 2 07/02/24 07:00 82 17 106/70 L 94 L Nasal Cannula 2 07/02/24 07:00 Nasal Cannula 2 07/02/24 06:00 87 18 102/50 L 96 Nasal Cannula 2 07/02/24 05:00 Nasal Cannula 2 07/02/24 05:00 98.1 F 64 13 91/57 L 95 Nasal Cannula 2 07/02/24 04:00 Nasal Cannula 2 07/02/24 04:00 78 07/02/24 04:00 79 26 H 105/57 L 93 L Nasal Cannula 2 07/02/24 04:00 105/57 L 07/02/24 03:00 105/64 L 07/02/24 03:00 74 18 95 07/02/24 03:00 Nasal Cannula 2 07/02/24 02:30 98/61 L 07/02/24 02:30 71 19 89 L 07/02/24 02:00 74 24 92/57 L 93 L Nasal Cannula 2 07/02/24 01:45 72 20 104/56 L 94 L Nasal Cannula 2 07/02/24 01:30 73 15 88/55 L 97 Nasal Cannula 2 07/02/24 01:00 Nasal Cannula 2 07/02/24 00:30 74 13 96/61 L 93 L Nasal Cannula 2 07/02/24 00:05 97.7 F 73 16 98/58 L 95 Nasal Cannula 2 07/02/24 00:00 Nasal Cannula 2 07/02/24 00:00 84 07/01/24 23:00 72 12 90/52 L 95 Nasal Cannula 2 07/01/24 23:00 Nasal Cannula 2 07/01/24 22:01 81 15 95/55 L 93 L Nasal Cannula 2 07/01/24 21:00 70 17 103/59 L 94 L Nasal Cannula 2 07/01/24 21:00 Nasal Cannula 2 07/01/24 20:00 66 07/01/24 20:00 Nasal Cannula 2 07/01/24 20:00 99.6 F 61 21 98/60 L 94 L Nasal Cannula 2 07/01/24 20:00 98/60 L 07/01/24 19:30 71 15 88/59 L 96 07/01/24 19:00 69 16 107/61 L 94 L 07/01/24 18:46 Nasal Cannula 2 07/01/24 18:30 70 16 100/57 L 94 L Intake and Output 07/02/24 07/02/24 07/02/24 07:59 15:59 23:59 Intake Total 589.375 / 1704.188 629.938 / 1704.188 484.875 / 1704.188 Output Total 1250 / 1950 700 / 1950 Balance -660.625 / -245.812 -70.062 / -245.812 484.875 / -245.812 Intake: Intake, Oral Amount 270 / 390 120 / 390 Intake, Total IV Amount 589.375 / 1314.188 359.938 / 1314.188 364.875 / 1314.188 0.9 % Sodium Chloride 1000ML 1, 300 / 300 000 ml @ 100 mls/hr IV .Q10H [facility] Rx#:[id number] Azithromycin 500 mg In 0.9 % 250 / 250 Sodium Chloride 250 ml @ 250 mls/hr IV Q24H [facility] Rx#:[id number] Piperacillin/Tazo 4.5 gm In 0.9 100 / 200 100 / 200 % Sodium Chloride 100 ml @ 200 mls/hr IV Q8H [facility] Rx#:[id number] Output: Output, Urine Amount 1250 / 1950 700 / 1950 Other: Number of Unmeasured Voids 0 0 300 Weight 77.468 kg 77.468 kg Patient Weight 07/02/24 23:59 Weight 77.468 kg Laboratory Results - last 24 hr 07/02/24 05:38: WBC 5.3 D, RBC 3.51 L, Hgb 10.0 L, Hct 31.0 L, MCV 88.3, MCH 28.5, MCHC 32.3, RDW 14.9, Plt Count 162, MPV 10.0, Neut % (Auto) 64.5, Lymph % (Auto) 26.2, [place] % (Auto) 8.7, Eos % (Auto) 0.0 L, Baso % (Auto) 0.4, Neut # (Auto) 3.4, Lymph # (Auto) 1.4, [place] # (Auto) 0.5, Eos # (Auto) 0.0, Baso # (Auto) 0.0, Sodium 137, Potassium 3.5, Chloride 105, Carbon Dioxide 26, Anion Gap 9.5, BUN 10 D, Creatinine 0.80, Estimated Creat Clear 67, Estimated GFR 93, Est GFR ( Amer) 113 D, Glucose 111 H, Calcium 7.7 L, Magnesium 1.8, Total Bilirubin 0.3, AST 260 H, ALT 86 H, Alkaline Phosphatase 70, Total Protein 5.6 L, Albumin 2.8 L, Globulin 2.8, Albumin/Globulin Ratio 1.0 L I & O for Labs for Last 24 Hours: Intake & Output 06/29/24 06/30/24 07/01/24 07/02/24 23:59 23:59 23:59 23:59 Intake Total 1309.883 / 5536.194 5920.499 / 2208.499 1704.188 / 1704.188 Output Total 3300 / 3700 2550 / 2550 1950 / 1950 Balance -1990.117 / -2390.117 -341.501 / -341.501 -245.812 / -245.812 Weight 75.523 kg 78.335 kg 77.468 kg Microbiology Reports for the Last 24 Hours: Microbiology 06/30/24 09:24 Anus CRE Surveillance Culture - Final 06/30/24 18:00 Nose - Nasal MRSA Culture - Final Negative 06/30/24 12:10 Sputum - Expectorated Sputum Gram Stain - Final 06/30/24 12:10 Sputum - Expectorated Sputum Sputum Culture - Preliminary 06/30/24 04:56 Urine,Catheterized Urine Culture - Preliminary 06/30/24 04:58 Blood Blood Culture - Preliminary NO GROWTH AFTER 48 HOURS 06/30/24 04:56 Blood Blood Culture - Preliminary NO GROWTH AFTER 48 HOURS Constitutional: Present no acute distress, average body habitus, chronically ill appearing and cooperative Head: Present atraumatic and normocephalic ENT: Present normal exam Respiratory: Present rhonchi and normal respiratory effort; Absent wheezes or crackles Cardiac: Present Reg Rate and Rhythm GI: Present soft and normal bowel sounds; Absent distention or tenderness Extremities: Present normal inspection and full ROM Skin: Present intact; Absent erythema Neuro: Present Grossly Intact, alert, awake and moves all extremities Comment:: Oriented to self only. Assessment and Plan *Assessment and plan (1) Septic shock: Status: Acute Category: Medical Code(s): A41.9 - Sepsis, unspecified organism; R65.21 - Severe sepsis with septic shock (2) Flu: Status: Acute Category: Medical Code(s): J11.1 - Influenza due to unidentified influenza virus with other respiratory manifestations (3) Abdominal aortic aneurysm (AAA): Status: Acute Category: Medical Code(s): I71.40 - Abdominal aortic aneurysm, without rupture, unspecified (4) Pneumonia: Status: Acute Category: Medical Code(s): J18.9 - Pneumonia, unspecified organism (5) Schizophrenia: Problem Comment: stable Status: Chronic Qualifiers: Schizophrenia type: undifferentiated schizophrenia Qualified Code(s): F20.3 - Undifferentiated schizophrenia Category: Medical Code(s): F20.9 - Schizophrenia, unspecified (6) Unspecified dementia without behavioral disturbance: Status: Chronic Category: Medical Code(s): F03.90 - Unspecified dementia, unspecified severity, without behavioral disturbance, psychotic disturbance, mood disturbance, and anxiety (7) COPD (chronic obstructive pulmonary disease): Status: Chronic Qualifiers: COPD type: unspecified COPD Qualified Code(s): J44.9 - Chronic obstructive pulmonary disease, unspecified Category: Medical Code(s): J44.9 - Chronic obstructive pulmonary disease, unspecified Plan 79-year-old male who presents in septic shock. Found to be positive for flu. New oxygen requirement. Concerning for pneumonia on imaging in the ER. Discussed case with ER physician, request admission for septic shock and treatment of flu. I agreed to admit for further management. Admitted to the ICU for further care. Continue Tamiflu, renally dosed. Weaning norepinephrine. Will initiate midodrine today. Showing slow improvement. Problems addressed as follows: Septic shock Acute hypoxemic respiratory failure Flu pneumonia COPD -Discussed case with pulmonology, recommended holding Tamiflu and statins due to liver enzymes. -Continue norepinephrine for MAP greater than 65. Will initiate midodrine 5 mg 3 times a day today -Supplemental oxygen as needed, goal sats greater 90%. Currently on 2 L -White count normalized to 5.3, hemoglobin 10. Kidney function stable with BUN 16, creatinine 1. Potassium 3.6 and magnesium 1.8. Liver enzyme elevation with bilirubin 0.3, AST 312, ALT 83. - Repeat CBC, CMP, magnesium ordered for the morning. -Tylenol as needed for fever AAA: Present on previous imaging. Has grown a little however family and patient have no desire to intervene. Family understands that if his ruptures patient will . Per my review of CT, 7-1/2 cm in diameter with large thrombus that has calcifications. No active leak on CT angiogram. Will hold anticoagulation at this time History of schizophrenia: Seroquel 100 mg nightly, continue Ativan 0.5 mg twice daily Dysphagia: -Modified barium swallow performed today. Having risk for aspiration with all consistencies. Speech recommended modified diet. Full code Modified diet per speech recommendations.
[2024-07-02] MEDS: LORazepam 1MG TABLET 0.5 MG PO (20:13)
[2024-07-02] MEDS: QUETIAPINE 100MG TABLET 100 MG PO (20:13)
[2024-07-02] MEDS: PANTOPRAZOLE 40MG VIAL 40 MG IV (20:13)
[2024-07-02] MEDS: NOREPINEPHRINE BITARTRATE/D5W 8 MG/250 ML PLAST..BAG 22.5 MG IV (21:24)
--- NOTE | 2024-07-02 22:16 | PC.NURSE ---
He is confused and was unable to answer any of his orientation questions correctly. He stated, no when asked his name, reported 1917, 54 when asked the year, and stated [place] when asked his location. Reoriented him to all appropriate answers. He speech is clear at times and slurred at others. He has been sleeping but awakens easily. Non-productive cough present. He continues in droplet precautions r/t flu. He is being turned and repositioned q 2 hours. He is voiding per kathe, urine is yellow, clear. Sinus angelique-NSR on telemetry. Continues on levophed gtt. Wearning O2 @ 2LPM n/c.
[2024-07-03] VITALS (45 sets, daily range): BP systolic 72–116; BP diastolic 37–74; PULSE 54–88; RESP 0–26; TEMP 37.1–37.3; O2SAT 91–100; BMI 27.1
[2024-07-03] MEDS: ACETAMINOPHEN 325MG TAB 650 MG PO ×2 (03:04→08:44)
[2024-07-03] MEDS: PIPERACILLIN/TAZO 4.5 GM in 0.9 % SODIUM CHLORIDE 100 ML IV ×3 (04:00→20:09)
[2024-07-03] MEDS: NOREPINEPHRINE BITARTRATE/D5W 8 MG/250 ML PLAST..BAG 22.5 MG IV (05:16)
[2024-07-03 07:42] LABS: Basophils % 0.5 % (0.1-2.0); Eosinophils % 0.7 % (0.1-12.0); Hematocrit 29.9 % (42.0-52.0); Hemoglobin 9.7 g/dL (14.1-18.0); Lymphocytes # 1.4 K/mm3 (0.7-4.5); Lymphocytes % 33.7 % (10-50); Mean Corpuscular HGB Conc 32.4 g/dL (31.8-35.4); Mean Corpuscular Hemoglobin 28.7 pg (27.0-31.2); Mean Corpuscular Volume 88.5 fl (80-94); Mean Platelet Volume 9.5 fl (7.4-10.4); Monocytes # 0.4 K/mm3 (0.1-1.0); Monocytes % 8.4 % (1.7-9.3); Neutrophils # 2.4 K/mm3 (1.8-7.8); Neutrophils % 56.5 % (37.0-80.0); Platelet Count 176 K/mm3 (142-424); Red Blood Count 3.38 M/mm3 (4.60-6.20); Red Cell Distribution Width 14.9 % (11.5-17.5); White Blood Count 4.3 K/mm3 (4.8-10.8)
[2024-07-03 07:53] LABS: Albumin Level 2.8 g/dl (3.5-5.0); Chloride 104 mmol/L (98-107); Potassium 3.4 mmoL/L (3.5-5.1); Sodium 140 mmol/L (136-145)
[2024-07-03 07:56] LABS: Alanine Aminotransferase 89 U/L (12-78); Alkaline Phosphatase 71 U/L (38-126); Anion Gap 8.4 mEq/L (5-15); Aspartate Amino Transferase 218 U/L (17-59); Bilirubin,Total 0.4 mg/dl (0.2-1.3); Blood Urea Nitrogen 6 mg/dl (9-20); Carbon Dioxide 31 mmol/L (22.0-30.0); Creatinine Clearance Estimated 68 mL/min (50-200); Estimated Glomerular Filt Rate 109 ml/min (>60); GFR (African American) 132 ML/MIN (>60); Globulin 2.8 g/dL (1.3-3.2); Total Protein,Serum 5.6 g/dl (6.3-8.2)
[2024-07-03 07:57] LABS: Calcium 7.9 mg/dl (8.4-10.2); Glucose 140 mg/dl (74-100); Magnesium 1.7 mg/dl (1.6-2.3)
[2024-07-03] MEDS: SENNA 8.6MG TABLET 8.6 MG PO ×2 (08:30→20:10)
[2024-07-03] MEDS: LORazepam 1MG TABLET 0.5 MG PO ×2 (08:30→20:10)
[2024-07-03] MEDS: MIDODRINE HCL 5 MG TABLET PO ×2 (08:30→09:42)
[2024-07-03] MEDS: ENOXAPARIN 40MG/0.4ML SYRINGE 40 MG SUBCUT (08:30)
[2024-07-03] MEDS: MAGNESIUM SULFATE IN WATER 2 GM/50 ML PIGGYBACK IV ×2 (09:42→10:40)
[2024-07-03] MEDS: POTASSIUM CHLORIDE 20MEQ TAB 40 MEQ PO ×2 (09:42→13:08)
[2024-07-03] MEDS: AZITHROMYCIN 500 MG in 0.9 % SODIUM CHLORIDE 250 ML 250 MG IV (11:36)
[2024-07-03] MEDS: MIDODRINE HCL 5 MG TABLET 10 MG PO ×2 (13:08→20:10)
[2024-07-03] MEDS: NOREPINEPHRINE BITARTRATE/D5W 8 MG/250 ML PLAST..BAG 30 MG IV (13:09)
--- NOTE | 2024-07-03 18:21 | P.PN_ITS ---
Subjective *Date: 07/03/24 *Time: 18:21 Interval history: No acute events overnight. Continues to require Levophed. At baseline mentation. Afebrile. Taken for swallow study today. Medical Exam Vital signs and Labs for Last 24 Hours: Vital Signs Temp Pulse Resp BP Pulse Ox O2 Del Method O2 Flow Rate 07/03/24 18:00 60 20 93/74 L 97 07/03/24 17:30 60 15 108/67 L 98 07/03/24 17:00 Nasal Cannula 2 07/03/24 17:00 60 15 103/68 L 98 Nasal Cannula 2 07/03/24 16:00 77 07/03/24 16:00 Nasal Cannula 2 07/03/24 16:00 94/64 L 07/03/24 16:00 99.1 F 75 16 102/71 L Nasal Cannula 2 07/03/24 15:30 54 L 15 104/67 L 95 Nasal Cannula 2 07/03/24 15:13 59 L 17 97/63 L 91 L Nasal Cannula 2 07/03/24 15:00 61 18 100/64 L 91 L 07/03/24 15:00 Nasal Cannula 2 07/03/24 14:30 113/73 07/03/24 14:30 69 16 96 Nasal Cannula 2 07/03/24 14:00 66 17 109/67 L 96 07/03/24 13:30 64 16 98/70 L 96 07/03/24 13:00 Nasal Cannula 2 07/03/24 13:00 66 16 93/56 L 94 L 07/03/24 12:30 68 16 98/60 L 93 L 07/03/24 12:02 91/55 L 07/03/24 12:02 68 15 94 L 07/03/24 12:00 66 07/03/24 12:00 Nasal Cannula 2 07/03/24 12:00 99.1 F 07/03/24 12:00 87/52 L 07/03/24 12:00 59 L 13 95 07/03/24 11:30 64 15 89/51 L 92 L Nasal Cannula 2 07/03/24 11:00 78 16 93/56 L 94 L Nasal Cannula 2 07/03/24 11:00 Nasal Cannula 2 07/03/24 10:30 70 16 104/62 L 97 Nasal Cannula 2 07/03/24 10:30 104/62 L 07/03/24 10:00 80 16 96/63 L 97 Nasal Cannula 2 07/03/24 09:33 81 18 98/61 L 100 Nasal Cannula 2 07/03/24 09:00 Nasal Cannula 2 07/03/24 09:00 74 15 80/46 L 100 Nasal Cannula 2 07/03/24 08:41 83 18 94/48 L 96 Nasal Cannula 2 07/03/24 08:30 75 17 83/49 L 97 Nasal Cannula 2 07/03/24 08:00 Nasal Cannula 2 07/03/24 08:00 88 07/03/24 08:00 99/66 L 07/03/24 08:00 98.8 F 87 14 99/66 L 96 Nasal Cannula 2 07/03/24 07:00 60 14 111/60 99 Nasal Cannula 2 07/03/24 06:03 Nasal Cannula 2 07/03/24 06:00 116/68 07/03/24 06:00 71 15 95 07/03/24 05:30 98/68 L 07/03/24 05:30 71 15 116/68 96 07/03/24 05:00 113/66 07/03/24 05:00 63 15 99 07/03/24 05:00 Nasal Cannula 2 07/03/24 04:30 88 97 07/03/24 04:30 98/67 L 07/03/24 04:00 67 15 99 07/03/24 04:00 105/54 L 07/03/24 04:00 69 98/67 L 97 Nasal Cannula 2 07/03/24 03:30 93/44 L 07/03/24 03:30 61 13 100 07/03/24 03:30 98 Nasal Cannula 2 07/03/24 03:29 60 07/03/24 03:00 67 15 99 07/03/24 03:00 109/60 L 07/03/24 03:00 72 16 100/74 L 97 Nasal Cannula 2 07/03/24 02:30 104/59 L 07/03/24 02:30 61 13 99 07/03/24 02:29 Nasal Cannula 2 07/03/24 02:00 108/60 L 07/03/24 02:00 68 15 98 07/03/24 02:00 63 17 108/60 L 98 Nasal Cannula 2 07/03/24 01:30 93/47 L 07/03/24 01:30 60 0 L 98 07/03/24 01:06 92/51 L 07/03/24 01:06 56 L 13 97 07/03/24 01:02 59 L 13 97 07/03/24 01:02 74/41 L 07/03/24 01:00 72/37 L 07/03/24 01:00 58 L 13 97 07/03/24 01:00 56 L 92/51 L 98 Nasal Cannula 2 07/03/24 00:30 86/45 L 07/03/24 00:30 60 11 L 98 07/03/24 00:29 Nasal Cannula 2 07/03/24 00:00 90/47 L 07/03/24 00:00 61 16 96 07/03/24 00:00 98.8 F 57 L 16 90/47 L 96 Nasal Cannula 2 07/02/24 23:51 97 Nasal Cannula 2 07/02/24 23:51 60 07/02/24 23:35 89/52 L 07/02/24 23:35 63 14 91 L 07/02/24 23:30 85/54 L 07/02/24 23:30 98.1 F 63 14 113/66 92 L 07/02/24 23:00 64 15 94/58 L 98 07/02/24 22:35 Nasal Cannula 2 07/02/24 22:00 99.3 F 97/61 L 07/02/24 22:00 62 15 97/61 L 96 Nasal Cannula 2 07/02/24 21:00 Nasal Cannula 2 07/02/24 21:00 98.6 F 87/50 L 07/02/24 21:00 61 14 87/50 L 97 07/02/24 20:30 97/60 L 07/02/24 20:30 69 14 94 L 07/02/24 20:00 98 Nasal Cannula 2 07/02/24 20:00 50 L 07/02/24 20:00 71 18 105/62 L 97 07/02/24 20:00 98.8 F 07/02/24 19:00 93/56 L 07/02/24 19:00 60 15 96 Nasal Cannula 07/02/24 18:31 Nasal Cannula 2 07/02/24 18:30 74 15 94 L Intake and Output 07/03/24 07/03/24 07/03/24 07:59 15:59 23:59 Intake Total 586.375 / 4776.884 1306.063 / 1774.563 52.125 / 1774.563 Output Total 1210 / 1605 395 / 1605 Balance -623.625 / 169.563 741.063 / 169.563 52.125 / 169.563 Intake: Intake, Oral Amount 120 / 555 435 / 555 Intake, Total IV Amount 466.375 / 1219.563 701.063 / 1219.563 52.125 / 1219.563 Azithromycin 500 mg In 0.9 % 250 / 250 Sodium Chloride 250 ml @ 250 mls/hr IV Q24H [facility] Rx#:[id number] Magnesium Sulfate in Water 2 gm 100 / 100 In 50 ml @ 50 mls/hr IV Q1H [facility] Rx#:[id number] Norepinephrine Bitartrate/D5w 8 238 / 238 mg In 250 ml @ 18 MCG/MIN 33. 75 mls/hr IV .Q7H25M [facility] Rx#: [id number] Piperacillin/Tazo 4.5 gm In 0.9 100 / 100 % Sodium Chloride 100 ml @ 200 mls/hr IV Q8H [facility] Rx#:[id number] Output: Output, Urine Amount 10 / 10 Output, Urine Amount (Catheter) 1210 / 1595 385 / 1595 [place] 1210 / 1595 385 / 1595 Other: Number of Unmeasured Voids 0 0 Number of Bowel Movements 1 Weight 78.426 kg Patient Weight 07/03/24 23:59 Weight 78.426 kg Laboratory Results - last 24 hr 07/03/24 07:25: WBC 4.3 L, RBC 3.38 L, Hgb 9.7 L, Hct 29.9 L, MCV 88.5, MCH 28.7, MCHC 32.4, RDW 14.9, Plt Count 176, MPV 9.5, Neut % (Auto) 56.5, Lymph % (Auto) 33.7, [place] % (Auto) 8.4, Eos % (Auto) 0.7, Baso % (Auto) 0.5, Neut # (Auto) 2.4, Lymph # (Auto) 1.4, [place] # (Auto) 0.4, Eos # (Auto) 0.0, Baso # (Auto) 0.0, Sodium 140, Potassium 3.4 L, Chloride 104, Carbon Dioxide 31 H, Anion Gap 8.4, BUN 6 L D, Creatinine 0.70, Estimated Creat Clear 68, Estimated GFR 109, Est GFR ( Amer) 132, Glucose 140 H, Calcium 7.9 L, Magnesium 1.7, Total Bilirubin 0.4, AST 218 H, ALT 89 H, Alkaline Phosphatase 71, Total Protein 5.6 L, Albumin 2.8 L, Globulin 2.8, Albumin/Globulin Ratio 1.0 L I & O for Labs for Last 24 Hours: Intake & Output 06/30/24 07/01/24 07/02/24 07/03/24 23:59 23:59 23:59 23:59 Intake Total 1309.883 / 1192.043 3113.499 / 2208.499 1953.813 / 2296.795 4797.563 / 1774.563 Output Total 3300 / 3700 2550 / 2550 2410 / 2420 1605 / 1605 Balance -1990.117 / -2390.117 -341.501 / -341.501 -456.187 / -466.187 169.563 / 169.563 Weight 75.523 kg 78.335 kg 77.468 kg 78.426 kg Microbiology Reports for the Last 24 Hours: Microbiology 06/30/24 12:10 Sputum - Expectorated Sputum Gram Stain - Final 06/30/24 12:10 Sputum - Expectorated Sputum Sputum Culture - Preliminary 06/30/24 04:56 Urine,Catheterized Urine Culture - Preliminary Constitutional: Present no acute distress, average body habitus, chronically ill appearing and cooperative Head: Present atraumatic and normocephalic ENT: Present normal exam Respiratory: Present rhonchi and normal respiratory effort; Absent wheezes or crackles Cardiac: Present Reg Rate and Rhythm GI: Present soft and normal bowel sounds; Absent distention or tenderness Extremities: Present normal inspection and full ROM Skin: Present intact; Absent erythema Neuro: Present Grossly Intact, alert, awake and moves all extremities Comment:: Oriented to self only. Assessment and Plan *Assessment and plan (1) Septic shock: Status: Acute Category: Medical Code(s): A41.9 - Sepsis, unspecified organism; R65.21 - Severe sepsis with septic shock (2) Flu: Status: Acute Category: Medical Code(s): J11.1 - Influenza due to unidentified influenza virus with other respiratory manifestations (3) Abdominal aortic aneurysm (AAA): Status: Acute Category: Medical Code(s): I71.40 - Abdominal aortic aneurysm, without rupture, unspecified (4) Pneumonia: Status: Acute Category: Medical Code(s): J18.9 - Pneumonia, unspecified organism (5) Schizophrenia: Problem Comment: stable Status: Chronic Qualifiers: Schizophrenia type: undifferentiated schizophrenia Qualified Code(s): F20.3 - Undifferentiated schizophrenia Category: Medical Code(s): F20.9 - Schizophrenia, unspecified (6) Unspecified dementia without behavioral disturbance: Status: Chronic Category: Medical Code(s): F03.90 - Unspecified dementia, unspecified severity, without behavioral disturbance, psychotic disturbance, mood disturbance, and anxiety (7) COPD (chronic obstructive pulmonary disease): Status: Chronic Qualifiers: COPD type: unspecified COPD Qualified Code(s): J44.9 - Chronic obstructive pulmonary disease, unspecified Category: Medical Code(s): J44.9 - Chronic obstructive pulmonary disease, unspecified Plan 79-year-old male who presents in septic shock. Found to be positive for flu. New oxygen requirement. Concerning for pneumonia on imaging in the ER. Discussed case with ER physician, request admission for septic shock and treatment of flu. I agreed to admit for further management. Admitted to the ICU for further care. Off Tamiflu due to elevated liver enzymes. Weaning norepinephrine. Increase midodrine. Showing slow improvement. Continues to require ICU level of care due to norepinephrine drip. Problems addressed as follows: Septic shock Acute hypoxemic respiratory failure Flu pneumonia COPD -Discussed case with pulmonology, recommended holding Tamiflu and statins due to liver enzymes. -Continue norepinephrine for MAP greater than 65. Increase midodrine to 10 mg 3 times a day - Supplemental oxygen as needed, goal sats greater 90%. Currently on 2 L -White count remains normal at 4.3, hemoglobin 9.7, kidney function stable with BUN 6, creatinine 0.7. Liver function showing slight improvement with bilirubin 0.4, AST 218, ALT 89, alkaline phosphatase 71. - Repeat CBC, CMP, magnesium ordered for the morning. -Tylenol as needed for fever Of note, echo shows the following: -EF preserved at 55%. RV and both atria not well-visualized. Significant mitral and aortic valvulopathy. RVSP is 30 to 35 mmHg. No concern for cardiogenic shock as cause of his hypotension at this time . AAA: Present on previous imaging. Has grown a little however family and patient have no desire to intervene. Family understands that if his ruptures patient will . Per my review of CT, 7-1/2 cm in diameter with large thrombus that has calcifications. No active leak on CT angiogram. Will hold anticoagulation at this time History of schizophrenia: Seroquel 100 mg nightly, continue Ativan 0.5 mg twice daily Dysphagia: Modified barium swallow performed 07/02, Having risk for aspiration with all consistencies. Speech recommended modified diet. Full code Modified diet per speech recommendations.
[2024-07-03] MEDS: QUETIAPINE 100MG TABLET 100 MG PO (20:10)
[2024-07-03] MEDS: PANTOPRAZOLE 40MG TABLET 40 MG PO (20:10)
--- NOTE | 2024-07-03 23:14 | PC.NURSE ---
Addendum entered by Liyah Ferrari RN 07/04/24 02:11: in/out cath pt, pt had 1625mL out total. pt bladder scanned afterwards, 15mL in bladder. Provider notified. Provider stated to keep reassessing but as of now no wolf cath. Original Note: Pt still had no urine output so far in this shift. Nurse bladder scanned pt x3 and it showed >822mL. Provider called. Provider stated to straight cath pt once to see if pt would void on his own after. If pt does not void after straight cath provider stated to put a wolf cath in.
[2024-07-04] VITALS (59 sets, daily range): BP systolic 62–119; BP diastolic 37–74; PULSE 45–110; RESP 10–29; TEMP 36.9–37.6; O2SAT 87–98; BMI 26.0
[2024-07-04] MEDS: NOREPINEPHRINE BITARTRATE/D5W 8 MG/250 ML PLAST..BAG 11.25 MG IV (02:07)
[2024-07-04] MEDS: PIPERACILLIN/TAZO 4.5 GM in 0.9 % SODIUM CHLORIDE 100 ML IV ×3 (05:38→20:08)
[2024-07-04 08:35] LABS: Basophils % 0.5 % (0.1-2.0); Eosinophils # 0.1 K/mm3 (0.0-0.4); Eosinophils % 2.2 % (0.1-12.0); Hemoglobin 9.7 g/dL (14.1-18.0); Lymphocytes # 1.1 K/mm3 (0.7-4.5); Lymphocytes % 31.1 % (10-50); Mean Corpuscular HGB Conc 32.3 g/dL (31.8-35.4); Mean Corpuscular Hemoglobin 28.9 pg (27.0-31.2); Mean Corpuscular Volume 89.3 fl (80-94); Mean Platelet Volume 9.8 fl (7.4-10.4); Monocytes # 0.4 K/mm3 (0.1-1.0); Monocytes % 10.6 % (1.7-9.3); Neutrophils % 55.3 % (37.0-80.0); Platelet Count 178 K/mm3 (142-424); Red Blood Count 3.36 M/mm3 (4.60-6.20); Red Cell Distribution Width 15.2 % (11.5-17.5); White Blood Count 3.7 K/mm3 (4.8-10.8)
[2024-07-04 08:39] LABS: Chloride 104 mmol/L (98-107)
[2024-07-04 08:40] LABS: Albumin Level 2.9 g/dl (3.5-5.0); Potassium 3.8 mmoL/L (3.5-5.1); Sodium 137 mmol/L (136-145)
[2024-07-04 08:42] LABS: Anion Gap 7.8 mEq/L (5-15); Blood Urea Nitrogen 3 mg/dl (9-20); Carbon Dioxide 29 mmol/L (22.0-30.0); Creatinine Clearance Estimated 65 mL/min (50-200); Estimated Glomerular Filt Rate 109 ml/min (>60); GFR (African American) 132 ML/MIN (>60)
[2024-07-04 08:43] LABS: Alanine Aminotransferase 89 U/L (12-78); Alkaline Phosphatase 73 U/L (38-126); Aspartate Amino Transferase 186 U/L (17-59); Bilirubin,Total 0.5 mg/dl (0.2-1.3); Calcium 7.7 mg/dl (8.4-10.2); Globulin 2.8 g/dL (1.3-3.2); Glucose 102 mg/dl (74-100); Total Protein,Serum 5.7 g/dl (6.3-8.2)
[2024-07-04 08:49] LABS: Magnesium 2.1 mg/dl (1.6-2.3)
[2024-07-04] MEDS: ENOXAPARIN 40MG/0.4ML SYRINGE 40 MG SUBCUT (09:29)
[2024-07-04] MEDS: MIDODRINE HCL 5 MG TABLET 10 MG PO ×3 (09:30→20:07)
[2024-07-04] MEDS: AZITHROMYCIN 250MG TABLET 500 MG PO (09:30)
[2024-07-04] MEDS: LORazepam 1MG TABLET 0.5 MG PO ×2 (09:30→20:08)
[2024-07-04] MEDS: TAMSULOSIN 0.4MG CAPSULE 0.4 MG PO ×2 (09:55→20:07)
--- NOTE | 2024-07-04 14:51 | PC.NURSE ---
Bladder scan at 1145 498 in bladder. Hospitalist aware, no new orders
--- NOTE | 2024-07-04 15:05 | PC.NURSE ---
Levophed at 6 mcg. Lung sounds diminished. Patient turned q2. VS stable with levophed drip and patient remained on 2LNC.
--- NOTE | 2024-07-04 16:42 | EXP.ACUTE.PN ---
Subjective *Date: 07/04/24 *Time: 16:42 Interval history: No acute events overnight. Continues to require Levophed, tolerating wean however. At baseline mentation. Afebrile. Tolerating p.o. intake. Urinary retention overnight. Necessitated In-N-Out cath. Reevaluating voiding today. Medical Exam Vital signs and Labs for Last 24 Hours: Vital Signs Temp Pulse Pulse Resp BP Pulse Ox O2 Del Method 07/04/24 16:15 69 14 92/63 L 97 07/04/24 16:00 67 13 90/60 L 98 07/04/24 16:00 68 07/04/24 15:45 83 14 95 07/04/24 15:45 107/72 L 07/04/24 15:36 Nasal Cannula 07/04/24 15:00 98/55 L 07/04/24 15:00 80 14 95 07/04/24 14:49 Nasal Cannula 07/04/24 14:45 77 11 L 95 07/04/24 14:45 87/49 L 07/04/24 14:41 76/48 L 07/04/24 14:41 62 15 95 07/04/24 14:36 79 16 96 07/04/24 14:00 80 21 87/57 L 96 07/04/24 13:45 90 22 95/57 L 94 L 07/04/24 13:30 89 15 98/67 L 95 07/04/24 13:15 83 21 84/61 L 96 07/04/24 13:05 Room Air 07/04/24 13:04 90 16 93/65 L 94 L 07/04/24 13:01 85 15 81/54 L 95 07/04/24 12:45 77 17 95/54 L 94 L 07/04/24 12:30 78 20 94/56 L 93 L 07/04/24 12:15 94/61 L 07/04/24 12:15 76 18 94/61 L 98 07/04/24 12:10 Nasal Cannula 07/04/24 12:00 74 07/04/24 12:00 94/56 L 07/04/24 12:00 99.3 F 73 29 H 94/56 L 97 07/04/24 11:46 65 27 H 76/52 L 95 07/04/24 11:45 62/37 L 07/04/24 11:45 65 28 H 62/37 L 96 07/04/24 11:36 66 14 82/52 L 96 07/04/24 11:30 67 15 70/44 L 97 07/04/24 11:15 73 16 79/43 L 95 07/04/24 11:00 79 26 H 82/48 L 98 07/04/24 11:00 Nasal Cannula 07/04/24 10:45 87 13 97/62 L 97 07/04/24 10:30 91/60 L 07/04/24 10:30 82 18 91/60 L 96 07/04/24 10:15 84 13 95/60 L 97 07/04/24 10:15 95/60 L 07/04/24 10:01 11 L 95/53 L 07/04/24 10:01 95/53 L 07/04/24 10:00 81 13 96 07/04/24 09:45 84 15 93/58 L 93 L 07/04/24 09:30 80 14 94/62 L 96 07/04/24 09:15 78 17 90/62 L 96 07/04/24 09:00 Nasal Cannula 07/04/24 09:00 74 15 96/62 L 97 07/04/24 08:45 77 20 86/60 L 97 07/04/24 08:31 91 H 12 96/66 L 96 07/04/24 08:16 78 14 76/53 L 97 07/04/24 08:00 Nasal Cannula 07/04/24 08:00 85 07/04/24 08:00 98.9 F 84 18 88/49 L 96 07/04/24 08:00 88/49 L 07/04/24 07:45 80 13 83/48 L 95 07/04/24 07:30 76 15 88/57 L 95 07/04/24 07:15 97/61 L 07/04/24 07:15 76 14 97/61 L 96 07/04/24 07:00 71 15 97/60 L 95 07/04/24 07:00 74 17 97/60 L 96 Nasal Cannula 07/04/24 06:45 73 16 99/59 L 96 07/04/24 06:31 85 11 L 98/60 L 87 L 07/04/24 06:21 Nasal Cannula 07/04/24 06:00 64 14 82/50 L 91 L 07/04/24 05:15 86/53 L 07/04/24 05:00 95 H 12 96/59 L 93 L 07/04/24 05:00 Nasal Cannula 07/04/24 04:00 78 91 L Nasal Cannula 07/04/24 04:00 98.5 F 87 12 89/59 L 94 L Nasal Cannula 07/04/24 04:00 87 07/04/24 03:00 Nasal Cannula 07/04/24 03:00 82 17 90/61 L 92 L Nasal Cannula 07/04/24 02:00 74 21 105/71 L 95 Nasal Cannula 07/04/24 01:00 Nasal Cannula 07/04/24 01:00 61 15 88/53 L 96 Nasal Cannula 07/04/24 00:15 90/70 L 07/04/24 00:00 78 07/04/24 00:00 64 97 Nasal Cannula 07/04/24 00:00 99.4 F 65 18 108/70 L 94 L Nasal Cannula 07/03/24 23:00 Nasal Cannula 07/03/24 23:00 76 15 94/50 L 95 Nasal Cannula 07/03/24 22:00 57 L 16 78/46 L 97 Nasal Cannula 07/03/24 22:00 78/46 L 07/03/24 22:00 57 L 14 96 07/03/24 21:00 87/63 L 07/03/24 21:00 74 13 95 07/03/24 20:58 Nasal Cannula 07/03/24 20:10 Nasal Cannula 07/03/24 20:00 71 96 Nasal Cannula 07/03/24 20:00 98.9 F 72 16 113/70 94 L Nasal Cannula 07/03/24 20:00 68 07/03/24 19:00 103/65 L 07/03/24 19:00 62 26 H 96 Nasal Cannula 07/03/24 18:49 Nasal Cannula 07/03/24 18:00 60 20 93/74 L 97 07/03/24 17:30 60 15 108/67 L 98 07/03/24 17:00 Nasal Cannula 07/03/24 17:00 60 15 103/68 L 98 Nasal Cannula O2 Flow Rate FiO2 07/04/24 16:15 07/04/24 16:00 07/04/24 16:00 07/04/24 15:45 07/04/24 15:45 07/04/24 15:36 2 07/04/24 15:00 07/04/24 15:00 07/04/24 14:49 2 07/04/24 14:45 07/04/24 14:45 07/04/24 14:41 07/04/24 14:41 07/04/24 14:36 07/04/24 14:00 07/04/24 13:45 07/04/24 13:30 07/04/24 13:15 07/04/24 13:05 07/04/24 13:04 07/04/24 13:01 07/04/24 12:45 07/04/24 12:30 07/04/24 12:15 07/04/24 12:15 07/04/24 12:10 2 07/04/24 12:00 07/04/24 12:00 07/04/24 12:00 07/04/24 11:46 07/04/24 11:45 07/04/24 11:45 07/04/24 11:36 07/04/24 11:30 07/04/24 11:15 07/04/24 11:00 07/04/24 11:00 2 07/04/24 10:45 07/04/24 10:30 07/04/24 10:30 07/04/24 10:15 07/04/24 10:15 07/04/24 10:01 07/04/24 10:01 07/04/24 10:00 07/04/24 09:45 07/04/24 09:30 07/04/24 09:15 07/04/24 09:00 2 07/04/24 09:00 07/04/24 08:45 07/04/24 08:31 07/04/24 08:16 07/04/24 08:00 2 07/04/24 08:00 07/04/24 08:00 07/04/24 08:00 07/04/24 07:45 07/04/24 07:30 07/04/24 07:15 07/04/24 07:15 07/04/24 07:00 07/04/24 07:00 07/04/24 06:45 07/04/24 06:31 07/04/24 06:21 2 07/04/24 06:00 07/04/24 05:15 07/04/24 05:00 07/04/24 05:00 2 07/04/24 04:00 2 07/04/24 04:00 07/04/24 04:00 07/04/24 03:00 2 07/04/24 03:00 2 07/04/24 02:00 2 07/04/24 01:00 2 07/04/24 01:00 07/04/24 00:15 07/04/24 00:00 07/04/24 00:00 2 07/04/24 00:00 2 07/03/24 23:00 2 07/03/24 23:00 2 07/03/24 22:00 2 07/03/24 22:00 07/03/24 22:00 07/03/24 21:00 07/03/24 21:00 07/03/24 20:58 2 07/03/24 20:10 2 28 07/03/24 20:00 2 07/03/24 20:00 2 07/03/24 20:00 07/03/24 19:00 07/03/24 19:00 07/03/24 18:49 2 07/03/24 18:00 07/03/24 17:30 07/03/24 17:00 2 07/03/24 17:00 2 Intake and Output 07/04/24 07/04/24 07/04/24 07:59 15:59 23:59 Intake Total 101.312 / 317.563 216.251 / 317.563 Output Total 3025 / 3025 0 / 3025 Balance -2923.688 / -2707.437 216.251 / -2707.437 Intake: Intake, Oral Amount 0 / 120 120 / 120 Intake, Total IV Amount 101.312 / 197.563 96.251 / 197.563 Output: Output, Urine Amount 3025 / 3025 0 / 3025 Other: Number of Unmeasured Voids 1 0 Number of Bowel Movements 1 1 Weight 75.296 kg Patient Weight 07/04/24 23:59 Weight 75.296 kg Laboratory Results - last 24 hr 07/04/24 07:48: WBC 3.7 L, RBC 3.36 L, Hgb 9.7 L, Hct 30.0 L, MCV 89.3, MCH 28.9, MCHC 32.3, RDW 15.2, Plt Count 178, MPV 9.8, Neut % (Auto) 55.3, Lymph % (Auto) 31.1, [place] % (Auto) 10.6 H, Eos % (Auto) 2.2, Baso % (Auto) 0.5, Neut # (Auto) 2.0, Lymph # (Auto) 1.1, [place] # (Auto) 0.4, Eos # (Auto) 0.1, Baso # (Auto) 0.0, Sodium 137, Potassium 3.8, Chloride 104, Carbon Dioxide 29, Anion Gap 7.8, BUN 3 L D, Creatinine 0.70, Estimated Creat Clear 65, Estimated GFR 109, Est GFR ( Amer) 132, Glucose 102 H, Calcium 7.7 L, Magnesium 2.1 D, Total Bilirubin 0.5, AST 186 H, ALT 89 H, Alkaline Phosphatase 73, Total Protein 5.7 L, Albumin 2.9 L, Globulin 2.8, Albumin/Globulin Ratio 1.0 L I & O for Labs for Last 24 Hours: Intake & Output 07/01/24 07/02/24 07/03/24 07/04/24 23:59 23:59 23:59 23:59 Intake Total 2208.499 / 2208.499 1953.813 / 9945.013 7297.063 / 2179.063 317.563 / 317.563 Output Total 2550 / 2550 2410 / 2420 1605 / 1830 3025 / 3025 Balance -341.501 / -341.501 -456.187 / -466.187 574.063 / 349.063 -2707.437 / -2707.437 Weight 78.335 kg 77.468 kg 78.426 kg 75.296 kg Microbiology Reports for the Last 24 Hours: Microbiology 06/30/24 12:10 Sputum - Expectorated Sputum Gram Stain - Final 06/30/24 12:10 Sputum - Expectorated Sputum Sputum Culture - Preliminary Gram Positive Cocci 06/30/24 04:56 Urine,Catheterized Urine Culture - Final 06/30/24 04:58 Blood Blood Culture - Preliminary NO GROWTH AFTER 4 DAYS 06/30/24 04:56 Blood Blood Culture - Preliminary NO GROWTH AFTER 4 DAYS Constitutional: Present no acute distress, average body habitus, chronically ill appearing and cooperative Head: Present atraumatic and normocephalic ENT: Present normal exam Respiratory: Present rhonchi and normal respiratory effort; Absent wheezes or crackles Cardiac: Present Reg Rate and Rhythm GI: Present soft and normal bowel sounds; Absent distention or tenderness Extremities: Present normal inspection and full ROM Skin: Present intact; Absent erythema Neuro: Present Grossly Intact, alert, awake and moves all extremities Comment:: Oriented to self only. Assessment and Plan *Assessment and plan (1) Septic shock: Status: Acute Category: Medical Code(s): A41.9 - Sepsis, unspecified organism; R65.21 - Severe sepsis with septic shock (2) Flu: Status: Acute Category: Medical Code(s): J11.1 - Influenza due to unidentified influenza virus with other respiratory manifestations (3) Abdominal aortic aneurysm (AAA): Status: Acute Category: Medical Code(s): I71.40 - Abdominal aortic aneurysm, without rupture, unspecified (4) Pneumonia: Status: Acute Category: Medical Code(s): J18.9 - Pneumonia, unspecified organism (5) Schizophrenia: Problem Comment: stable Status: Chronic Qualifiers: Schizophrenia type: undifferentiated schizophrenia Qualified Code(s): F20.3 - Undifferentiated schizophrenia Category: Medical Code(s): F20.9 - Schizophrenia, unspecified (6) Unspecified dementia without behavioral disturbance: Status: Chronic Category: Medical Code(s): F03.90 - Unspecified dementia, unspecified severity, without behavioral disturbance, psychotic disturbance, mood disturbance, and anxiety (7) COPD (chronic obstructive pulmonary disease): Status: Chronic Qualifiers: COPD type: unspecified COPD Qualified Code(s): J44.9 - Chronic obstructive pulmonary disease, unspecified Category: Medical Code(s): J44.9 - Chronic obstructive pulmonary disease, unspecified (8) Urinary retention: Status: Acute Category: Medical Code(s): R33.9 - Retention of urine, unspecified Plan 79-year-old male who presents in septic shock. Found to be positive for flu. New oxygen requirement. Concerning for pneumonia on imaging in the ER. Discussed case with ER physician, request admission for septic shock and treatment of flu. I agreed to admit for further management. Admitted to the ICU for further care. Off Tamiflu due to elevated liver enzymes. Weaning norepinephrine. Tolerating midodrine. Showing slow improvement. Continues to require ICU level of care due to norepinephrine drip. Problems addressed as follows: Septic shock Acute hypoxemic respiratory failure Flu pneumonia COPD -Continue norepinephrine for MAP greater than 65. Wean to 4 mcg/h. Continue midodrine at 10 mg 3 times a day. - Supplemental oxygen as needed, goal sats greater 90%. Currently on 2 L - White count remains normal at 3.7, hemoglobin stable at 9.7. Kidney function and creatinine stable with BUN 3, creatinine 0.7. Liver enzymes showing slow improvement, AST 186, ALT 89 today. - Repeat CBC, CMP, magnesium ordered for the morning. -Tylenol as needed for fever Urinary retention: Necessitated in and out cath overnight. Will initiate tamsulosin 0.4 mg twice daily, caution with hypotension. Attempting to avoid [place] catheter. If continues to have retention however, we will have to place [place] later today. Of note, echo showed the following: -EF preserved at 55%. RV and both atria not well-visualized. Significant mitral and aortic valvulopathy. RVSP is 30 to 35 mmHg. No concern for cardiogenic shock as cause of his hypotension at this time . AAA: Present on previous imaging. Has grown a little however family and patient have no desire to intervene. Family understands that if his ruptures patient will . Per my review of CT, 7-1/2 cm in diameter with large thrombus that has calcifications. No active leak on CT angiogram. Will hold anticoagulation at this time History of schizophrenia: Seroquel 100 mg nightly, continue Ativan 0.5 mg twice daily Dysphagia: Modified barium swallow performed 07/02, Having risk for aspiration with all consistencies. Speech recommended modified diet. Full code Modified diet per speech recommendations.
[2024-07-04] MEDS: QUETIAPINE 100MG TABLET 100 MG PO (20:07)
[2024-07-04] MEDS: PANTOPRAZOLE 40MG TABLET 40 MG PO (20:07)
--- NOTE | 2024-07-04 22:48 | PC.NURSE ---
Pt IV beeping reading distal occlusion even after nurse repositioned pts arm. Nurse tried to pull back on midline and no blood return noted. Blood return however was noted at beginning of the shift, midline also flushed well after blood return at beginning of the shift. After nurse did not receive any blood return, nurse tried to flush and was unable to. Nurse repositioned pts arm, as well as changing the cap on the midline. None of these interventions helped. Nurse brought in second RN Humphrey, this nurse was also unable to flush or pull back on midline. Primary nurse decided it would be best to pull midline. Midline was pulled at 2244, catheter intact. Occlusive dressing placed. Pts vital signs are as shown below: BP- 94/57 HR-101 O2- 96 RR- 18
[2024-07-05] VITALS (24 sets, daily range): BP systolic 82–135; BP diastolic 43–86; PULSE 90–110; RESP 11–22; TEMP 36.6–37.6; O2SAT 88–96; BMI 26.4
[2024-07-05] MEDS: PIPERACILLIN/TAZO 4.5 GM in 0.9 % SODIUM CHLORIDE 100 ML IV ×3 (05:50→21:57)
[2024-07-05 06:10] LABS: Basophils % 0.2 % (0.1-2.0); Eosinophils % 0.5 % (0.1-12.0); Hematocrit 29.8 % (42.0-52.0); Hemoglobin 9.7 g/dL (14.1-18.0); Lymphocytes # 0.9 K/mm3 (0.7-4.5); Lymphocytes % 22.1 % (10-50); Mean Corpuscular HGB Conc 32.6 g/dL (31.8-35.4); Mean Corpuscular Hemoglobin 28.4 pg (27.0-31.2); Mean Corpuscular Volume 87.4 fl (80-94); Mean Platelet Volume 9.4 fl (7.4-10.4); Monocytes # 0.4 K/mm3 (0.1-1.0); Neutrophils # 2.8 K/mm3 (1.8-7.8); Platelet Count 213 K/mm3 (142-424); Red Blood Count 3.41 M/mm3 (4.60-6.20); Red Cell Distribution Width 14.9 % (11.5-17.5); White Blood Count 4.1 K/mm3 (4.8-10.8)
[2024-07-05 06:49] LABS: Alanine Aminotransferase 81 U/L (12-78); Albumin Level 3.1 g/dl (3.5-5.0); Albumin/Globulin Ratio 1.1 (1.1-1.8); Alkaline Phosphatase 74 U/L (38-126); Anion Gap 10.2 mEq/L (5-15); Aspartate Amino Transferase 148 U/L (17-59); Bilirubin,Total 0.5 mg/dl (0.2-1.3); Blood Urea Nitrogen 6 mg/dl (9-20); Calcium 8.2 mg/dl (8.4-10.2); Carbon Dioxide 26 mmol/L (22.0-30.0); Chloride 103 mmol/L (98-107); Creatinine Clearance Estimated 66 mL/min (50-200); Estimated Glomerular Filt Rate 109 ml/min (>60); GFR (African American) 132 ML/MIN (>60); Globulin 2.8 g/dL (1.3-3.2); Glucose 85 mg/dl (74-100); Magnesium 1.9 mg/dl (1.6-2.3); Potassium 4.2 mmoL/L (3.5-5.1); Sodium 135 mmol/L (136-145); Total Protein,Serum 5.9 g/dl (6.3-8.2)
[2024-07-05] MEDS: ENOXAPARIN 40MG/0.4ML SYRINGE 40 MG SUBCUT (08:21)
[2024-07-05] MEDS: MIDODRINE HCL 5 MG TABLET 10 MG PO (08:23)
[2024-07-05] MEDS: AZITHROMYCIN 250MG TABLET 500 MG PO (08:24)
[2024-07-05] MEDS: SENNA 8.6MG TABLET 8.6 MG PO ×2 (08:25→21:56)
[2024-07-05] MEDS: LORazepam 1MG TABLET 0.5 MG PO ×2 (08:27→22:03)
--- NOTE | 2024-07-05 09:52 | P.PN_ITS ---
Subjective *Date: 07/05/24 *Time: 11:20 Interval history: No acute respiratory events over the weekend. Patient denies any new respiratory complaints. Pulmonology Exam Inpatient Vital signs and Labs for Last 24 Hours: Temp Pulse Resp BP Pulse Ox O2 Del Method O2 Flow Rate 99.1 F 94 H 16 113/60 94 L Room Air 2 07/05/24 08:20 07/05/24 09:00 07/05/24 09:00 07/05/24 09:00 07/05/24 09:00 07/05/24 09:00 07/05/24 06:37 FiO2 28 07/03/24 20:10 Laboratory Results - last 24 hr 07/05/24 05:55: WBC 4.1 L, RBC 3.41 L, Hgb 9.7 L, Hct 29.8 L, MCV 87.4, MCH 28.4, MCHC 32.6, RDW 14.9, Plt Count 213, MPV 9.4, Neut % (Auto) 68.0, Lymph % (Auto) 22.1, [place] % (Auto) 9.0, Eos % (Auto) 0.5, Baso % (Auto) 0.2, Neut # (Auto) 2.8, Lymph # (Auto) 0.9, [place] # (Auto) 0.4, Eos # (Auto) 0.0, Baso # (Auto) 0.0, Sodium 135 L, Potassium 4.2, Chloride 103, Carbon Dioxide 26, Anion Gap 10.2, BUN 6 L D, Creatinine 0.70, Estimated Creat Clear 66, Estimated GFR 109, Est GFR ( Amer) 132, Glucose 85, Calcium 8.2 L, Magnesium 1.9, Total Bilirubin 0.5, AST 148 H, ALT 81 H, Alkaline Phosphatase 74, Total Protein 5.9 L , Albumin 3.1 L, Globulin 2.8, Albumin/Globulin Ratio 1.1 Temp Pulse Resp BP Pulse Ox O2 Del Method O2 Flow Rate 99.9 F H 76 18 96/54 L 94 L Nasal Cannula 5 06/30/24 09:05 06/30/24 12:13 06/30/24 12:13 06/30/24 09:05 06/30/24 08:17 06/30/24 09:05 06/30/24 09:05 Laboratory Results - last 24 hr 06/30/24 04:56: WBC 11.1 H, RBC 4.17 L, Hgb 12.1 L, Hct 37.3 L, MCV 89.4, MCH 29.0, MCHC 32.4, RDW 15.3, Plt Count 226, MPV 9.8, Neut % (Auto) 87.3 H, Lymph % (Auto) 4.7 L, [place] % (Auto) 7.5, Eos % (Auto) 0.0 L, Baso % (Auto) 0.1, Neut # (Auto) 9.7 H, Lymph # (Auto) 0.5 L, [place] # (Auto) 0.8, Eos # (Auto) 0.0, Baso # (Auto) 0.0, PT 12.2 H, INR 1.12 H, Sodium 138, Potassium 4.4, Chloride 99, Carbon Dioxide 20 L, Anion Gap 23.4 H, BUN 17, Creatinine 1.60 H, Estimated Creat Clear 43, Estimated GFR 42 L, Est GFR ( Amer) 51 L, Glucose 140 H, Calcium 9.0, Magnesium 1.7, Total Bilirubin 0.6, AST 93 H, ALT 44, Alkaline Phosphatase 88, Troponin I 0.05 H, Total Protein 7.4, Albumin 4.3, Globulin 3.1, Albumin/Globulin Ratio 1.4, Lipase 98, TSH 1.30, Free T4 0.98, Urine Color Yellow, Urine Appearance Clear, Urine pH 7.0, Ur Specific [place] 1.010, Urine Protein Negative, Urine Glucose (UA) Negative, Urine Ketones Negative, Urine Bl ood Negative, Urine Nitrate Negative, Urine Bilirubin Negative, Urine Urobilinogen 1.0, Ur Leukocyte Esterase Trace, Urine RBC None, Urine WBC 5-10, Ur Squamous Epith Cells 3-5, Ur Transition Epith Cell Occ, Urine Bacteria 2+, Stool Occult Blood Negative, Urine Opiates Screen Negative, Urine Methadone Screen Negative, Ur Barbituates Screen Negative, Ur Phencyclidine Scrn Negative, Ur Amphetamines Screen Negative, U Benzodiazepines Scrn Negative, Urine Cocaine Screen Negative, U Marijuana (THC) Screen Negative, HCV Ab MARTHA w/Rflx PCR Qn Negative, HIV Ag/Ab Combo Qual Negative 06/30/24 04:58: VBG pH 7.29 L, VBG pCO2 38.3, VBG pO2 28.9, VBG HCO3 18.2 L, VBG Total CO2 19.3 L, VBG O2 Saturation 46.5 L, VBG Base Excess -8.3 L, VBG Lactic Acid 8.0 H 06/30/24 06:20: Chlamy pneumoniae PCR Not detected, Adenovirus (PCR) Not detected, B. pertussis DNA (PCR) Not detected, Coronavirus OC43 (PCR) Not detected, Coronavirus HKU1 (PCR) Not detected, Coronavirus 229E (PCR) Not detected, SARS-CoV-2 (PCR) Not detected, Coronavirus NL63 (PCR) Not detected, Human Metapneumovir PCR Not detected, Influenza A (H1) PCR Not detected, Influ A (H1N1/09) PCR Detected A, Influenza A (H3) PCR Not detected, Influenza Type A (PCR) Not detected, Influenza Type B (PCR) Not detected, M. pneumoniae (PCR) Not detected, Parainfluenza 1 (PCR) Not detected, Parainfluenza 2 (PCR) Not detected, Parainfluenza 3 (PCR) Not detected, Parainfluenza 4 (PCR) Not detected, RSV (PCR) Not detected, Entero/Rhino (PCR) Not detected 06/30/24 09:28: Troponin I 0.04 H 06/30/24 09:45: Lactate 1.3 I & O for Labs for Last 24 Hours: Intake & Output 07/02/24 07/03/24 07/04/24 07/05/24 23:59 23:59 23:59 23:59 Intake Total 1953.813 / 3944.827 2782.063 / 2179.063 341.063 / 341.063 271.438 / 271.438 Output Total 2410 / 2420 1605 / 1830 3525 / 3525 1000 / 1000 Balance -456.187 / -466.187 574.063 / 349.063 -3183.937 / -3183.937 -728.562 / - 728.562 Weight 170 lb 12.603 oz 172 lb 14.4 oz 166 lb 168 lb 3.2 oz Intake & Output 06/27/24 06/28/24 06/29/24 06/30/24 23:59 23:59 23:59 23:59 Intake Total 22.362 / .362 Output Total 1999 Balance -1976.638 / -63 Weight 166 lb 8 oz Microbiology Reports for the Last 24 Hours: Microbiology 06/30/24 04:58 Blood Blood Culture - Final NO GROWTH AFTER 5 DAYS 06/30/24 04:56 Blood Blood Culture - Final NO GROWTH AFTER 5 DAYS 06/30/24 12:10 Sputum - Expectorated Sputum Gram Stain - Final 06/30/24 12:10 Sputum - Expectorated Sputum Sputum Culture - Preliminary Gram Positive Cocci 06/30/24 04:56 Urine,Catheterized Urine Culture - Final Constitutional: Present moderate distress Head: Present normocephalic and atraumatic ENT: Present normal exam, normal oropharynx and mucous membranes moist Neck: Present normal inspection and full ROM Respiratory: Present respiratory distress, rhonchi and able to speak in complete sentences; Absent prolonged expiratory phase, wheezes, crackles or diminished air movement Cardiac: Present S1/S2, Tachycardia and radial pulses present GI: Present soft and distention; Absent tenderness or guarding Skin: Present intact; Absent cyanosis or jaundice Neuro: Present alert and awake; Absent oriented x 3 Extremities: Present normal inspection; Absent clubbing or cyanosis Psychiatric: Present cooperative and anxious Assessment and Plan *Assessment and plan (1) Septic shock: Status: Acute Category: Medical Code(s): A41.9 - Sepsis, unspecified organism; R65.21 - Severe sepsis with septic shock (2) Influenza A: Status: Acute Category: Medical Code(s): J10.1 - Influenza due to other identified influenza virus with other respiratory manifestations (3) Acute respiratory failure with hypoxia: Status: Acute Category: Medical Code(s): J96.01 - Acute respiratory failure with hypoxia Plan Mr. You is a 79-year-old male greater than [id number] smoking to last moved around 1969, prison resident presented daily worsening respiratory symptoms pulmonary was called for further evaluation and management. CTA PE protocol upon admission no evidence of pulmonary embolism. No dense consolidative airspace changes noted with elevated left hemidiaphragm likely chronic. Eczematous changes noted. CT abdomen also concerning for large abdominal aortic aneurysm with mural thrombus occupying more than 50% of the lumen. Present on his CT abdomen from 2020 worsening. Hemodynamically unstable needing pressor status post sepsis bolus on admission. Febrile. Increasing oxygen requirements. Neutrophilic predominant shemar kocytosis. WILLIAM with Cr now at 1.60. Echocardiogram limited technically difficult secondary to poor acoustic windows RVSP estimated at 30-35 mm Hg. Interval update: No acute respiratory vents over the weekend. Improving AST. Relatively stable ALT. Alk phos within normal limits along with total bilirubin. Statins and oseltamavir on hold. Preliminary sputum cultures concerning for haemophilus influenza from admission. Wean from pressors. Plan: Continue oxygen supplementation to maintain O2 saturation goal of 90% and above Hold Tamiflu and statins. DuoNebs 4 times daily scheduled Currently receiving Zosyn and Azithromycin for 500 mg daily pending culture results and nasal MRSA PCR.
[2024-07-05] MEDS: MIDODRINE HCL 5 MG TABLET 7.5 MG PO (12:47)
--- NOTE | 2024-07-05 15:02 | HMH.OTEV ---
OT Inpatient Evaluation Rehab OT IP Evaluation Start: 07/05/24 10:57 Freq: ONCE Status: Active Protocol: Document 07/05/24 14:45 RMARSHALL (Rec: 07/05/24 15:02 [facility] [id number]) Rehab OT IP Assessment Subjective History Pt oriented to self on arrival . However, pt unable to follow any simple commands requiring max visual, verbal, and tactile cues to engage in therapy evaluation. Pt's nurse present and supportive during evaluation. She reports he has only been oriented to self for her as well. Pt admitted on 06/30/24 due to sepsis and PNA. History and physical: Mr. You is a 79-year-old male with known history of dilated abdominal aortic aneurysm, COPD not on oxygen, hyperlipidemia, diabetes, anemia. He lives [facility]. Gets around with a wheelchair and able to transfer with assistance. Presented to the ER with altered mental status. On initial workup, patient found to be significantly weak. He has been having falls at the long term, most recently this morning. Oriented only to self. Workup in the ER, patient found hypotensive with white count of 11, tachycardic, and hypoxic on room air. Concern for pneumonia on chest imaging. Workup positive for flu A. Initiated on supplemental oxygen. Blood pressure did not improve with sepsis bolus. Patient initiated on Levophed due to hypotension. Medicine was consulted for admission to the ICU given septic shock secondary to flu pneumonia. History obtained from chart, patient did not provide any history by the time he arrived to the floor. Frankly confused with minimal response to questions. Will open eyes but not responding with answers. Blood pressure showing improvement with MAP above 65 on norepinephrine. Glucose elevated initially at 200. Stable on supplemental oxygen of 2 L. Pulmonology consulted to assist with care. ER spoke to [facility] only who states they would like full code but also do not have any desire to proceed with any intervention on patient's AAA. His aneurysm is well-known to them. Appears a little bit larger on imaging today. They understand the severity and the risks associated with it. Initiated on Tamiflu. Subjective Therapist unaware of pt's previous level of functioning. Per chart review he lived at [facility] and used wheelchair for functional transfers. According to notes, pt was able to transfer to and from wheelchair with assistance. During evaluation , pt required max assist x2 to complete bed mobility to go from supine to sitting at eob. Most of the time, pt kept legs tucked up to his body. He would not extend legs despite max verbal cues provided by therapist. Upon sitting, he was able to sit at eob with sba for ~1 minute before attempting to lay back down independently. Therapist did attempt to ask questions about previous level of functioning, but he kept mumbling words unrelated to questions. Objective Patient Orientation Person Right Upper Extremity Gross ROM Min Limitation <25% Left Upper Extremity Gross ROM Min Limitation <25% Shoulder ROM Limitations Muscle Weakness Elbow ROM Limitations Muscle Weakness Wrist Limitations of Range of Motion Muscle Weakness Bed Mobility bed mobility-scooting Assist Level Maximum x 2 (75% assist) Rehab OT IP prob,goals,plan Problems Date of Evaluation: 07/05/24 OT IP Problems Bed Mobility,Transfers,Balance ,Self care,Safety Rehab Potential Rehab Potential Good Equipment Needs Assistive Devices Rolling / Wheeled Walker Plan OT intervention Plan Bed Mobility,Transfers,Balance ,Self care,Safety,Therapeutic Exercise OT Plan Frequency Daily Duration LOS Discharge Goals Bed Mobility Ability Assistance x1 Sit to Stand Chair Transfer Ability Maximum x 1 (75% assist) Chair Transfer Ability Maximum x 1 (75% assist) Chair Transfer Technique Sit to/from Ambulatory Chair Transfer Assistive Devices Rolling Walker Feeding Ability Assist with Tray Set Up Lower Body Dressing Ability Moderate Assistance Upper Body Dressing Ability Minimal Assistance Bathing Ability Maximum Assistance Performing Toilet Hygiene Ability Maximum Assistance Overall Commode/Toilet Transfer Ability Moderate Assistance Commode/Toilet Transfer Technique Stand Step Pivot Commode/Toilet Transfer Assistive Grab Bars Devices Oral Care Assist Moderate Assistance Decrease in Endurance Yes Discharge Plan OT Discharge Plan Pt will continue to be seen for OT services while at [facility]. Upon returning back to [place], pt would benefit from skilled therapy services. Continued skilled therapy services is important in order for patient to improve strength, safety, endurance, ADL independence, and functional transfers to reach PLOF/PLOI. Eval Complexity Eval Charge Codes 70149 - Moderate Complexity PHYSICIAN CERTIFICATION: I certify the specified therapy services for Jovon You are required, authorized, and reviewed every 30 days.
--- NOTE | 2024-07-05 16:08 | PC.NURSE ---
danyelle ortiz rn called report to breonna willis
--- NOTE | 2024-07-05 16:15 | PC.NURSE ---
pt transported to med surg floor via stretcher to room 210
--- NOTE | 2024-07-05 16:22 | HMH.PTEV ---
Physical Therapy Evaluation Rehab PT IP Evaluation Start: 07/05/24 10:57 Freq: ONCE Status: Active Protocol: Document 07/05/24 16:11 ESSIE (Rec: 07/05/24 16:21 ESSIE [id number]) Subjective/History History History Per H&P: Mr. You is a 79- year-old male with known history of dilated abdominal aortic aneurysm, COPD not on oxygen, hyperlipidemia, diabetes, anemia. He lives [facility]. Gets around with a wheelchair and able to transfer with assistance. Presented to the ER with altered mental status. On initial workup, patient found to be significantly weak . He has been having falls at the assisted, most recently this morning. Oriented only to self. Workup in the ER, patient found hypotensive with white count of 11, tachycardic, and hypoxic on room air. Concern for pneumonia on chest imaging . Workup positive for flu A. Initiated on supplemental oxygen. Blood pressure did not improve with sepsis bolus. Patient initiated on Levophed due to hypotension. Medicine was consulted for admission to the ICU given septic shock secondary to flu pneumonia. Subjective Subjective PT unaware of pt's previous level of functioning d/t pt's poor cognition. Per chart review he lived at [facility] and used wheelchair for functional transfers. According to notes, pt was able to transfer to and from wheelchair with assistance. New diagnosis of cancer in past 12 No months? Rehab PT IP Eval Objective Appearance Patient Behavior Patient Baseline Patient Orientation Name Difficulty following instructions moderate Ambulation Patient Able to Ambulate No Balance Ability to Arise Able, uses arms to help Transfers Bed Transfer Ability Maximum x 2 (75% assist) Rehab PT IP prob,goals,plan Problems Date of Evaluation: 07/05/24 PT IP Problems Bed Mobility,Transfers,Gait, Balance,Self care,Safety Rehab Potential Rehab Potential Fair Plan PT Intervention Plan Bed Mobility,Transfers,Gait, Balance,Self care,Safety, Therapeutic Exercise Other Intervention Plan 1-2 times PT Plan Frequency Daily Duration LOS Discharge Goals Bed Transfer Ability Moderate x 1 (50% assist) Sit to Stand Chair Transfer Ability Moderate x 1 (50% assist) Discharge Plan PT Discharge Plan Initial physical therapy evaluation performed. Patient may present below baseline at this time in functional mobility, transfers, and strength. PT recommending pt receive rehab services upon returning to assisted. Pt would benefit from skilled PT while at [facility] to prevent further functional decline and maximize safety with mobility . Eval Complexity Eval Charge Codes 47804 - Moderate Complexity PHYSICIAN CERTIFICATION: I certify the specified therapy services for Jovon You are required, authorized, and reviewed every 30 days.
--- NOTE | 2024-07-05 19:29 | P.PN_ITS ---
Subjective *Date: 07/05/24 *Time: 21:18 Interval history: Weaned off norepinephrine today. Weaned to room air. Showing improvement. De- escalate from stepdown. Tolerating p.o. intake. Voiding independently. Denies any chest pain or shortness of breath. Will monitor off pressors. Medical Exam Vital signs and Labs for Last 24 Hours: Vital Signs Temp Pulse Pulse Resp BP Pulse Ox O2 Del Method 07/05/24 18:28 Room Air 07/05/24 17:00 Room Air 07/05/24 16:00 90 07/05/24 16:00 97 H 16 134/84 94 L Room Air 07/05/24 15:00 Room Air 07/05/24 15:00 97 H 14 93 L 07/05/24 15:00 120/86 07/05/24 14:30 100/73 L 07/05/24 14:00 97 H 21 93/61 L 92 L 07/05/24 13:10 Room Air 07/05/24 13:00 96 H 19 95/69 L 94 L 07/05/24 12:00 95 Room Air 07/05/24 12:00 90 07/05/24 12:00 96 H 14 94/58 L 93 L 07/05/24 11:00 Room Air 07/05/24 11:00 101 H 18 103/54 L 88 L 07/05/24 10:00 104 H 13 104/57 L 95 07/05/24 09:00 Room Air 07/05/24 09:00 94 H 16 113/60 94 L Room Air 07/05/24 08:20 99.1 F 07/05/24 08:00 100 H 07/05/24 08:00 100 H 91 L Room Air 07/05/24 08:00 98 F 100 H 17 111/65 91 L Room Air 07/05/24 07:00 95 H 14 95/53 L 96 07/05/24 06:37 Nasal Cannula 07/05/24 06:30 82/47 L 07/05/24 06:30 96 H 15 96 07/05/24 06:00 99/64 L 07/05/24 06:00 98 H 13 96 Nasal Cannula 07/05/24 05:00 92/46 L 07/05/24 05:00 101 H 18 93 L Nasal Cannula 07/05/24 04:41 Nasal Cannula 07/05/24 04:30 96/43 L 07/05/24 04:30 100 H 22 95 07/05/24 04:00 100 H 07/05/24 04:00 102 H 94 L Nasal Cannula 07/05/24 04:00 84/50 L 07/05/24 04:00 98.7 F 95 H 11 L 95 Nasal Cannula 07/05/24 03:00 105/65 L 07/05/24 03:00 108 H 15 95 07/05/24 03:00 Nasal Cannula 07/05/24 02:00 98/62 L 07/05/24 02:00 108 H 18 94 L 07/05/24 01:00 Nasal Cannula 07/05/24 01:00 99/64 L 07/05/24 01:00 110 H 15 94 L 07/05/24 00:00 110 H 07/05/24 00:00 100/59 L 07/05/24 00:00 99.6 F 105 H 20 95 Nasal Cannula 07/05/24 00:00 109 H 94 L Nasal Cannula 07/04/24 23:00 95/60 L 07/04/24 23:00 45 L 18 95 Nasal Cannula 07/04/24 23:00 Nasal Cannula 07/04/24 22:00 83/45 L 07/04/24 22:00 105 H 13 94 L 07/04/24 21:17 106 H 15 98 Nasal Cannula 07/04/24 21:17 76/45 L 07/04/24 20:59 Nasal Cannula 07/04/24 20:30 108 H 17 96 07/04/24 20:30 119/74 07/04/24 20:00 110 H 07/04/24 20:00 108/68 L 07/04/24 20:00 99.7 F H 108 H 18 94 L Nasal Cannula 07/04/24 20:00 88 96 Nasal Cannula O2 Flow Rate 07/05/24 18:28 07/05/24 17:00 07/05/24 16:00 07/05/24 16:00 07/05/24 15:00 07/05/24 15:00 07/05/24 15:00 07/05/24 14:30 07/05/24 14:00 07/05/24 13:10 07/05/24 13:00 07/05/24 12:00 07/05/24 12:00 07/05/24 12:00 07/05/24 11:00 07/05/24 11:00 07/05/24 10:00 07/05/24 09:00 07/05/24 09:00 07/05/24 08:20 07/05/24 08:00 07/05/24 08:00 07/05/24 08:00 07/05/24 07:00 07/05/24 06:37 2 07/05/24 06:30 07/05/24 06:30 07/05/24 06:00 07/05/24 06:00 2 07/05/24 05:00 07/05/24 05:00 2 07/05/24 04:41 2 07/05/24 04:30 07/05/24 04:30 07/05/24 04:00 07/05/24 04:00 2 07/05/24 04:00 07/05/24 04:00 2 07/05/24 03:00 07/05/24 03:00 07/05/24 03:00 2 07/05/24 02:00 07/05/24 02:00 07/05/24 01:00 2 07/05/24 01:00 07/05/24 01:00 07/05/24 00:00 07/05/24 00:00 07/05/24 00:00 2 07/05/24 00:00 2 07/04/24 23:00 07/04/24 23:00 2 07/04/24 23:00 2 07/04/24 22:00 07/04/24 22:00 07/04/24 21:17 2 07/04/24 21:17 07/04/24 20:59 2 07/04/24 20:30 07/04/24 20:30 07/04/24 20:00 07/04/24 20:00 07/04/24 20:00 2 07/04/24 20:00 2 Intake and Output 07/05/24 07/05/24 07/05/24 07:59 15:59 23:59 Intake Total 221.438 / 441.438 220 / 441.438 0 / 441.438 Output Total 1000 / 1550 550 / 1550 Balance -778.562 / -1108.562 -330 / -1108.562 0 / -1108.562 Intake: Intake, Oral Amount 100 / 320 220 / 320 0 / 320 Intake, Total IV Amount 121.438 / 121.438 0 / 121.438 Norepinephrine Bitartrate/D5w 8 0 / 0 mg In 250 ml @ 18 MCG/MIN 33. 75 mls/hr IV .[id number] [facility] Rx#: [id number] Piperacillin/Tazo 4.5 gm In 0.9 100 / 100 % Sodium Chloride 100 ml @ 200 mls/hr IV Q8H [facility] Rx#:[id number] Output: Output, Urine Amount 1000 / 1550 550 / 1550 Other: Number of Unmeasured Voids 0 Number of Bowel Movements 1 Weight 76.294 kg Patient Weight 07/05/24 23:59 Weight 76.294 kg Laboratory Results - last 24 hr 07/05/24 05:55: WBC 4.1 L, RBC 3.41 L, Hgb 9.7 L, Hct 29.8 L, MCV 87.4, MCH 28.4, MCHC 32.6, RDW 14.9, Plt Count 213, MPV 9.4, Neut % (Auto) 68.0, Lymph % (Auto) 22.1, Caswell % (Auto) 9.0, Eos % (Auto) 0.5, Baso % (Auto) 0.2, Neut # (Auto) 2.8, Lymph # (Auto) 0.9, Caswell # (Auto) 0.4, Eos # (Auto) 0.0, Baso # (Auto) 0.0, Sodium 135 L, Potassium 4.2, Chloride 103, Carbon Dioxide 26, Anion Gap 10.2, BUN 6 L D, Creatinine 0.70, Estimated Creat Clear 66, Estimated GFR 109, Est GFR ( Amer) 132, Glucose 85, Calcium 8.2 L, Magnesium 1.9, Total Bilirubin 0.5, AST 148 H, ALT 81 H, Alkaline Phosphatase 74, Total Protein 5.9 L , Albumin 3.1 L, Globulin 2.8, Albumin/Globulin Ratio 1.1 I & O for Labs for Last 24 Hours: Intake & Output 07/02/24 07/03/24 07/04/24 07/05/24 23:59 23:59 23:59 23:59 Intake Total 1953.813 / 2337.911 8992.063 / 2179.063 341.063 / 341.063 441.438 / 441.438 Output Total 2410 / 2420 1605 / 1830 3525 / 3525 1550 / 1550 Balance -456.187 / -466.187 574.063 / 349.063 -3183.937 / -3183.937 -1108.562 / -1108.562 Weight 77.468 kg 78.426 kg 75.296 kg 76.294 kg Microbiology Reports for the Last 24 Hours: Microbiology 06/30/24 12:10 Sputum - Expectorated Sputum - Final Not Reportable 06/30/24 12:10 Sputum - Expectorated Sputum - Final Not Reportable 06/30/24 12:10 Sputum - Expectorated Sputum - Final Not Reportable 06/30/24 12:10 Sputum - Expectorated Sputum - Final Not Reportable 06/30/24 12:10 Sputum - Expectorated Sputum - Final Not Reportable 06/30/24 12:10 Sputum - Expectorated Sputum Gram Stain - Final 06/30/24 12:10 Sputum - Expectorated Sputum Sputum Culture - Preliminary Gram Positive Cocci 06/30/24 04:58 Blood Blood Culture - Final NO GROWTH AFTER 5 DAYS 06/30/24 04:56 Blood Blood Culture - Final NO GROWTH AFTER 5 DAYS Constitutional: Present no acute distress, average body habitus, chronically ill appearing and cooperative Head: Present atraumatic and normocephalic ENT: Present normal exam Respiratory: Present rhonchi and normal respiratory effort; Absent wheezes or crackles Cardiac: Present Reg Rate and Rhythm GI: Present soft and normal bowel sounds; Absent distention or tenderness Extremities: Present normal inspection and full ROM Skin: Present intact; Absent erythema Neuro: Present Grossly Intact, alert, awake and moves all extremities Comment:: Oriented to self only. Assessment and Plan *Assessment and plan (1) Septic shock: Status: Acute Category: Medical Code(s): A41.9 - Sepsis, unspecified organism; R65.21 - Severe sepsis with septic shock (2) Flu: Status: Acute Category: Medical Code(s): J11.1 - Influenza due to unidentified influenza virus with other respiratory manifestations (3) Abdominal aortic aneurysm (AAA): Status: Acute Category: Medical Code(s): I71.40 - Abdominal aortic aneurysm, without rupture, unspecified (4) Pneumonia: Status: Acute Category: Medical Code(s): J18.9 - Pneumonia, unspecified organism (5) Schizophrenia: Problem Comment: stable Status: Chronic Qualifiers: Schizophrenia type: undifferentiated schizophrenia Qualified Code(s): F20.3 - Undifferentiated schizophrenia Category: Medical Code(s): F20.9 - Schizophrenia, unspecified (6) Unspecified dementia without behavioral disturbance: Status: Chronic Category: Medical Code(s): F03.90 - Unspecified dementia, unspecified severity, without behavioral disturbance, psychotic disturbance, mood disturbance, and anxiety (7) COPD (chronic obstructive pulmonary disease): Status: Chronic Qualifiers: COPD type: unspecified COPD Qualified Code(s): J44.9 - Chronic obstructive pulmonary disease, unspecified Category: Medical Code(s): J44.9 - Chronic obstructive pulmonary disease, unspecified (8) Urinary retention: Status: Acute Category: Medical Code(s): R33.9 - Retention of urine, unspecified Plan 79-year-old male who presents in septic shock. Found to be positive for flu. New oxygen requirement. Concerning for pneumonia on imaging in the ER. Discussed case with ER physician, request admission for septic shock and treatment of flu. I agreed to admit for further management. Admitted to the ICU for further care. Off Tamiflu due to elevated liver enzymes. Weaned off norepinephrine. Tolerating midodrine. On room air today. Monitor for 24hrs off norepinepinephrine before DC back to [place]. Problems addressed as follows: Septic shock Acute hypoxemic respiratory failure Flu pneumonia COPD - off norepinephrine this morning. Continue midodrine, decrease to 5mg 3 times a day. - Supplemental oxygen as needed, goal sats greater 90%. Currently on RA - White count remains normal at 4.1, hemoglobin stable at 9.7. Kidney function and creatinine stable with BUN 6, creatinine 0.7. Liver enzymes showing slow improvement, AST 148, ALT 81 today. - Repeat CBC, CMP, magnesium ordered for the morning. - Tylenol as needed for fever Urinary retention: Necessitated in and out cath 2 nights ago, tolerating tamsulosin 0.4 mg twice daily. Attempting to avoid Fel[place] catheter. voiding daily at this time. Of note, echo showed the following: -EF preserved at 55%. RV and both atria not well-visualized. Significant mitral and aortic valvulopathy. RVSP is 30 to 35 mmHg. No concern for cardiogenic shock as cause of his hypotension at this time . AAA: Present on previous imaging. Has grown a little however family and patient have no desire to intervene. Family understands that if his ruptures patient will . Per my review of CT, 7-1/2 cm in diameter with large thrombus that has calcifications. No active leak on CT angiogram. Will hold anticoagulation at this time History of schizophrenia: Seroquel 100 mg nightly, continue Ativan 0.5 mg twice daily Dysphagia: Modified barium swallow performed 07/02, Having risk for aspiration with all consistencies. Speech recommended modified diet. Full code Modified diet per speech recommendations.
[2024-07-05] MEDS: PANTOPRAZOLE 40MG TABLET 40 MG PO (21:56)
[2024-07-05] MEDS: MIDODRINE HCL 5 MG TABLET PO (21:56)
[2024-07-05] MEDS: QUETIAPINE 100MG TABLET 100 MG PO (21:56)
[2024-07-05] MEDS: TAMSULOSIN 0.4MG CAPSULE 0.4 MG PO (21:57)
--- NOTE | 2024-07-05 23:58 | PC.NURSE ---
Patients blood pressure low. Pt. sleeping and asymptomatic. Dr. Nirali Eason MD notified, states to [facility] patient
[2024-07-06] VITALS (7 sets, daily range): BP systolic 92–123; BP diastolic 46–74; PULSE 75–102; RESP 17–22; TEMP 36.7–37.1; O2SAT 91–95; BMI 26.2
[2024-07-06] MEDS: PIPERACILLIN/TAZO 4.5 GM in 0.9 % SODIUM CHLORIDE 100 ML IV (04:31)
--- NOTE | 2024-07-06 05:02 | PC.NURSE ---
Pt. is alert and orientated to his name only. Pt. on room air. Pt. speech is garbled with one or two words clear. Pt. is contracted in the legs. Pt. able to hold the side rails of the bed and move himself a little bit. Oral medication given with applesauce. Pt. has had some low blood pressures overnight otherwise vitals were stable. Purewick in place and pt. voiding. well. Call burk in reach. next to patient in the bed.
[2024-07-06 07:02] LABS: Alanine Aminotransferase 75 U/L (12-78); Albumin Level 3.1 g/dl (3.5-5.0); Albumin/Globulin Ratio 1.1 (1.1-1.8); Alkaline Phosphatase 63 U/L (38-126); Anion Gap 11.8 mEq/L (5-15); Aspartate Amino Transferase 129 U/L (17-59); Bilirubin,Total 0.7 mg/dl (0.2-1.3); Blood Urea Nitrogen 8 mg/dl (9-20); Calcium 8.1 mg/dl (8.4-10.2); Carbon Dioxide 22 mmol/L (22.0-30.0); Chloride 107 mmol/L (98-107); Creatinine Clearance Estimated 65 mL/min (50-200); Estimated Glomerular Filt Rate 93 ml/min (>60); GFR (African American) 113 ML/MIN (>60); Globulin 2.8 g/dL (1.3-3.2); Glucose 84 mg/dl (74-100); Potassium 3.8 mmoL/L (3.5-5.1); Sodium 137 mmol/L (136-145); Total Protein,Serum 5.9 g/dl (6.3-8.2)
[2024-07-06 07:31] LABS: Basophils % 0.5 % (0.1-2.0); Eosinophils # 0.1 K/mm3 (0.0-0.4); Eosinophils % 1.7 % (0.1-12.0); Hematocrit 28.7 % (42.0-52.0); Hemoglobin 9.3 g/dL (14.1-18.0); Lymphocytes # 1.1 K/mm3 (0.7-4.5); Lymphocytes % 25.8 % (10-50); Mean Corpuscular HGB Conc 32.4 g/dL (31.8-35.4); Mean Corpuscular Hemoglobin 28.3 pg (27.0-31.2); Mean Corpuscular Volume 87.2 fl (80-94); Monocytes # 0.5 K/mm3 (0.1-1.0); Monocytes % 11.3 % (1.7-9.3); Neutrophils # 2.5 K/mm3 (1.8-7.8); Platelet Count 259 K/mm3 (142-424); Red Blood Count 3.29 M/mm3 (4.60-6.20); Red Cell Distribution Width 15.1 % (11.5-17.5); White Blood Count 4.2 K/mm3 (4.8-10.8)
[2024-07-06 09:23] LABS: Magnesium 1.7 mg/dl (1.6-2.3)
[2024-07-06] MEDS: LORazepam 1MG TABLET 0.5 MG PO (09:32)
[2024-07-06] MEDS: SENNA 8.6MG TABLET 8.6 MG PO (09:32)
[2024-07-06] MEDS: ENOXAPARIN 40MG/0.4ML SYRINGE 40 MG SUBCUT (09:33)
[2024-07-06] MEDS: MIDODRINE HCL 5 MG TABLET PO ×2 (09:33→14:49)
--- NOTE | 2024-07-06 09:40 | P.PN_ITS ---
Subjective *Date: 07/06/24 *Time: 12:54 Interval history: No acute respiratory events overnight. Patient denies any new respiratory complaints. Continue to remain on room air. Pulmonology Exam Inpatient Vital signs and Labs for Last 24 Hours: Temp Pulse Resp BP Pulse Ox O2 Del Method O2 Flow Rate 98.5 F 102 H 22 109/62 L 95 Room Air 2 07/06/24 07:30 07/06/24 07:30 07/06/24 07:30 07/06/24 07:30 07/06/24 07:30 07/06/24 07:30 07/05/24 06:37 FiO2 07/03/24 20:10 Laboratory Results - last 24 hr 07/06/24 06:18: Sodium 137, Potassium 3.8, Chloride 107, Carbon Dioxide 22, Anion Gap 11.8, BUN 8 L D, Creatinine 0.80, Estimated Creat Clear 65, Estimated GFR 93, Est GFR ( Amer) 113, Glucose 84, Calcium 8.1 L, Magnesium 1.7 D, Total Bilirubin 0.7, AST 129 H, ALT 75, Alkaline Phosphatase 63, Total Protein 5.9 L, Albumin 3.1 L, Globulin 2.8, Albumin/Globulin Ratio 1.1 07/06/24 07:24: WBC 4.2 L, RBC 3.29 L, Hgb 9.3 L, Hct 28.7 L, MCV 87.2, MCH 28.3, MCHC 32.4, RDW 15.1, Plt Count 259, MPV 9.0, Neut % (Auto) 60.0, Lymph % (Auto) 25.8, Phillips % (Auto) 11.3 H, Eos % (Auto) 1.7, Baso % (Auto) 0.5, Neut # (Auto) 2.5, Lymph # (Auto) 1.1, Phillips # (Auto) 0.5, Eos # (Auto) 0.1, Baso # (Auto) 0.0 Temp Pulse Resp BP Pulse Ox O2 Del Method O2 Flow Rate 99.9 F H 76 18 96/54 L 94 L Nasal Cannula 5 06/30/24 09:05 06/30/24 12:13 06/30/24 12:13 06/30/24 09:05 06/30/24 08:17 06/30/24 09:05 06/30/24 09:05 Laboratory Results - last 24 hr 06/30/24 04:56: WBC 11.1 H, RBC 4.17 L, Hgb 12.1 L, Hct 37.3 L, MCV 89.4, MCH 29.0, MCHC 32.4, RDW 15.3, Plt Count 226, MPV 9.8, Neut % (Auto) 87.3 H, Lymph % (Auto) 4.7 L, Phillips % (Auto) 7.5, Eos % (Auto) 0.0 L, Baso % (Auto) 0.1, Neut # (Auto) 9.7 H, Lymph # (Auto) 0.5 L, Phillips # (Auto) 0.8, Eos # (Auto) 0.0, Baso # (Auto) 0.0, PT 12.2 H, INR 1.12 H, Sodium 138, Potassium 4.4, Chloride 99, Carbon Dioxide 20 L, Anion Gap 23.4 H, BUN 17, Creatinine 1.60 H, Estimated Creat Clear 43, Estimated GFR 42 L, Est GFR ( Amer) 51 L, Glucose 140 H, Calcium 9.0, Magnesium 1.7, Total Bilirubin 0.6, AST 93 H, ALT 44, Alkaline Phosphatase 88, Troponin I 0.05 H, Total Protein 7.4, Albumin 4.3, Globulin 3.1, Albumin/Globulin Ratio 1.4, Lipase 98, TSH 1.30, Free T4 0.98, Urine Color Yellow, Urine Appearance Clear, Urine pH 7.0, Ur Specific Ranier 1.010, Urine Protein Negative, Urine Glucose (UA) Negative, Urine Ketones Negative, Urine Blood Negative, Urine Nitrate Negative, Urine Bilirubin Negative, Urine Urobilinogen 1.0, Ur Leukocyte Esterase Trace, Urine RBC None, Urine WBC 5-10, Ur Squamous Epith Cells 3-5, Ur Transition Epith Cell Occ, Urine Bacteria 2+, Stool Occult Blood Negative, Urine Opiates Screen Negative, Urine Methadone Screen Negative, Ur Barbituates Screen Negative, Ur Phencyclidine Scrn Negative, Ur Amphetamines Screen Negative, U Benzodiazepines Scrn Negative, Urine Cocaine Screen Negative, U Marijuana (THC) Screen Negative, HCV Ab MARTHA w/Rflx PCR Qn Negative, HIV Ag/Ab Combo Qual Negative 06/30/24 04:58: VBG pH 7.29 L, VBG pCO2 38.3, VBG pO2 28.9, VBG HCO3 18.2 L, VBG Total CO2 19.3 L, VBG O2 Saturation 46.5 L, VBG Base Excess -8.3 L, VBG Lactic Acid 8.0 H 06/30/24 06:20: Chlamy pneumoniae PCR Not detected, Adenovirus (PCR) Not detected, B. pertussis DNA (PCR) Not detected, Coronavirus OC43 (PCR) Not detected, Coronavirus HKU1 (PCR) Not detected, Coronavirus 229E (PCR) Not detected, SARS-CoV-2 (PCR) Not detected, Coronavirus NL63 (PCR) Not detected, Human Metapneumovir PCR Not detected, Influenza A (H1) PCR Not detected, Influ A (H1N1/09) PCR Detected A, Influenza A (H3) PCR Not detected, Influenza Type A (PCR) Not detected, Influenza Type B (PCR) Not detected, M. pneumoniae (PCR) Not detected, Parainfluenza 1 (PCR) Not detected, Parainfluenza 2 (PCR) Not detected, Parainfluenza 3 (PCR) Not detected, Parainfluenza 4 (PCR) Not detected, RSV (PCR) Not detected, Entero/Rhino (PCR) Not detected 06/30/24 09:28: Troponin I 0.04 H 06/30/24 09:45: Lactate 1.3 I & O for Labs for Last 24 Hours: Intake & Output 07/03/24 07/04/24 07/05/24 07/06/24 23:59 23:59 23:59 23:59 Intake Total 2179.063 / 2179.063 341.063 / 341.063 441.438 / 661.438 270 / 270 Output Total 1605 / 1830 3525 / 3525 1550 / 1550 400 / 400 Balance 574.063 / 349.063 -3183.937 / -3183.937 -1108.562 / -888.562 -130 / -130 Weight 172 lb 14.4 oz 166 lb 168 lb 3.2 oz 166 lb 11.2 oz Intake & Output 06/27/24 06/28/24 06/29/24 06/30/24 23:59 23:59 23:59 23:59 Intake Total 22.362 / .362 Output Total 1999 Balance -1976.638 / -638 Weight 166 lb 8 oz Microbiology Reports for the Last 24 Hours: Microbiology 06/30/24 12:10 Sputum - Expectorated Sputum - Final Not Reportable 06/30/24 12:10 Sputum - Expectorated Sputum - Final Not Reportable 06/30/24 12:10 Sputum - Expectorated Sputum - Final Not Reportable 06/30/24 12:10 Sputum - Expectorated Sputum - Final Not Reportable 06/30/24 12:10 Sputum - Expectorated Sputum - Final Not Reportable 06/30/24 12:10 Sputum - Expectorated Sputum Gram Stain - Final 06/30/24 12:10 Sputum - Expectorated Sputum Sputum Culture - Preliminary Gram Positive Cocci 06/30/24 04:58 Blood Blood Culture - Final NO GROWTH AFTER 5 DAYS 06/30/24 04:56 Blood Blood Culture - Final NO GROWTH AFTER 5 DAYS Constitutional: Present moderate distress Head: Present normocephalic and atraumatic ENT: Present normal exam, normal oropharynx and mucous membranes moist Neck: Present normal inspection and full ROM Respiratory: Present able to speak in complete sentences; Absent prolonged expiratory phase, respiratory distress, rhonchi, wheezes, crackles or diminished air movement Cardiac: Present S1/S2, Tachycardia and radial pulses present GI: Present soft and distention; Absent tenderness or guarding Skin: Present intact; Absent cyanosis or jaundice Neuro: Present alert and awake; Absent oriented x 3 Extremities: Present normal inspection; Absent clubbing or cyanosis Psychiatric: Present cooperative and anxious Assessment and Plan *Assessment and plan (1) Septic shock: Status: Acute Category: Medical Code(s): A41.9 - Sepsis, unspecified organism; R65.21 - Severe sepsis with septic shock (2) Influenza A: Status: Acute Category: Medical Code(s): J10.1 - Influenza due to other identified influenza virus with other respiratory manifestations (3) Acute respiratory failure with hypoxia: Status: Acute Category: Medical Code(s): J96.01 - Acute respiratory failure with hypoxia Plan Mr. You is a 79-year-old male greater than [id number] smoking to last moved around 1970, [facility] resident presented daily worsening respiratory symptoms pulmonary was called for further evaluation and management. CTA PE protocol upon admission no evidence of pulmonary embolism. No dense consolidative airspace changes noted with elevated left hemidiaphragm likely chronic. Eczematous changes noted. CT abdomen also concerning for large abdominal aortic aneurysm with mural thrombus occupying more than 50% of the lumen. Present on his CT abdomen from 2020 worsening. Hemodynamically unstable needing pressor status post sepsis bolus on admission. Febrile. Increasing oxygen requirements. Neutrophilic predominant leukocytosis. WILLIAM with Cr now at 1.60. Echocardiogram limited technically difficult secondary to poor acoustic windows RVSP estimated at 30-35 mm Hg. Prelim sputum cultures likely haemophilus influenza. Nasal MRSA screen negative. Interval update: Off pressors. Decreasing dose of midodrine. Oseltamavir and statin on hold. Improving AST ALT. Alk phos and bili within normal limits. Stable oxygen requirements. Plan: Continue oxygen supplementation to maintain O2 saturation goal of 90% and above Hold Tamiflu and statins. DuoNebs 4 times daily as needed Antibiotics can be weaned to cefdinir to complete a total of 7-day course
[2024-07-06] MEDS: MAGNESIUM SULFATE IN WATER 2 GM/50 ML PIGGYBACK IV ×2 (11:28→12:16)
--- NOTE | 2024-07-06 11:38 | EXP.DC.SUM ---
General Admission date:: 06/30/24 HPI HPI HPI: Mr. You is a 79-year-old male with known history of dilated abdominal aortic aneurysm, COPD not on oxygen, hyperlipidemia, diabetes, anemia. He lives [facility]. Gets around with a wheelchair and able to transfer with assistance. Presented to the ER with altered mental status. On initial workup, patient found to be significantly weak. [facility] has [facility], most recently this morning. Oriented only to self. Workup in the ER, patient found hypotensive with white count of 11, tachycardic, and hypoxic on room air. Concern for pneumonia on chest imaging. Workup positive for flu A. Initiated on supplemental oxygen. Blood pressure did not improve with sepsis bolus. Patient initiated on Levophed due to hypotension. Medicine was consulted for admission to the ICU given septic shock secondary to flu pneumonia. History obtained from chart, patient did not provide any history by the time he arrived to the floor. Frankly confused with minimal response to questions. Will open eyes but not responding with answers. Blood pressure showing improvement with MAP above 65 on norepinephrine. Glucose elevated initially at 200. Stable on supplemental oxygen of 2 L. Pulmonology consulted to assist with care. ER spoke to [facility] only who states they would like full code but also do not have any desire to proceed with any intervention on patient's AAA. His aneurysm is well-known to them. Appears a little bit larger on imaging today. They understand the severity and the risks associated with it. Initiated on Tamiflu. Hospital Course Hospital Course Hospital Course: Jovon You 79-year-old male was admitted for septic shock and acute hypoxic respiratory failure in the setting of influenza. #Septic shock #Acute hypoxemic respiratory failure #Flu pneumonia #COPD ? Gradually improved with breathing treatments, broad-spectrum antibiotics, Tamiflu. ? Weaned off Levophed, blood pressures continue to be soft but improved with midodrine 5 mg 3 times daily. ? Weaned to room air with appropriate saturations. ? Discharged with cefdinir for 1 more day. Will follow-up with pulmonology within 1 to 2 weeks. DuoNebs 4 times a day as needed. #Urinary retention: ? Necessitated in and out cath 2 nights ago, tolerating tamsulosin 0.4 mg twice daily. Attempting to avoid Felton catheter. voiding daily at this time. #AAA: ? Present on previous imaging. Has grown a little however family and patient have no desire to intervene. Family understands that if his ruptures patient will . Per my review of CT, 7-1/2 cm in diameter with large thrombus that has calcifications. No active leak on CT angiogram. Will hold anticoagulation at this time #History of schizophrenia: ? Seroquel 100 mg nightly, continue Ativan 0.5 mg twice daily #Dysphagia: ? Modified barium swallow performed 07/02, Having risk for aspiration with all consistencies. Speech recommended modified diet. Exam Data for Last 24 hours Vital signs and Labs for Last 24 Hours: Temp Pulse Resp BP Pulse Ox O2 Del Method O2 Flow Rate 98.5 F 102 H 22 109/62 L 95 Room Air 2 07/06/24 07:30 07/06/24 07:30 07/06/24 07:30 07/06/24 07:30 07/06/24 07:30 07/06/24 07:30 07/05/24 06:37 FiO2 07/03/24 20:10 Laboratory Results - last 24 hr 07/06/24 06:18: Sodium 137, Potassium 3.8, Chloride 107, Carbon Dioxide 22, Anion Gap 11.8, BUN 8 L D, Creatinine 0.80, Estimated Creat Clear 65, Estimated GFR 93, Est GFR ( Amer) 113, Glucose 84, Calcium 8.1 L, Magnesium 1.7 D, Total Bilirubin 0.7, AST 129 H, ALT 75, Alkaline Phosphatase 63, Total Protein 5.9 L, Albumin 3.1 L, Globulin 2.8, Albumin/Globulin Ratio 1.1 07/06/24 07:24: WBC 4.2 L, RBC 3.29 L, Hgb 9.3 L, Hct 28.7 L, MCV 87.2, MCH 28.3, MCHC 32.4, RDW 15.1, Plt Count 259, MPV 9.0, Neut % (Auto) 60.0, Lymph % (Auto) 25.8, [place] % (Auto) 11.3 H, Eos % (Auto) 1.7, Baso % (Auto) 0.5, Neut # (Auto) 2.5, Lymph # (Auto) 1.1, [place] # (Auto) 0.5, Eos # (Auto) 0.1, Baso # (Auto) 0.0 I & O for Last 24 hours: Intake & Output 07/03/24 07/04/24 07/05/24 07/06/24 23:59 23:59 23:59 23:59 Intake Total 2179.063 / 2179.063 341.063 / 341.063 441.438 / 661.438 270 / 270 Output Total 1605 / 1830 3525 / 3525 1550 / 1550 400 / 400 Balance 574.063 / 349.063 -3183.937 / -3183.937 -1108.562 / -888.562 -130 / -130 Weight 78.426 kg 75.296 kg 76.294 kg 75.614 kg Microbiology Reports for the Last 24 Hours: Microbiology 06/30/24 12:10 Sputum - Expectorated Sputum - Final Not Reportable 06/30/24 12:10 Sputum - Expectorated Sputum - Final Not Reportable 06/30/24 12:10 Sputum - Expectorated Sputum - Final Not Reportable 06/30/24 12:10 Sputum - Expectorated Sputum - Final Not Reportable 06/30/24 12:10 Sputum - Expectorated Sputum - Final Not Reportable 06/30/24 12:10 Sputum - Expectorated Sputum Gram Stain - Final 06/30/24 12:10 Sputum - Expectorated Sputum Sputum Culture - Preliminary Gram Positive Cocci Constitutional Constitutional: no acute distress *Routine HEENT Exam Head: Present normocephalic Eye: Present EOMI and PERRL ENT: Present mucous membranes moist *Routine Neck Exam Neck: Present supple; Absent lymphadenopathy *Routine Respiratory Exam Respiratory: Present CTA bilaterally *Routine Cardiovascular Exam Cardiovascular: Present RRR *Routine Abdominal Exam Abdominal: Present soft and normoactive bowel sounds; Absent tenderness *Routine Extremities Exam Extremities: Absent cyanosis, clubbing or edema *Routine Skin Exam Skin: Present warm; Absent rash *Routine Neurological Exam Neurological: Present alert Results Data Completed and Pending Labs on day of discharge: Labs from last 24 hours 07/06/24 07/06/24 07:24 06:18 WBC 4.2 L RBC 3.29 L Hgb 9.3 L Hct 28.7 L MCV 87.2 MCH 28.3 MCHC 32.4 RDW 15.1 Plt Count 259 MPV 9.0 Neut % (Auto) 60.0 Lymph % (Auto) 25.8 [place] % (Auto) 11.3 H Eos % (Auto) 1.7 Baso % (Auto) 0.5 Neut # (Auto) 2.5 Lymph # (Auto) 1.1 [place] # (Auto) 0.5 Eos # (Auto) 0.1 Baso # (Auto) 0.0 Sodium 137 Potassium 3.8 Chloride 107 Carbon Dioxide 22 Anion Gap 11.8 BUN 8 L D Creatinine 0.80 Estimated Creat Clear 65 Estimated GFR 93 Est GFR ( Amer) 113 Glucose 84 Calcium 8.1 L Magnesium 1.7 D Total Bilirubin 0.7 AST 129 H ALT 75 Alkaline Phosphatase 63 Total Protein 5.9 L Albumin 3.1 L Globulin 2.8 Albumin/Globulin Ratio 1.1 Preliminary micro results at discharge 06/30/24 12:10 Sputum Culture - Preliminary Sputum - Expectorated Sputum Gram Positive Cocci DS: Diagnosis Discharge Diagnosis (1) Septic shock: Status: Acute Code(s): A41.9 - Sepsis, unspecified organism; R65.21 - Severe sepsis with septic shock (2) Influenza A: Status: Acute Code(s): J10.1 - Influenza due to other identified influenza virus with other respiratory manifestations (3) Acute respiratory failure with hypoxia: Status: Acute Code(s): J96.01 - Acute respiratory failure with hypoxia Meds Home Medications and Allergies Home Medications ?Medication ?Instructions ?Recorded ?Confirmed ?Type finasteride 5 mg tablet 5 mg PO DAILY 07/14/17 06/30/24 History folic acid 1 mg tablet 1 mg PO DAILY 07/14/17 06/30/24 History sucralfate 1 gram tablet 1 g PO TID 07/03/20 06/30/24 History pantoprazole 40 mg tablet,delayed 40 mg PO HS 07/08/22 06/30/24 History release sennosides 8.6 mg tablet (senna) 8.6 mg PO BID 07/08/22 06/30/24 History deutetrabenazine 12 mg tablet 12 mg PO .0730 AND 1730 05/20/23 06/30/24 History (Austedo) cetirizine 10 mg tablet 10 mg PO DAILY 08/04/23 06/30/24 History ferrous sulfate 325 mg (65 mg 325 mg PO BID #180 tabs 11/05/23 06/30/24 Rx iron) tablet coQ10 (ubiquinol) 100 mg capsule 100 mg PO DAILY #60 caps 01/27/24 06/30/24 Rx (Qunol Kurt CoQ10) cyanocobalamin (vitamin B-12) 100 100 mcg PO DAILY #30 tabs 01/27/24 06/30/24 Rx mcg tablet quetiapine 100 mg tablet (Seroquel) 100 mg PO HS #90 tabs 01/27/24 06/30/24 Rx quetiapine 25 mg tablet (Seroquel) 75 mg (3 x 25 mg) PO HS #90 tabs 01/27/24 06/30/24 Rx acetaminophen 500 mg tablet 500 mg PO TID 06/15/24 06/30/24 History atorvastatin 10 mg tablet 10 mg PO HS 06/30/24 06/30/24 History lorazepam 0.5 mg tablet 0.5 mg PO BID 06/30/24 06/30/24 History cefdinir 300 mg capsule 300 mg PO BID 1 day #2 caps 07/06/24 Rx midodrine 5 mg tablet 5 mg PO TID 30 days #90 tabs 07/06/24 Rx tamsulosin 0.4 mg capsule 0.4 mg PO HS 30 days #30 caps 07/06/24 Rx New Prescriptions to Start Prescriptions: lilly Orellana,Dev gannonodyessi Orellana,Dev moonulosin Dev Orellana Allergies Allergy/AdvReac Type Severity Reaction Status Date / Time tramadol Allergy Intermediate Hives Verified 06/15/24 14:43 Discharge Plan Disposition Patient Disposition: er Intermediate Care Fac Condition: Fair Discharge Order Discharge Orders: Discharge Order (Routine); Ordered 07/06/24 Ordered By: Dev Orellana Follow up Plan Follow up with: Merry Dixon MD [Physician] - 07/29/24 1:00 pm Prescriptions/Medication Reconciliation: New midodrine 5 mg Tablet 5 mg PO TID 30 Days Qty: 90 0RF tamsulosin 0.4 mg Capsule 0.4 mg PO HS 30 Days Qty: 30 0RF cefdinir 300 mg capsule 300 mg PO BID 1 Days Qty: 2 0RF Continued folic acid 1 mg tablet 1 mg PO DAILY finasteride 5 mg tablet 5 mg PO DAILY Rx Instructions: Wear gloves when handling cetirizine 10 mg tablet 10 mg PO DAILY cyanocobalamin (vitamin B-12) 100 mcg tablet 100 mcg PO DAILY Qty: 30 0RF Austedo 12 mg tablet 12 mg PO .0730 AND 1730 ferrous sulfate 325 mg (65 mg iron) tablet 325 mg PO BID Qty: 180 3RF coQ10 (ubiquinol) [Qunol Kurt CoQ10] 100 mg capsule 100 mg PO DAILY Qty: 60 0RF quetiapine [Seroquel] 25 mg tablet 75 mg PO HS Qty: 90 3RF Rx Instructions: give with 100mg tab for a total of 175mg QHS quetiapine [Seroquel] 100 mg tablet 100 mg PO HS Qty: 90 3RF Rx Instructions: Give with Seroquel 75mg for a total of 175mg QHS. acetaminophen 500 mg tablet 500 mg PO TID sennosides [senna] 8.6 mg Tablet 8.6 mg PO BID pantoprazole 40 mg tablet,delayed release (DR/EC) 40 mg PO HS sucralfate 1 GM tablet 1 g PO TID Rx Instructions: Take before meals; Antacids should not be taken within 30 minutes before or after sucralfate atorvastatin 10 mg tablet 10 mg PO HS lorazepam 0.5 mg tablet 0.5 mg PO BID Problem Reconciliation Problems Reviewed?: Yes Patient Discharge Instructions Patient Instructions: Septic Shock, DI for Influenza -- Adult Print Language: Greenlandic Providers Primary Care Provider: Nitin Bettencourt Admit Provider: Jamil Espinoza Attending Provider: Jamil Espinoza
== END 2024-07-06 15:26 | DRG 193 ==
LOC: ER 08:17 → ICU 08:28 → 2ND 07-05 16:00
PROVIDERS: Admitting Provider Internal Medicine Adolescent Medicine; Emergency Provider Emergency Medicine; PCP Family Medicine; Visit Provider Internal Medicine Adolescent Medicine
DX: J10.00 Influenza due to other identified influenza virus with unspecified type of pneumonia (principal); J96.01 Acute respiratory failure with hypoxia; J44.0 Chronic obstructive pulmonary disease with (acute) lower respiratory infection; J18.9 Pneumonia, unspecified organism; I71.40 Abdominal aortic aneurysm, without rupture, unspecified; F20.3 Undifferentiated schizophrenia; Z79.899 Other long term (current) drug therapy; R29.6 Repeated falls; Z87.891 Personal history of nicotine dependence
CPT/HCPCS: 36410; 36415; 51702; 70450; 70496; 70498; 71275; 72125; 74174; 74230; 80048; 80053; 80307; 81001; 82272; 82803; 83605; 83690; 83735; 84439; 84443; 84484; 85025; 85610; 86803; 87040; 87070; 87077; 87081; 87086; 87205; 87389; 87633; 92610; 92611; 93005; 93308; 97162; 97166; 97530; 99291; G0328; J0131; J0456; J1650; J2405; J2543; J2760; J3372; J3475; J7030; J7050; J7120; Q9967

== ENCOUNTER 2024-07-21 14:31 | Outpatient (CLI) | payer MEDICARE, MEDICAID, SELFPAY ==
[2024-07-21 16:14] LABS: Vitamin B12 747 pg/mL (239-931)
[2024-07-21 16:34] LABS: Folate > 20.00 ng/mL
== END 2024-07-21 23:59 | disposition home or self-care (01) ==
LOC: LAB.DROPOF 14:34
PROVIDERS: PCP Family Medicine; Visit Provider Family Medicine
DX: D50.9 Iron deficiency anemia, unspecified (principal)
CPT/HCPCS: 82607; 82746

== ENCOUNTER 2024-11-05 09:38 | Outpatient (CLI) | payer MEDICARE, MEDICAID, SELFPAY ==
[2024-11-05 10:24] LABS: Chol/HDL Ratio 1.7 (1-3.5); Cholesterol 84 mg/dl (140-200); HDL Cholesterol 49 mg/dl (40-60); Triglycerides 74 mg/dl (30-150); VLDL Cholesterol 15 mg/dL (0-40)
[2024-11-05 10:36] LABS: Direct LDL Cholesterol < 30.00 mg/dL (100-129)
[2024-11-05 10:55] LABS: Prostate Specific Ag, Diagnost 0.078 ng/ml (0.0-4.0)
== END 2024-11-05 23:59 | disposition home or self-care (01) ==
PROVIDERS: PCP Nurse Practitioner Family; Visit Provider Nurse Practitioner Family
DX: E78.5 Hyperlipidemia, unspecified (principal); N40.0 Benign prostatic hyperplasia without lower urinary tract symptoms
CPT/HCPCS: 36415; 80061; 84153

== ENCOUNTER 2025-03-18 06:09 | Outpatient (CLI) | payer MEDICARE, MEDICAID, SELFPAY ==
--- OUTSIDE RECORDS SUMMARY | 2025-03-18 06:13 | XMS_ITS | Clinical Summary ---
Author Organization Healthcare Address [address] [place] [address] Care Team Providers Care Front End Architect Name Role Phone Scottie Farah MD Primary Care Provider [phone] Allergies No known active allergies Medications acetaminophen (Tylenol) 325 MG tablet 08/28/2020 Active aluminum & magnesium hydroxide-simeth icone (Mylanta) 200-200-20 MG/5ML oral suspension 08/28/2020 Active Austedo 12 MG tablet 11/09/2021 Active loperamide (Imodium) 2 MG capsule 10/31/2021 Active ondansetron (Zofran) 4 MG tablet 03/29/2021 Active atorvastatin (Lipitor) 20 MG tablet Take 20 mg by mouth 1 (one) time each day. Active finasteride (Proscar) 5 MG tablet Take 5 mg by mouth 1 (one) time each day. Do not crush, chew, or split. Active folic acid (Folvite) 1 MG tablet Take by mouth 1 (one) time each day. Active Immunizations Immunization Administration Dates Next Due Pneumococcal Polysaccharide PPV23 10/18/2014 Social History Tobacco Use Types Packs/Day Years Used Date Smoking Tobacco: Former Smokeless Tobacco: Never Alcohol Use Standard Drinks/Week Comments No 0 (1 standard drink = 0.6 oz pur e alcohol) PHQ-2 Answer Date Recorded Patient Health Questionnaire-2 Score 0 11/09/2021 Sex and Gender Information Value Date Recorded Sex Assigned at Not on file Legal Sex Male 8:37 PM EDT Gender Identity Not on file Sexual Orientation Not on file Last Filed Vital Signs Vital Sign Reading Time Taken Comments Blood Pressure 100/78 11/09/2021 1:25 PM EDT Pulse 103 11/09/2021 1:25 PM EDT Temperature 36.2 C (97.1 F) 11/09/2021 1:25 PM EDT Respiratory Rate - - Oxygen Saturation - - Inhaled Oxygen Concentration - - Weight 85.6 kg (188 lb 11.4 oz) 11/09/2021 1:25 PM EDT Height 196.9 cm (6' 5.5 ) 11/09/2021 1:25 PM EDT Body Mass Index 22.09 11/09/2021 1:25 PM EDT Plan of Treatment Health Maintenance Due Date Last Done Comments [facility]-Depression Screening 1945 [facility]-Infant/Child/Adol SDOH Screenings 1945 [facility]- SDOH Screenings 02/27/1964 [facility]-Adult SDOH Screenings 02/27/1964 [facility]-DTaP,Tdap,and Td Vaccine s (1 - Tdap) 1965 [facility]-Zoster Vaccines (1 of 2) 02/27/1996 [facility]-RSV Vaccine: 60+ Years o r (1 - 1-dose 75+ series) 2021 [facility]-LNLUN-22 Vaccine (3 - season) 2025 07/18/2020, 06/27/2020 [facility]-Influenza Vaccine (#1) 02/07/202503/12, 03/08/2008 [facility]-Pneumococcal Vaccine: 50 + Years Completed 12/17/2015, 10/18/2014 FIT Discontinued 09/02/2016 FOBT Discontinued 09/02/2016 [facility]-Colorectal Cancer Screening Discontinued CT Colonography Discontinued Colonoscopy Discontinued FIT-DNA Discontinued HPV Vaccines Aged Out No longer eligi ble based on patient's age to complete this topic Sigmoidoscopy Discontinued [facility]-HIB Vaccines Aged Out No longer e ligible based on patient's age to complete this topic [facility]-Hepatitis A Vaccines Aged Out No longer eligible based on patient's age to complete this topic [facility]-IPV Vaccines Aged Out No longer e ligible based on patient's age to complete this topic [facility]-Rotavirus Vaccines Aged Out No lo nger eligible based on patient's age to complete this topic [place] [phone] [place] Care Teams Front End Architect Relationship Specialty Start Date End Date Scottie Farah MD [address] [facility] [place] [address] PCP - General 10/20/20
[2025-03-18 06:18] LABS: Hematocrit 33.9 % (42.0-52.0); Hemoglobin 11.2 g/dL (14.1-18.0); Immature Granulocytes % 0.4 %; Mean Corpuscular HGB Conc 33.0 g/dL (31.8-35.4); Mean Corpuscular Hemoglobin 31.0 pg (27.0-31.2); Mean Corpuscular Volume 93.9 fl (80-94); Nucleated Red Blood Cells % 0 %; Platelet Count 173 K/mm3 (142-424); Red Blood Count 3.61 M/mm3 (4.60-6.20); Red Cell Distribution Width-SD 45.3 fL; White Blood Count 8.4 K/mm3 (4.8-10.8)
[2025-03-18 06:57] LABS: Alanine Aminotransferase 14 U/L (12-78); Albumin Level 3.7 g/dl (3.5-5.0); Albumin/Globulin Ratio 1.4 (1.1-1.8); Alkaline Phosphatase 106 U/L (38-126); Anion Gap 12.6 mEq/L (5-15); Aspartate Amino Transferase 20 U/L (17-59); Bilirubin,Total 0.7 mg/dl (0.2-1.3); Blood Urea Nitrogen 12 mg/dl (9-20); Calcium 8.7 mg/dl (8.4-10.2); Carbon Dioxide 31 mmol/L (22.0-30.0); Chloride 98 mmol/L (98-107); Creatinine,Serum 0.90 mg/dl (0.66-1.25); Estimated Glomerular Filt Rate 81 ml/min (>60); GFR (African American) 98 ML/MIN (>60); Globulin 2.7 g/dL (1.3-3.2); Glucose 62 mg/dl (74-100); Potassium 3.6 mmoL/L (3.5-5.1); Sodium 138 mmol/L (136-145); Total Protein,Serum 6.4 g/dl (6.3-8.2)
[2025-03-18 07:11] LABS: Free T4 (Free Thyroxine) 1.22 ng/dl (0.78-2.19)
[2025-03-18 07:25] LABS: Thyroid Stimulating Hormone 1.32 uIU/mL (0.465-4.68)
[2025-03-18 12:30] LABS: Folate > 20.00 ng/mL
[2025-03-18 18:49] LABS: Iron 42 ug/dL (49-181)
[2025-03-18 19:08] LABS: Total Iron Binding Capacity 243 ug/dL (261-462)
[2025-03-18 19:26] LABS: Ferritin 134 ng/ml (17.9-464)
== END 2025-03-18 23:59 | disposition home or self-care (01) ==
PROVIDERS: PCP Family Medicine; Visit Provider Family Medicine
DX: D64.9 Anemia, unspecified (principal); I10 Essential (primary) hypertension
CPT/HCPCS: 36415; 80053; 82728; 82746; 83540; 83550; 84439; 84443; 85025

== ENCOUNTER 2025-03-24 07:45 | Day surgery (SDC) | payer MEDICARE, MEDICAID, SELFPAY ==
[2025-03-17 15:02] VITALS: BMI 22.1
--- NOTE | 2025-03-21 07:16 | EXP.HP ---
History of Present Illness *Admission Date: 03/24/25 *History of present illness: Mr. You is a 80-year-old gentleman who is here for diagnostic EGD secondary to dysphagia. The patient is a resident of [facility]. He is on pantoprazole and sucralfate. He reports no heartburn or reflux. According to notes, he has had forced regurgitation and vomiting by gagging himself using his finger in his throat. He is uncertain whether he has ever had an upper endoscopy. He reports no nausea, vomiting, abdominal pain or weight loss. He reports no bowel irregularities. The examination is deemed medically necessary for diagnostic/therapeutic EGD. The patient has been seen, interviewed and examined prior to the procedure by both myself and the anesthesia provider. [facility] Disclaimer: The information contained in this section may have been updated after the patient was seen, as this information can be updated by other users. Medical History Dysphagia Weight loss Acquired elevated diaphragm Drug-induced dyskinesia Urinary retention Pneumonia Sepsis Pyelonephritis Acute respiratory failure with hypoxia Influenza A Gastro-esophageal reflux disease without esophagitis Drug induced subacute dyskinesia Unspecified dementia, unspecified severity, without behavioral disturbance, psychotic disturbance, mood disturbance, and anxiety Legionnaires' disease Renal insufficiency Schizophrenia Diaphragmatic hernia CAD (coronary artery disease) Family History Other Family history non-contributory Social History (Updated 03/24/25 @ 08:15 by Ana Maria Noel RN) Smoking Status: Never smoker alcohol intake: never substance use type: denies use current occupational status: disabled Travel in the last 8 weeks?: None housing: shelter current occupational exposures/hazards: No caffeine: No Have you lived/traveled outside US in past 30 days?: No Contact w/someone who lives/traveled outside US past 30 days?: No Exposure to someone with infectious disease in past 14 days?: No Do you have a fever (greater than 100.4 F or 38 C)?: No Have you tested positive for COVID-19?: No Exposed to someone with COVID-19 in past 14 days?: No Do you have a sore throat?: No Do you have a cough?: No Do you have any weakness?: No Are you experiencing any nausea/vomitting?: No Do you have any diarrhea?: No Are you experiencing any unusual bleeding?: No Do you have any muscle aches/pain?: No Do you have any abdominal pain?: No Are you experiencing loss of taste or smell?: No Other Medical History Have you received the Flu Vaccine for this season: No Have you received the Pneumonia Vaccine: No Review of Systems Review of Systems Review of systems (narrative): Negative *Cardiovascular Comments: Negative *Gastrointestinal Comments: Negative *Genitourinary Comments: Negative *Musculoskeletal Comments: Negative *Neurologic Comments: Negative Meds Home Medications and Allergies Home Medications ?Medication ?Instructions ?Recorded ?Confirmed ?Type finasteride 5 mg tablet 5 mg PO DAILY 07/14/17 03/24/25 History sucralfate 1 gram tablet 1 g PO TID 07/03/20 03/24/25 History pantoprazole 40 mg tablet,delayed 40 mg PO HS 07/08/22 03/24/25 History release sennosides 8.6 mg tablet (senna) 8.6 mg PO BID 07/08/22 03/24/25 History deutetrabenazine 12 mg tablet 12 mg PO .0730 AND 1730 05/20/23 03/24/25 History (Austedo) cetirizine 10 mg tablet 10 mg PO DAILY 08/04/23 03/24/25 History ferrous sulfate 325 mg (65 mg 325 mg PO BID #180 tabs 11/05/23 03/24/25 Rx iron) tablet cyanocobalamin (vitamin B-12) 100 100 mcg PO DAILY #30 tabs 01/27/24 03/24/25 Rx mcg tablet acetaminophen 500 mg tablet 500 mg PO TID 06/15/24 03/24/25 History midodrine 5 mg tablet 5 mg PO TID 30 days #90 tabs 07/06/24 03/24/25 Rx tamsulosin 0.4 mg capsule 0.4 mg PO HS 30 days #30 caps 07/06/24 03/24/25 Rx aluminum-mag hydroxide-simethicone 30 ml PO Q2H PRN Gastric Reflux 08/24/24 03/24/25 History 200 mg-200 mg-20 mg/5 mL oral susp guaifenesin 100 mg/5 mL oral liquid 200 mg PO Q6H PRN Cough 08/24/24 03/24/25 History loperamide 2 mg capsule 2 mg PO Q4H PRN Diarrhea 08/24/24 03/24/25 History ondansetron HCl 4 mg tablet 4 mg PO Q6H PRN Nausea And Vomiting 08/24/24 03/24/25 History lorazepam 0.5 mg tablet 0.5 mg PO BID #60 tabs 09/29/24 03/24/25 Rx fluoxetine 10 mg capsule 10 mg PO DAILY 01/11/25 03/24/25 History melatonin 5 mg capsule 5 mg PO QHS 01/11/25 03/24/25 History quetiapine 50 mg tablet 150 mg PO HS 01/11/25 03/24/25 History mirtazapine 30 mg tablet (Remeron) 30 mg PO HS 03/22/25 03/24/25 History New Prescriptions to Start Prescriptions: Allergies Allergy/AdvReac Type Severity Reaction Status Date / Time tramadol Allergy Intermediate Hives Verified 03/24/25 08:27 Exam *Routine HEENT Exam Head: Present normocephalic Eye: Present EOMI and PERRL ENT: Present mucous membranes moist *Routine Neck Exam Neck: Present supple *Routine Respiratory Exam Respiratory: Present CTA bilaterally *Routine Cardiovascular Exam Cardiovascular: Present RRR *Routine Abdominal Exam Abdominal: Present soft and normoactive bowel sounds; Absent tenderness *Routine Rectal Exam Rectal:: deferred *Routine Genitalia Exam Genitalia:: deferred *Routine Extremities Exam Extremities: Absent cyanosis, clubbing or edema *Routine Skin Exam Skin: Present warm; Absent rash *Routine Neurological Exam Neurological: Present alert and oriented X3 Assessment and Plan *Assessment and plan (1) Dysphagia: Status: Acute Qualifiers: Dysphagia type: unspecified Qualified Code(s): R13.10 - Dysphagia, unspecified Category: Medical Code(s): R13.10 - Dysphagia, unspecified (2) Regurgitation of food: Status: Acute Category: Medical Code(s): R11.10 - Vomiting, unspecified Plan A/P: 1. Dysphagia/regurgitation of food is the preprocedural diagnosis. The patient will be anesthetized/sedated using MAC sedation. The patient has been seen and examined. Cardiac and lung assessment prior to the examination is stable. Proceed with planned diagnostic EGD.
--- NOTE | 2025-03-24 07:10 | [facility].PROCNOTE ---
[facility] Procedure Note Date: 03/24/25 Time: 09:27 Procedure Note:: Upper Endoscopy Procedure Report: Esophagogastroduodenoscopy with cold biopsies and TTS balloon dilation Endoscopost: Jose Cruz II, MD Referring Physician: Nitin Bettencourt MD Date of Procedure: March 24, 2025 Equipment: Olympus GIF-1100 standard upper endoscope Sedation: MAC sedation Indications: Mr. You is a 80-year-old gentleman who is here for diagnostic EGD secondary to dysphagia. The patient is a resident of [facility]. He is on pantoprazole and sucralfate. He reports no heartburn or reflux. According to notes, he has had forced regurgitation and vomiting by gagging himself using his finger in his throat. He is uncertain whether he has ever had an upper endoscopy. He reports no nausea, vomiting, abdominal pain or weight loss. He reports no bowel irregularities. The examination is deemed medically necessary for diagnostic/therapeutic EGD. Procedure: Prior to the procedure, a history and physical exam was performed, and patient's medications and allergies were reviewed. The risks, benefits and alternatives of the sedation and procedure were discussed with the patient. All questions were answered and informed consent was obtained. The patient was brought to the procedure room. Patient identification and proposed procedure were verified by the physician and the nurse. The patient was placed in a left lateral decubitus position and the scope was passed under direct vision. Throughout the procedure, the patient's blood pressure, pulse, and oxygen saturations were monitored continuously. The upper GI endoscopy was accomplished without difficulty. The patient tolerated the procedure well. Findings: The scope was passed directly into the upper esophagus and advanced to the third portion of the duodenum. There was moderate duodenal lymphoid stasis with whitish appearance to the mucosa. 2 cold biopsies were taken from the second portion of the duodenum for the disaccharidase assay. The ampulla and proximal duodenum were normal. The scope was withdrawn through the gastroduodenal anastomosis and there was evidence of prior antrectomy. There was bile reflux and approximately 300 cc of liquid fluid was suctioned from the stomach. The stomach was also U-shaped. There was mild gastropathy. Cold biopsies were taken at the incisura. Upon retroflexion there was a 3 cm hiatal hernia. The endoscope was then withdrawn into the esophagus. There was no evidence of reflux esophagitis or Flores's. There were tertiary contractions and evidence of moderate esophageal dysmotility. The entire esophagus was dilated to 60 Danish/20 mm with a TTS hydrostatic balloon with minimal resistance. The remainder of the esophageal mucosa was normal. Impression: 1. U-shaped stomach with retained bile/fluid (300 cc suctioned) 2. Moderate esophageal dysmotility with 3 cm hiatal hernia 3. Prior gastric surgery/antrectomy Plan: I will follow-up the biopsies. U-shaped stomach can be chronic and be responsible for a chronic gastric volvulus. Symptomatically, correction reports are suggestive. I would recommend that the patient have a barium swallow/upper GI series to further define the anatomy structurally. The patient did have a barium swallow in June 2024 but there was a very cursory report of little value. His CT scan of the abdomen did show left diaphragmatic elevation with stomach and colon repositioning into the lower thorax. I do feel that this is certainly why we are seeing some distorted anatomy.
[2025-03-24 08:14] VITALS: BP 130/88; PULSE 90; RESP 16; TEMP 36.1; O2SAT 98; BMI 22.1
[2025-03-24] MEDS: LACTATED RINGERS 1000ML 1,000 ML 50 ML IV (08:32)
--- NOTE | 2025-03-24 08:54 | P.PNANES_ITS ---
[facility] Disclaimer: The information contained in this section may have been updated after the patient was seen, as this information can be updated by other users. Medical History Dysphagia Weight loss Acquired elevated diaphragm Drug-induced dyskinesia Urinary retention Pneumonia Sepsis Pyelonephritis Acute respiratory failure with hypoxia Influenza A Gastro-esophageal reflux disease without esophagitis Drug induced subacute dyskinesia Unspecified dementia, unspecified severity, without behavioral disturbance, psychotic disturbance, mood disturbance, and anxiety Legionnaires' disease Renal insufficiency Schizophrenia Diaphragmatic hernia CAD (coronary artery disease) Family History Other Family history non-contributory Social History (Updated 03/24/25 @ 08:15 by Ana Maria Noel RN) Smoking Status: Never smoker alcohol intake: never substance use type: denies use current occupational status: disabled Travel in the last 8 weeks?: None housing: assisted current occupational exposures/hazards: No caffeine: No Have you lived/traveled outside [place] in past 30 days?: No Contact w/someone who lives/traveled outside US past 30 days?: No Exposure to someone with infectious disease in past 14 days?: No Do you have a fever (greater than 100.4 F or 38 C)?: No Have you tested positive for COVID-19?: No Exposed to someone with COVID-19 in past 14 days?: No Do you have a sore throat?: No Do you have a cough?: No Do you have any weakness?: No Are you experiencing any nausea/vomitting?: No Do you have any diarrhea?: No Are you experiencing any unusual bleeding?: No Do you have any muscle aches/pain?: No Do you have any abdominal pain?: No Are you experiencing loss of taste or smell?: No [facility] Anesthesia Checklist Patient Identification Patient Identification: Arm Band and Verbal (Name & ) Structural Data Admitted From: Home Planned Operative Procedure/s: EGD Consent for Planned Operative Procedure(s) Verified: Yes Verified Documents: Surgical Consent NPO Status Verified Time NPO: 00:00 Additional verifications Anesthesia Reactions: No Hx Blood Transfusions: No Blood Transfusion Reaction: No Airway Assessment Mallampati Score:: Class II C-Spine Mobility Assessed: Yes TMJ Mobility Assessed: Yes Dentition: Edentulous Neurological Assessment Level of Consciousness: Awake, Alert and Appropriate Hx Seizures: No Numbness or tingling in extremities: No Anesthesia Plan Anesthesia Risk discussed: Yes Anesthesia Plan: Verified ASA Class: III Anesthesia Type: MAC
[2025-03-24 09:23] VITALS: BP 86/59; PULSE 62; RESP 16; TEMP 36.2; O2SAT 100
[2025-03-24 09:33] VITALS: BP 93/59; PULSE 60; RESP 16; TEMP 36.2; O2SAT 100
[2025-03-24 09:43] VITALS: BP 123/74; PULSE 69; RESP 18; TEMP 36.2; O2SAT 100
[2025-03-24 09:53] VITALS: BP 125/81; PULSE 76; RESP 18; TEMP 36.2; O2SAT 99
[2025-03-30 18:39] LABS: Interpretation Notes (.); Lactase 24.08 (>/= 14.0); Maltase 153.11 (>/= 110.0); Palatinase 12.27 (>/= 8.5); Reference Notes (.); Sucrase 44.97 (>/= 25.0)
== END 2025-03-24 10:29 | disposition home or self-care (01) ==
PROVIDERS: PCP Family Medicine; Visit Provider Internal Medicine Gastroenterology
PROC: 0DJ08ZZ Inspection of Upper Intestinal Tract, Via Natural or Artificial Opening Endoscopic (ICD-10-PCS; CPT 43239; principal; 2025-03-24 08:30)
DX: K22.4 Dyskinesia of esophagus (principal); K44.9 Diaphragmatic hernia without obstruction or gangrene; K31.89 Other diseases of stomach and duodenum; K21.9 Gastro-esophageal reflux disease without esophagitis; F20.9 Schizophrenia, unspecified; F32.A Depression, unspecified; F41.9 Anxiety disorder, unspecified; Z88.5 Allergy status to narcotic agent
CPT/HCPCS: 43239; 82657; 88305; C1726; J2003; J2704; J7120

== ENCOUNTER 2025-03-31 10:57 | Outpatient (CLI) | payer MEDICARE, MEDICAID, SELFPAY ==
--- NOTE | 2025-03-31 11:00 | FL_ITS ---
FINAL REPORT CLINICAL HISTORY: dysphagia 5.67 mGy 92.16 DAP 1:21 fluoro FINDINGS: MODIFIED BARIUM SWALLOW History: Dysphagia FINDINGS: Fluoroscopy was provided for the speech pathologist to evaluate the swallowing mechanism. The patient was given several different consistencies of barium while the swallow was visualized fluoroscopically. The report of the speech pathologist should be consulted prior to making dietary decisions. Fluoroscopy time: not provided Radiation exposure in Reference air Kerma: 5.67 mGy Fluoro dose: 92.16 DAP in uGym2 IMPRESSION: Modified barium swallow under fluoroscopic guidance. Please see the report of the speech pathologist for Dietary recommendations. Films reviewed , interpreted and dictated by Dr. Goode. Transcribed by Wesley Mendoza PA-C. Reviewed, Interpreted and Dictated by Esteban Goode MD Transcribed by SUNNY Muhammad Authenticated and [facility]
--- OUTSIDE RECORDS SUMMARY | 2025-03-31 11:15 | XMS_ITS | Clinical Summary ---
Author Organization Healthcare Address [address] [place] [address] Care Team Providers Care Nail Technician Name Role Phone Scottie Farah MD Primary Care Provider [phone] Allergies No known active allergies Medications acetaminophen [...] r (1 - 1-dose 75+ series) 2021 [id number] Vaccine (3 - season) 2025 07/18/2020, 06/27/2020 [...] age to complete this [place] [address] MEDICAID[place] Care Teams Nail Technician Relationship Specialty Start Date End Date Scottie Farah MD [address] [facility] [place] [address] PCP - General 10/20/20
--- NOTE | 2025-03-31 15:08 | HMH.SLMBS2 ---
Speech & Language Evaluation Speech/Lang Modified Barium Swallow Start: 03/31/25 13:50 Freq: once Status: Complete Protocol: Document 03/31/25 13:50 ALLY (Rec: 03/31/25 15:08 ALLY [id number]) SENIOR PHYSICIAN Evaluation Information SENIOR PHYSICIAN Evaluation Information Date of Evaluation: 03/31/25 Time of Evaluation: 11:00 Evaluation Type Initial Certification Reason for Referral dysphagia/aspiration concerns per MD order Does Patient Qualify Yes for Service Qualify/Failure Based on clinical observations made throughout Comment instrumental assessment, pt would benefit from skilled speech therapy services to address diet texture analysis and tolerance given safest clinical recommendation being NPO and notable risk of aspiration with pureed diet. MBS Recommendations Diet Dietary Pureed,Honey Liquids,NPO Recommendations SL Swallow Assist w/all meals,High aspiration risk,Crush meds as Guidelines allowed*,Oral care pre/post meals Swallowing Crush Crush all meds,Subs. delivery (liquid?) Meds Comment safest rec possible is NPO, safest PO rec: puree/thins Treatment/Strategies Strategy/Precaution Sitting Upright (90 deg),No Straw,Small Bites and Sips, Recommended Alternate Liquids/Solids Referral/Other Recommended Alternate Feeding Method Referrals Comment At this time, safest clinical recommendation is NPO. SENIOR PHYSICIAN s/w MD regarding PO/QOL diet option if comfort care diet is preferred. Safest PO recommendation would be pureed diet with honey thick liquids (aspiration and penetration was observed), however, discussed higher risk of aspiration/increased risk of dehydration with thickened liquids and thins was also recommended based on pt want/tolerance. SENIOR PHYSICIAN Patient History Section SENIOR PHYSICIAN Patient History Primary Medical PMHx includes: Dysphagia History Weight loss Acquired elevated diaphragm Drug-induced dyskinesia Urinary retention Pneumonia Sepsis Pyelonephritis Acute respiratory failure with hypoxia Influenza A Gastro-esophageal reflux disease without esophagitis Drug induced subacute dyskinesia Unspecified dementia, unspecified severity, without behavioral disturbance, psychotic disturbance, mood disturbance, and anxiety Legionnaires' disease Renal insufficiency Schizophrenia Diaphragmatic hernia CAD (coronary artery disease) Current weight is 137 lbs. He weighed 169 lbs. on 08/24 which is a 32 lb weight loss in 7 months. 1 year ago, he was 186 lbs. Patient continues to propel himself in the wheelchair. Is pleasantly confused. Will ask staff for a cup of cheese balls multiple times per day. He is only given cheese balls during scheduled snacks. Current diet is fortified pur?ed with nectar thick liquids. Receives fortified pudding BID and Magic cups TID. He receives a double portion of breakfast and lunch and 2 cartons of whole milk with supper. He is a full code. 03/17/25: CXR completed and revealed elevation of left diaphragm, a hiatal hernia, and mild vascular congestion. Has Patient Yes Experienced Significant Weight Loss? Mod Barium Swallow Study Patient Orientation Patient Orientation Person Oral Expression Moderate Impairment Ability Ability to Follow Poor Directions Is Patient able to Yes Perform Volitional Throat Clear? Is Patient able to Yes Perform Volitional Cough? Is Patient able to Yes Manage Secretions Independently? Mod Barium Swallow Set Up Radiologist Taj Allen Patient Presentation Awake,Alert,Appropriate,Follows Commands : Bolus Consistencies [place] Thick Liquids,Honey Think Liquids,Pudding,Puree Trialed: MBSS Observations Consistency & Strategy Trial Puree Full Spoon Penetration/ 6 Aspiration Scale PAS Amount Gross Pharyngeal Residual 50-90% Puree Half Spoon Penetration/ 5 Aspiration Scale PAS Amount Gross Pharyngeal Residual 50-90% Pudding Full Spoon Penetration/ 6 Aspiration Scale PAS Amount Gross Pharyngeal Residual 50-90% Pudding Half Spoon Penetration/ 4 Aspiration Scale PAS Amount Gross Pharyngeal Residual 10-49% Honey Spoon Full Penetration/ 5 Aspiration Scale PAS Amount Gross Pharyngeal Residual 10-49% [place] Spoon Full Penetration/ 6 Aspiration Scale PAS Amount Gross Pharyngeal Residual 50-90% Mod Barium Swallow Impressions Oral Phase Summary & Impressions Oral Phase: Moderate Impairment Impression Oral Phase: Labial Moderate Impairment Closure Oral Phase: Bolus Moderate Impairment Formation Pooling L/ R Oral Phase: Bolus Moderate Impairment Formation Under Tongue Oral Phase: Bolus Moderate Impairment Formation Scattered Loss Oral Phase: Moderate Impairment Mastication Lateralization Oral Phase: Lingual Moderate Impairment Movement Oral Phase: Residue Moderate Impairment Clearing Oral Phase: Other Mastication not observed 2' no solid trials Observations Oral Phase: Summary Moderate impairment of oral preparatory and oral transit phases of the swallow. Pt demonstrates oral withholding, increased latency with initiation of the swallow, poor bolus manipulation, scattered loss of bolus under tongue with significant residual observed on the tongue and throughout oral cavity. Pharyngeal Phase Summary & Impressions Pharyngeal Phase: Severe Impairment Impression Pharyngeal Phase: A/ Severe Impairment P Lingual Propulsion Spills Pharyngeal Phase: Severe Impairment Swallow Response Delay Pharyngeal Phase: Severe Impairment Base of Tongue Pharyngeal Phase: Severe Impairment Epiglottic Coverage Pharyngeal Phase: Severe Impairment Laryngeal Elevation Pharyngeal Phase: Severe Impairment Vallecular Retention Clearing Pharyngeal Phase: Moderate Impairment Pharyngeal Wall Residue Clearing Pharyngeal Phase: Moderate Impairment Piriform Sinus Retention Pharyngeal Phase: Severe impairment of the pharyngeal phase of the Summary swallow. Pt had significant residual throughout the laryngeal vestibule across all consistencies. Augustus residual observed in vallecular space across all consistencies trialed (honey/nectar/pudding/puree) that he was unable to clear when given 1:1 cues to produce double swallow 2' mentation and difficulty following directions. Empty spoon presentation also failed in facilitating a double swallow to clear residuals. Decreased epiglottic coverage observed 2' reduced hyolaryngeal excursion resulting in penetration and/or aspiration of consistencies at times. Given observations made throughout MBSS, safest recommendation is NPO, however, safest PO option is puree/thins with an education on the residuals present during meals and risk of aspiration. He will require assistance during meals with 1:1 prompting for double swallows. Pt required suction to clear residuals from laryngeal vestibule as he was not able to clear independently putting him at higher risk for aspiration . Aspiration Aspiration? Yes Degree of Aspiration Medium : When Aspirated: During the swallow Silent Aspiration? Inconsistent SENIOR PHYSICIAN MBSS Goals Education Instructions Discussed MBSS results and multiple diet provided recommendations (clinically safest being NPO/safest PO option for QOL or comfort being pureed/honey or thins 2 ' pt tolerance), aspiration risks/precautions, and need for assist with meals including cues required with nursing, pt, and MD all of which expressed understanding. Patient/Caregiver Able to recall/restate Able to Recall Information Reinforcement needed No PHYSICIAN CERTIFICATION: I certify the specified therapy services for Jovon You are required, authorized, and reviewed every 30 days.
== END 2025-03-31 23:59 | disposition home or self-care (01) ==
LOC: RAD 10:59
PROVIDERS: PCP Family Medicine; Visit Provider Family Medicine
DX: R13.10 Dysphagia, unspecified (principal)
CPT/HCPCS: 74230; 92611

== ENCOUNTER 2025-04-08 08:26 | Outpatient (CLI) | payer MEDICARE, MEDICAID, SELFPAY ==
--- NOTE | 2025-04-08 08:30 | FL_ITS ---
FINAL REPORT CLINICAL HISTORY: Regurgitation/vomit appearance of gastric volvulus ft: 2:18 783.10 dap FINDINGS: UPPER GI EXAM HISTORY: . Possible gastric volvulus. PROCEDURE: The patient ingested barium. Spot and overhead films were obtained. FINDINGS: The esophagus is normal. There is a large hiatal hernia with the entirety of the stomach above the diaphragm organoaxial rotation of the stomach. The patient was only able to take 2 small drinks of contrast and refused to drink further contrast. While contrast reached the pylorus contrast was never passed beyond the diaphragm. The patient was also unable to be positioned for better imaging. A gastric volvulus is felt unlikely secondary to air in both large and small bowel. However, and intermittent gastric volvulus cannot be excluded. Consider CT for further evaluation. Fluoroscopy time: 2 minutes 18 seconds Fluoro dose: 783.10 DAP in uGym2 IMPRESSION: Limited study for reasons as above demonstrating a large hiatal hernia with organoaxial rotation of the stomach which is entirely above the diaphragm. A gastric volvulus is considered unlikely but intermittent volvulus is not entirely excluded. Consider CT for further evaluation. Films reviewed , interpreted and dictated by Dr. Goode. Transcribed by Wesley Mendoza PA-C. Reviewed, Interpreted and Dictated by Esteban Goode MD Transcribed by SUNNY Muhammad Authenticated and [facility]
[2025-04-08] MEDS: BARIUM SULFATE(LIQUID E-Z-PAQUE);355ML BOTTLE 355 ML PO (09:03)
== END 2025-04-08 23:59 | disposition home or self-care (01) ==
LOC: RAD 08:27
PROVIDERS: PCP Family Medicine; Visit Provider Internal Medicine Gastroenterology
DX: K44.9 Diaphragmatic hernia without obstruction or gangrene (principal); K31.89 Other diseases of stomach and duodenum
CPT/HCPCS: 74220; 74240